=== PATIENT | male | born 1955 | race Caucasian/White ===

== ENCOUNTER → 2016-09-09 | Outpatient (CLI) | payer MEDICARE, BC ==
[2016-09-09 10:51] LABS: ALT 32 U/L (21-72); AST 22 U/L (17-59); Alkaline Phosphatase 47 U/L (38-126); Anion Gap 13 mmol/L; Blood Urea Nitrogen 11 mg/dL (9-20); Calcium 9.3 mg/dL (8.4-10.2); Carbon Dioxide 26 mmol/L (22-30); Chloride 102 mmol/L (98-107); Glucose 120 mg/dL (74-99); Non-African American GFR(MDRD) >60 (>60 ml/min/1.73 sqM); Potassium 4.9 mmol/L (3.5-5.1); Sodium 141 mmol/L (137-145); Total Bilirubin 0.7 mg/dL (0.2-1.3); Total Protein 7.3 g/dL (6.3-8.2)
[2016-09-23 12:44] LABS: Mis test requested (Blood) ApoE Genotype
== END | disposition home or self-care (01) ==
LOC: LABWHC1 09:53
PROVIDERS: ATTEND Nurse Practitioner Acute Care
DX: E55.9 Vitamin D deficiency, unspecified (principal); R41.3 Other amnesia
CPT/HCPCS: 36415; 80053; 81401; 82306

== ENCOUNTER 2017-11-03 04:32 | Observation (INO) | payer MEDICARE, BC ==
[2017-11-03 04:46] VITALS: TEMP 97.6
--- NOTE | 2017-11-03 05:31 | ED ---
General Adult HPI - General Chief complaint: Neuro Symptoms/Deficit Stated complaint: Near-syncope Time Seen by Provider: 11/03/17 05:15 Source: patient, family, EMS, RN notes reviewed Mode of arrival: EMS Limitations: no limitations - History of Present Illness Initial comments: Patient is a pleasant 62-year-old male presenting to the emergency department for possible syncopal episode. Patient states he became shaky and then very sweaty. Patient did not feel well and went to the bathroom. Patient did fall down. Patient does not recall what may have happened for a second or so. Patient states it is possible that he may have passed out. Following this patient started to feel normal and feels fine at this time. No history of similar symptoms previously. No confusion except possibly during the episode for a second. No isolated area of weakness. - Related Data Allergies Allergy/AdvReac Type Severity Reaction Status Date / Time No Known Allergies Allergy Verified 11/03/17 04:46 Review of Systems ROS Statement: Those systems with pertinent positive or pertinent negative responses have been documented in the HPI. ROS Other: All systems not noted in ROS Statement are negative. Constitutional: Denies: fever Eyes: Denies: eye pain ENT: Denies: ear pain Respiratory: Denies: cough Cardiovascular: Denies: chest pain Endocrine: Denies: fatigue Gastrointestinal: Denies: abdominal pain Genitourinary: Denies: dysuria Musculoskeletal: Denies: back pain Skin: Denies: rash Neurological: Denies: headache, weakness, confusion Past Medical History Past Medical History: No Reported History, CVA/TIA History of Any Multi-Drug Resistant Organisms: None Reported Past Surgical History: Orthopedic Surgery Additional Past Surgical History / Comment(s): knee surgery Past Psychological History: No Psychological Hx Reported Smoking Status: Current every day smoker Past Alcohol Use History: Daily Past Drug Use History: None Reported General Exam Limitations: no limitations General appearance: alert, in no apparent distress Head exam: Present: atraumatic Eye exam: Present: normal appearance, PERRL, EOMI. Absent: nystagmus ENT exam: Present: normal oropharynx Neck exam: Present: normal inspection Respiratory exam: Present: normal lung sounds bilaterally Cardiovascular Exam: Present: regular rate, normal rhythm Expanded Peripheral pulses: 2+: Radial (R), Radial (L), Dorsalis Pedis (R), Dorsalis Pedis (L) GI/Abdominal exam: Present: soft. Absent: distended, tenderness, pulsatile mass Extremities exam: Present: normal inspection. Absent: pedal edema, calf tenderness Neurological exam: Present: alert, oriented X3, CN II-XII intact. Absent: motor sensory deficit Expanded Neurological exam: Present: protecting the airway Patient oriented to: Present: person, place, time Speech: Present: fluid speech Cranial nerves: EOM's Intact: Normal, Facial Sensation: Normal Cerebellar function: Finger to Nose: Normal Sensory exam: Upper Extremity Light Touch: Normal, Lower Extremity Light Touch: Normal Motor strength exam: RUE: 5, LUE: 5, RLE: 5, LLE: 5 Eye Response: (4) open spontaneously Motor Response: (6) obeys commands Verbal Response: (5) oriented Psychiatric exam: Present: normal affect, normal mood Skin exam: Present: normal color Course Vital Signs 11/03/17 11/03/17 04:41 06:30 Temperature 97.6 F Pulse Rate 55 L 58 L Respiratory 18 17 Rate Blood Pressure 233/100 171/79 O2 Sat by Pulse 99 98 Oximetry EKG Findings - EKG Comments: EKG Findings:: Sinus bradycardia 53. DC 138. QRS 86. QT 456. QTc 427. Normal axis. Normal QRS. No acute ST change. Medical Decision Making - Medical Decision Making Patient reevaluated and resting comfortably in bed. Patient and family updated on results and plan. Case was discussed in detail with Dr. Boykin, who will admit for hospital call - Lab Data Result diagrams: 11/03/17 04:48 11/03/17 04:48 Lab Results 11/03/17 11/03/17 11/03/17 Range/Units 04:48 04:48 04:48 WBC 6.5 (3.8-10.6) k/uL RBC 4.62 (4.30-5.90) m/uL Hgb 14.6 (13.0-17.5) gm/dL Hct 42.8 (39.0-53.0) % MCV 92.6 (80.0-100.0) fL MCH 31.7 (25.0-35.0) pg MCHC 34.2 (31.0-37.0) g/dL RDW 13.2 (11.5-15.5) % Plt Count 264 (150-450) k/uL Neutrophils % 63 % Lymphocytes % 25 % Monocytes % 5 % Eosinophils % 5 % Basophils % 1 % Neutrophils # 4.1 (1.3-7.7) k/uL Lymphocytes # 1.6 (1.0-4.8) k/uL Monocytes # 0.3 (0-1.0) k/uL Eosinophils # 0.3 (0-0.7) k/uL Basophils # 0.0 (0-0.2) k/uL PT (9.0-12.0) sec INR (<1.2) APTT (22.0-30.0) sec Sodium 143 (137-145) mmol/L Potassium 4.8 (3.5-5.1) mmol/L Chloride 107 (98-107) mmol/L Carbon Dioxide 26 (22-30) mmol/L Anion Gap 10 mmol/L BUN 14 (9-20) mg/dL Creatinine 0.77 (0.66-1.25) mg/dL Est GFR (CKD-EPI)AfAm >90 (>60 ml/min/1.73 sqM) Est GFR (CKD-EPI)NonAf >90 (>60 ml/min/1.73 sqM) Glucose 89 (74-99) mg/dL Calcium 8.7 (8.4-10.2) mg/dL Magnesium 1.8 (1.6-2.3) mg/dL Total Bilirubin 0.3 (0.2-1.3) mg/dL AST 24 (17-59) U/L ALT 21 (21-72) U/L Alkaline Phosphatase 49 (38-126) U/L Total Creatine Kinase 40 L (55-170) U/L CK-MB (CK-2) 0.9 (0.0-2.4) ng/mL CK-MB (CK-2) Rel Index 2.3 Troponin I <0.012 (0.000-0.034) ng/mL Total Protein 6.4 (6.3-8.2) g/dL Albumin 3.8 (3.5-5.0) g/dL 11/03/17 Range/Units 04:48 WBC (3.8-10.6) k/uL RBC (4.30-5.90) m/uL Hgb (13.0-17.5) gm/dL Hct (39.0-53.0) % MCV (80.0-100.0) fL MCH (25.0-35.0) pg MCHC (31.0-37.0) g/dL RDW (11.5-15.5) % Plt Count (150-450) k/uL Neutrophils % % Lymphocytes % % Monocytes % % Eosinophils % % Basophils % % Neutrophils # (1.3-7.7) k/uL Lymphocytes # (1.0-4.8) k/uL Monocytes # (0-1.0) k/uL Eosinophils # (0-0.7) k/uL Basophils # (0-0.2) k/uL PT 10.4 (9.0-12.0) sec INR 1.1 (<1.2) APTT 19.9 L (22.0-30.0) sec Sodium (137-145) mmol/L Potassium (3.5-5.1) mmol/L Chloride (98-107) mmol/L Carbon Dioxide (22-30) mmol/L Anion Gap mmol/L BUN (9-20) mg/dL Creatinine (0.66-1.25) mg/dL Est GFR (CKD-EPI)AfAm (>60 ml/min/1.73 sqM) Est GFR (CKD-EPI)NonAf (>60 ml/min/1.73 sqM) Glucose (74-99) mg/dL Calcium (8.4-10.2) mg/dL Magnesium (1.6-2.3) mg/dL Total Bilirubin (0.2-1.3) mg/dL AST (17-59) U/L ALT (21-72) U/L Alkaline Phosphatase (38-126) U/L Total Creatine Kinase (55-170) U/L CK-MB (CK-2) (0.0-2.4) ng/mL CK-MB (CK-2) Rel Index Troponin I (0.000-0.034) ng/mL Total Protein (6.3-8.2) g/dL Albumin (3.5-5.0) g/dL - Radiology Data Radiology results: report reviewed (Computed tomography scan of the brain shows no acute findings. extensive right sided encephalomalacia from previous infarct. ), image reviewed (Two-view chest x-ray shows no acute process.) Disposition Clinical Impression: Syncope Disposition: ADMITTED IP TO THIS HOSP Referrals: None,Stated [Primary Care Provider] - 1-2 days Decision Time: 06:33
--- NOTE | 2017-11-03 05:46 | XR ---
EXAM: XR Chest, 2 Views CLINICAL HISTORY: ITS.REASON XR Reason: syncope TECHNIQUE: Frontal and lateral views of the chest. COMPARISON: No relevant prior studies available. FINDINGS: Lungs: Hyperinflated lungs and flattened diaphragms suggest emphysematous changes. Pleural space: Unremarkable. No pneumothorax. Heart: Unremarkable. No cardiomegaly. Mediastinum: Unremarkable. Bones/joints: Unremarkable. IMPRESSION: No acute findings. Emphysematous changes.
[2017-11-03 05:48] LABS: Basophils % (A) 1 %; Eosinophils # (A) 0.3 k/uL (0-0.7); Eosinophils % (A) 5 %; HCT 42.8 % (39.0-53.0); HGB 14.6 gm/dL (13.0-17.5); Lymphocytes # (A) 1.6 k/uL (1.0-4.8); Lymphocytes % (A) 25 %; MCH 31.7 pg (25.0-35.0); MCHC 34.2 g/dL (31.0-37.0); MCV 92.6 fL (80.0-100.0); Mean Platelet Volume 7.5; Monocytes # (A) 0.3 k/uL (0-1.0); Monocytes % (A) 5 %; Neutrophils # (A) 4.1 k/uL (1.3-7.7); Neutrophils % (A) 63 %; Platelet Count 264 k/uL (150-450); RBC 4.62 m/uL (4.30-5.90); RDW 13.2 % (11.5-15.5); WBC 6.5 k/uL (3.8-10.6)
[2017-11-03 05:56] LABS: INR 1.1 (<1.2); Prothrombin Time 10.4 sec (9.0-12.0)
[2017-11-03 05:57] LABS: ALT 21 U/L (21-72); AST 24 U/L (17-59); Albumin 3.8 g/dL (3.5-5.0); Alkaline Phosphatase 49 U/L (38-126); Anion Gap 10 mmol/L; Blood Urea Nitrogen 14 mg/dL (9-20); Calcium 8.7 mg/dL (8.4-10.2); Carbon Dioxide 26 mmol/L (22-30); Chloride 107 mmol/L (98-107); Glucose 89 mg/dL (74-99); Magnesium 1.8 mg/dL (1.6-2.3); Potassium 4.8 mmol/L (3.5-5.1); Sodium 143 mmol/L (137-145); Total Bilirubin 0.3 mg/dL (0.2-1.3); Total Protein 6.4 g/dL (6.3-8.2)
[2017-11-03 06:01] LABS: Creatine Kinase 40 U/L (55-170)
[2017-11-03 06:08] LABS: Partial Thromboplastin Time 19.9 sec (22.0-30.0)
[2017-11-03 06:13] LABS: Creatine Kinase MB 0.9 ng/mL (0.0-2.4); Troponin I <0.012 ng/mL (0.000-0.034)
--- NOTE | 2017-11-03 06:16 | CT ---
EXAM: CT Head Without Intravenous Contrast CLINICAL HISTORY: Reason: syncope TECHNIQUE: Axial computed tomography images of the head/brain without intravenous contrast. CTDI is 60.3 mGy and DLP is 1090.4 mGy-cm. This CT exam was performed using one or more of the following dose reduction techniques: automated exposure control, adjustment of the mA and/or kV according to patient size, and/or use of iterative reconstruction technique. Coronal and sagittal reformatted images were created and reviewed. COMPARISON: No relevant prior studies available. FINDINGS: Brain: Extensive right-sided encephalomalacia from previous MCA territory infarct with involvement of the right frontal and parietal lobes. No hemorrhage. No mass effect or edema. No definite evolving territorial infarction. Ventricles: Ex vacuo dilatation of the right lateral ventricle. Bones/joints: Unremarkable. No acute fracture. Soft tissues: Unremarkable. Sinuses: Right sphenoid sinus mucous retention cysts. Mild mucosal thickening of the ethmoid air cells. Left frontal sinus mucous retention cyst. Mastoid air cells: Unremarkable as visualized. No mastoid effusion. IMPRESSION: No acute findings. Extensive right-sided encephalomalacia from previous MCA territory infarct with involvement of the right frontal and parietal lobes.
[2017-11-03] MEDS ORDERED: NALOXONE 0.4 MG/ML 1 ML VIAL IV PRN (06:33)
[2017-11-03] MEDS ORDERED: SODIUM CHLORIDE 0.9% 1,000 ML IV SCH (06:45)
[2017-11-03 06:47] LABS: Appearance,Urine Clear (Clear); Bilirubin,Urine Negative (Negative); Blood,Urine Negative (Negative); Color,Urine Yellow; Glucose,Urine (UA) Negative (Negative); Ketones,Urine Trace (Negative); Leukocyte Esterase,Urine Negative (Negative); Nitrite,Urine Negative (Negative); PH, Urine 5.5 (5.0-8.0); Protein,Urine Negative (Negative); Specific Gravity,Urine 1.012 (1.001-1.035); Urobilinogen,Urine <2.0 mg/dL (<2.0)
[2017-11-03] MEDS ORDERED: LORazepam 2 MG/ML INJ IV PRN ×3 (08:30)
[2017-11-03] MEDS ORDERED: NICOTINE POLACRILEX 2 MG GUM BUCCAL PRN (08:30)
[2017-11-03 08:32] LABS: Amphetamine Screen,Urine Not Detected (NotDetected); Barbiturate Screen,Urine Not Detected (NotDetected); Benzodiazepines Screen,Urine Not Detected (NotDetected); Cocaine Screen,Urine Not Detected (NotDetected); Methadone Screen, Urine Not Detected (NotDetected); Opiate Screen,Urine Not Detected (NotDetected); Oxycodone Screen, Urine Not Detected (NotDetected); Phencyclidine Screen,Urine Not Detected (NotDetected); Tricyclic Antidepressant,Urine Not Detected (NotDetected); Urn Cannabinoid Scrn Not Detected (NotDetected)
--- NOTE | 2017-11-03 09:47 | ECHOF ---
Referral Reason:syncope MEASUREMENTS -------- HEIGHT: 165.1 cm WEIGHT: 50.8 kg BP: 171/79 IVSd: 0.8 cm (0.6 - 1.1) LVIDd: 3.7 cm (3.9 - 5.3) LVPWd: 1.1 cm (0.6 - 1.1) IVSs: 1.6 cm LVIDs: 1.7 cm LVPWs: 1.4 cm Ao Diam: 3.6 cm (2.0 - 3.7) AV Cusp: 1.9 cm (1.5 - 2.6) LA Diam: 2.9 cm (2.7 - 3.8) MV EXCURSION: 25.683 mm (> 18.000) MV EF SLOPE: 138 mm/s (70 - 150) EPSS: 0.5 cm MV E John: 0.67 m/s MV DecT: 213 ms MV A John: 0.72 m/s MV E/A Ratio: 0.92 RAP: 5.00 mmHg RVSP: 9.49 mmHg FINDINGS -------- Sinus rhythm. This was a technically adequate study. The left ventricular size is normal. Left ventricular wall thickness is normal. Overall left vent ricular systolic function is normal with, an EF between 55 - 60 %. The right ventricle is normal in size and function. The left atrium is normal in size. The right atrium is normal in size. The aortic valve is trileaflet, and appears structurally normal. No aortic stenosis or regurgitation. The mitral valve leaflets are mildly thickened. There is trace mitral regurgitation. Trace tricuspid regurgitation present. The right ventricular systolic pressure, as measured by Dopp ler, is 9.49mmHg. Pulmonic valve appears structurally normal. The aortic root size is normal. Normal inferior vena cava with normal inspiratory collapse consistent with estimated right atrial pre ssure of 5 mmHg. The pericardium is normal. CONCLUSIONS -------- 1. Sinus rhythm. 2. This was a technically adequate study. 3. The left ventricular size is normal. 4. Left ventricular wall thickness is normal. 5. Overall left ventricular systolic function is normal with, an EF between 55 - 60 %. 6. The right ventricle is normal in size and function. 7. The left atrium is normal in size. 8. The right atrium is normal in size. 9. The aortic valve is trileaflet, and appears structurally normal. No aortic stenosis or regurgitati on. 10. The mitral valve leaflets are mildly thickened. 11. There is trace mitral regurgitation. 12. Trace tricuspid regurgitation present. 13. The right ventricular systolic pressure, as measured by Doppler, is 9.49mmHg. 14. Pulmonic valve appears structurally normal. 15. The aortic root size is normal. 16. Normal inferior vena cava with normal inspiratory collapse consistent with estimated right atrial pressure of 5 mmHg. 17. The pericardium is normal. STANDARDS ENGINEER: Donita Durán RDCS
--- NOTE | 2017-11-03 11:09 | P.HPIM ---
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 On arrival to the emergency department he was hypertensive with a blood pressure of 233/110. Initial laboratory analysis was unremarkable. EKG showed sinus bradycardia at a rate of [address]-T wave changes. He underwent a chest x-ray which showed no acute process and a CT of the head which showed right encephalomalacia secondary to prior MCA CVA. He was admitted for observation. Patient seen and examined at bedside. He states that he was awake early this morning at 3 AM. He was sitting at breakfast table and drinking coffee when he got diaphoretic and nauseous. He felt as though he needed to throw up and proceeded to go to the bathroom. The next thing he remembers is waking up on the bathroom floor. His heard a big thud from the other room. She helped him walk to the kitchen where he was shaky and diaphoretic. She then called EMS. He denies any chest pain, shortness of breath, lightheadedness, or dizziness. He states he has never had an episode like this before. He does typically drink 8 beers daily and to RUM and Cokes however he admits to drinking significantly more night before this. He has known carotid artery disease and follows with Dr. Dumont. He states he recently had a carotid Doppler performed which he states was unchanged from 6 months prior. He follows with Dr. Dumont every 6 months. He also follows the nurse practitioner Dr. Joseph's office secondary to history and she has been on Aricept and simvastatin. He has also been taking a daily baby aspirin and vitamin D. He has not had any recent illnesses. He has not had any recent changes since in his medications. He denies any significant joint pain, weakness, or limited range of motion after fall. Review of Systems General: no fever/chills, no rigors, no weight loss/weight gain, no unusual fatigue Eyes: no noticeable visual changes, no loss of vision ENT: no rhinorrhea, no congestion, no sore throat Cardiovascular: no chest pain, no palpitations, no preyncope, +syncope, no edema Pulmonary: no shortness of breath, no wheezing, no cough Abdominal: no abdominal pain, no constipation, no diarrhea, no vomiting, no nausea Genitourinary: no dysuria, no urinary frequency, no unusual discharge/odor Neuro: no unusual paresthesias, no unusual paresis/paralysis, no headache Dermatologic: no unusual rashes, no unusual lesions, no unusual changes in nails Hematologic: no hemoptysis, no hematuria, no melena/hematochezia Psychiatric: no changes in mood or behaviors, no changes in sleep pattern Past Medical History Past Medical History: CVA/TIA, Hyperlipidemia History of Any Multi-Drug Resistant Organisms: None Reported Past Surgical History: Orthopedic Surgery Additional Past Surgical History / Comment(s): knee surgery for knee cap Past Psychological History: No Psychological Hx Reported Smoking Status: Current every day smoker Past Alcohol Use History: Daily, Heavy Past Drug Use History: None Reported Additional History: Lives with , retired, no assistive devices - Past Family History Mother Family Medical History: Cancer Additional Family Medical History / Comment(s): from Ovarian cancer Father Family Medical History: Cancer Additional Family Medical History / Comment(s): from Colon Cancer Medications and Allergies Home Medications Medication Instructions Recorded Confirmed Type Aspirin EC [Ecotrin] 325 mg PO HS 11/03/17 11/03/17 History Cholecalciferol [Vitamin D3] 1,000 unit PO HS 11/03/17 11/03/17 History Donepezil [Aricept] 10 mg PO HS 11/03/17 11/03/17 History Simvastatin [Zocor] 20 mg PO HS 11/03/17 11/03/17 History Allergies Allergy/AdvReac Type Severity Reaction Status Date / Time No Known Allergies Allergy Verified 11/03/17 07:27 Physical Exam Osteopathic Statement: *. No significant issues noted on an osteopathic structural exam other than those noted in the History and Physical/Consult. Vitals: Vital Signs Temp Pulse Resp BP Pulse Ox 11/03/17 06:30 58 L 17 171/79 98 11/03/17 04:41 97.6 F 55 L 18 233/100 99 Intake and Output 11/02/17 11/03/17 11/03/17 22:59 06:59 14:59 Other: Weight 50.802 kg General: non toxic, no distress, appears at stated age, cachectic Derm: no unusual rashes/lesions no unusual ecchymoses, warm, dry Head: atraumatic, normocephalic, symmetric Eyes: EOMI, no lid lag, anicteric sclera, pupils equal round reactive to light ENT: Nose and ears atraumatic, no thrush, no pharyngeal erythema Neck: No thyromegaly, no cervical lymphadenopathy, trachea midline, supple Mouth: no lip lesion, mucus membranes moist Cardiovascular: S1S2 reg, no murmur, positive posterior tibial pulse bilateral, no edema, capillary refill less than 2 seconds Lungs: CTA bilateral, no rhonchi, no rales , no accessory muscle use Abdominal: soft, nontender to palpation, no guarding, no appreciable organomegaly, normal bowel sounds Ext: no gross muscle atrophy and right upper extremity/right lower extremity/ left lower extremity, minimal muscle atrophy and left upper extremity, muscle strength 5 out of 5 in right upper extremity right lower extremity and left lower extremity, 4 out of 5 in left upper extremity, no contractures, Neuro: CN II-XI grossly intact, light touch intact all 4 extremities, finger to nose within normal limits, Psych: Alert, oriented, appropriate affect Results CBC & Chem 7: 11/03/17 04:48 11/03/17 04:48 Labs: Abnormal Lab Results - Last 24 Hours (Table) 11/03/17 11/03/17 11/03/17 Range/Units 04:48 04:48 06:36 APTT 19.9 L (22.0-30.0) sec Total Creatine Kinase 40 L (55-170) U/L Urine Ketones Trace H (Negative) Comments: EKG is reviewed by myself reveals sinus bradycardia at a rate of [address]-T wave changes, chest x-ray is reviewed by myself reveals no acute findings but chronic emphysematous changes. Chest x-ray: report reviewed, image reviewed CT Scan - head: report reviewed Thrombosis Risk Factor Assmnt - DVT/VTE Prophylaxis DVT/VTE Prophylaxis: Low risk, early ambulation encouraged Assessment and Plan Assessment: Syncopal event -Telemetry -Echocardiogram ordered-is already resulted and within normal limits -Await results of carotid Dopplers Dr. Dumont's office -Suspect secondary to alcohol use Alcohol abuse with impending delirium tremens -C1 protocol -Scheduled Librium -Thiamine Tobacco abuse -Cessation recommended -Nicotine replacement Dyslipidemia -Statin therapy Accelerated hypertension -Follow blood pressures -Anticipate secondary to anxiety from being hospitalized Prior stroke with residual left-sided deficits -Continue statin and aspirin -Physical therapy consultation Anticipate discharge this afternoon if no significant events on telemetry for 12 hours. Patient already asking to go home. If he wants to lose significantly before this and will likely have to be AGAINST MEDICAL ADVICE as there is some concern for an arrhythmia. Surrogate decision-maker: -Dianne CODE STATUS: Full DVT prophylaxis: SCDs Discussed with: Patient, , RN, nighttime hospitalist Anticipated discharge: Less than [address]: home A total of 55 minutes was spent on the care of this complex patient more than 50 % of the time was spent in counseling and care coordination.
[2017-11-03 11:58] LABS: Creatine Kinase 40 U/L (55-170)
[2017-11-03] MEDS ORDERED: MULTIVITAMINS, THERA 1 EACH TAB PO SCH (12:00)
[2017-11-03] MEDS ORDERED: THIAMINE 100 MG TAB PO SCH (12:00)
[2017-11-03 12:09] LABS: Creatine Kinase MB 0.9 ng/mL (0.0-2.4); Troponin I <0.012 ng/mL (0.000-0.034)
[2017-11-03 13:37] VITALS: RESP 16
--- NOTE | 2017-11-03 16:06 | P.DS ---
Providers Date of admission: 11/03/17 06:33 Expected date of discharge: 11/03/17 Attending physician: Brian Boykin MD Consults: 11/03/17 06:34 Consult Physician Urgent Consulting Provider: Jesse Kelly Consult Reason/Comments: syncope Do you want consulting provider notified?: Yes 11/03/17 06:35 Consult Physician Urgent Consulting Provider: Rafael Joseph Consult Reason/Comments: syncope Do you want consulting provider notified?: Yes Primary care physician: Stated None - Discharge Diagnosis(es) (1) Syncope Current Visit: Yes Status: Acute (2) Alcohol use disorder, mild, abuse Current Visit: Yes Status: Acute (3) Hypertensive urgency Current Visit: Yes Status: Acute (4) Tobacco abuse Current Visit: Yes Status: Acute (5) Dyslipidemia Current Visit: Yes Status: Acute (6) Carotid arterial disease Current Visit: Yes Status: Acute Hospital Course: Patient is a 62-year-old male with a significant medical history of large right-sided MCA CVA with minimal residual left upper extremity weakness, dyslipidemia, carotid disease, peripheral arterial disease, and alcohol use who presented to the ED via EMS with a syncopal episode. On arrival to the emergency department he was hypertensive with a blood pressure of 233/110. Initial laboratory analysis was unremarkable. EKG showed sinus bradycardia at a rate of [address]-T wave changes. He underwent a chest x-ray which showed no acute process and a CT of the head which showed right encephalomalacia secondary to prior MCA CVA. He was admitted for observation. his blood pressure came down without significant intervention. He has been following with Dr. Dumont of vascular surgery and had a carotid ultrasound done recently. The were able to obtain records which showed a chronically occluded left internal carotid artery and stenosis of 16-49 percent of the right internal carotid artery. He was monitored on telemetry without any significant events. He also had an echocardiogram performed which did not showany significant disease. He was feeling back to his normal self. He was determined stable for discharge home. He did not have any medications adjusted. He had not been seeing a primary care provider in quite some time and was given information for Dr. Sony oscar office. A total of 20 minutes of time were spent preparing this complex discharge summary . Pertinent Studies: echocardiogram-preserved ejection fraction of 55-60%, Patient Condition at Discharge: Stable Plan - Discharge Summary Discharge Rx Participant: No New Discharge Prescriptions: Continue Simvastatin [Zocor] 20 mg PO HS Donepezil [Aricept] 10 mg PO HS Cholecalciferol [Vitamin D3] 1,000 unit PO HS Aspirin EC [Ecotrin] 325 mg PO HS Discharge Medication List Aspirin EC [Ecotrin] 325 mg PO HS 11/03/17 [History] Cholecalciferol [Vitamin D3] 1,000 unit PO HS 11/03/17 [History] Donepezil [Aricept] 10 mg PO HS 11/03/17 [History] Simvastatin [Zocor] 20 mg PO HS 11/03/17 [History] Follow up Appointment(s)/Referral(s): None,Stated [Primary Care Provider] - 1-2 days Sony Oscar MD [STAFF PHYSICIAN] - 1 Week Patient Instructions/Handouts: Syncope (DC) Activity/Diet/Wound Care/Special Instructions: Regular diet Activity as tolerated Return to seek medical advice if you have another syncopal episode, develop chest pain or shortness of breath Cut down on alcohol consumption Discharge Disposition: HOME SELF-CARE
[2017-11-03 16:09] VITALS: BP 155/80; PULSE 64
== END 2017-11-03 16:30 | disposition home or self-care (01) ==
LOC: EC 04:32 → 3OBS 06:33
PROVIDERS: ADMIT Family Medicine; ATTEND Family Medicine
DX: R55 Syncope and collapse (principal); I16.0 Hypertensive urgency; I10 Essential (primary) hypertension; I65.23 Occlusion and stenosis of bilateral carotid arteries; I69.354 Hemiplegia and hemiparesis following cerebral infarction affecting left non-dominant side; I73.9 Peripheral vascular disease, unspecified; E78.5 Hyperlipidemia, unspecified; F10.10 Alcohol abuse, uncomplicated; F41.9 Anxiety disorder, unspecified; I69.398 Other sequelae of cerebral infarction; G93.89 Other specified disorders of brain; F17.200 Nicotine dependence, unspecified, uncomplicated; R00.1 Bradycardia, unspecified; Z79.82 Long term (current) use of aspirin; Z79.899 Other long term (current) drug therapy; Z80.0 Family history of malignant neoplasm of digestive organs; Z80.41 Family history of malignant neoplasm of ovary
CPT/HCPCS: 99285 ×2; 36415; 93005; 93306; 80053; 82550; 82553; 83735; 84484; 85025; 85610; 85730; 81003; 80306; 80320; 71046; 70450; G0378

== ENCOUNTER 2021-03-13 07:56 | Emergency (ER) | payer MEDICARE ==
[2021-03-13 08:58] LABS: Partial Thromboplastin Time 22.1 sec (22.0-30.0); Prothrombin Time 10.8 sec (9.0-12.0)
--- NOTE | 2021-03-13 09:01 | XR ---
EXAMINATION TYPE: XR chest 1V portable DATE OF EXAM: 03/13/2021 Comparison: 11/03/2017 Clinical History: 65-year-old male shortness of breath Findings: There is volume loss in the right hemithorax with new moderate to large pleural effusion and extensiv e opacity in the remaining right upper to midlung. Left lung and pleural space are clear. Hyperinflat ion suggests underlying emphysema. Impression: Right-sided volume loss along with a new moderate to large right pleural effusion and extensive patch y opacity throughout the remainder of the upper and mid lung. Correlate for underlying pneumonia or m ass. If a CT is performed, it should be done with contrast.
[2021-03-13 09:11] LABS: ALT 7 U/L (4-49); AST 32 U/L (17-59); African American GFR (CKD) >90 (>60 ml/min/1.73 sqM); Albumin 3.2 g/dL (3.5-5.0); Alkaline Phosphatase 87 U/L (38-126); Anion Gap 8 mmol/L; Blood Urea Nitrogen 10 mg/dL (9-20); Calcium 8.8 mg/dL (8.4-10.2); Carbon Dioxide 28 mmol/L (22-30); Chloride 96 mmol/L (98-107); Glucose 97 mg/dL (74-99); Magnesium 1.8 mg/dL (1.6-2.3); Non-African American GFR(CKD) >90 (>60 ml/min/1.73 sqM); Sodium 132 mmol/L (137-145); Total Bilirubin 0.8 mg/dL (0.2-1.3); Total Protein 6.6 g/dL (6.3-8.2)
[2021-03-13 09:17] LABS: Basophils % (A) 0 %; Eosinophils % (A) 0 %; HCT 40.5 % (39.0-53.0); Lymphocytes % (A) 12 %; MCH 30.2 pg (25.0-35.0); MCHC 32.1 g/dL (31.0-37.0); Mean Platelet Volume 7.7; Monocytes # (A) 0.4 k/uL (0-1.0); Monocytes % (A) 5 %; Neutrophils % (A) 82 %; Platelet Count 419 k/uL (150-450); RBC 4.31 m/uL (4.30-5.90); RDW 14.8 % (11.5-15.5); WBC 8.6 k/uL (3.8-10.6)
[2021-03-13 09:18] LABS: Potassium 4.9 mmol/L (3.5-5.1)
[2021-03-13] MEDS ORDERED: ASPIRIN 81 MG PO STA (10:04)
[2021-03-13] MEDS ORDERED: HEPARIN SODIUM 1,000 UN/ML (10ML VL) IV ONE (10:04)
[2021-03-13] MEDS ORDERED: HEPARIN SODIUM 1,000 UN/ML (10ML VL) IV PRN (10:04)
[2021-03-13] MEDS ORDERED: HEPARIN SOD,PORK IN 0.45% NACL 25,000 UNIT in 0.45% NACL 1 250ML.BAG IV SCH (10:15)
[2021-03-13 10:20] VITALS: BP 108/66; PULSE 74; RESP 18; TEMP 98.6
[2021-03-13] MEDS ORDERED: RX INFO: IV CONTRAST WAS GIVEN 1 EACH MISC MISCELLANE PRN (10:25)
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
== END 2021-03-13 11:10 | disposition left against medical advice (07) ==
LOC: EC 07:56
DX: E87.2 Acidosis (principal); J90 Pleural effusion, not elsewhere classified; I21.4 Non-ST elevation (NSTEMI) myocardial infarction; R09.02 Hypoxemia; I50.9 Heart failure, unspecified; E78.5 Hyperlipidemia, unspecified; F17.200 Nicotine dependence, unspecified, uncomplicated; Z79.82 Long term (current) use of aspirin; Z79.899 Other long term (current) drug therapy; Z86.73 Personal history of transient ischemic attack (TIA), and cerebral infarction without residual deficits
CPT/HCPCS: 36415; 71045; 80053; 83605; 83735; 83880; 84484; 85025; 85610; 85730; 93005; 99285

== ENCOUNTER 2021-03-14 09:34 | Inpatient (IN) | payer MEDICARE ==
[2021-03-14] MEDS ORDERED: ALBUTEROL NEBULIZED 2.5 MG/3 ML INHALATION STA (09:36)
[2021-03-14] MEDS ORDERED: IPRATROPIUM 0.5 MG/2.5 ML NEBU INHALATION STA (09:36)
[2021-03-14] MEDS ORDERED: methylPREDNISolone SOD SUCCI 125 MG/2 ML VIAL IV STA (09:36)
[2021-03-14] MEDS ORDERED: FUROSEMIDE 10 MG/ML 4 ML VIAL IV STA (09:39)
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
[2021-03-14 10:35] LABS: Basophils % (A) 0 %; Eosinophils # (A) 0.1 k/uL (0-0.7); Eosinophils % (A) 0 %; HCT 40.1 % (39.0-53.0); HGB 12.7 gm/dL (13.0-17.5); Hypochromasia Slight; Lymphocytes # (A) 0.9 k/uL (1.0-4.8); Lymphocytes % (A) 5 %; MCH 29.9 pg (25.0-35.0); MCHC 31.6 g/dL (31.0-37.0); MCV 94.6 fL (80.0-100.0); Mean Platelet Volume 8.2; Monocytes # (A) 0.6 k/uL (0-1.0); Monocytes % (A) 3 %; Neutrophils # (A) 15.6 k/uL (1.3-7.7); Neutrophils % (A) 90 %; Platelet Count 458 k/uL (150-450); RBC 4.24 m/uL (4.30-5.90); RDW 14.3 % (11.5-15.5); WBC 17.3 k/uL (3.8-10.6)
[2021-03-14 10:41] LABS: INR 1.1 (<1.2); Partial Thromboplastin Time 22.2 sec (22.0-30.0); Prothrombin Time 11.5 sec (9.0-12.0)
--- NOTE | 2021-03-14 10:43 | XR ---
EXAMINATION TYPE: XR chest 1V portable DATE OF EXAM: 03/14/2021 COMPARISON: Chest x-ray from yesterday and November 03, 2017 HISTORY: Shortness of breath TECHNIQUE: Single AP portable frontal view of the chest is obtained. FINDINGS: Persistent right-sided volume loss with mediastinal shift. Persistent small to moderate si ze right pleural fluid collection suspected slightly improved from prior. Apical opacity could reflec t component of pleural effusion versus other etiology. Diffuse right lung infiltrate and/or edema red emonstrated. Left lung remains clear. Cardiac silhouette size likely within normal limits. Silhouette d right heart border redemonstrated. Osseous structures are intact. IMPRESSION: Improved but persistent right-sided pleural effusion. Persistent right lung edema and/or infiltrates. Persistent right-sided volume loss. Underlying obstructive central mass or neoplasm nee ds to be excluded.
[2021-03-14] MEDS ORDERED: RX INFO: IV CONTRAST WAS GIVEN 1 EACH MISC MISCELLANE PRN (10:49)
[2021-03-14] MEDS ORDERED: cefTRIAXone IN SWFI 1,000 MG/10 ML SYRINGE IVP STA (10:50)
[2021-03-14 10:56] LABS: ALT 11 U/L (4-49); AST 32 U/L (17-59); African American GFR (CKD) >90 (>60 ml/min/1.73 sqM); Albumin 3.4 g/dL (3.5-5.0); Alkaline Phosphatase 116 U/L (38-126); Anion Gap 15 mmol/L; Blood Urea Nitrogen 12 mg/dL (9-20); Calcium 8.8 mg/dL (8.4-10.2); Carbon Dioxide 23 mmol/L (22-30); Chloride 96 mmol/L (98-107); Glucose 166 mg/dL (74-99); Magnesium 1.7 mg/dL (1.6-2.3); Non-African American GFR(CKD) >90 (>60 ml/min/1.73 sqM); Sodium 134 mmol/L (137-145); Total Bilirubin 0.4 mg/dL (0.2-1.3); Total Protein 6.6 g/dL (6.3-8.2)
[2021-03-14] MEDS ORDERED: LORazepam 2 MG/ML INJ IV STA (11:13)
[2021-03-14] MEDS ORDERED: LORazepam 2 MG/ML INJ IV PRN (11:14)
[2021-03-14] MEDS ORDERED: THIAMINE 100 MG/ML 2 ML VIAL IM STA (11:14)
[2021-03-14] MEDS ORDERED: IPRATROPIUM-ALBUTEROL 3 ML NEB INHALATION PRN (11:36)
[2021-03-14] MEDS ORDERED: ASPIRIN 325 MG TAB PO STA (11:39)
--- NOTE | 2021-03-14 12:19 | CT ---
EXAMINATION TYPE: CT chest w con DATE OF EXAM: 03/14/2021 COMPARISON: Radiograph same day HISTORY: 65-year-old male right-sided volume loss, effusion, infiltrate, Difficulty breathing TECHNIQUE: Contiguous axial scanning of the chest after the administration of 100 mL of Isovue 300. Coronal/sagittal reconstructions performed. CT DLP: 262mGycm. Automatic exposure control utilized for a dose reduction. FINDINGS: Heart normal size without pericardial effusion. Reflux of contrast into the hepatic veins. Aortic root is ectatic at 3.9 cm. Bovine configuration to the aortic arch. There is a large right paratracheal, precarinal, subcarinal, and right hilar contiguous mass measurin g up to 7.1 cm wide, 10.0 cm craniocaudal and 7.9 cm AP. There is encasement and narrowing of the rig ht main pulmonary artery and its proximal branches, the right superior and inferior pulmonary veins, the mid to lower SVC, right mainstem bronchus. There is cut off of the right upper lobe bronchus and cut off of the bronchus intermedius as well. Resultant right middle lobe collapse. Suspect medial right lower lobe collapse. Secondary volume loss and rightward cardia mediastinal shift. Moderate right pleural effusion. Possible 2.3 cm subpleural mass peripheral right upper lobe, axial image 27. Consolidation in the right upper lobe and right lower lobe, possible postobstructive pneumonia. Left lung and pleural space are clear. The visualized upper abdomen, there are 2 hypodense right liver lobe lesions measuring 4.0 cm each. There is severe plaque and atherosclerotic calcification resulting in cut off of the abdominal aorta just below the renal artery takeoff. Generalized anasarca change. Bones: Breathing motion artifact. No osseous destructive process. IMPRESSION: 1. Large conglomerate mass along the right peritracheal, subcarinal, and right hilar region measuring 10.0 x 7.9 x 7.1 cm. There is encasement of multiple right hilar structures including the mid to low er SVC and cut off of the right upper lobe bronchus and bronchus intermedius. Consider neoplasm such as small cell lung cancer. 2. Right middle lobe collapse, partial medial right lower lobe collapse. Moderate right pleural effus ion with multifocal right-sided infiltrates, probably postobstructive pneumonia. 3. Possible 2.3 cm subpleural metastasis right upper lobe. Two liver lesions measuring 4.0 cm each, s uspicious for metastasis. 4. LERICHE SYNDROME with abdominal aortic OCCLUSION just below the renal artery takeoff.
[2021-03-14] MEDS: methylPREDNISolone SOD SUCCI 125 MG/2 ML VIAL IV SCH ×2 (12:21→20:39)
--- NOTE | 2021-03-14 13:31 | ECHOF ---
Referral Reason:ESTEFANIA MEASUREMENTS -------- HEIGHT: 165.1 cm WEIGHT: 44.9 kg BP: FINDINGS -------- Sinus rhythm. Limited study pt combative and leaving AMA. There is severe global hypokinesis of LV . Overall left ventricular systolic function is severely i mpaired with, an EF < 20%. CONCLUSIONS -------- 1. Limited study pt combative and leaving AMA. 2. There is severe global hypokinesis of LV . 3. Overall left ventricular systolic function is severely impaired with, an EF < 20%. CERTIFIED PATHOLOGY ASSISTANT: Tiara Gonzales RDCS
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
--- NOTE | 2021-03-14 13:40 | P.PCN ---
Date of Procedure: 03/14/21 Operative Findings: Date of Procedure: 03/14/21 Preoperative Diagnosis: right sided pleural effusion Postoperative Diagnosis: right sided pleural effusion Procedure(s) Performed: Thoracentesis Anesthesia: local Surgeon: William Haile Estimated Blood Loss (ml): 0 Condition: stable Disposition: same day Operative Findings: A time out was performed and the chest x-ray was reviewed, the appropriate side was confirmed and marked. My hands were washed immediately prior to the procedure. I wore a surgical cap, mask with protective eyewear, sterile gown and sterile gloves throughout the procedure. The patient was prepped and draped in a sterile manner using chlorhexidine scrub after the appropriate level was percussed and confirmed by ultrasound. 1% lidocaine was used to anesthesize the skin, subcutaneous tissue, superior aspect of the rib periosteum and parietal pleura. A finder needle was then introduced over the superior aspect of the rib to locate the pleural fluid; 2colored fluid was aspirated at a depth of approximately 2 cm. A 10-blade scalpel was used to juwan the skin at the insertion site. The [id number] needle was then introduced through the skin incision into the pleural space using negative aspiration pressure and the red colometric indicator to confirm appropriate positioning of the needle. The thoracentesis catheter was then threaded without difficulty. 800 ml of turbid colored blood tinged fluid was removed without difficulty. The catheter was then removed. No immediate complications were noted during the procedure. A post- procedure chest x-ray is pending at the time of this note. The fluid will be sent for studies. Estimated blood loss is 0cc
--- NOTE | 2021-03-14 13:50 | XR ---
EXAMINATION TYPE: XR chest 1V portable DATE OF EXAM: 03/14/2021 CLINICAL HISTORY: Right-sided thoracentesis progress study. TECHNIQUE: Single AP portable semiupright view of the chest is obtained. COMPARISON: Chest x-ray and CT chest from earlier today FINDINGS: Persistent right-sided volume loss with mediastinal shift. Persistent small to moderate si ze right pleural fluid collection . Apical opacity could consistent with fluid or effusion redemonstr ated. Diffuse right lung infiltrate and/or edema redemonstrated. Left lung remains clear and hyperexp anded. Cardiac silhouette size likely within normal limits. Right hilar masslike prominence redemonst rated. Osseous structures remain demineralized. IMPRESSION: No pneumothorax after right-sided thoracentesis. Right hilar infiltrative mass seen bett er on recent CT.
[2021-03-14] MEDS: IPRATROPIUM-ALBUTEROL 3 ML NEB INHALATION SCH ×3 (15:08→19:13)
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
[2021-03-14] MEDS: LORazepam 2 MG/ML INJ IV PRN ×2 (17:31→22:24)
[2021-03-14] MEDS: PIPERACILLIN-TAZOBACTAM 3.375 GM in SODIUM CHLORIDE 0.9% 100 ML IVPB SCH (18:54)
[2021-03-14] MEDS: THIAMINE 100 MG TAB PO SCH (18:55)
[2021-03-14] MEDS: ASPIRIN 325 MG TAB PO SCH (20:36)
[2021-03-14] MEDS: ATORVASTATIN 10 MG TAB PO SCH (20:36)
[2021-03-14] MEDS: DONEPEZIL 10 MG TAB PO SCH (20:36)
[2021-03-15] MEDS: methylPREDNISolone SOD SUCCI 125 MG/2 ML VIAL IV SCH ×4 (00:30→18:07)
[2021-03-15] MEDS: PIPERACILLIN-TAZOBACTAM 3.375 GM in SODIUM CHLORIDE 0.9% 100 ML IVPB SCH ×3 (03:06→22:35)
[2021-03-15 05:38] LABS: Appearance,BF Cloudy; Color,BF Orange; Nucleated Cells, Body Fluid 560 /uL; RBC, Body Fluid 20000 /uL
[2021-03-15 05:41] LABS: Mononuclear WBC,Body Fluid 98 %; Polynuclear WBC,Body Fluid 2 %; Total Cells Counted,Body Fluid 100
[2021-03-15] MEDS: IPRATROPIUM-ALBUTEROL 3 ML NEB INHALATION SCH ×4 (07:23→20:20)
[2021-03-15] MEDS: THIAMINE 100 MG TAB PO SCH ×2 (08:33→18:07)
[2021-03-15] MEDS: SODIUM CHLORIDE 0.9% 1,000 ML IV SCH ×2 (09:51→22:35)
--- NOTE | 2021-03-15 10:00 | P.PN ---
Subjective Progress Note Date: 03/15/21 This is a 65-year-old male patient who presented emergency department because of severe respiratory distress. The patient was sent from his primary care physician's office for worsening shortness of breath and hypoxemia. He was already identified to have an abnormal chest x-ray with volume loss in the right-sided pleural effusion. He was seen in the emergency department yesterday but he left AGAINST MEDICAL ADVICE to be readmitted again today. He is quite cachectic. He is currently on a BiPAP at a pressure of 14/6 cm of water and FiO2 of 1%. He is awake and alert and communicating. Chest x-ray was reviewed and emergency department and it showed a right-sided pleural effusion. There was also right-sided volume loss and underlying central neoplasm was being considered., Subcarinal and right hilar region measuring 10 x 7.5 x 7.1 cm in size. The mass was encasing the right hilar structures including the medicine the lower SVC and there was a cut off sign Dilaudid of the bronchus intermedius. There was also evidence of right middle lobe collapse, partial medial right lower lobe collapse, moderate right-sided pleural effusion and right-sided infiltrate. There was not of 2.3 cm subpleural area of pleural lesion and 2 liver lesions measuring 4 cm suspicious for metastases. There was also abnormal aortic occlusion just below the renal artery takeoff no swelling in extremities. I saw the patient emergency department. He was in impending respiratory failure. He was on a BiPAP at a pressure of 14/6 cm of water with an FiO2 of 1 sent. Based on that, I did a emergent right-sided thoracentesis to provide this patient some symptomatic relief. 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 He is still a daily alcohol drinker. He drinks alcohol heavily and he is currently a cigarette smoker on a daily basis. He is quite cachectic, emaciated, debilitated, weak, and malnourished. Does not have any headache. No seizure. 03/15/2021, I'm seeing this patient for a follow-up in the intensive care unit. The patient is a ICU overflow. For now, the patient on a BiPAP at a pressure of 14/6 cm of water with an FiO2 of 1. The pulse ox measures and is not aggravated and the blood gases will be needed. The patient is urinating adequate tidal volumes and has a respiratory rate of 16-20. He remains quite lethargic, somnolent yet arousable. Extremely cachectic and emaciated. Hemodynamically stable. As mentioned earlier, a emergent right-sided thoracentesis was done yesterday of the right lung and a total of 800 mL of pleural fluid was aspirated successfully. Nevertheless, the follow-up chest x-ray still showing significant volume loss in the right lung related to his underlying lung mass as the patient has a large mass encasing the right hilar structures and the right mainstem bronchus and the bronchus intermedius. Currently is on bronchodilators and steroids. No fever. No chills. Resting comfortably in bed. Does not communicate a whole lot. Family is not around. Would like to talk to the family regarding treatment. As the patient's prognosis extremely poor baseline above-mentioned comorbidities. Fluid cytology is pending for now. Objective - Vital Signs Vital signs: Vital Signs Temp 97.8 F 03/15/21 08:00 Pulse 89 03/15/21 08:00 Resp 20 03/15/21 08:00 BP 128/82 03/15/21 08:00 Pulse Ox 92 L 03/15/21 08:00 Intake & Output 03/14/21 03/15/21 03/15/21 18:59 06:59 18:59 Weight 44.906 kg - Exam Patient is in mild to moderate degree of respiratory distress even while on a BiPAP. There is a full face BiPAP. He is extremely emaciated. His body weight is 99 pounds and the patient is 5'5 Head exam was generally normal. There was no scleral icterus or corneal arcus. Mucous membranes were moist. Neck was supple and without jugular venous distension, thyromegaly, or carotid bruits. Carotids were easily palpable bilaterally. There was no adenopathy. Lungs sounds are diminished specially in the right lung compared to the left. Overall breath sounds are quite diminished and the patient is scheduled and scattered external wheeze. There is also dullness to percussion on the right. The patient has a barrel chest. The air entry is improved in the right lung specially in the right lung base post thoracentesis. Cardiac exam revealed the PMI to be normally situated and sized. The rhythm was regular and no extrasystoles were noted during several minutes of auscultation. The first and second heart sounds were normal and physiologic splitting of the second heart sound was noted. There were no murmurs, rubs, clicks, or gallops. Abdominal exam revealed normal bowel sounds. The abdomen was soft, non-tender, and without masses, organomegaly, or appreciable enlargement of the abdominal aorta. Examination of the extremities revealed easily palpable radial, femoral and pedal pulses. There was no cyanosis, clubbing or edema. Examination of the skin revealed no evidence of significant rashes, suspicious appearing nevi or other concerning lesions. Neurologically awake alert and there is no focal neurological deficit. He has some tremors and he has global weakness in all 4 extrem - Labs CBC & Chem 7: 03/14/21 09:45 03/14/21 09:45 Labs: Abnormal Lab Results - Last 24 Hours (Table) 03/14/21 03/14/21 03/14/21 Range/Units 09:45 09:45 09:45 WBC 17.3 H (3.8-10.6) k/uL RBC 4.24 L (4.30-5.90) m/uL Hgb 12.7 L (13.0-17.5) gm/dL Plt Count 458 H (150-450) k/uL Neutrophils # 15.6 H (1.3-7.7) k/uL Lymphocytes # 0.9 L (1.0-4.8) k/uL Sodium 134 L (137-145) mmol/L Chloride 96 L (98-107) mmol/L Creatinine 0.65 L (0.66-1.25) mg/dL Glucose 166 H (74-99) mg/dL Plasma Lactic Acid Rusty 4.8 H* (0.7-2.0) mmol/L Troponin I (0.000-0.034) ng/mL Albumin 3.4 L (3.5-5.0) g/dL 03/14/21 03/14/21 03/14/21 Range/Units 09:45 14:17 14:17 WBC (3.8-10.6) k/uL RBC (4.30-5.90) m/uL Hgb (13.0-17.5) gm/dL Plt Count (150-450) k/uL Neutrophils # (1.3-7.7) k/uL Lymphocytes # (1.0-4.8) k/uL Sodium (137-145) mmol/L Chloride (98-107) mmol/L Creatinine (0.66-1.25) mg/dL Glucose (74-99) mg/dL Plasma Lactic Acid Rusty 4.1 H* (0.7-2.0) mmol/L Troponin I 0.183 H* 0.218 H* (0.000-0.034) ng/mL Albumin (3.5-5.0) g/dL 03/14/21 03/14/21 03/14/21 Range/Units 17:59 21:11 23:48 WBC (3.8-10.6) k/uL RBC (4.30-5.90) m/uL Hgb (13.0-17.5) gm/dL Plt Count (150-450) k/uL Neutrophils # (1.3-7.7) k/uL Lymphocytes # (1.0-4.8) k/uL Sodium (137-145) mmol/L Chloride (98-107) mmol/L Creatinine (0.66-1.25) mg/dL Glucose (74-99) mg/dL Plasma Lactic Acid Rusty 3.2 H* 2.9 H* 3.6 H* (0.7-2.0) mmol/L Troponin I (0.000-0.034) ng/mL Albumin (3.5-5.0) g/dL 03/15/21 03/15/21 Range/Units 04:57 08:19 WBC (3.8-10.6) k/uL RBC (4.30-5.90) m/uL Hgb (13.0-17.5) gm/dL Plt Count (150-450) k/uL Neutrophils # (1.3-7.7) k/uL Lymphocytes # (1.0-4.8) k/uL Sodium (137-145) mmol/L Chloride (98-107) mmol/L Creatinine (0.66-1.25) mg/dL Glucose (74-99) mg/dL Plasma Lactic Acid Rusty 3.0 H* 2.2 H* (0.7-2.0) mmol/L Troponin I (0.000-0.034) ng/mL Albumin (3.5-5.0) g/dL Assessment and Plan Plan: 1 metastatic carcinoma most likely of a lung primary. The patient is presenting with a large right paratracheal precarinal and subcarinal mass with hilar extension measuring 7.1 x 10 x 7.9 cm in size and there is extensive mass effect on the bronchus intermedius causing significant narrowing. There is some right lower lobe and right middle lobe atelectatic changes and volume loss in addition to a moderate-sized right-sided pleural effusion. Patient also has hepatic lesions and the presentation is highly suspicious for stage IV metastatic carcinoma of a lung primary. I performed a immediate therapeutic and diagnostic thoracentesis of the right lung and removed a total of 800 mL of pleural fluid yesterday and the emergency department. Fluid cytology still pending for now. Follow-up chest x-ray still showing volume loss on the right and the patient has a large hilar mass encasing the bronchus intermedius and the right mainstem bronchus causing mass effect and narrowing and atelectasis. The patient remains quite lethargic and somnolent yet arousable. 2 acute hypoxic respiratory failure secondary to above. The patient has atelectasis and volume loss involving the right lung including the right middle lobe and right lower lobe and the patient has a large right-sided pleural effusion. A bedside thoracentesis was done under emergency settings . For now, the patient remains on a BiPAP at a pressure of 14/6 cm of water with an FiO2 of 100%. 3 COPD 4 severe debility and significant malnourishment and obvious signs of cachexia and and emaciation and weight loss. Current by the weight is around 90 pounds. 5 acute leukocytosis 6 acute lactic acidosis 7 troponin leak 8 Alcoholism 9 Large right MCA distribution CVA with some residual left-sided weakness 10 Smoking 11Hypertension 12 Hyperlipidemia 13 GERD artery disease 14 Impaired performance and functional spastic and above-mentioned comorbidities 15 Peripheral vascular disease with questionable parathyroid the level of the aorta. Given examination, the patient is not having any significant vascular insufficiency and the patient has diminished pulses in the legs bilaterally. Ever the less, the patient has inguinal pulses 60 lactic acidosis, improving. Plan A bedside thoracentesis was done and a total of 800 mL of blood-tinged fluid was aspirated from the right lung. The fluid will be sent for cytology. Obtain a blood gas this morning and if adequate discontinue the BiPAP bedside the patient on a nasal cannula With the patient combination of bronchodilators and steroids and IV Zosyn for postobstructive pneumonia continue DuoNeb about treatment [id number] continue IV Solu Medrol 60 mg every 6 hours IV fluids at 75 mL an hour normal saline We'll may need to discuss CODE STATUS with this patient. His prognosis extremely poor baseline above-mentioned comorbidities. His performance and functional status also poor. There is also an issue of diminished pulses and cut off sign at the level of the aorta. We'll consult vascular surgery. I would like to discuss this case with the family and establish a CODE STATUS. His condition is extremely critical and he may decompensate at any point in time. I would like to at least establish a DNR/DNI CODE STATUS taken account that the patient has a large metastatic mass in his chest the diagnosis and the final pathologic findings on this medicine still pending for now. Still scheduled to go to the intensive care unit. Had a lengthy discussion with the daughter the bedside and over the phone. We'll switch his CODE STATUS to DNR/DNI. Condition is critical. Prognosis poor. We'll admit to the intensive care units.
[2021-03-15 10:11] LABS: ABG Base Excess 8.1 mmol/L; ABG HCO3 32 mmol/L (21-25); ABG PCO2 43 mmHg (35-45); ABG PH 7.48 (7.35-7.45); ABG PO2 >400 mmHg (83-108); ABG TCO2 33 mmol/L (19-24); Allen Test Performed? Yes
--- NOTE | 2021-03-15 17:28 | P.PN ---
Subjective Progress Note Date: 03/15/21 Principal diagnosis: Metastatic carcinoma; most likely primary lung Acute hypoxic respiratory failure Postobstructive pneumonia Severe malnutrition protein calorie/debility 65-year-old male presenting with severe respiratory distress. 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 He is still a daily alcohol drinker. He drinks alcohol heavily and he is currently a ci garette smoker on a daily basis. He is quite cachectic, emaciated, debilitated, weak, and malnourished. Does not have any headache. No seizure. Patient had been sent from the primary care office with hypoxia. He was diagnosed with effusion and fluid overload as well as hypoxia in the emergency department yesterday but had left AGAINST MEDICAL ADVICE. He had an elevated troponin, elevated BNP. 03/15/2021 Patient is seen for a follow-up in the intensive care unit. The patient is a ICU overflow. For now, the patient on a BiPAP at a pressure of 14/6 cm of water with an FiO2 of 1. The pulse ox measures and is not aggravated and the blood gases will be needed. The patient is urinating adequate tidal volumes and has a respiratory rate of 16-20. He remains quite lethargic, somnolent yet arousable. Extremely cachectic and emaciated. Hemodynamically stable. As mentioned earlier, a emergent right-sided thoracentesis was done yesterday of the right lung and a total of 800 mL of pleural fluid was aspirated successfully. Nevertheless, the follow-up chest x-ray still showing significant volume loss in the right lung related to his underlying lung mass as the patient has a large mass encasing the right hilar structures and the right mainstem bronchus and the bronchus intermedius. Currently is on bronchodilators and steroids. No fever. No chills. Resting comfortably in bed. Does not communicate a whole lot. Family is not around. Would like to talk to the family regarding treatment. As the patient's prognosis extremely poor baseline above-mentioned comorbidities. Fluid cytology is pending for now. Objective - Vital Signs Vital signs: Vital Signs Temp 97.8 F 03/15/21 08:00 Pulse 101 H 03/15/21 09:00 Resp 20 03/15/21 09:00 BP 129/82 03/15/21 09:00 Pulse Ox 92 L 03/15/21 09:00 Intake & Output 03/14/21 03/15/21 03/15/21 18:59 06:59 18:59 Weight 44.906 kg - Exam Patient is in mild to moderate degree of respiratory distress even while on a BiPAP. There is a full face BiPAP. He is extremely emaciated. His body weight is 99 pounds and the patient is 5'5 Head exam was generally normal. There was no scleral icterus or corneal arcus. Mucous membranes were moist. Neck was supple and without jugular venous distension, thyromegaly, or carotid bruits. Carotids were easily palpable bilaterally. There was no adenopathy. Lungs sounds are diminished specially in the right lung compared to the left. Overall breath sounds are quite diminished and the patient is scheduled and scattered external wheeze. There is also dullness to percussion on the right. The patient has a barrel chest. The air entry is improved in the right lung specially in the right lung base post thoracentesis. Cardiac exam revealed the PMI to be normally situated and sized. The rhythm was regular and no extrasystoles were noted during several minutes of auscultation. The first and second heart sounds were normal and physiologic splitting of the second heart sound was noted. There were no murmurs, rubs, clicks, or gallops. Abdominal exam revealed normal bowel sounds. The abdomen was soft, non-tender, and without masses, organomegaly, or appreciable enlargement of the abdominal aorta. Examination of the extremities revealed easily palpable radial, femoral and pedal pulses. There was no cyanosis, clubbing or edema. Examination of the skin revealed no evidence of significant rashes, suspicious appearing nevi or other concerning lesions. Neurologically awake alert and there is no focal neurological deficit. He has s ome tremors and he has global weakness in all 4 extrem - Labs CBC & Chem 7: 03/14/21 09:45 03/14/21 09:45 Labs: Abnormal Lab Results - Last 24 Hours (Table) 03/14/21 03/14/21 03/14/21 Range/Units 09:45 09:45 09:45 WBC 17.3 H (3.8-10.6) k/uL RBC 4.24 L (4.30-5.90) m/uL Hgb 12.7 L (13.0-17.5) gm/dL Plt Count 458 H (150-450) k/uL Neutrophils # 15.6 H (1.3-7.7) k/uL Lymphocytes # 0.9 L (1.0-4.8) k/uL Sodium 134 L (137-145) mmol/L Chloride 96 L (98-107) mmol/L Creatinine 0.65 L (0.66-1.25) mg/dL Glucose 166 H (74-99) mg/dL Plasma Lactic Acid Rusty 4.8 H* (0.7-2.0) mmol/L Troponin I (0.000-0.034) ng/mL Albumin 3.4 L (3.5-5.0) g/dL 03/14/21 03/14/21 03/14/21 Range/Units 09:45 14:17 14:17 WBC (3.8-10.6) k/uL RBC (4.30-5.90) m/uL Hgb (13.0-17.5) gm/dL Plt Count (150-450) k/uL Neutrophils # (1.3-7.7) k/uL Lymphocytes # (1.0-4.8) k/uL Sodium (137-145) mmol/L Chloride (98-107) mmol/L Creatinine (0.66-1.25) mg/dL Glucose (74-99) mg/dL Plasma Lactic Acid Rusty 4.1 H* (0.7-2.0) mmol/L Troponin I 0.183 H* 0.218 H* (0.000-0.034) ng/mL Albumin (3.5-5.0) g/dL 03/14/21 03/14/21 03/14/21 Range/Units 17:59 21:11 23:48 WBC (3.8-10.6) k/uL RBC (4.30-5.90) m/uL Hgb (13.0-17.5) gm/dL Plt Count (150-450) k/uL Neutrophils # (1.3-7.7) k/uL Lymphocytes # (1.0-4.8) k/uL Sodium (137-145) mmol/L Chloride (98-107) mmol/L Creatinine (0.66-1.25) mg/dL Glucose (74-99) mg/dL Plasma Lactic Acid Rusty 3.2 H* 2.9 H* 3.6 H* (0.7-2.0) mmol/L Troponin I (0.000-0.034) ng/mL Albumin (3.5-5.0) g/dL 03/15/21 03/15/21 Range/Units 04:57 08:19 WBC (3.8-10.6) k/uL RBC (4.30-5.90) m/uL Hgb (13.0-17.5) gm/dL Plt Count (150-450) k/uL Neutrophils # (1.3-7.7) k/uL Lymphocytes # (1.0-4.8) k/uL Sodium (137-145) mmol/L Chloride (98-107) mmol/L Creatinine (0.66-1.25) mg/dL Glucose (74-99) mg/dL Plasma Lactic Acid Rusty 3.0 H* 2.2 H* (0.7-2.0) mmol/L Troponin I (0.000-0.034) ng/mL Albumin (3.5-5.0) g/dL Assessment and Plan Assessment: 1. Metastatic carcinoma most likely of a lung primary - presenting with a large right paratracheal precarinal and subcarinal mass with hilar extension measuring 7.1 x 10 x 7.9 cm in size and there is extensive mass effect on the bronchus intermedius causing significant narrowing. There is some right lower lobe and right middle lobe atelectatic changes and volume loss in addition to a moderate-sized right-sided pleural effusion. Patient also has herpetic lesions and the presentation is highly suspicious for stage IV metastatic carcinoma of a lung primary. 2. Acute hypoxic respiratory failure; - atelectasis and volume loss involving the right lung including the right middle lobe and right lower lobe and the patient has a large right-sided pleural effusion. A bedside thoracentesis was done; patient remains on BiPAP - a total of 800 mL of blood-tinged fluid was aspirated from the right lung. The fluid will be sent for cytology. - Pulmonary recommending to Obtain a blood gas - IV Zosyn for postobstructive pneumonia; DuoNeb nebulizer treatment [id number] - IV Solu Medrol 60 mg every 6 hours 3. Acute exacerbation COPD; DuoNeb nebulizer treatments along with Solu-Medrol 60 mg IV every 6 hours 4. Severe protein calorie malnourishment/cachexia; emaciation and weight loss. Current by the weight is around 90 pounds; recommend dietary consult. 5. Acute leukocytosis with lactic acidosis/ sepsis; secondary to postobstructive pneumonia; patient started on IV antibiotics 6. Elevated troponin; possibly demand ischemia secondary to acute respiratory failure 7. Alcoholism; patient placed on CIWA protocol with Ativan; thiamine 100 mg twice a day 8. Large right MCA distribution CVA with some residual left-sided weakness; continue with aspirin and Lipitor 9. Hypertension; takes lisinopril at home which will be placed on hold for risk of impending hypotension due to sepsis 10. Hyperlipidemia; Lipitor 20 mg by mouth daily at bedtime 11. Peripheral vascular disease with questionable cut off level of the aorta. Given examination, the patient is not having any significant vascular insufficiency and the patient has diminished pulses in the legs bilaterally. Vascular surgery is consulted and recommendations are pending DVT prophylaxis; SCDs/subcu heparin CODE STATUS; full code
[2021-03-15 20:12] LABS: Glucose, BF Source Pleural Fluid; Glucose, Body Fluid 123 mg/dL; LDH, Body Fluid Source Pleural Fluid; Total Protein, Body Fluid 2100 mg/dL
[2021-03-15 21:15] LABS: Glucose,Whole Blood 135 mg/dL (75-99)
[2021-03-15] MEDS ORDERED: NALOXONE 0.4 MG/ML 1 ML VIAL IV PRN (21:31)
[2021-03-15] MEDS: ASPIRIN 325 MG TAB PO SCH (22:35)
[2021-03-15] MEDS: ATORVASTATIN 10 MG TAB PO SCH (22:35)
[2021-03-15] MEDS: DONEPEZIL 10 MG TAB PO SCH (22:35)
[2021-03-15 22:51] LABS: African American GFR (CKD) >90 (>60 ml/min/1.73 sqM); Anion Gap 11 mmol/L; Blood Urea Nitrogen 18 mg/dL (9-20); Calcium 8.6 mg/dL (8.4-10.2); Carbon Dioxide 27 mmol/L (22-30); Chloride 97 mmol/L (98-107); Glucose 110 mg/dL (74-99); Non-African American GFR(CKD) >90 (>60 ml/min/1.73 sqM); Sodium 135 mmol/L (137-145)
[2021-03-15 22:57] LABS: Appearance,Urine Clear (Clear); Bacteria,Urine Rare /hpf; Bilirubin,Urine Negative (Negative); Blood,Urine Small (Negative); Color,Urine Yellow; Glucose,Urine (UA) Negative (Negative); Ketones,Urine 1+ (Negative); Leukocyte Esterase,Urine Large (Negative); Mucus,Urine Occasional /hpf; Nitrite,Urine Negative (Negative); PH, Urine 5.5 (5.0-8.0); Protein,Urine 1+ (Negative); RBC,Urine 22 /hpf (0-5); Specific Gravity,Urine 1.032 (1.001-1.035); Squamous Epithelial Cell,Urine <1 /hpf (0-4); Urobilinogen,Urine <2.0 mg/dL (<2.0); WBC,Urine 38 /hpf (0-5)
[2021-03-15 23:29] LABS: Magnesium 2.1 mg/dL (1.6-2.3); Potassium 4.2 mmol/L (3.5-5.1)
--- NOTE | 2021-03-15 23:30 | P.PN ---
Progress Note - Text Progress Note Date: 03/15/21 Patient seen in the ER and patient family states his vascular surgeon is Dr. Dumont who has followed him for several years. We will defer to him..
[2021-03-15 23:43] LABS: Basophils % (A) 0 %; Eosinophils % (A) 0 %; Hypochromasia Moderate; Lymphocytes # (A) 0.4 k/uL (1.0-4.8); Lymphocytes % (A) 2 %; MCH 30.3 pg (25.0-35.0); MCHC 31.5 g/dL (31.0-37.0); MCV 96.2 fL (80.0-100.0); Mean Platelet Volume 7.2; Monocytes # (A) 0.5 k/uL (0-1.0); Monocytes % (A) 3 %; Neutrophils # (A) 15.3 k/uL (1.3-7.7); Neutrophils % (A) 94 %; Platelet Count 267 k/uL (150-450); RBC 3.95 m/uL (4.30-5.90); WBC 16.3 k/uL (3.8-10.6)
[2021-03-16] MEDS: methylPREDNISolone SOD SUCCI 125 MG/2 ML VIAL IV SCH ×5 (00:52→23:35)
[2021-03-16] MEDS: PIPERACILLIN-TAZOBACTAM 3.375 GM in SODIUM CHLORIDE 0.9% 100 ML IVPB SCH ×3 (03:11→18:54)
[2021-03-16 04:37] LABS: Basophils % (A) 0 %; Eosinophils # (A) 0.2 k/uL (0-0.7); Eosinophils % (A) 1 %; HCT 35.2 % (39.0-53.0); HGB 11.3 gm/dL (13.0-17.5); Hypochromasia Slight; Lymphocytes # (A) 0.4 k/uL (1.0-4.8); Lymphocytes % (A) 3 %; MCH 30.4 pg (25.0-35.0); MCHC 32.2 g/dL (31.0-37.0); MCV 94.3 fL (80.0-100.0); Mean Platelet Volume 7.1; Monocytes # (A) 0.3 k/uL (0-1.0); Monocytes % (A) 2 %; Neutrophils # (A) 14.4 k/uL (1.3-7.7); Neutrophils % (A) 94 %; Platelet Count 294 k/uL (150-450); RBC 3.73 m/uL (4.30-5.90); RDW 14.5 % (11.5-15.5); WBC 15.3 k/uL (3.8-10.6)
[2021-03-16 04:50] LABS: African American GFR (CKD) >90 (>60 ml/min/1.73 sqM); Anion Gap 8 mmol/L; Blood Urea Nitrogen 19 mg/dL (9-20); Calcium 8.5 mg/dL (8.4-10.2); Carbon Dioxide 27 mmol/L (22-30); Chloride 99 mmol/L (98-107); Glucose 104 mg/dL (74-99); Non-African American GFR(CKD) >90 (>60 ml/min/1.73 sqM); Potassium 3.7 mmol/L (3.5-5.1); Sodium 134 mmol/L (137-145)
[2021-03-16] MEDS ORDERED: POTASSIUM CHLORIDE ER 20 MEQ TAB.ER PO SCH (05:00)
[2021-03-16] MEDS: THIAMINE 100 MG TAB PO SCH ×2 (06:03→18:53)
--- NOTE | 2021-03-16 06:36 | XR ---
EXAMINATION TYPE: XR chest 1V portable DATE OF EXAM: 03/16/2021 COMPARISON: 03/14/2021 HISTORY: Shortness of breath TECHNIQUE: Single frontal view of the chest is obtained. FINDINGS: There is near complete opacification volume loss shift of the right there is likely combin ation of right lung pleural effusion, atelectasis and parenchymal consolidation. The left lung is vincent ar. There is been no significant interval change since the prior study. IMPRESSION: Marked diffuse opacification of the right hemithorax with volume loss in the right and h yperexpansion of the left lung. There is been no interval change.
--- NOTE | 2021-03-16 09:07 | P.PN ---
Subjective Progress Note Date: 03/16/21 This is a 65-year-old male patient who presented emergency department because of severe respiratory distress. The patient was sent from his primary care physician's office for worsening shortness of breath and hypoxemia. He was already identified to have an abnormal chest x-ray with volume loss in the right-sided pleural effusion. He was seen in the emergency department yesterday but he left AGAINST MEDICAL ADVICE to be readmitted again today. He is quite cachectic. He is currently on a BiPAP at a pressure of 14/6 cm of water and FiO2 of 1%. He is awake and alert and communicating. Chest x-ray was reviewed and emergency department and it showed a right-sided pleural effusion. There was also right-sided volume loss and underlying central neoplasm was being considered., Subcarinal and right hilar region measuring 10 x 7.5 x 7.1 cm in size. The mass was encasing the right hilar structures including the medicine the lower SVC and there was a cut off sign Dilaudid of the bronchus intermedius. There was also evidence of right middle lobe collapse, partial medial right lower lobe collapse, moderate right-sided pleural effusion and right-sided infiltrate. There was not of 2.3 cm subpleural area of pleural lesion and 2 liver lesions measuring 4 cm suspicious for metastases. There was also abnormal aortic occlusion just below the renal artery takeoff no swelling in extremities. I saw the patient emergency department. He was in impending respiratory failure. He was on a BiPAP at a pressure of 14/6 cm of water with an FiO2 of 1 sent. Based on that, I did a emergent right-sided thoracentesis to provide this patient some symptomatic relief. 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 He is still a daily alcohol drinker. He drinks alcohol heavily and he is currently a cigarette smoker on a daily basis. He is quite cachectic, emaciated, debilitated, weak, and malnourished. Does not have any headache. No seizure. 03/15/2021, I'm seeing this patient for a follow-up in the intensive care unit. The patient is a ICU overflow. For now, the patient on a BiPAP at a pressure of 14/6 cm of water with an FiO2 of 1. The pulse ox measures and is not aggravated and the blood gases will be needed. The patient is urinating adequate tidal volumes and has a respiratory rate of 16-20. He remains quite lethargic, somnolent yet arousable. Extremely cachectic and emaciated. Hemodynamically stable. As mentioned earlier, a emergent right-sided thoracentesis was done yesterday of the right lung and a total of 800 mL of pleural fluid was aspirated successfully. Nevertheless, the follow-up chest x-ray still showing significant volume loss in the right lung related to his underlying lung mass as the patient has a large mass encasing the right hilar structures and the right mainstem bronchus and the bronchus intermedius. Currently is on bronchodilators and steroids. No fever. No chills. Resting comfortably in bed. Does not communicate a whole lot. Family is not around. Would like to talk to the family regarding treatment. As the patient's prognosis extremely poor baseline above-mentioned comorbidities. Fluid cytology is pending for now. 03/16/2021 I'm seeing this patient in the intensive care unit. The patient is much more awake compared to yesterday. Is following commands. He is on and off confused. He is not sure where he is. However his communicating. He is trying to answer questions. His breathing is nonlabored. He was taken off the BiPAP. He was switched to nasal cannula and currently is on room air oxygen. Chest x- ray showing volume loss and they large hilar mass with atelectatic changes as described earlier involving the right lower lung area. He remains on bronchodilators. He remains on steroids. He remains on IV Zosyn as an empiric antibiotic coverage for any postobstructive pneumonia. White cell count is 15.3 with a hemoglobin 0.3. Normal renal function. Lactic acid level is down to 2.2. Urinalysis was abnormal and cultures are still pending for now. Also, I have drained this patient's right lung and a total of 800 mL of pleural fluid was aspirated. Fluid cytology still pending for now. Repeat chest x-ray from today shows no significant interval change. There is volume loss on the right. The patient is extremely cachectic and in mental status as discussed earlier. No focal neurological deficits. His CODE STATUS has been switched to a DO NOT RESUSCITATE and DO NOT INTUBATE per our conversation with the family yesterday. Objective - Vital Signs Vital signs: Vital Signs Temp 97.9 F 03/16/21 04:00 Pulse 82 03/16/21 07:00 Resp 14 03/16/21 07:00 BP 110/73 03/16/21 07:00 Pulse Ox 98 03/16/21 07:00 Intake & Output 03/15/21 03/16/21 03/16/21 18:59 06:59 18:59 Intake Total 925 75 Output Total 500 300 45 Balance -500 625 30 Weight 42 kg Intake: Intake, IV Titration 875 75 Amount Piperacillin-Tazobactam 3 200 .375 gm In Sodium Chloride 0.9% 100 ml @ 25 mls/hr IVPB Q8H [facility] Rx#: [id number] Sodium Chloride 0.9% 1, 675 75 000 ml @ 75 mls/hr IV . [id number] [facility] Rx#:[id number] Oral 50 Output: Urine 500 300 45 Uretheral (Neves) 500 Other: Voiding Method Indwelling Catheter - Exam Patient is on room air oxygen. No signs of any respiratory distress Head exam was generally normal. There was no scleral icterus or corneal arcus. Mucous membranes were moist. Neck was supple and without jugular venous distension, thyromegaly, or carotid bruits. Carotids were easily palpable bilaterally. There was no adenopathy. Lungs sounds are diminished specially in the right lung compared to the left. Overall breath sounds are quite diminished and the patient is scheduled and scattered external wheeze. There is also dullness to percussion on the right. The patient has a barrel chest. The air entry is improved in the right lung specially in the right lung base post thoracentesis. Cardiac exam revealed the PMI to be normally situated and sized. The rhythm was regular and no extrasystoles were noted during several minutes of auscultation. The first and second heart sounds were normal and physiologic splitting of the second heart sound was noted. There were no murmurs, rubs, clicks, or gallops. Abdominal exam revealed normal bowel sounds. The abdomen was soft, non-tender, and without masses, organomegaly, or appreciable enlargement of the abdominal a leticia. Examination of the extremities revealed easily palpable radial, femoral and pedal pulses. There was no cyanosis, clubbing or edema. Examination of the skin revealed no evidence of significant rashes, suspicious appearing nevi or other concerning lesions. Neurologically awake alert and there is no focal neurological deficit. He has some tremors and he has global weakness in all 4 extrem - Labs CBC & Chem 7: 03/16/21 04:14 03/16/21 04:14 Labs: Abnormal Lab Results - Last 24 Hours (Table) 03/15/21 03/15/21 03/15/21 Range/Units 08:19 10:07 21:13 WBC (3.8-10.6) k/uL RBC (4.30-5.90) m/uL Hgb (13.0-17.5) gm/dL Hct (39.0-53.0) % Neutrophils # (1.3-7.7) k/uL Lymphocytes # (1.0-4.8) k/uL ABG pH 7.48 H (7.35-7.45) ABG pO2 >400 H (83-108) mmHg ABG HCO3 32 H (21-25) mmol/L ABG Total CO2 33 H (19-24) mmol/L ABG O2 Saturation 100.0 H (94-97) % Sodium (137-145) mmol/L Chloride (98-107) mmol/L Creatinine (0.66-1.25) mg/dL Glucose (74-99) mg/dL POC Glucose (mg/dL) 135 H (75-99) mg/dL Plasma Lactic Acid Rusty 2.2 H* (0.7-2.0) mmol/L Urine Protein (Negative) Urine Ketones (Negative) Urine Blood (Negative) Ur Leukocyte Esterase (Negative) Urine RBC (0-5) /hpf Urine WBC (0-5) /hpf Urine Bacteria (None) /hpf Urine Mucus (None) /hpf 03/15/21 03/15/21 03/15/21 Range/Units 21:55 22:00 23:27 WBC 16.3 H (3.8-10.6) k/uL RBC 3.95 L (4.30-5.90) m/uL Hgb 12.0 L (13.0-17.5) gm/dL Hct 38.0 L (39.0-53.0) % Neutrophils # 15.3 H (1.3-7.7) k/uL Lymphocytes # 0.4 L (1.0-4.8) k/uL ABG pH (7.35-7.45) ABG pO2 (83-108) mmHg ABG HCO3 (21-25) mmol/L ABG Total CO2 (19-24) mmol/L ABG O2 Saturation (94-97) % Sodium 135 L (137-145) mmol/L Chloride 97 L (98-107) mmol/L Creatinine 0.58 L (0.66-1.25) mg/dL Glucose 110 H (74-99) mg/dL POC Glucose (mg/dL) (75-99) mg/dL Plasma Lactic Acid Rusty (0.7-2.0) mmol/L Urine Protein 1+ H (Negative) Urine Ketones 1+ H (Negative) Urine Blood Small H (Negative) Ur Leukocyte Esterase Large H (Negative) Urine RBC 22 H (0-5) /hpf Urine WBC 38 H (0-5) /hpf Urine Bacteria Rare H (None) /hpf Urine Mucus Occasional H (None) /hpf 03/16/21 03/16/21 Range/Units 04:14 04:14 WBC 15.3 H (3.8-10.6) k/uL RBC 3.73 L (4.30-5.90) m/uL Hgb 11.3 L (13.0-17.5) gm/dL Hct 35.2 L (39.0-53.0) % Neutrophils # 14.4 H (1.3-7.7) k/uL Lymphocytes # 0.4 L (1.0-4.8) k/uL ABG pH (7.35-7.45) ABG pO2 (83-108) mmHg ABG HCO3 (21-25) mmol/L ABG Total CO2 (19-24) mmol/L ABG O2 Saturation (94-97) % Sodium 134 L (137-145) mmol/L Chloride (98-107) mmol/L Creatinine 0.60 L (0.66-1.25) mg/dL Glucose 104 H (74-99) mg/dL POC Glucose (mg/dL) (75-99) mg/dL Plasma Lactic Acid Rusty (0.7-2.0) mmol/L Urine Protein (Negative) Urine Ketones (Negative) Urine Blood (Negative) Ur Leukocyte Esterase (Negative) Urine RBC (0-5) /hpf Urine WBC (0-5) /hpf Urine Bacteria (None) /hpf Urine Mucus (None) /hpf Microbiology - Last 24 Hours (Table) 03/14/21 13:32 Gram Stain - Preliminary Pleural Fluid Body Fluid Culture - Preliminary 03/14/21 13:32 Acid Fast Bacilli Culture - Preliminary Pleural Fluid 03/14/21 13:32 Fungal Culture - Preliminary Pleural Fluid Assessment and Plan Plan: 1 metastatic carcinoma most likely of a lung primary. The patient is presenting with a large right paratracheal precarinal and subcarinal mass with hilar extension measuring 7.1 x 10 x 7.9 cm in size and there is extensive mass effect on the bronchus intermedius causing significant narrowing. There is some right lower lobe and right middle lobe atelectatic changes and volume loss in addition to a moderate-sized right-sided pleural effusion. Patient also has hepatic lesions and the presentation is highly suspicious for stage IV metastatic carcinoma of a lung primary. I performed a immediate therapeutic and diagnostic thoracentesis of the right lung and removed a total of 800 mL of pleural fluid yesterday and the emergency department. Fluid cytology still pending for now. Follow-up chest x-ray still showing volume loss on the right and the patient has a large hilar mass encasing the bronchus intermedius and the right mainstem bronchus causing mass effect and narrowing and atelectasis. The patient is being seen today seen in the intensive care unit. His much more comfortable. Fluid cytology is pending. The fluid cytology turns out to be negative, he may need a bronchoscopy for tissue diagnosis and establishing a final diagnoses regarding this metastatic carcinoma which we think it's of a lung primary. 2 acute hypoxic respiratory failure secondary to above. A diagnostic and therapeutic thoracentesis was done. Oxygenation improved. The patient was taken off the BiPAP and currently is on room air oxygen. His current pulse ox is 98%. 3 COPD 4 severe debility and significant malnourishment and obvious signs of cachexia and and emaciation and weight loss. Current by the weight is around 90 pounds. 5 acute leukocytosis 6 acute lactic acidosis 7 troponin leak 8 Alcoholism 9 Large right MCA distribution CVA with some residual left-sided weakness 10 Smoking 11 Hypertension 12 Hyperlipidemia 13 GERD artery disease 14 Impaired performance and functional spastic and above-mentioned comorbidities 15 Peripheral vascular disease with questionable parathyroid the level of the aorta. Given examination, the patient is not having any significant vascular insufficiency and the patient has diminished pulses in the legs bilaterally. Ever the less, the patient has inguinal pulses 60 lactic acidosis, improving. Plan A bedside thoracentesis was done and a total of 800 mL of blood-tinged fluid was aspirated from the right lung. The fluid will be sent for cytology. The oxygenation is improved and the patient is currently on room air oxygen With the patient combination of bronchodilators and steroids and IV Zosyn for postobstructive pneumonia continue DuoNeb about treatment [id number] continue IV Solu Medrol 60 mg every 6 hours IV fluids at 75 mL an hour normal saline May need a bronchoscopy for tissue diagnosis if the pleural fluid cytology turns out to be negative Advance diet and dietary consultation Overall respiratory status is stable and the patient is currently on room air oxygen Had a lengthy discussion with the daughter the bedside and over the phone. We'll switch his CODE STATUS to DNR/DNI. Prognosis poor.
[2021-03-16] MEDS: IPRATROPIUM-ALBUTEROL 3 ML NEB INHALATION SCH ×4 (09:09→20:40)
[2021-03-16] MEDS: METOPROLOL TARTRATE 12.5 MG TAB PO SCH ×2 (10:18→20:47)
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
--- NOTE | 2021-03-16 16:02 | P.PN ---
Subjective Progress Note Date: 03/16/21 Principal diagnosis: Metastatic carcinoma; most likely primary lung Acute hypoxic respiratory failure Postobstructive pneumonia Severe malnutrition protein calorie/debility 65-year-old male presenting with severe respiratory distress. 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 He is still a daily alcohol drinker. He drinks alcohol heavily and he is currently a ci garette smoker on a daily basis. He is quite cachectic, emaciated, debilitated, weak, and malnourished. Does not have any headache. No seizure. Patient had been sent from the primary care office with hypoxia. He was diagnosed with effusion and fluid overload as well as hypoxia in the emergency department yesterday but had left AGAINST MEDICAL ADVICE. He had an elevated troponin, elevated BNP. 03/15/2021 Patient is seen for a follow-up in the intensive care unit. The patient is a ICU overflow. For now, the patient on a BiPAP at a pressure of 14/6 cm of water with an FiO2 of 1. The pulse ox measures and is not aggravated and the blood gases will be needed. The patient is urinating adequate tidal volumes and has a respiratory rate of 16-20. He remains quite lethargic, somnolent yet arousable. Extremely cachectic and emaciated. Hemodynamically stable. As mentioned earlier, a emergent right-sided thoracentesis was done yesterday of the right lung and a total of 800 mL of pleural fluid was aspirated successfully. Nevertheless, the follow-up chest x-ray still showing significant volume loss in the right lung related to his underlying lung mass as the patient has a large mass encasing the right hilar structures and the right mainstem bronchus and the bronchus intermedius. Currently is on bronchodilators and steroids. No fever. No chills. Resting comfortably in bed. Does not communicate a whole lot. Family is not around. Would like to talk to the family regarding treatment. As the patient's prognosis extremely poor baseline above-mentioned comorbidities. Fluid cytology is pending for now. 03/16/2021 Patient is seen and evaluated in room at bedside; sustained a fall with abrasion to right eyebrow with small hematoma. The patient is much more awake compared to yesterday. He was taken off the BiPAP. He was switched to nasal cannula and currently is on room air oxygen. Chest x-ray showing volume loss and they large hilar mass with atelectatic changes as described earlier involving the right lower lung area. -- He remains on bronchodilators; steroids and IV Zosyn as an empiric antibiotic coverage for any postobstructive pneumonia. White cell count is 15.3 with a hemoglobin 0.3. Normal renal function. Lactic acid level is down to 2.2. Urinalysis was abnormal and cultures are still p ending for now. Patient underwent thoracentesis right lung with a total of 800 mL of pleural fluid was aspirated. Fluid cytology still pending for now. Repeat chest x-ray from today shows no significant interval change. There is volume loss on the right. The patient is extremely cachectic and in mental status as discussed earlier. No focal neurological deficits. His CODE STATUS has been switched to a DO NOT RESUSCITATE and DO NOT INTUBATE per sock ironer discussion with the family. 2-D echo reveals global left ventricular dysfunction with EF of 25%; cardiology on board and recommending to start low-dose beta blockers and monitor blood pressure closely; plan is for the workup for cardiomyopathy with gradual addition of heart failure medications Objective - Vital Signs Vital signs: Vital Signs Temp 98.8 F 03/16/21 08:00 Pulse 90 03/16/21 09:20 Resp 18 03/16/21 09:00 BP 99/60 03/16/21 09:00 Pulse Ox 98 03/16/21 09:00 Intake & Output 03/15/21 03/16/21 03/16/21 18:59 06:59 18:59 Intake Total 925 225 Output Total 500 300 95 Balance -500 625 130 Weight 42 kg Intake: Intake, IV Titration 875 225 Amount Piperacillin-Tazobactam 3 200 .375 gm In Sodium Chloride 0.9% 100 ml @ 25 mls/hr IVPB Q8H [facility] Rx#: [id number] Sodium Chloride 0.9% 1, 675 225 000 ml @ 75 mls/hr IV . [id number] [facility] Rx#:[id number] Oral 50 Output: Urine 500 300 95 Uretheral (Neves) 500 Other: Voiding Method Indwelling Catheter - Exam Patient is in mild to moderate degree of respiratory distress even while on a BiPAP. There is a full face BiPAP. He is extremely emaciated. His body weight is 99 pounds and the patient is 5'5 Head exam was generally normal. There was no scleral icterus or corneal arcus. Mucous membranes were moist. Neck was supple and without jugular venous distension, thyromegaly, or carotid bruits. Carotids were easily palpable bilaterally. There was no adenopathy. Lungs sounds are diminished specially in the right lung compared to the left. Overall breath sounds are quite diminished and the patient is scheduled and scattered external wheeze. There is also dullness to percussion on the right. The patient has a barrel chest. The air entry is improved in the right lung specially in the right lung base post thoracentesis. Cardiac exam revealed the PMI to be normally situated and sized. The rhythm was regular and no extrasystoles were noted during several minutes of auscultation. The first and second heart sounds were normal and physiologic splitting of the second heart sound was noted. There were no murmurs, rubs, clicks, or gallops. Abdominal exam revealed normal bowel sounds. The abdomen was soft, non-tender, and without masses, organomegaly, or appreciable enlargement of the abdominal aorta. Examination of the extremities revealed easily palpable radial, femoral and pedal pulses. There was no cyanosis, clubbing or edema. Examination of the skin revealed no evidence of significant rashes, suspicious appearing nevi or other concerning lesions. Neurologically awake alert and there is no focal neurological deficit. He has some tremors and he has global weakness in all 4 extrem - Labs CBC & Chem 7: 03/16/21 04:14 03/16/21 04:14 Labs: Abnormal Lab Results - Last 24 Hours (Table) 03/15/21 03/15/21 03/15/21 Range/Units 10:07 21:13 21:55 WBC (3.8-10.6) k/uL RBC (4.30-5.90) m/uL Hgb (13.0-17.5) gm/dL Hct (39.0-53.0) % Neutrophils # (1.3-7.7) k/uL Lymphocytes # (1.0-4.8) k/uL ABG pH 7.48 H (7.35-7.45) ABG pO2 >400 H (83-108) mmHg ABG HCO3 32 H (21-25) mmol/L ABG Total CO2 33 H (19-24) mmol/L ABG O2 Saturation 100.0 H (94-97) % Sodium 135 L (137-145) mmol/L Chloride 97 L (98-107) mmol/L Creatinine 0.58 L (0.66-1.25) mg/dL Glucose 110 H (74-99) mg/dL POC Glucose (mg/dL) 135 H (75-99) mg/dL Urine Protein (Negative) Urine Ketones (Negative) Urine Blood (Negative) Ur Leukocyte Esterase (Negative) Urine RBC (0-5) /hpf Urine WBC (0-5) /hpf Urine Bacteria (None) /hpf Urine Mucus (None) /hpf 03/15/21 03/15/21 03/16/21 Range/Units 22:00 23:27 04:14 WBC 16.3 H 15.3 H (3.8-10.6) k/uL RBC 3.95 L 3.73 L (4.30-5.90) m/uL Hgb 12.0 L 11.3 L (13.0-17.5) gm/dL Hct 38.0 L 35.2 L (39.0-53.0) % Neutrophils # 15.3 H 14.4 H (1.3-7.7) k/uL Lymphocytes # 0.4 L 0.4 L (1.0-4.8) k/uL ABG pH (7.35-7.45) ABG pO2 (83-108) mmHg ABG HCO3 (21-25) mmol/L ABG Total CO2 (19-24) mmol/L ABG O2 Saturation (94-97) % Sodium (137-145) mmol/L Chloride (98-107) mmol/L Creatinine (0.66-1.25) mg/dL Glucose (74-99) mg/dL POC Glucose (mg/dL) (75-99) mg/dL Urine Protein 1+ H (Negative) Urine Ketones 1+ H (Negative) Urine Blood Small H (Negative) Ur Leukocyte Esterase Large H (Negative) Urine RBC 22 H (0-5) /hpf Urine WBC 38 H (0-5) /hpf Urine Bacteria Rare H (None) /hpf Urine Mucus Occasional H (None) /hpf 08/22/21 Range/Units 04:14 WBC (3.8-10.6) k/uL RBC (4.30-5.90) m/uL Hgb (13.0-17.5) gm/dL Hct (39.0-53.0) % Neutrophils # (1.3-7.7) k/uL Lymphocytes # (1.0-4.8) k/uL ABG pH (7.35-7.45) ABG pO2 (83-108) mmHg ABG HCO3 (21-25) mmol/L ABG Total CO2 (19-24) mmol/L ABG O2 Saturation (94-97) % Sodium 134 L (137-145) mmol/L Chloride (98-107) mmol/L Creatinine 0.60 L (0.66-1.25) mg/dL Glucose 104 H (74-99) mg/dL POC Glucose (mg/dL) (75-99) mg/dL Urine Protein (Negative) Urine Ketones (Negative) Urine Blood (Negative) Ur Leukocyte Esterase (Negative) Urine RBC (0-5) /hpf Urine WBC (0-5) /hpf Urine Bacteria (None) /hpf Urine Mucus (None) /hpf Microbiology - Last 24 Hours (Table) 03/14/21 13:32 Gram Stain - Preliminary Pleural Fluid Body Fluid Culture - Preliminary 03/14/21 13:32 Acid Fast Bacilli Culture - Preliminary Pleural Fluid 03/14/21 13:32 Fungal Culture - Preliminary Pleural Fluid Assessment and Plan Assessment: 1. Metastatic carcinoma most likely of a lung primary - presenting with a large right paratracheal precarinal and subcarinal mass with hilar extension measuring 7.1 x 10 x 7.9 cm in size and there is extensive mass effect on the bronchus intermedius causing significant narrowing. There is some right lower lobe and right middle lobe atelectatic changes and volume loss in addition to a moderate-sized right-sided pleural effusion. Patient also has herpetic lesions and the presentation is highly suspicious for stage IV metastatic carcinoma of a lung primary. 2. Acute hypoxic respiratory failure; - atelectasis and volume loss involving the right lung including the right middle lobe and right lower lobe and the patient has a large right-sided pleural effusion. A bedside thoracentesis was done; patient remains on BiPAP - a total of 800 mL of blood-tinged fluid was aspirated from the right lung. The fluid will be sent for cytology. - Pulmonary recommending to Obtain a blood gas - IV Zosyn for postobstructive pneumonia; DuoNeb nebulizer treatment [id number] - IV Solu Medrol 60 mg every 6 hours 3. Acute exacerbation COPD; DuoNeb nebulizer treatments along with Solu-Medrol 60 mg IV every 6 hours 4. Severe protein calorie malnourishment/cachexia; emaciation and weight loss. Current by the weight is around 90 pounds; recommend dietary consult. 5. Acute leukocytosis with lactic acidosis/ sepsis; secondary to postobstructive pneumonia; patient started on IV antibiotics 6. Elevated troponin; possibly demand ischemia secondary to acute respiratory failure 7. Alcoholism; patient placed on CIWA protocol with Ativan; thiamine 100 mg twice a day 8. Large right MCA distribution CVA with some residual left-sided weakness; continue with aspirin and Lipitor 9. Hypertension; takes lisinopril at home which will be placed on hold for risk of impending hypotension due to sepsis 10. Hyperlipidemia; Lipitor 20 mg by mouth daily at bedtime 11. Peripheral vascular disease with questionable cut off level of the aorta. Given examination, the patient is not having any significant vascular insufficiency and the patient has diminished pulses in the legs bilaterally. Vascular surgery is consulted and recommendations are pending DVT prophylaxis; SCDs/subcu heparin CODE STATUS; full code
[2021-03-16] MEDS: DONEPEZIL 10 MG TAB PO SCH (20:47)
[2021-03-16] MEDS: ASPIRIN 81 MG PO SCH (20:47)
[2021-03-16] MEDS: ATORVASTATIN 10 MG TAB PO SCH (20:47)
[2021-03-17] MEDS: LORazepam 2 MG/ML INJ IV PRN (00:55)
[2021-03-17] MEDS: PIPERACILLIN-TAZOBACTAM 3.375 GM in SODIUM CHLORIDE 0.9% 100 ML IVPB SCH ×3 (02:43→20:57)
[2021-03-17 04:03] LABS: Basophils % (A) 0 %; Eosinophils % (A) 0 %; HCT 35.1 % (39.0-53.0); HGB 11.2 gm/dL (13.0-17.5); Hypochromasia Marked; Lymphocytes # (A) 0.2 k/uL (1.0-4.8); Lymphocytes % (A) 2 %; MCH 31.1 pg (25.0-35.0); MCHC 31.9 g/dL (31.0-37.0); MCV 97.4 fL (80.0-100.0); Mean Platelet Volume 7.8; Monocytes # (A) 0.3 k/uL (0-1.0); Monocytes % (A) 2 %; Neutrophils # (A) 11.6 k/uL (1.3-7.7); Neutrophils % (A) 95 %; Platelet Count 195 k/uL (150-450); RBC 3.61 m/uL (4.30-5.90); RDW 14.2 % (11.5-15.5); WBC 12.2 k/uL (3.8-10.6)
[2021-03-17 04:30] LABS: African American GFR (CKD) >90 (>60 ml/min/1.73 sqM); Anion Gap 12 mmol/L; Blood Urea Nitrogen 23 mg/dL (9-20); Calcium 8.6 mg/dL (8.4-10.2); Carbon Dioxide 22 mmol/L (22-30); Chloride 102 mmol/L (98-107); Glucose 77 mg/dL (74-99); Non-African American GFR(CKD) >90 (>60 ml/min/1.73 sqM); Sodium 136 mmol/L (137-145)
[2021-03-17 05:00] LABS: Potassium 4.5 mmol/L (3.5-5.1)
[2021-03-17] MEDS: methylPREDNISolone SOD SUCCI 125 MG/2 ML VIAL IV SCH (06:43)
[2021-03-17] MEDS: THIAMINE 100 MG TAB PO SCH ×2 (06:44→17:52)
[2021-03-17] MEDS: IPRATROPIUM-ALBUTEROL 3 ML NEB INHALATION SCH ×4 (08:07→20:26)
--- NOTE | 2021-03-17 08:41 | XR ---
EXAMINATION TYPE: XR chest 1V portable DATE OF EXAM: 03/17/2021 HISTORY: Shortness of breath. COMPARISON: 03/16/2021 TECHNIQUE: Single view of the chest is submitted. FINDINGS: Demonstrated are scattered senescent parenchymal change. Again noted is near complete opacification right hemithorax with a couple of small areas of aerated l imelda noted. The left lung is mildly hyperinflated. The heart is stable. Hilar and mediastinal structures are within normal limits. Degenerative changes are seen of the dorsal spine. IMPRESSION: 1. Stable chest
--- NOTE | 2021-03-17 10:01 | P.PN ---
Subjective Progress Note Date: 03/17/21 This is a 65-year-old male patient who presented emergency department because of severe respiratory distress. The patient was sent from his primary care physician's office for worsening shortness of breath and hypoxemia. He was already identified to have an abnormal chest x-ray with volume loss in the right-sided pleural effusion. He was seen in the emergency department yesterday but he left AGAINST MEDICAL ADVICE to be readmitted again today. He is quite cachectic. He is currently on a BiPAP at a pressure of 14/6 cm of water and FiO2 of 1%. He is awake and alert and communicating. Chest x-ray was reviewed and emergency department and it showed a right-sided pleural effusion. There was also right-sided volume loss and underlying central neoplasm was being considered., Subcarinal and right hilar region measuring 10 x 7.5 x 7.1 cm in size. The mass was encasing the right hilar structures including the medicine the lower SVC and there was a cut off sign Dilaudid of the bronchus intermedius. There was also evidence of right middle lobe collapse, partial medial right lower lobe collapse, moderate right-sided pleural effusion and right-sided infiltrate. There was not of 2.3 cm subpleural area of pleural lesion and 2 liver lesions measuring 4 cm suspicious for metastases. There was also abnormal aortic occlusion just below the renal artery takeoff no swelling in extremities. I saw the patient emergency department. He was in impending respiratory failure. He was on a BiPAP at a pressure of 14/6 cm of water with an FiO2 of 1 sent. Based on that, I did a emergent right-sided thoracentesis to provide this patient some symptomatic relief. 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 He is still a daily alcohol drinker. He drinks alcohol heavily and he is currently a cigarette smoker on a daily basis. He is quite cachectic, emaciated, debilitated, weak, and malnourished. Does not have any headache. No seizure. 03/15/2021, I'm seeing this patient for a follow-up in the intensive care unit. The patient is a ICU overflow. For now, the patient on a BiPAP at a pressure of 14/6 cm of water with an FiO2 of 1. The pulse ox measures and is not aggravated and the blood gases will be needed. The patient is urinating adequate tidal volumes and has a respiratory rate of 16-20. He remains quite lethargic, somnolent yet arousable. Extremely cachectic and emaciated. Hemodynamically stable. As mentioned earlier, a emergent right-sided thoracentesis was done yesterday of the right lung and a total of 800 mL of pleural fluid was aspirated successfully. Nevertheless, the follow-up chest x-ray still showing significant volume loss in the right lung related to his underlying lung mass as the patient has a large mass encasing the right hilar structures and the right mainstem bronchus and the bronchus intermedius. Currently is on bronchodilators and steroids. No fever. No chills. Resting comfortably in bed. Does not communicate a whole lot. Family is not around. Would like to talk to the family regarding treatment. As the patient's prognosis extremely poor baseline above-mentioned comorbidities. Fluid cytology is pending for now. 03/16/2021 I'm seeing this patient in the intensive care unit. The patient is much more awake compared to yesterday. Is following commands. He is on and off confused. He is not sure where he is. However his communicating. He is trying to answer questions. His breathing is nonlabored. He was taken off the BiPAP. He was switched to nasal cannula and currently is on room air oxygen. Chest x- ray showing volume loss and they large hilar mass with atelectatic changes as described earlier involving the right lower lung area. He remains on bronchodilators. He remains on steroids. He remains on IV Zosyn as an empiric antibiotic coverage for any postobstructive pneumonia. White cell count is 15.3 with a hemoglobin 0.3. Normal renal function. Lactic acid level is down to 2.2. Urinalysis was abnormal and cultures are still pending for now. Also, I have drained this patient's right lung and a total of 800 mL of pleural fluid was aspirated. Fluid cytology still pending for now. Repeat chest x-ray from today shows no significant interval change. There is volume loss on the right. The patient is extremely cachectic and in mental status as discussed earlier. No focal neurological deficits. His CODE STATUS has been switched to a DO NOT RESUSCITATE and DO NOT INTUBATE per our conversation with the family yesterday. 03/17/2022, the patient is still the same. He is on room air oxygen. He is not having any major respiratory difficulties. Nevertheless, he is quite debilitated. He is not eating much. In fact is eating minimally. His resting comfortably in bed. He is confused. Arousable. No apparent respiratory distress. Communicates. However, he is oriented only to self. Does not know where he is. Has very poor insight on his condition. The pleural fluid cytology still pending for now. As mentioned earlier, the patient has a large hilar mass with atelectasis of the right lower lobe/right middle lobe and currently is still on a bronchodilators and steroids and antibiotics. Cardiac rhythm is sinus. Hemodynamically stable. DNR/DNI CODE STATUS. Objective - Vital Signs Vital signs: Vital Signs Temp 97.4 F L 03/16/21 20:00 Pulse 68 03/17/21 08:08 Resp 14 03/17/21 08:08 BP 117/68 03/17/21 04:00 Pulse Ox 97 03/17/21 04:00 Intake & Output 03/16/21 03/17/21 03/17/21 18:59 06:59 18:59 Intake Total 455 160 Output Total 245 240 Balance 210 -80 Weight 44.5 kg Intake: IV 10 160 Sodium Chloride 0.9% 1, 10 160 000 ml @ 75 mls/hr IV . [id number] [facility] Rx#:[id number] Intake, IV Titration 325 Amount Piperacillin-Tazobactam 3 100 .375 gm In Sodium Chloride 0.9% 100 ml @ 25 mls/hr IVPB Q8H [facility] Rx#: [id number] Sodium Chloride 0.9% 1, 225 000 ml @ 75 mls/hr IV . [id number] [facility] Rx#:[id number] Oral 120 Output: Urine 245 240 Other: Voiding Method Indwelling Catheter Indwelling Catheter # Voids 0 # Bowel Movements 1 - Exam Patient is on room air oxygen. No signs of any respiratory distress Head exam was generally normal. There was no scleral icterus or corneal arcus. Mucous membranes were moist. Neck was supple and without jugular venous distension, thyromegaly, or carotid bruits. Carotids were easily palpable bilaterally. There was no adenopathy. Lungs sounds are diminished specially in the right lung compared to the left. Overall breath sounds are quite diminished and the patient is scheduled and scattered external wheeze. There is also dullness to percussion on the right. The patient has a barrel chest. The air entry is improved in the right lung specially in the right lung base post thoracentesis. Cardiac exam revealed the PMI to be normally situated and sized. The rhythm was regular and no extrasystoles were noted during several minutes of auscultation. The first and second heart sounds were normal and physiologic splitting of the second heart sound was noted. There were no murmurs, rubs, clicks, or gallops. Abdominal exam revealed normal bowel sounds. The abdomen was soft, non-tender, and without masses, organomegaly, or appreciable enlargement of the abdominal a leticia. Examination of the extremities revealed easily palpable radial, femoral and pedal pulses. There was no cyanosis, clubbing or edema. Examination of the skin revealed no evidence of significant rashes, suspicious appearing nevi or other concerning lesions. Neurologically awake alert and there is no focal neurological deficit. He has some tremors and he has global weakness in all 4 extrem - Labs CBC & Chem 7: 03/17/21 03:12 03/17/21 03:12 Labs: Abnormal Lab Results - Last 24 Hours (Table) 03/17/21 03/17/21 Range/Units 03:12 03:12 WBC 12.2 H (3.8-10.6) k/uL RBC 3.61 L (4.30-5.90) m/uL Hgb 11.2 L (13.0-17.5) gm/dL Hct 35.1 L (39.0-53.0) % Neutrophils # 11.6 H (1.3-7.7) k/uL Lymphocytes # 0.2 L (1.0-4.8) k/uL Sodium 136 L (137-145) mmol/L BUN 23 H (9-20) mg/dL Microbiology - Last 24 Hours (Table) 03/14/21 13:32 Acid Fast Bacilli Smear - Final Pleural Fluid Acid Fast Bacilli Culture - Preliminary 03/15/21 22:00 Urine Culture - Preliminary Urine,Voided 03/14/21 13:32 Gram Stain - Preliminary Pleural Fluid Body Fluid Culture - Preliminary Assessment and Plan Plan: 1 metastatic carcinoma most likely of a lung primary. The patient is presenting with a large right paratracheal precarinal and subcarinal mass with hilar extension measuring 7.1 x 10 x 7.9 cm in size and there is extensive mass effect on the bronchus intermedius causing significant narrowing. There is some right lower lobe and right middle lobe atelectatic changes and volume loss in addition to a moderate-sized right-sided pleural effusion. Patient also has hepatic lesions and the presentation is highly suspicious for stage IV metastatic carcinoma of a lung primary. I performed a immediate therapeutic and diagnostic thoracentesis of the right lung and removed a total of 800 mL of pleural fluid yesterday and the emergency department. Fluid cytology still pending for now. Follow-up chest x-ray still showing volume loss on the right and the patient has a large hilar mass encasing the bronchus intermedius and the right mainstem bronchus causing mass effect and narrowing and atelectasis. The patient is being seen today seen in the intensive care unit. His much more comfortable. Fluid cytology is pending. The fluid cytology turns out to be negative, he may need a bronchoscopy for tissue diagnosis and establishing a final diagnoses regarding this metastatic carcinoma which we think it's of a lung primary. His evaluation of a 03/17/2021, the pleural fluid cytology still pending for now. The patient remains on room air oxygen. It final decision on biopsy has not been done is essentially unchanged. Extremely debilitated and cachectic with a very poor performance and functional status. 2 acute hypoxic respiratory failure secondary to above. A diagnostic and therapeutic thoracentesis was done. Oxygenation improved. The patient was taken off the BiPAP and currently is on room air oxygen. His current pulse ox is 98%. 3 COPD 4 severe debility and significant malnourishment and obvious signs of cachexia and and emaciation and weight loss. Current by the weight is around 90 pounds. 5 acute leukocytosis 6 acute lactic acidosis, improved 7 troponin leak 8 Alcoholism 9 Large right MCA distribution CVA with some residual left-sided weakness 10 Smoking 11 Hypertension 12 Hyperlipidemia 13 GERD artery disease 14 Impaired performance and functional spastic and above-mentioned comorbidities 15 Peripheral vascular disease with questionable parathyroid the level of the aorta. Given examination, the patient is not having any significant vascular insufficiency and the patient has diminished pulses in the legs bilaterally. Ever the less, the patient has inguinal pulses 60 lactic acidosis, improving. Plan A bedside thoracentesis was done and a total of 800 mL of blood-tinged fluid was aspirated from the right lung. The fluid will be sent for cytology. The oxygenation is improved and the patient is currently on room air oxygen With the patient combination of bronchodilators and steroids and IV Zosyn for postobstructive pneumonia continue DuoNeb about treatment [id number] This continued IV Solu-Medrol and put the patient prednisone burst taper IV fluids at 75 mL an hour normal saline May need a bronchoscopy for tissue diagnosis if the pleural fluid cytology turns out to be negative Advance diet and dietary consultation Overall respiratory status is stable and the patient is currently on room air oxygen transfer this patient to an oncology and it Had a lengthy discussion with the daughter the bedside and over the phone. We'll switch his CODE STATUS to DNR/DNI. Prognosis poor.
[2021-03-17] MEDS: METOPROLOL TARTRATE 12.5 MG TAB PO SCH ×2 (10:09→20:57)
--- NOTE | 2021-03-17 11:01 | ECHOF ---
Referral Reason:Repeat full echo MEASUREMENTS -------- HEIGHT: 165.1 cm WEIGHT: 44.5 kg BP: IVSd: 1.1 cm (0.6 - 1.1) LVIDd: 3.1 cm (3.9 - 5.3) LVPWd: 1.1 cm (0.6 - 1.1) IVSs: 1.5 cm LVIDs: 1.8 cm LVPWs: 1.2 cm MV E John: 0.34 m/s MV DecT: 134 ms MV A John: 0.59 m/s MV E/A Ratio: 0.58 RAP: 5.00 mmHg RVSP: 21.52 mmHg FINDINGS -------- This was a technically difficult study with suboptimal views. Study taken from subcoastals limited views taken. The left ventricular size is normal. Left ventricular wall thickness is normal. Overall left vent ricular systolic function is low-normal with, an EF between 50 - 55 %. The right ventricle is normal in size. The left atrium was not well visualized. The right atrium was not well visualized. The aortic valve was not well visualized. The mitral valve leaflets are mildly thickened. Mild mitral annular calcification present. Mild m itral regurgitation is present. The tricuspid valve appears structurally normal. Mild tricuspid regurgitation present. Right vent ricular systolic pressure is normal at < 35 mmHg. The pulmonic valve was not well visualized. IVC Not well visulized. Pleural Effusion with Fibrin. CONCLUSIONS -------- 1. Study taken from subcoastals limited views taken. 2. The left ventricular size is normal. 3. Left ventricular wall thickness is normal. 4. Overall left ventricular systolic function is low-normal with, an EF between 50 - 55 %. 5. The mitral valve leaflets are mildly thickened. 6. Mild mitral annular calcification present. 7. Mild mitral regurgitation is present. 8. Mild tricuspid regurgitation present. 9. Pleural Effusion with Fibrin. INTERMEDIATE CARD TENDER: Donita Durán RDCS
--- NOTE | 2021-03-17 13:28 | P.PN ---
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 He does not follow with a general office associate that is known. Cardiology consulted for troponin elevation. Patient initially presented to the emergency department on 03/13/21 due to being sent from his PCP office with hypoxia. He was diagnosed with effusion and fluid overload as well as hypoxia in the emergency department but left Against medical Advise. He presented again on 03/14/21 to the emergency department with severe respiratory distress. Transported on nonrebreather to the hospital. Chest x-ray revealed persistent right-sided pleural effusion. Persistent right lung edema or infiltrate. Underlying obstructive central mass or neoplasm needs to be excluded. CT chest revealed large conglomerate mass along the right paratracheal, subcarinal, right hilar region measuring 10 x 7.9 x 7.1cm. There is encasement of the multiple right hilar structures including the mid to lower SVC and cut off of the right upper lobe bronchus and broncus intermedius. Consider neoplasm. Right middle lobe collapse, partial medial right lower lobe collapse. Moderate right pleural effusion with multifocal right-sided infiltrates, probably post obstructive pneumonia. Possible 2.3 cm pleural metastasis right upper lobe. 2 liver lesions measuring 4.0 cm each suspicious for metastasis. Leriche syndrome with abnormal aortic occlusion just below the renal artery take off. 03/14 Patient was placed on BIPAP. Pulmonary performed right sided thoracentesis with 800mL total of 800 mL of pleural fluid removal. Limited Echocardiogram revealed EF <20% 03/17/2021: Patient seen and examined in the intensive care unit. He is alert, confused. Chest x-ray revealed scattered parenchymal change. Again noted near-complete opacification of right hemithorax. Left lung is mildly hyperinflated. Repeat echocardiogram revealed left ventricular systolic function is lownormal with EF 50-55%, mild mitral regurgitation, mild tricuspid regurgitation, pleural effusion. Blood pressure 120/71, heart rate 60, afebrile, maintaining oxygen saturations 98% on room air. Laboratory reviewed, WBC 12.2, hemoglobin 11.2, platelets 95, sodium 136, potassium 4.5, BUN 23, serum creatinine 0.6. Patient currently maintained on aspirin 81 mg daily, atorvastatin 10 mg nightly, met oprolol tartrate 12.5mg BID. GENERAL: NECK: Supple without JVD or thyromegaly. LUNGS: Breath sounds diminished to auscultation bilaterally. Respiration equal and unlabored. Expiratory wheezes. No rales or rhonchi. HEART: Regular rate and rhythm Systolic murmur noted. No rubs or gallops. S1 and S2 heard. EXTREMITIES: Normal range of motion, no edema. No clubbing or cyanosis. Peripheral pulses intact. ASSESSMENT Acute hypoxic respiratory failure Elevated troponin, most likely indicative of supply and demand mismatch but CAD cannot be excluded Large right paratracheal precarinal and subcarinal mass with hilar extension [id number] x 7.9 x 7.1cm in size, encasement of the multiple right hilar structures including the mid to lower SVC and cut off of the right upper lobe bronchus and broncus intermedius seen on CT chest Liver lesions measuring 4.0 cm each suspicious for metastasis seen on CT Right sided pleural effusion s/p thoracentesis 800mL removed on 03/14 History of alcoholism History of COPD History of Large right MCA distribution CVA with some residual left-sided weakness Chronic nicotine dependence Hypertension Hyperlipidemia PLAN Start lisinopril 2.5mg daily Continus aspirin, statin and bet babita Repeat full echocardiogram- which revealed EF 50-55%. Hold off on further cardiology workup at this time due to malignancy management Will continue medical management Further recommendations based on clinical course. Nurse Practitioner note has been reviewed, I agree with a documented findings and plan of care. Patient was seen and examined. Objective - Vital Signs Vital signs: Vital Signs Temp 97.4 F L 03/16/21 20:00 Pulse 68 03/17/21 08:08 Resp 14 03/17/21 08:08 BP 117/68 03/17/21 04:00 Pulse Ox 97 03/17/21 04:00 Intake & Output 03/16/21 03/17/21 03/17/21 18:59 06:59 18:59 Intake Total 455 160 Output Total 245 240 Balance 210 -80 Weight 44.5 kg Intake: IV 10 160 Sodium Chloride 0.9% 1, 10 160 000 ml @ 75 mls/hr IV . [id number] [facility] Rx#:[id number] Intake, IV Titration 325 Amount Piperacillin-Tazobactam 3 100 .375 gm In Sodium Chloride 0.9% 100 ml @ 25 mls/hr IVPB Q8H [facility] Rx#: [id number] Sodium Chloride 0.9% 1, 225 000 ml @ 75 mls/hr IV . [id number] [facility] Rx#:[id number] Oral 120 Output: Urine 245 240 Other: Voiding Method Indwelling Catheter Indwelling Catheter # Voids 0 # Bowel Movements 1 - Labs CBC & Chem 7: 03/17/21 03:12 03/17/21 03:12 Labs: Abnormal Lab Results - Last 24 Hours (Table) 03/17/21 03/17/21 Range/Units 03:12 03:12 WBC 12.2 H (3.8-10.6) k/uL RBC 3.61 L (4.30-5.90) m/uL Hgb 11.2 L (13.0-17.5) gm/dL Hct 35.1 L (39.0-53.0) % Neutrophils # 11.6 H (1.3-7.7) k/uL Lymphocytes # 0.2 L (1.0-4.8) k/uL Sodium 136 L (137-145) mmol/L BUN 23 H (9-20) mg/dL Microbiology - Last 24 Hours (Table) 03/14/21 13:32 Acid Fast Bacilli Smear - Final Pleural Fluid Acid Fast Bacilli Culture - Preliminary 03/15/21 22:00 Urine Culture - Preliminary Urine,Voided 03/14/21 13:32 Gram Stain - Preliminary Pleural Fluid Body Fluid Culture - Preliminary
--- NOTE | 2021-03-17 14:14 | CONS ---
DATE OF CONSULTATION: 03/17/2021 HISTORY OF PRESENT ILLNESS: Bulmaro is known to me from the past. He is a 65-year-old gentleman. He has been coming to the office on a regular basis. Last time he was in my office dated 07/03/2020. At that time, patient has history of claudication. No rest pain. Patient also had a right carotid checked which is occluded chronically. Left side 60 to 49% stenosis. LARA on the right side was 0.38 and left side was 0.36. The patient has a history of smoking. He has been admitted with acute exacerbation of COPD and the patient has a severe mild nutrition with weight loss, the patient has history of alcoholism. The patient has history of hypertension, peripheral vascular disease. Patient was seen in the intensive care unit. CT scan shows a large mass in the right side with the massive pleural effusion. Patient had thoracentesis done by cone treater. The patient was seen in his room. He is confused and very lethargic. His femorals are 1+ PT, DP by the Doppler. The patient is DNR. Prognosis is guarded. At this point, the patient is not a candidate for any major vascular intervention. We will follow with you. Thank you for this consultation. MMODL / IJN: [id number] / [id number]
[2021-03-17] MEDS: ATORVASTATIN 10 MG TAB PO SCH (20:57)
[2021-03-17] MEDS: DONEPEZIL 10 MG TAB PO SCH (20:57)
[2021-03-17] MEDS: ASPIRIN 81 MG PO SCH (20:57)
[2021-03-18] MEDS: PIPERACILLIN-TAZOBACTAM 3.375 GM in SODIUM CHLORIDE 0.9% 100 ML IVPB SCH ×3 (02:57→19:00)
[2021-03-18] MEDS: THIAMINE 100 MG TAB PO SCH ×2 (06:41→19:00)
[2021-03-18] MEDS: predniSONE 20 MG TAB PO SCH (08:32)
[2021-03-18] MEDS: METOPROLOL TARTRATE 12.5 MG TAB PO SCH ×2 (08:34→20:11)
[2021-03-18] MEDS: IPRATROPIUM-ALBUTEROL 3 ML NEB INHALATION SCH ×4 (08:53→19:23)
--- NOTE | 2021-03-18 11:20 | P.PN ---
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 He does not follow with a foreign exchange trader that is known. Cardiology consulted for troponin elevation. Patient initially presented to the emergency department on 03/13/21 due to being sent from his PCP office with hypoxia. He was diagnosed with effusion and fluid overload as well as hypoxia in the emergency department but left Against medical Advise. He presented again on 03/14/21 to the emergency department with severe respiratory distress. Transported on nonrebreather to the hospital. Chest x-ray revealed persistent right-sided pleural effusion. Persistent right lung edema or infiltrate. Underlying obstructive central mass or neoplasm needs to be excluded. CT chest revealed large conglomerate mass along the right paratracheal, subcarinal, right hilar region measuring 10 x 7.9 x 7.1cm. There is encasement of the multiple right hilar structures including the mid to lower SVC and cut off of the right upper lobe bronchus and broncus intermedius. Consider neoplasm. Right middle lobe collapse, partial medial right lower lobe collapse. Moderate right pleural effusion with multifocal right-sided infiltrates, probably post obstructive pneumonia. Possible 2.3 cm pleural metastasis right upper lobe. 2 liver lesions measuring 4.0 cm each suspicious for metastasis. Leriche syndrome with abnormal aortic occlusion just below the renal artery take off. 03/14 Patient was placed on BIPAP. Pulmonary performed right sided thoracentesis with 800mL total of 800 mL of pleural fluid removal. Limited Echocardiogram revealed EF <20% 03/18/2021: Patient seen and examined in the intensive care unit. He is alert, cooperative, continues to be confused. Repeat echocardiogram revealed left ventricular systolic function is lownormal with EF 50-55%, mild mitral regurgitation, mild tricuspid regurgitation, pleural effusion. Blood pressure 138/78 heart rate 65, afebrile, maintaining oxygen saturations 98% on room air. Laboratory reviewed, WBC 12.2, hemoglobin 11.2, platelets 195, sodium 136, potassium 4.5, BUN 23, serum creatinine 0.68. Patient currently maintained on aspirin 81 mg daily, atorvastatin 10 mg nightly, metoprolol tartrate 12.5mg BID, lisinopril 2.5 daily GENERAL: NECK: Supple without JVD LUNGS: Breath sounds diminished to auscultation bilaterally. Respiration equal and unlabored. Expiratory wheezes. No rales or rhonchi. HEART: Regular rate and rhythm Systolic murmur noted. No rubs or gallops. S1 and S2 heard. EXTREMITIES: Normal range of motion, no edema. No clubbing or cyanosis. Peripheral pulses intact. ASSESSMENT Acute hypoxic respiratory failure Elevated troponin, most likely indicative of supply and demand mismatch but CAD cannot be excluded Large right paratracheal precarinal and subcarinal mass with hilar extension [id number] x 7.9 x 7.1cm in size, encasement of the multiple right hilar structures including the mid to lower SVC and cut off of the right upper lobe bronchus and broncus intermedius seen on CT chest Liver lesions measuring 4.0 cm each suspicious for metastasis seen on CT Right sided pleural effusion s/p thoracentesis 800mL removed on 03/14 History of alcoholism History of COPD History of Large right MCA distribution CVA with some residual left-sided weakness Chronic nicotine dependence Hypertension Hyperlipidemia PLAN Continue lisinopril, aspirin, statin and beta babita From cardiology perspective, no further cardiac workup indicated at this time we will sign off at this time, follow the patient as needed. Please reach out with any further questions or concerns. Nurse Practitioner note has been reviewed, I agree with a documented findings and plan of care. Patient was seen and examined. Objective - Vital Signs Vital signs: Vital Signs Temp 97.8 F 03/18/21 08:00 Pulse 62 03/18/21 09:03 Resp 16 03/18/21 09:03 BP 138/78 03/18/21 08:00 Pulse Ox 96 03/18/21 08:55 Intake & Output 03/17/21 03/18/21 03/18/21 18:59 06:59 18:59 Intake Total 640 100 Output Total 240 475 Balance 400 -375 Weight 44.5 kg 40.9 kg Intake: Intake, IV Titration 100 100 Amount Piperacillin-Tazobactam 3 100 100 .375 gm In Sodium Chloride 0.9% 100 ml @ 25 mls/hr IVPB Q8H [facility] Rx#: [id number] Oral 540 Output: Urine 240 475 Other: Voiding Method Indwelling Catheter Incontinent Incontinent # Voids 0 1 # Bowel Movements 1 - Labs CBC & Chem 7: 03/17/21 03:12 03/17/21 03:12 Labs: Microbiology - Last 24 Hours (Table) 03/14/21 13:32 Gram Stain - Preliminary Pleural Fluid Body Fluid Culture - Preliminary 03/15/21 22:00 Urine Culture - Final Urine,Voided
--- NOTE | 2021-03-18 11:49 | P.PN ---
Subjective Progress Note Date: 03/18/21 Principal diagnosis: Metastatic carcinoma suspect lung primary This is a 65-year-old male patient who presented emergency department because of severe respiratory distress. The patient was sent from his primary care physician's office for worsening shortness of breath and hypoxemia. He was already identified to have an abnormal chest x-ray with volume loss in the right-sided pleural effusion. He was seen in the emergency department yesterday but he left AGAINST MEDICAL ADVICE to be readmitted again today. He is quite cachectic. He is currently on a BiPAP at a pressure of 14/6 cm of water and FiO2 of 1%. He is awake and alert and communicating. Chest x-ray was reviewed and emergency department and it showed a right-sided pleural effusion. There was also right-sided volume loss and underlying central neoplasm was being considered., Subcarinal and right hilar region measuring 10 x 7.5 x 7.1 cm in size. The mass was encasing the right hilar structures including the medicine the lower SVC and there was a cut off sign Dilaudid of the bronchus intermedius. There was also evidence of right middle lobe collapse, partial medial right lower lobe collapse, moderate right-sided pleural effusion and right-sided infiltrate. There was not of 2.3 cm subpleural area of pleural lesion and 2 liver lesions measuring 4 cm suspicious for metastases. There was also abnormal aortic occlusion just below the renal artery takeoff no swelling in extremities. I saw the patient emergency department. He was in impending respiratory failure. He was on a BiPAP at a pressure of 14/6 cm of water with an FiO2 of 1 sent. Based on that, I did a emergent right-sided thoracentesis to provide this patient some symptomatic relief. 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 He is still a daily alcohol drinker. He drinks alcohol heavily and he is currently a cigarette smoker on a daily basis. He is quite cachectic, emaciated, debilitated, weak, and malnourished. Does not have any headache. No seizure. 03/15/2021, I'm seeing this patient for a follow-up in the intensive care unit. The patient is a ICU overflow. For now, the patient on a BiPAP at a pressure of 14/6 cm of water with an FiO2 of 1. The pulse ox measures and is not aggravated and the blood gases will be needed. The patient is urinating adequate tidal volumes and has a respiratory rate of 16-20. He remains quite lethargic, somnolent yet arousable. Extremely cachectic and emaciated. Hemodynamically stable. As mentioned earlier, a emergent right-sided thoracentesis was done yesterday of the right lung and a total of 800 mL of pleural fluid was aspirated successfully. Nevertheless, the follow-up chest x-ray still showing significant volume loss in the right lung related to his underlying lung mass as the patient has a large mass encasing the right hilar structures and the right mainstem bronchus and the bronchus intermedius. Currently is on bronchodilators and steroids. No fever. No chills. Resting comfortably in bed. Does not communicate a whole lot. Family is not around. Would like to talk to the family regarding treatment. As the patient's prognosis extremely poor baseline above-mentioned comorbidities. Fluid cytology is pending for now. 03/16/2021 I'm seeing this patient in the intensive care unit. The patient is much more awake compared to yesterday. Is following commands. He is on and off confused. He is not sure where he is. However his communicating. He is trying to answer questions. His breathing is nonlabored. He was taken off the BiPAP. He was switched to nasal cannula and currently is on room air oxygen. Chest x- ray showing volume loss and they large hilar mass with atelectatic changes as described earlier involving the right lower lung area. He remains on bronchodilators. He remains on steroids. He remains on IV Zosyn as an empiric antibiotic coverage for any postobstructive pneumonia. White cell count is 15.3 with a hemoglobin 0.3. Normal renal function. Lactic acid level is down to 2.2. Urinalysis was abnormal and cultures are still pending for now. Also, I have drained this patient's right lung and a total of 800 mL of pleural fluid was aspirated. Fluid cytology still pending for now. Repeat chest x-ray from today shows no significant interval change. There is volume loss on the right. The patient is extremely cachectic and in mental status as discussed earlier. No focal neurological deficits. His CODE STATUS has been switched to a DO NOT RESUSCITATE and DO NOT INTUBATE per our conversation with the family yesterday. 03/17/2022, the patient is still the same. He is on room air oxygen. He is not having any major respiratory difficulties. Nevertheless, he is quite debilitated. He is not eating much. In fact is eating minimally. His resting comfortably in bed. He is confused. Arousable. No apparent respiratory distress. Communicates. However, he is oriented only to self. Does not know where he is. Has very poor insight on his condition. The pleural fluid cytology still pending for now. As mentioned earlier, the patient has a large hilar mass with atelectasis of the right lower lobe/right middle lobe and currently is still on a bronchodilators and steroids and antibiotics. Cardiac rhythm is sinus. Hemodynamically stable. DNR/DNI CODE STATUS. The patient is seen today 03/18/2021 in follow-up in the intensive care unit. He is currently awake. Resting fairly comfortably in bed. Maintaining O2 saturations in the 90s on room air. He's been afebrile. Hemodynamically stable. Pathology from pleural fluid pending. Cultures pending. Fluid analysis revealed cloudy fluid with protein at 2.1 and LDH 226. He remains on antibiotics in the form of Zosyn. Continued on bronchodilators. Continued on prednisone. Remains in the CIWA protocol. Objective - Vital Signs Vital signs: Vital Signs Temp 97.8 F 03/18/21 08:00 Pulse 62 03/18/21 09:03 Resp 16 03/18/21 09:03 BP 138/78 03/18/21 08:00 Pulse Ox 96 03/18/21 08:55 Intake & Output 03/17/21 03/18/21 03/18/21 18:59 06:59 18:59 Intake Total 640 100 Output Total 240 475 Balance 400 -375 Weight 44.5 kg 40.9 kg Intake: Intake, IV Titration 100 100 Amount Piperacillin-Tazobactam 3 100 100 .375 gm In Sodium Chloride 0.9% 100 ml @ 25 mls/hr IVPB Q8H [facility] Rx#: [id number] Oral 540 Output: Urine 240 475 Other: Voiding Method Indwelling Catheter Incontinent Incontinent # Voids 0 1 # Bowel Movements 1 - Exam Frail, cachectic 65-year-old male patient, appears older than stated age, on room air oxygen. No signs of any respiratory distress Head exam was generally normal. There was no scleral icterus or corneal arcus. Mucous membranes were moist. Neck was supple and without jugular venous distension, thyromegaly, or carotid bruits. Carotids were easily palpable bilaterally. There was no adenopathy. Lungs sounds are diminished specially in the right lung compared to the left. Overall breath sounds are quite diminished and the patient is scheduled and scattered external wheeze. There is also dullness to percussion on the right. The patient has a barrel chest. The air entry is improved in the right lung specially in the right lung base post thoracentesis. Cardiac exam revealed the PMI to be normally situated and sized. The rhythm was regular and no extrasystoles were noted during several minutes of auscultation. The first and second heart sounds were normal and physiologic splitting of the second heart sound was noted. There were no murmurs, rubs, clicks, or gallops. Abdominal exam revealed normal bowel sounds. The abdomen was soft, non-tender, and without masses, organomegaly, or appreciable enlargement of the abdominal aorta. Examination of the extremities revealed easily palpable radial, femoral and pedal pulses. There was no cyanosis, clubbing or edema. Examination of the skin revealed no evidence of significant rashes, suspicious appearing nevi or other concerning lesions. Neurologically awake alert and there is no focal neurological deficit. He has some tremors and he has global weakness in all 4 extremities - Labs CBC & Chem 7: 03/17/21 03:12 03/17/21 03:12 Labs: Microbiology - Last 24 Hours (Table) 03/14/21 13:32 Gram Stain - Preliminary Pleural Fluid Body Fluid Culture - Preliminary 03/15/21 22:00 Urine Culture - Final Urine,Voided Assessment and Plan Assessment: 1 metastatic carcinoma most likely of a lung primary. The patient is presenting with a large right paratracheal precarinal and subcarinal mass with hilar extens ion measuring 7.1 x 10 x 7.9 cm in size and there is extensive mass effect on the bronchus intermedius causing significant narrowing. There is some right lower lobe and right middle lobe atelectatic changes and volume loss in addition to a moderate-sized right-sided pleural effusion. Patient also has hepatic lesions and the presentation is highly suspicious for stage IV metastatic carcinoma of a lung primary. 03/14/2021 therapeutic and diagnostic thoracentesis of the right lung and removed a total of 800 mL of pleural fluid. Fluid cytology still pending for now. Follow-up chest x-ray still showing volume loss on the right and the patient has a large hilar mass encasing the bronchus inter medius and the right mainstem bronchus causing mass effect and narrowing and atelectasis. If the fluid cytology turns out to be negative, he may need a bronchoscopy for tissue diagnosis and establishing a final diagnoses regarding this metastatic carcinoma which we think it's of a lung primary. 2 acute hypoxic respiratory failure secondary to above. A diagnostic and therapeutic thoracentesis was done. Oxygenation improved. The patient was taken off the BiPAP and currently is on room air oxygen. His current pulse ox is 98%. 3 COPD 4 severe debility and significant malnourishment and obvious signs of cachexia and and emaciation and weight loss. Current by the weight is around 90 pounds. 5 acute leukocytosis 6 acute lactic acidosis, improved 7 troponin leak 8 Alcoholism 9 Large right MCA distribution CVA with some residual left-sided weakness 10 Smoking 11 Hypertension 12 Hyperlipidemia 13 GERD artery disease 14 Impaired performance and functional spastic and above-mentioned comorbidities 15 Peripheral vascular disease with questionable parathyroid the level of the a leticia. Given examination, the patient is not having any significant vascular insufficiency and the patient has diminished pulses in the legs bilaterally. Ever the less, the patient has inguinal pulses 16 lactic acidosis, improving. Plan The patient was seen and evaluated by Dr. Haile Pleural fluid cytology still pending Continue the current treatment plan Comfortable and on room oxygen presently Overall prognosis remains quite guarded and poor DO NOT RESUSCITATE/DO NOT INTUBATE CODE STATUS We will continue to follow and make further recommendations based on his clinical status I, the cosigning physician, performed a history & physical examination of the patient. Lungs sounds are diminished specially in the right lung compared to the left. Overall breath sounds are quite diminished and the patient is scheduled and scattered external wheeze. There is also dullness to percussion on the right. . Maintaining good O2 saturations in the 90s on room air. I discussed the assessment and plan of care with my nurse practitioner, Marifer Torres. I attest to the above note as dictated by her.
[2021-03-18] MEDS: ASPIRIN 81 MG PO SCH (20:10)
[2021-03-18] MEDS: DONEPEZIL 10 MG TAB PO SCH (20:10)
[2021-03-18] MEDS: ATORVASTATIN 10 MG TAB PO SCH (20:11)
[2021-03-18] MEDS: LORazepam 2 MG/ML INJ IV PRN (21:18)
[2021-03-19] MEDS: PIPERACILLIN-TAZOBACTAM 3.375 GM in SODIUM CHLORIDE 0.9% 100 ML IVPB SCH ×3 (03:23→23:21)
[2021-03-19] MEDS: THIAMINE 100 MG TAB PO SCH ×2 (06:56→21:21)
--- NOTE | 2021-03-19 09:12 | P.PN ---
Subjective Progress Note Date: 03/19/21 This is a 65-year-old male patient who presented emergency department because of severe respiratory distress. The patient was sent from his primary care physician's office for worsening shortness of breath and hypoxemia. He was already identified to have an abnormal chest x-ray with volume loss in the right-sided pleural effusion. He was seen in the emergency department yesterday but he left AGAINST MEDICAL ADVICE to be readmitted again today. He is quite cachectic. He is currently on a BiPAP at a pressure of 14/6 cm of water and FiO2 of 1%. He is awake and alert and communicating. Chest x-ray was reviewed and emergency department and it showed a right-sided pleural effusion. There was also right-sided volume loss and underlying central neoplasm was being considered., Subcarinal and right hilar region measuring 10 x 7.5 x 7.1 cm in size. The mass was encasing the right hilar structures including the medicine the lower SVC and there was a cut off sign Dilaudid of the bronchus intermedius. There was also evidence of right middle lobe collapse, partial medial right lower lobe collapse, moderate right-sided pleural effusion and right-sided infiltrate. There was not of 2.3 cm subpleural area of pleural lesion and 2 liver lesions measuring 4 cm suspicious for metastases. There was also abnormal aortic occlusion just below the renal artery takeoff no swelling in extremities. I saw the patient emergency department. He was in impending respiratory failure. He was on a BiPAP at a pressure of 14/6 cm of water with an FiO2 of 1 sent. Based on that, I did a emergent right-sided thoracentesis to provide this patient some symptomatic relief. 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 He is still a daily alcohol drinker. He drinks alcohol heavily and he is currently a cigarette smoker on a daily basis. He is quite cachectic, emaciated, debilitated, weak, and malnourished. Does not have any headache. No seizure. 03/15/2021, I'm seeing this patient for a follow-up in the intensive care unit. The patient is a ICU overflow. For now, the patient on a BiPAP at a pressure of 14/6 cm of water with an FiO2 of 1. The pulse ox measures and is not aggravated and the blood gases will be needed. The patient is urinating adequate tidal volumes and has a respiratory rate of 16-20. He remains quite lethargic, somnolent yet arousable. Extremely cachectic and emaciated. Hemodynamically stable. As mentioned earlier, a emergent right-sided thoracentesis was done yesterday of the right lung and a total of 800 mL of pleural fluid was aspirated successfully. Nevertheless, the follow-up chest x-ray still showing significant volume loss in the right lung related to his underlying lung mass as the patient has a large mass encasing the right hilar structures and the right mainstem bronchus and the bronchus intermedius. Currently is on bronchodilators and steroids. No fever. No chills. Resting comfortably in bed. Does not communicate a whole lot. Family is not around. Would like to talk to the family regarding treatment. As the patient's prognosis extremely poor baseline above-mentioned comorbidities. Fluid cytology is pending for now. 03/16/2021 I'm seeing this patient in the intensive care unit. The patient is much more awake compared to yesterday. Is following commands. He is on and off confused. He is not sure where he is. However his communicating. He is trying to answer questions. His breathing is nonlabored. He was taken off the BiPAP. He was switched to nasal cannula and currently is on room air oxygen. Chest x- ray showing volume loss and they large hilar mass with atelectatic changes as described earlier involving the right lower lung area. He remains on bronchodilators. He remains on steroids. He remains on IV Zosyn as an empiric antibiotic coverage for any postobstructive pneumonia. White cell count is 15.3 with a hemoglobin 0.3. Normal renal function. Lactic acid level is down to 2.2. Urinalysis was abnormal and cultures are still pending for now. Also, I have drained this patient's right lung and a total of 800 mL of pleural fluid was aspirated. Fluid cytology still pending for now. Repeat chest x-ray from today shows no significant interval change. There is volume loss on the right. The patient is extremely cachectic and in mental status as discussed earlier. No focal neurological deficits. His CODE STATUS has been switched to a DO NOT RESUSCITATE and DO NOT INTUBATE per our conversation with the family yesterday. 03/17/2022, the patient is still the same. He is on room air oxygen. He is not having any major respiratory difficulties. Nevertheless, he is quite debilitated. He is not eating much. In fact is eating minimally. His resting comfortably in bed. He is confused. Arousable. No apparent respiratory distress. Communicates. However, he is oriented only to self. Does not know where he is. Has very poor insight on his condition. The pleural fluid cytology still pending for now. As mentioned earlier, the patient has a large hilar mass with atelectasis of the right lower lobe/right middle lobe and currently is still on a bronchodilators and steroids and antibiotics. Cardiac rhythm is sinus. Hemodynamically stable. DNR/DNI CODE STATUS. The patient is seen today 03/18/2021 in follow-up in the intensive care unit. He is currently awake. Resting fairly comfortably in bed. Maintaining O2 saturations in the 90s on room air. He's been afebrile. Hemodynamically stable. Pathology from pleural fluid pending. Cultures pending. Fluid analysis revealed cloudy fluid with protein at 2.1 and LDH 226. He remains on antibiotics in the form of Zosyn. Continued on bronchodilators. Continued on prednisone. Remains in the CIWA protocol. 03/19/2021, the patient is quite comfortable. Awaiting fluid cytology from the pleural fluid was aspirated earlier. He is currently on room air oxygen. CBC much more awake. He is increasing his oral intake. Still remains quite weak and lethargic. He was taken off the IV Solu Medrol start on prednisone burst taper. He remains on Zosyn. Blood work essentially within normal limits. The patient's chest x-ray was from 03/17/2021. No chest debilitated since. I'm going to tentatively schedule this patient for a bronchoscopy tomorrow should the pleural fluid turn out worker to be negative. Objective - Vital Signs Vital signs: Vital Signs Temp 97.9 F 03/19/21 02:00 Pulse 72 03/19/21 02:00 Resp 16 03/19/21 02:00 BP 129/72 03/19/21 02:00 Pulse Ox 95 03/19/21 02:00 Intake & Output 03/18/21 03/19/21 03/19/21 18:59 06:59 18:59 Intake Total 100 Output Total 500 Balance -400 Weight 43.1 kg Intake: Intake, IV Titration 100 Amount Piperacillin-Tazobactam 3 100 .375 gm In Sodium Chloride 0.9% 100 ml @ 25 mls/hr IVPB Q8H [facility] Rx#: [id number] Output: Urine 500 Other: Voiding Method Incontinent Incontinent # Voids 1 1 # Bowel Movements 1 - Exam Patient is on room air oxygen. No signs of any respiratory distress Head exam was generally normal. There was no scleral icterus or corneal arcus. Mucous membranes were moist. Neck was supple and without jugular venous distension, thyromegaly, or carotid bruits. Carotids were easily palpable bilaterally. There was no adenopathy. Lungs sounds are diminished specially in the right lung compared to the left. Overall breath sounds are quite diminished and the patient is scheduled and scattered external wheeze. There is also dullness to percussion on the right. The patient has a barrel chest. The air entry is improved in the right lung specially in the right lung base post thoracentesis. Cardiac exam revealed the PMI to be normally situated and sized. The rhythm was regular and no extrasystoles were noted during several minutes of auscultation. The first and second heart sounds were normal and physiologic splitting of the second heart sound was noted. There were no murmurs, rubs, clicks, or gallops. Abdominal exam revealed normal bowel sounds. The abdomen was soft, non-tender, and without masses, organomegaly, or appreciable enlargement of the abdominal aorta. Examination of the extremities revealed easily palpable radial, femoral and pedal pulses. There was no cyanosis, clubbing or edema. Examination of the skin revealed no evidence of significant rashes, suspicious appearing nevi or other concerning lesions. Neurologically awake alert and there is no focal neurological deficit. He has some tremors and he has global weakness in all 4 extrem - Labs CBC & Chem 7: 03/17/21 03:12 03/17/21 03:12 Labs: Microbiology - Last 24 Hours (Table) 03/14/21 13:32 Gram Stain - Preliminary Pleural Fluid Body Fluid Culture - Preliminary Assessment and Plan Plan: 1 metastatic carcinoma most likely of a lung primary. The patient is presenting with a large right paratracheal precarinal and subcarinal mass with hilar extension measuring 7.1 x 10 x 7.9 cm in size and there is extensive mass effect on the bronchus intermedius causing significant narrowing. There is some right lower lobe and right middle lobe atelectatic changes and volume loss in addition to a moderate-sized right-sided pleural effusion. Patient also has hepatic lesions and the presentation is highly suspicious for stage IV metastatic carcinoma of a lung primary. I performed a immediate therapeutic and diagnostic thoracentesis of the right lung and removed a total of 800 mL of pleural fluid yesterday and the emergency department. Fluid cytology still pending for now. Follow-up chest x-ray still showing volume loss on the right and the patient has a large hilar mass encasing the bronchus intermedius and the right mainstem bronchus causing mass effect and narrowing and atelectasis. The patient is being seen today seen in the intensive care unit. His much more comfortable. Fluid cytology is pending. The fluid cytology turns out to be negative, he may need a bronchoscopy for tissue diagnosis and establishing a final diagnoses regarding this metastatic carcinoma which we think it's of a lung primary. 2 acute hypoxic respiratory failure secondary to above. A diagnostic and therapeutic thoracentesis was done. Oxygenation improved. The patient was taken off the BiPAP and currently is on room air oxygen. His current pulse ox is 98%. He was taken off the IV Solu Medrol. He is currently on IV Zosyn. He remains on room air oxygen. Breathing is nonlabored at this point in time. 3 COPD 4 severe debility and significant malnourishment and obvious signs of cachexia and and emaciation and weight loss. Current by the weight is around 90 pounds. Patient is taking his oral intake as tolerated. 5 acute leukocytosis, improved 6 acute lactic acidosis, improved 7 troponin leak 8 Alcoholism 9 Large right MCA distribution CVA with some residual left-sided weakness 10 Smoking 11 Hypertension 12 Hyperlipidemia 13 GERD artery disease 14 Impaired performance and functional spastic and above-mentioned comorbidities 15 Peripheral vascular disease with questionable parathyroid the level of the a leticia. Given examination, the patient is not having any significant vascular insufficiency and the patient has diminished pulses in the legs bilaterally. Nevertheless,, the patient has inguinal pulses. The patient was also seen by Dr. Fairchild from vascular surgery. No intervention is recommended. 16 lactic acidosis, improving. Plan Awaiting pleural fluid cytology We'll schedule this patient tentatively for bronchoscopy in a.m. the patient is physically looking better. Is tolerating diet. He is on room air oxygen. Much more alert and awake and comprehensive. As such, if the pleural fluid cytology is negative, I should be able to do a bronchoscopy for tissue diagnosis for this patient. This will be tentatively scheduled for tomorrow. A repeat chest x-ray will be done also We'll proceed with a bronchoscopy the pleural fluid cytology is negative or still pending by tomorrow. We'll continue IV Zosyn Prednisone burst taper Advance diet Fluid to KVO transfer this patient to an oncology Had a lengthy discussion with the daughter the bedside and over the phone. We'll switch his CODE STATUS to DNR/DNI. Prognosis poor.
[2021-03-19] MEDS: predniSONE 20 MG TAB PO SCH (09:41)
[2021-03-19] MEDS: METOPROLOL TARTRATE 12.5 MG TAB PO SCH ×2 (09:41→21:20)
--- NOTE | 2021-03-19 09:55 | XR ---
EXAMINATION TYPE: XR chest 1V portable DATE OF EXAM: 03/19/2021 HISTORY: Shortness of breath. COMPARISON: 03/17/2021 TECHNIQUE: Single view of the chest is submitted. FINDINGS: Complete opacification right hemithorax which has progressed since prior study. Hyperinflation left l imelda. Mediastinal shift left to right. The heart is stable. Hilar and mediastinal structures are within normal limits. Degenerative changes are seen of the dorsal spine. IMPRESSION: 1. Complete opacification right hemithorax which has progressed since prior study. Hyperinflation le ft lung. Mediastinal shift left to right.
[2021-03-19] MEDS: IPRATROPIUM-ALBUTEROL 3 ML NEB INHALATION SCH ×4 (10:28→19:17)
[2021-03-19] MEDS: ATORVASTATIN 10 MG TAB PO SCH (21:20)
[2021-03-19] MEDS: ASPIRIN 81 MG PO SCH (21:20)
[2021-03-19] MEDS: DONEPEZIL 10 MG TAB PO SCH (21:52)
[2021-03-19] MEDS: LORazepam 2 MG/ML INJ IV PRN (22:26)
[2021-03-20 05:10] LABS: Basophils % (A) 0 %; Eosinophils # (A) 0.1 k/uL (0-0.7); Eosinophils % (A) 1 %; HCT 38.8 % (39.0-53.0); HGB 12.1 gm/dL (13.0-17.5); Hypochromasia Marked; Lymphocytes # (A) 0.8 k/uL (1.0-4.8); Lymphocytes % (A) 8 %; MCH 30.1 pg (25.0-35.0); MCHC 31.2 g/dL (31.0-37.0); MCV 96.4 fL (80.0-100.0); Mean Platelet Volume 7.6; Monocytes # (A) 0.6 k/uL (0-1.0); Monocytes % (A) 6 %; Neutrophils # (A) 8.7 k/uL (1.3-7.7); Neutrophils % (A) 85 %; Platelet Count 212 k/uL (150-450); RBC 4.02 m/uL (4.30-5.90); RDW 14.4 % (11.5-15.5); WBC 10.3 k/uL (3.8-10.6)
[2021-03-20 05:18] LABS: African American GFR (CKD) >90 (>60 ml/min/1.73 sqM); Anion Gap 11 mmol/L; Blood Urea Nitrogen 16 mg/dL (9-20); Calcium 8.3 mg/dL (8.4-10.2); Carbon Dioxide 21 mmol/L (22-30); Chloride 103 mmol/L (98-107); Glucose 56 mg/dL (74-99); Non-African American GFR(CKD) >90 (>60 ml/min/1.73 sqM); Potassium 3.5 mmol/L (3.5-5.1); Sodium 135 mmol/L (137-145)
[2021-03-20] MEDS: IPRATROPIUM-ALBUTEROL 3 ML NEB INHALATION SCH ×4 (08:22→20:36)
[2021-03-20] MEDS ORDERED: HALOPERIDOL LACTATE 5 MG/ML 1 ML VIAL IVP PRN (09:33)
[2021-03-20] MEDS: METOPROLOL TARTRATE 12.5 MG TAB PO SCH ×2 (10:06→20:00)
[2021-03-20] MEDS: PIPERACILLIN-TAZOBACTAM 3.375 GM in SODIUM CHLORIDE 0.9% 100 ML IVPB SCH ×3 (10:06→23:53)
[2021-03-20] MEDS: THIAMINE 100 MG TAB PO SCH ×2 (10:06→17:41)
[2021-03-20] MEDS: predniSONE 20 MG TAB PO SCH (10:06)
--- NOTE | 2021-03-20 10:19 | P.PN ---
Subjective Progress Note Date: 03/17/21 Principal diagnosis: Metastatic carcinoma; most likely primary lung Acute hypoxic respiratory failure Postobstructive pneumonia Severe malnutrition protein calorie/debility 65-year-old male presenting with severe respiratory distress. Past medical histo ry is positive for a large right-sided MCA distribution CVA with some minimal left upper extremity weakness, hyperlipidemia, coronary artery disease, peripheral artery disease and previous history of alcoholism. He is still a daily alcohol drinker. He drinks alcohol heavily and he is currently a c igarette smoker on a daily basis. He is quite cachectic, emaciated, debilitated, weak, and malnourished. Does not have any headache. No seizure. Patient had been sent from the primary care office with hypoxia. He was diagnosed with effusion and fluid overload as well as hypoxia in the emergency department yesterday but had left AGAINST MEDICAL ADVICE. He had an elevated troponin, elevated BNP. 03/15/2021 Patient is seen for a follow-up in the intensive care unit. The patient is a ICU overflow. For now, the patient on a BiPAP at a pressure of 14/6 cm of water with an FiO2 of 1. The pulse ox measures and is not aggravated and the blood gases will be needed. The patient is urinating adequate tidal volumes and has a respiratory rate of 16-20. He remains quite lethargic, somnolent yet arousable. Extremely cachectic and emaciated. Hemodynamically stable. As mentioned earlier, a emergent right-sided thoracentesis was done yesterday of the right lung and a total of 800 mL of pleural fluid was aspirated successfully. Nevertheless, the follow-up chest x-ray still showing significant volume loss in the right lung related to his underlying lung mass as the patient has a large mass encasing the right hilar structures and the right mainstem bronchus and the bronchus intermedius. Currently is on bronchodilators and steroids. No fever. No chills. Resting comfortably in bed. Does not communicate a whole lot. Family is not around. Would like to talk to the family regarding treatment. As the patient's prognosis extremely poor baseline above-mentioned comorbidities. Fluid cytology is pending for now. 03/16/2021 Patient is seen and evaluated in room at bedside; sustained a fall with abrasion to right eyebrow with small hematoma. The patient is much more awake compared to yesterday. He was taken off the BiPAP. He was switched to nasal cannula and currently is on room air oxygen. Chest x-ray showing volume loss and they large hilar mass with atelectatic changes as described earlier involving the right lower lung area. -- He remains on bronchodilators; steroids and IV Zosyn as an empiric antibiotic coverage for any postobstructive pneumonia. White cell count is 15.3 with a hemoglobin 0.3. Normal renal function. Lactic acid level is down to 2.2. Urinalysis was abnormal and cultures are still pending for now. Patient underwent thoracentesis right lung with a total of 800 mL of pleural fluid was aspirated. Fluid cytology still pending for now. Repeat chest x-ray from today shows no significant interval change. There is volume loss on the right. The patient is extremely cachectic and in mental status as discussed earlier. No focal neurological deficits. His CODE STATUS has been switched to a DO NOT RESUSCITATE and DO NOT INTUBATE per sex worker or escort discussion with the family. 2-D echo reveals global left ventricular dysfunction with EF of 25%; cardiology on board and recommending to start low-dose beta blockers and monitor blood pressure closely; plan is for the workup for cardiomyopathy with gradual addition of heart failure medications. 03/17/2021 Patient is currently lying in the bed. On oxygen via nasal cannula. Denied any complaints of chest pain. Patient is lethargic and seems confused. Rate is being converted on bronchodilators and antibiotics in the form of Zosyn. Next check iron CODE STATUS is DO NOT RESUSCITATE/DO NOT INTUBATE. Fluid cytology from thoracentesis is pending at this time. current medications reviewed. Objective - Vital Signs Vital signs: Vital Signs Temp 97.4 F L 03/16/21 20:00 Pulse 65 03/17/21 15:12 Resp 14 03/17/21 15:12 BP 112/69 03/17/21 13:00 Pulse Ox 97 03/17/21 13:00 Intake & Output 03/16/21 03/17/21 03/17/21 18:59 06:59 18:59 Intake Total 455 160 160 Output Total 245 240 240 Balance 210 -80 -80 Weight 44.5 kg 44.5 kg Intake: IV 10 160 Sodium Chloride 0.9% 1, 10 160 000 ml @ 75 mls/hr IV . [id number] [facility] Rx#:[id number] Intake, IV Titration 325 100 Amount Piperacillin-Tazobactam 3 100 100 .375 gm In Sodium Chloride 0.9% 100 ml @ 25 mls/hr IVPB Q8H [facility] Rx#: [id number] Sodium Chloride 0.9% 1, 225 000 ml @ 75 mls/hr IV . [id number] [facility] Rx#:[id number] Oral 120 60 Output: Urine 245 240 240 Other: Voiding Method Indwelling Catheter Indwelling Catheter Indwelling Catheter # Voids 0 0 # Bowel Movements 1 - Exam PHYSICAL EXAMINATION: Patient is lying in the bed comfortably, no acute distress, awake alert and oriented. Feels weak and lethargic.. HEENT: Normocephalic. Neck is supple. Pupils reactive. Nostrils clear. Oral cavity is moist. Neck reveals no JVD, carotid bruits, or thyromegaly. CHEST EXAMINATION: Trachea is central. Symmetrical expansion. Bilateral dementia sounds. Scattered wheezing. Right lower lobe diminished breath soun ds. CARDIAC: Normal S1, S2 with no gallops. No murmurs ABDOMEN: Soft. Bowel sounds normal. No organomegaly. No abdominal bruits. Extremities: reveal no edema. No clubbing or cyanosis Neurologically awake, alert, oriented x3 with well-coordinated movements. No focal deficits noted Skin: No rash or skin lesions. Psychiatric: Coperative. Nonsuicidal Musculoskeletal: No joint swelling or deformity. Normal range of motion. - Labs CBC & Chem 7: 03/20/21 04:16 03/20/21 04:16 Labs: Abnormal Lab Results - Last 24 Hours (Table) 03/17/21 03/17/21 Range/Units 03:12 03:12 WBC 12.2 H (3.8-10.6) k/uL RBC 3.61 L (4.30-5.90) m/uL Hgb 11.2 L (13.0-17.5) gm/dL Hct 35.1 L (39.0-53.0) % Neutrophils # 11.6 H (1.3-7.7) k/uL Lymphocytes # 0.2 L (1.0-4.8) k/uL Sodium 136 L (137-145) mmol/L BUN 23 H (9-20) mg/dL Microbiology - Last 24 Hours (Table) 03/15/21 22:00 Urine Culture - Final Urine,Voided 03/14/21 13:32 Gram Stain - Preliminary Pleural Fluid Body Fluid Culture - Preliminary 03/14/21 13:32 Acid Fast Bacilli Smear - Final Pleural Fluid Acid Fast Bacilli Culture - Preliminary Assessment and Plan Assessment: 1. Metastatic carcinoma most likely of a lung primary - presenting with a large right paratracheal precarinal and subcarinal mass with hilar extension measuring 7.1 x 10 x 7.9 cm in size and there is extensive mass effect on the bronchus intermedius causing significant narrowing. There is some right lower lobe and right middle lobe atelectatic changes and volume loss in addition to a moderate-sized right-sided pleural effusion. Patient also has herpetic lesions and the presentation is highly suspicious for stage IV metastatic carcinoma of a lung primary. Patient is currently in the MICU. Fluid cytology is pending. 2. Acute hypoxic respiratory failure; - atelectasis and volume loss involving the right lung including the right middle lobe and right lower lobe and the patient has a large right-sided pleural effusion. A bedside thoracentesis was done; patient remains on BiPAP - a total of 800 mL of blood-tinged fluid was aspirated from the right lung. The fluid will be sent for cytology. - Pulmonary recommending to Obtain a blood gas - IV Zosyn for postobstructive pneumonia; DuoNeb nebulizer treatment [id number] - IV Solu Medrol 60 mg every 6 hours 3. Acute exacerbation COPD; DuoNeb nebulizer treatments along with Solu-Medrol 60 mg IV every 6 hours 4. Severe protein calorie malnourishment/cachexia; emaciation and weight loss. Current by the weight is around 90 pounds; recommend dietary consult. 5. Acute leukocytosis with lactic acidosis/ sepsis; secondary to postobstructive pneumonia; patient started on IV antibiotics 6. Elevated troponin; possibly demand ischemia secondary to acute respiratory failure 7. Alcoholism; patient placed on CIWA protocol with Ativan; thiamine 100 mg twice a day 8. Large right MCA distribution CVA with some residual left-sided weakness; continue with aspirin and Lipitor 9. Hypertension; takes lisinopril at home which will be placed on hold for risk of impending hypotension due to sepsis 10. Hyperlipidemia; Lipitor 20 mg by mouth daily at bedtime 11. Peripheral vascular disease with questionable cut off level of the aorta. Given examination, the patient is not having any significant vascular insuffi ciency and the patient has diminished pulses in the legs bilaterally. Vascular surgery is consulted and recommendations are pending DVT prophylaxis; SCDs/subcu heparin CODE STATUS; full code Time with Patient: Greater than 30
--- NOTE | 2021-03-20 10:22 | P.PN ---
Subjective Progress Note Date: 03/18/21 Principal diagnosis: Metastatic carcinoma; most likely primary lung Acute hypoxic respiratory failure Postobstructive pneumonia Severe malnutrition protein calorie/debility 65-year-old male presenting with severe respiratory distress. Past medical histo ry is positive for a large right-sided MCA distribution CVA with some minimal left upper extremity weakness, hyperlipidemia, coronary artery disease, peripheral artery disease and previous history of alcoholism. He is still a daily alcohol drinker. He drinks alcohol heavily and he is currently a c igarette smoker on a daily basis. He is quite cachectic, emaciated, debilitated, weak, and malnourished. Does not have any headache. No seizure. Patient had been sent from the primary care office with hypoxia. He was diagnosed with effusion and fluid overload as well as hypoxia in the emergency department yesterday but had left AGAINST MEDICAL ADVICE. He had an elevated troponin, elevated BNP. 03/15/2021 Patient is seen for a follow-up in the intensive care unit. The patient is a ICU overflow. For now, the patient on a BiPAP at a pressure of 14/6 cm of water with an FiO2 of 1. The pulse ox measures and is not aggravated and the blood gases will be needed. The patient is urinating adequate tidal volumes and has a respiratory rate of 16-20. He remains quite lethargic, somnolent yet arousable. Extremely cachectic and emaciated. Hemodynamically stable. As mentioned earlier, a emergent right-sided thoracentesis was done yesterday of the right lung and a total of 800 mL of pleural fluid was aspirated successfully. Nevertheless, the follow-up chest x-ray still showing significant volume loss in the right lung related to his underlying lung mass as the patient has a large mass encasing the right hilar structures and the right mainstem bronchus and the bronchus intermedius. Currently is on bronchodilators and steroids. No fever. No chills. Resting comfortably in bed. Does not communicate a whole lot. Family is not around. Would like to talk to the family regarding treatment. As the patient's prognosis extremely poor baseline above-mentioned comorbidities. Fluid cytology is pending for now. 03/16/2021 Patient is seen and evaluated in room at bedside; sustained a fall with abrasion to right eyebrow with small hematoma. The patient is much more awake compared to yesterday. He was taken off the BiPAP. He was switched to nasal cannula and currently is on room air oxygen. Chest x-ray showing volume loss and they large hilar mass with atelectatic changes as described earlier involving the right lower lung area. -- He remains on bronchodilators; steroids and IV Zosyn as an empiric antibiotic coverage for any postobstructive pneumonia. White cell count is 15.3 with a hemoglobin 0.3. Normal renal function. Lactic acid level is down to 2.2. Urinalysis was abnormal and cultures are still pending for now. Patient underwent thoracentesis right lung with a total of 800 mL of pleural fluid was aspirated. Fluid cytology still pending for now. Repeat chest x-ray from today shows no significant interval change. There is volume loss on the right. The patient is extremely cachectic and in mental status as discussed earlier. No focal neurological deficits. His CODE STATUS has been switched to a DO NOT RESUSCITATE and DO NOT INTUBATE per gas leak inspector helper discussion with the family. 2-D echo reveals global left ventricular dysfunction with EF of 25%; cardiology on board and recommending to start low-dose beta blockers and monitor blood pressure closely; plan is for the workup for cardiomyopathy with gradual addition of heart failure medications. 03/17/2021 Patient is currently lying in the bed. On oxygen via nasal cannula. Denied any complaints of chest pain. Patient is lethargic and seems confused. Rate is being converted on bronchodilators and antibiotics in the form of Zosyn. Next check iron CODE STATUS is DO NOT RESUSCITATE/DO NOT INTUBATE. Fluid cytology from thoracentesis is pending at this time. 03/18/2021 Patient is currently in the MICU. Seems comfortable. On room air. Confused but more awake and oriented today. Patient is being continued on Antivert the form of Zosyn and IV steroids being changed to prednisone 40 mg daily. Fluid cytology is pending. Patient has been afebrile. No complaints of chest pain. No nausea vomiting or abdominal pain or diarrhea. Chest x-ray showed stable appearance yesterday. Pulmonary is planning for bronchoscopy if fluid cytology from thoracentesis is negative. current medications reviewed. Objective - Vital Signs Vital signs: Vital Signs Temp 97.6 F 03/18/21 20:00 Pulse 77 03/18/21 20:00 Resp 15 03/18/21 20:00 BP 128/70 08/24/21 20:00 Pulse Ox 94 L 03/18/21 20:00 Intake & Output 03/18/21 03/18/21 03/19/21 06:59 18:59 06:59 Intake Total 100 Output Total 475 Balance -375 Weight 40.9 kg Intake: Intake, IV Titration 100 Amount Piperacillin-Tazobactam 3 100 .375 gm In Sodium Chloride 0.9% 100 ml @ 25 mls/hr IVPB Q8H [facility] Rx#: [id number] Output: Urine 475 Other: Voiding Method Incontinent Incontinent Incontinent # Voids 1 1 # Bowel Movements 1 1 - Exam PHYSICAL EXAMINATION: Patient is lying in the bed comfortably, no acute distress, awake alert and oriented. Feels weak and lethargic.. HEENT: Normocephalic. Neck is supple. Pupils reactive. Nostrils clear. Oral cavity is moist. Neck reveals no JVD, carotid bruits, or thyromegaly. CHEST EXAMINATION: Trachea is central. Symmetrical expansion. Bilateral dementia sounds. Scattered wheezing. Right lower lobe diminished breath sounds. CARDIAC: Normal S1, S2 with no gallops. No murmurs ABDOMEN: Soft. Bowel sounds normal. No organomegaly. No abdominal bruits. Extremities: reveal no edema. No clubbing or cyanosis Neurologically awake, alert, oriented x3 with well-coordinated movements. No focal deficits noted Skin: No rash or skin lesions. Psychiatric: Coperative. Nonsuicidal Musculoskeletal: No joint swelling or deformity. Normal range of motion. - Labs CBC & Chem 7: 03/20/21 04:16 03/20/21 04:16 Labs: Microbiology - Last 24 Hours (Table) 03/14/21 13:32 Gram Stain - Preliminary Pleural Fluid Body Fluid Culture - Preliminary Assessment and Plan Assessment: 1. Metastatic carcinoma most likely of a lung primary - presenting with a large right paratracheal precarinal and subcarinal mass with hilar extension measuring 7.1 x 10 x 7.9 cm in size and there is extensive mass effect on the bronchus intermedius causing significant narrowing. There is some right lower lobe and right middle lobe atelectatic changes and volume loss in addition to a moderate-sized right-sided pleural effusion. Patient also has herpetic lesions and the presentation is highly suspicious for stage IV metastatic carcinoma of a lung primary. Patient is currently in the MICU. Fluid cytology is pending. Patient is currently on room air. 2. Acute hypoxic respiratory failure; - atelectasis and volume loss involving the right lung including the right middle lobe and right lower lobe and the patient has a large right-sided pleural effusion. A bedside thoracentesis was done; patient was on BiPAP - a total of 800 mL of blood-tinged fluid was aspirated from the right lung. The fluid will be sent for cytology. - IV Zosyn for postobstructive pneumonia; DuoNeb nebulizer treatment [id number] - IV Solu Medrol 60 mg every 6 hours. Changed to prednisone 40 mg daily. Patient currently on room air. 3. Acute exacerbation COPD; DuoNeb nebulizer treatments along with Solu-Medrol 60 mg IV every 6 hours 4. Severe protein calorie malnourishment/cachexia; emaciation and weight loss. Current by the weight is around 90 pounds; recommend dietary consult. 5. Acute leukocytosis with lactic acidosis/ sepsis; secondary to postobstructive pneumonia; patient started on IV antibiotics 6. Elevated troponin; possibly demand ischemia secondary to acute respiratory failure 7. Alcoholism; patient placed on CIWA protocol with Ativan; thiamine 100 mg twice a day 8. Large right MCA distribution CVA with some residual left-sided weakness; continue with aspirin and Lipitor 9. Hypertension; takes lisinopril at home which will be placed on hold for risk of impending hypotension due to sepsis 10. Hyperlipidemia; Lipitor 20 mg by mouth daily at bedtime 11. Peripheral vascular disease with questionable cut off level of the aorta. Given examination, the patient is not having any significant vascular insuf ficiency and the patient has diminished pulses in the legs bilaterally. Vascular surgery is consulted and recommendations are pending DVT prophylaxis; SCDs/subcu heparin CODE STATUS; DO NOT RESUSCITATE/DO NOT INTUBATE. Prognosis poor. Time with Patient: Greater than 30
--- NOTE | 2021-03-20 10:24 | P.PN ---
Subjective Progress Note Date: 03/19/21 Principal diagnosis: Metastatic carcinoma; most likely primary lung Acute hypoxic respiratory failure Postobstructive pneumonia Severe malnutrition protein calorie/debility 65-year-old male presenting with severe respiratory distress. Past medical histo ry is positive for a large right-sided MCA distribution CVA with some minimal left upper extremity weakness, hyperlipidemia, coronary artery disease, peripheral artery disease and previous history of alcoholism. He is still a daily alcohol drinker. He drinks alcohol heavily and he is currently a c igarette smoker on a daily basis. He is quite cachectic, emaciated, debilitated, weak, and malnourished. Does not have any headache. No seizure. Patient had been sent from the primary care office with hypoxia. He was diagnosed with effusion and fluid overload as well as hypoxia in the emergency department yesterday but had left AGAINST MEDICAL ADVICE. He had an elevated troponin, elevated BNP. 03/15/2021 Patient is seen for a follow-up in the intensive care unit. The patient is a ICU overflow. For now, the patient on a BiPAP at a pressure of 14/6 cm of water with an FiO2 of 1. The pulse ox measures and is not aggravated and the blood gases will be needed. The patient is urinating adequate tidal volumes and has a respiratory rate of 16-20. He remains quite lethargic, somnolent yet arousable. Extremely cachectic and emaciated. Hemodynamically stable. As mentioned earlier, a emergent right-sided thoracentesis was done yesterday of the right lung and a total of 800 mL of pleural fluid was aspirated successfully. Nevertheless, the follow-up chest x-ray still showing significant volume loss in the right lung related to his underlying lung mass as the patient has a large mass encasing the right hilar structures and the right mainstem bronchus and the bronchus intermedius. Currently is on bronchodilators and steroids. No fever. No chills. Resting comfortably in bed. Does not communicate a whole lot. Family is not around. Would like to talk to the family regarding treatment. As the patient's prognosis extremely poor baseline above-mentioned comorbidities. Fluid cytology is pending for now. 03/16/2021 Patient is seen and evaluated in room at bedside; sustained a fall with abrasion to right eyebrow with small hematoma. The patient is much more awake compared to yesterday. He was taken off the BiPAP. He was switched to nasal cannula and currently is on room air oxygen. Chest x-ray showing volume loss and they large hilar mass with atelectatic changes as described earlier involving the right lower lung area. -- He remains on bronchodilators; steroids and IV Zosyn as an empiric antibiotic coverage for any postobstructive pneumonia. White cell count is 15.3 with a hemoglobin 0.3. Normal renal function. Lactic acid level is down to 2.2. Urinalysis was abnormal and cultures are still pending for now. Patient underwent thoracentesis right lung with a total of 800 mL of pleural fluid was aspirated. Fluid cytology still pending for now. Repeat chest x-ray from today shows no significant interval change. There is volume loss on the right. The patient is extremely cachectic and in mental status as discussed earlier. No focal neurological deficits. His CODE STATUS has been switched to a DO NOT RESUSCITATE and DO NOT INTUBATE per geophysical e logger discussion with the family. 2-D echo reveals global left ventricular dysfunction with EF of 25%; cardiology on board and recommending to start low-dose beta blockers and monitor blood pressure closely; plan is for the workup for cardiomyopathy with gradual addition of heart failure medications. 03/17/2021 Patient is currently lying in the bed. On oxygen via nasal cannula. Denied any complaints of chest pain. Patient is lethargic and seems confused. Rate is being converted on bronchodilators and antibiotics in the form of Zosyn. Next check iron CODE STATUS is DO NOT RESUSCITATE/DO NOT INTUBATE. Fluid cytology from thoracentesis is pending at this time. 03/18/2021 Patient is currently in the MICU. Seems comfortable. On room air. Confused but more awake and oriented today. Patient is being continued on Antivert the form of Zosyn and IV steroids being changed to prednisone 40 mg daily. Fluid cytology is pending. Patient has been afebrile. No complaints of chest pain. No nausea vomiting or abdominal pain or diarrhea. Chest x-ray showed stable appearance yesterday. Pulmonary is planning for bronchoscopy if fluid cytology from thoracentesis is negative. 03/19/2021 Patient is currently in MICU and is lying in the bed comfortably. No compressive chest pain or worsening shortness of breath. Status post paracentesis and fluid cytology is pending at this time. Patient is being continued on Zosyn and prednisone 40 mg daily. Pulmonary is planning for bronchoscopy if fluid cytology is negative. Otherwise patient has been afebrile. Saturating at 94% on room air. Chest x-ray showed complete opacification of right hemithorax which has progressed since prior study. Hyperinflation left lung. Mediastinal shift from left to right. current medications reviewed. Objective - Vital Signs Vital signs: Vital Signs Temp 97.6 F 03/19/21 20:00 Pulse 71 03/19/21 20:00 Resp 16 03/19/21 20:00 BP 140/77 03/19/21 14:00 Pulse Ox 96 03/19/21 14:00 Intake & Output 03/19/21 03/19/21 03/20/21 06:59 18:59 06:59 Intake Total 100 300 Output Total 500 500 Balance -400 -200 Weight 43.1 kg Intake: Intake, IV Titration 100 100 Amount Piperacillin-Tazobactam 3 100 .375 gm In Sodium Chloride 0.9% 100 ml @ 25 mls/hr IVPB Q8H [facility] Rx#: [id number] Piperacillin-Tazobactam 3 100 .375 gm In Sodium Chloride 0.9% 100 ml @ 25 mls/hr IVPB Q8HR [facility] Rx# :[id number] Oral 200 Output: Urine 500 500 Other: Voiding Method Incontinent Urinal Urinal # Voids 1 - Exam PHYSICAL EXAMINATION: Patient is lying in the bed comfortably, no acute distress, awake alert and oriented. Feels weak and lethargic.. HEENT: Normocephalic. Neck is supple. Pupils reactive. Nostrils clear. Oral cavity is moist. Neck reveals no JVD, carotid bruits, or thyromegaly. CHEST EXAMINATION: Trachea is central. Symmetrical expansion. Bilateral diminished sounds. Scattered wheezing. CARDIAC: Normal S1, S2 with no gallops. No murmurs ABDOMEN: Soft. Bowel sounds normal. No organomegaly. No abdominal bruits. Extremities: reveal no edema. No clubbing or cyanosis Neurologically awake, alert, oriented x3 with well-coordinated movements. No focal deficits noted Skin: No rash or skin lesions. Psychiatric: Coperative. Nonsuicidal Musculoskeletal: No joint swelling or deformity. Normal range of motion. - Labs CBC & Chem 7: 03/20/21 04:16 03/20/21 04:16 Labs: Microbiology - Last 24 Hours (Table) 03/14/21 13:32 Gram Stain - Final Pleural Fluid Body Fluid Culture - Final Assessment and Plan Assessment: 1. Metastatic carcinoma most likely of a lung primary - presenting with a large right paratracheal precarinal and subcarinal mass with hilar extension measuring 7.1 x 10 x 7.9 cm in size and there is extensive mass effect on the bronchus intermedius causing significant narrowing. There is some right lower lobe and right middle lobe atelectatic changes and volume loss in addition to a moderate-sized right-sided pleural effusion. Patient also has herpetic lesions and the presentation is highly suspicious for stage IV me tastatic carcinoma of a lung primary. Patient is currently in the MICU. Fluid cytology is pending. 2. Acute hypoxic respiratory failure; - atelectasis and volume loss involving the right lung including the right middle lobe and right lower lobe and the patient has a large right-sided pleural effusion. A bedside thoracentesis was done; patient was on BiPAP - a total of 800 mL of blood-tinged fluid was aspirated from the right lung. The fluid will be sent for cytology. - IV Zosyn for postobstructive pneumonia; DuoNeb nebulizer treatment [id number] - IV Solu Medrol 60 mg every 6 hours. Changed to prednisone 40 mg daily. Patient currently on room air. 3. Acute exacerbation COPD; DuoNeb nebulizer treatments along with Solu-Medrol 60 mg IV every 6 hours 4. Severe protein calorie malnourishment/cachexia; emaciation and weight loss. Current by the weight is around 90 pounds; recommend dietary consult. 5. Acute leukocytosis with lactic acidosis/ sepsis; secondary to postob structive pneumonia; patient started on IV antibiotics 6. Elevated troponin; possibly demand ischemia secondary to acute respiratory failure 7. Alcoholism; patient placed on CIWA protocol with Ativan; thiamine 100 mg twice a day 8. Large right MCA distribution CVA with some residual left-sided weakness; continue with aspirin and Lipitor 9. Hypertension; takes lisinopril at home which will be placed on hold for risk of impending hypotension due to sepsis 10. Hyperlipidemia; Lipitor 20 mg by mouth daily at bedtime 11. Peripheral vascular disease with questionable cut off level of the aorta. Given examination, the patient is not having any significant vascular insufficiency and the patient has diminished pulses in the legs bilaterally. Vascular surgery is consulted and recommendations are pending DVT prophylaxis; SCDs/subcu heparin CODE STATUS; DO NOT RESUSCITATE/DO NOT INTUBATE. Prognosis poor. Time with Patient: Greater than 30
--- NOTE | 2021-03-20 12:13 | P.PN ---
Subjective Progress Note Date: 03/20/21 This is a 65-year-old male patient who presented emergency department because of severe respiratory distress. The patient was sent from his primary care physician's office for worsening shortness of breath and hypoxemia. He was already identified to have an abnormal chest x-ray with volume loss in the right-sided pleural effusion. He was seen in the emergency department yesterday but he left AGAINST MEDICAL ADVICE to be readmitted again today. He is quite cachectic. He is currently on a BiPAP at a pressure of 14/6 cm of water and FiO2 of 1%. He is awake and alert and communicating. Chest x-ray was reviewed and emergency department and it showed a right-sided pleural effusion. There was also right-sided volume loss and underlying central neoplasm was being considered., Subcarinal and right hilar region measuring 10 x 7.5 x 7.1 cm in size. The mass was encasing the right hilar structures including the medicine the lower SVC and there was a cut off sign Dilaudid of the bronchus intermedius. There was also evidence of right middle lobe collapse, partial medial right lower lobe collapse, moderate right-sided pleural effusion and right-sided infiltrate. There was not of 2.3 cm subpleural area of pleural lesion and 2 liver lesions measuring 4 cm suspicious for metastases. There was also abnormal aortic occlusion just below the renal artery takeoff no swelling in extremities. I saw the patient emergency department. He was in impending respiratory failure. He was on a BiPAP at a pressure of 14/6 cm of water with an FiO2 of 1 sent. Based on that, I did a emergent right-sided thoracentesis to provide this patient some symptomatic relief. 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 He is still a daily alcohol drinker. He drinks alcohol heavily and he is currently a cigarette smoker on a daily basis. He is quite cachectic, emaciated, debilitated, weak, and malnourished. Does not have any headache. No seizure. 03/15/2021, I'm seeing this patient for a follow-up in the intensive care unit. The patient is a ICU overflow. For now, the patient on a BiPAP at a pressure of 14/6 cm of water with an FiO2 of 1. The pulse ox measures and is not aggravated and the blood gases will be needed. The patient is urinating adequate tidal volumes and has a respiratory rate of 16-20. He remains quite lethargic, somnolent yet arousable. Extremely cachectic and emaciated. Hemodynamically stable. As mentioned earlier, a emergent right-sided thoracentesis was done yesterday of the right lung and a total of 800 mL of pleural fluid was aspirated successfully. Nevertheless, the follow-up chest x-ray still showing significant volume loss in the right lung related to his underlying lung mass as the patient has a large mass encasing the right hilar structures and the right mainstem bronchus and the bronchus intermedius. Currently is on bronchodilators and steroids. No fever. No chills. Resting comfortably in bed. Does not communicate a whole lot. Family is not around. Would like to talk to the family regarding treatment. As the patient's prognosis extremely poor baseline above-mentioned comorbidities. Fluid cytology is pending for now. 03/16/2021 I'm seeing this patient in the intensive care unit. The patient is much more awake compared to yesterday. Is following commands. He is on and off confused. He is not sure where he is. However his communicating. He is trying to answer questions. His breathing is nonlabored. He was taken off the BiPAP. He was switched to nasal cannula and currently is on room air oxygen. Chest x- ray showing volume loss and they large hilar mass with atelectatic changes as described earlier involving the right lower lung area. He remains on bronchodilators. He remains on steroids. He remains on IV Zosyn as an empiric antibiotic coverage for any postobstructive pneumonia. White cell count is 15.3 with a hemoglobin 0.3. Normal renal function. Lactic acid level is down to 2.2. Urinalysis was abnormal and cultures are still pending for now. Also, I have drained this patient's right lung and a total of 800 mL of pleural fluid was aspirated. Fluid cytology still pending for now. Repeat chest x-ray from today shows no significant interval change. There is volume loss on the right. The patient is extremely cachectic and in mental status as discussed earlier. No focal neurological deficits. His CODE STATUS has been switched to a DO NOT RESUSCITATE and DO NOT INTUBATE per our conversation with the family yesterday. 03/17/2022, the patient is still the same. He is on room air oxygen. He is not having any major respiratory difficulties. Nevertheless, he is quite debilitated. He is not eating much. In fact is eating minimally. His resting comfortably in bed. He is confused. Arousable. No apparent respiratory distress. Communicates. However, he is oriented only to self. Does not know where he is. Has very poor insight on his condition. The pleural fluid cytology still pending for now. As mentioned earlier, the patient has a large hilar mass with atelectasis of the right lower lobe/right middle lobe and currently is still on a bronchodilators and steroids and antibiotics. Cardiac rhythm is sinus. Hemodynamically stable. DNR/DNI CODE STATUS. The patient is seen today 03/18/2021 in follow-up in the intensive care unit. He is currently awake. Resting fairly comfortably in bed. Maintaining O2 saturations in the 90s on room air. He's been afebrile. Hemodynamically stable. Pathology from pleural fluid pending. Cultures pending. Fluid analysis revealed cloudy fluid with protein at 2.1 and LDH 226. He remains on antibiotics in the form of Zosyn. Continued on bronchodilators. Continued on prednisone. Remains in the CIWA protocol. 03/19/2021, the patient is quite comfortable. Awaiting fluid cytology from the pleural fluid was aspirated earlier. He is currently on room air oxygen. CBC much more awake. He is increasing his oral intake. Still remains quite weak and lethargic. He was taken off the IV Solu Medrol start on prednisone burst taper. He remains on Zosyn. Blood work essentially within normal limits. The patient's chest x-ray was from 03/17/2021. No chest debilitated since. I'm going to tentatively schedule this patient for a bronchoscopy tomorrow should the pleural fluid test and turn up technician to be negative. 03/20/2021, the patient is still, comfortable. No respiratory difficulties. His communicating. He continues to have poor insight and his condition. He really is not in touch with ongoing problems and diagnosis. Noted the pleural fluid that was aspirated from the right lung test and turn up technician to be positive for malignancy and the fluid was consistent with small cell lung cancer. For that reason, a oncology consultation was requested. I asked the family to arrive to the hospital for further discussion on this patient's case. Noted the patient had significant narrowing of the right mainstem bronchus/bronchus intermedius was also considering in the airway inspection to visualize the extent of narrowing and decide if there is any intervention that can be done to preserve patency of the airways and the vent and a lung collapse. The patient is tolerating his diet. He did have a fall yesterday when he was trying to get out of bed. No major injuries. Small bruise over the left elbow. He remains on IV Zosyn. He is on prednisone burst taper. The liver seems on the clock. No headaches. No seizure activity. MRI of the brain was ordered. Objective - Vital Signs Vital signs: Vital Signs Temp 97.5 F L 03/20/21 08:00 Pulse 70 03/20/21 11:08 Resp 15 03/20/21 08:00 BP 137/74 03/20/21 08:00 Pulse Ox 95 03/20/21 08:00 Intake & Output 03/19/21 03/20/21 03/20/21 18:59 06:59 18:59 Intake Total 300 400 Output Total 500 0 Balance -200 400 Weight 44.1 kg 44.1 kg Intake: IV 100 Piperacillin-Tazobactam 3 100 .375 gm In Sodium Chloride 0.9% 100 ml @ 25 mls/hr IVPB Q8H [facility] Rx#: [id number] Intake, IV Titration 100 Amount Piperacillin-Tazobactam 3 100 .375 gm In Sodium Chloride 0.9% 100 ml @ 25 mls/hr IVPB Q8HR [facility] Rx# :[id number] Oral 200 300 Output: Urine 500 0 Other: Voiding Method Urinal Urinal - Exam Patient is on room air oxygen. No signs of any respiratory distress Head exam was generally normal. There was no scleral icterus or corneal arcus. Mucous membranes were moist. Neck was supple and without jugular venous distension, thyromegaly, or carotid bruits. Carotids were easily palpable bilaterally. There was no adenopathy. Lungs sounds are diminished specially in the right lung compared to the left. Overall breath sounds are quite diminished and the patient is scheduled and scattered external wheeze. There is also dullness to percussion on the right. The patient has a barrel chest. The air entry is improved in the right lung sp ecially in the right lung base post thoracentesis. Cardiac exam revealed the PMI to be normally situated and sized. The rhythm was regular and no extrasystoles were noted during several minutes of auscultation. The first and second heart sounds were normal and physiologic splitting of the second heart sound was noted. There were no murmurs, rubs, clicks, or gallops. Abdominal exam revealed normal bowel sounds. The abdomen was soft, non-tender, and without masses, organomegaly, or appreciable enlargement of the abdominal aorta. Examination of the extremities revealed easily palpable radial, femoral and pedal pulses. There was no cyanosis, clubbing or edema. Examination of the skin revealed no evidence of significant rashes, suspicious appearing nevi or other concerning lesions. Neurologically awake alert and there is no focal neurological deficit. He has some tremors and he has global weakness in all 4 extrem - Labs CBC & Chem 7: 03/20/21 04:16 03/20/21 04:16 Labs: Abnormal Lab Results - Last 24 Hours (Table) 03/20/21 03/20/21 Range/Units 04:16 04:16 RBC 4.02 L (4.30-5.90) m/uL Hgb 12.1 L (13.0-17.5) gm/dL Hct 38.8 L (39.0-53.0) % Neutrophils # 8.7 H (1.3-7.7) k/uL Lymphocytes # 0.8 L (1.0-4.8) k/uL Sodium 135 L (137-145) mmol/L Carbon Dioxide 21 L (22-30) mmol/L Creatinine 0.60 L (0.66-1.25) mg/dL Glucose 56 L (74-99) mg/dL Calcium 8.3 L (8.4-10.2) mg/dL Microbiology - Last 24 Hours (Table) 03/14/21 13:32 Gram Stain - Final Pleural Fluid Body Fluid Culture - Final Assessment and Plan Plan: 1 metastatic carcinoma most likely of a lung primary/small cell lung cancer. The patient is presenting with a large right paratracheal precarinal and subcarinal mass with hilar extension measuring 7.1 x 10 x 7.9 cm in size and there is extensive mass effect on the bronchus intermedius causing significant narrowing. There is some right lower lobe and right middle lobe atelectatic changes and volume loss in addition to a moderate-sized right-sided pleural effusion. Patient also has hepatic lesions and the presentation is highly suspicious for stage IV metastatic carcinoma of a lung primary. The pleural fluid aspirated was consistent with small cell lung cancer 2 acute hypoxic respiratory failure secondary to above. A diagnostic and therapeutic thoracentesis was done. Oxygenation improved. The patient was taken off the BiPAP and currently is on room air oxygen. His current pulse ox is 98%. 3 COPD 4 poor insight on his condition, rule out [employer] metastases 5 acute leukocytosis, improved 6 acute lactic acidosis, improved 7 troponin leak 8 Alcoholism 9 Large right MCA distribution CVA with some residual left-sided weakness 10 Smoking 11 Hypertension 12 Hyperlipidemia 13 GERD artery disease 14 Impaired performance and functional spastic and above-mentioned comorbidities 15 Peripheral vascular disease with questionable parathyroid the level of the aorta. Given examination, the patient is not having any significant vascular in sufficiency and the patient has diminished pulses in the legs bilaterally. Nevertheless,, the patient has inguinal pulses. The patient was also seen by Dr. Fairchild from vascular surgery. No intervention is recommended. 16 lactic acidosis, improving. 17 severe debility and significant malnourishment and obvious signs of cachexia and and emaciation and weight loss. Current by the weight is around 90 pounds. Patient is taking his oral intake as tolerated. 18 fall without any acute skeletal injuries. Plan Pleural fluid is positive for small cell lung cancer this was discussed with the patient. Is consistent with stage IV small cell lung carcinoma. Proceed with MRI of the brain Oncology consultation We'll continue IV Zosyn Prednisone burst taper Advance diet Fluid to KVO transfer this patient to an oncology Had a lengthy discussion with the daughter the bedside and at the day of the admission. He has been switched to a DNR/DNI CODE STATUS.. Prognosis poor.
[2021-03-20] MEDS ORDERED: LIDOCAINE 1% (10MG/ML) FOR IV START INTRADERMA PRN (14:41)
[2021-03-20] MEDS: LACTATED RINGERS 1,000 ML IV SCH (17:37)
[2021-03-20] MEDS: ASPIRIN 81 MG PO SCH (20:00)
[2021-03-20] MEDS: DONEPEZIL 10 MG TAB PO SCH (20:00)
[2021-03-20] MEDS: ATORVASTATIN 10 MG TAB PO SCH (20:00)
[2021-03-21 06:19] LABS: Basophils % (A) 0 %; Eosinophils # (A) 0.1 k/uL (0-0.7); Eosinophils % (A) 1 %; HCT 34.8 % (39.0-53.0); HGB 11.7 gm/dL (13.0-17.5); Hypochromasia Slight; Lymphocytes # (A) 0.8 k/uL (1.0-4.8); Lymphocytes % (A) 7 %; MCH 31.3 pg (25.0-35.0); MCHC 33.5 g/dL (31.0-37.0); MCV 93.4 fL (80.0-100.0); Mean Platelet Volume 7.8; Monocytes # (A) 0.5 k/uL (0-1.0); Monocytes % (A) 4 %; Neutrophils # (A) 9.4 k/uL (1.3-7.7); Neutrophils % (A) 87 %; Platelet Count 237 k/uL (150-450); RBC 3.73 m/uL (4.30-5.90); RDW 15.1 % (11.5-15.5); WBC 10.8 k/uL (3.8-10.6)
[2021-03-21] MEDS: IPRATROPIUM-ALBUTEROL 3 ML NEB INHALATION SCH ×4 (07:32→20:53)
[2021-03-21] MEDS: THIAMINE 100 MG TAB PO SCH ×2 (07:54→18:05)
[2021-03-21] MEDS: PIPERACILLIN-TAZOBACTAM 3.375 GM in SODIUM CHLORIDE 0.9% 100 ML IVPB SCH ×3 (07:57→23:49)
[2021-03-21] MEDS: METOPROLOL TARTRATE 12.5 MG TAB PO SCH ×2 (07:57→20:34)
[2021-03-21] MEDS: predniSONE 20 MG TAB PO SCH (07:57)
[2021-03-21 10:11] LABS: African American GFR (CKD) 121.4 (60.0-200.0); Anion Gap 11.1 mmol/L (4.00-12.00); BUN/Creat Ratio 21.67 Ratio (12.00-20.00); Calcium 8.1 mg/dL (8.7-10.3); Carbon Dioxide 24.9 mmol/L (21.6-31.8); Non-African American GFR(CKD) 104.8 (60.0-200.0); Potassium 3.3 mmol/L (3.5-5.5)
[2021-03-21] MEDS ORDERED: POTASSIUM CHLORIDE ER 20 MEQ TAB.ER PO STA (11:11)
[2021-03-21 11:56] LABS: Albumin 2.8 g/dL (3.5-5.0); Bilirubin,Unconjugated 0.3 mg/dL (0.0-1.1); Globulin 2.7 g/dL; Magnesium 1.9 mg/dL (1.6-2.3); Total Bilirubin 0.4 mg/dL (0.2-1.3); Total Protein 5.5 g/dL (6.3-8.2)
[2021-03-21] MEDS: LACTATED RINGERS 1,000 ML IV SCH (12:03)
--- NOTE | 2021-03-21 16:09 | P.PN ---
Subjective Progress Note Date: 03/21/21 Metastatic carcinoma; most likely primary lung Acute hypoxic respiratory failure Postobstructive pneumonia Severe malnutrition protein calorie/debility 65-year-old male presenting with severe respiratory distress. Past medical history is positive for a large right-sided MCA distribution CVA with some m inimal left upper extremity weakness, hyperlipidemia, coronary artery disease, peripheral artery disease and previous history of alcoholism. He is still a daily alcohol drinker. He drinks alcohol heavily and he is currently a cigarette smoker on a daily basis. He is quite cachectic, emaciated, de bilitated, weak, and malnourished. Does not have any headache. No seizure. Patient had been sent from the primary care office with hypoxia. He was diagnosed with effusion and fluid overload as well as hypoxia in the emergency department yesterday but had left AGAINST MEDICAL ADVICE. He had an elevated troponin, elevated BNP. 03/15/2021 Patient is seen for a follow-up in the intensive care unit. The patient is a ICU overflow. For now, the patient on a BiPAP at a pressure of 14/6 cm of water with an FiO2 of 1. The pulse ox measures and is not aggravated and the blood gases will be needed. The patient is urinating adequate tidal volumes and has a respiratory rate of 16-20. He remains quite lethargic, somnolent yet arousable. Extremely cachectic and emaciated. Hemodynamically stable. As mentioned earlier, a emergent right-sided thoracentesis was done yesterday of the right lung and a total of 800 mL of pleural fluid was aspirated successfully. Nevertheless, the follow-up chest x-ray still showing significant volume loss in the right lung related to his underlying lung mass as the patient has a large mass encasing the right hilar structures and the right mainstem bronchus and the bronchus intermedius. Currently is on bronchodilators and steroids. No fever. No chills. Resting comfortably in bed. Does not communicate a whole lot. Family is not around. Would like to talk to the family regarding treatment. As the patient's prognosis extremely poor baseline above-mentioned comorbidities. Fluid cytology is pending for now. 03/16/2021 Patient is seen and evaluated in room at bedside; sustained a fall with abrasion to right eyebrow with small hematoma. The patient is much more awake compared to yesterday. He was taken off the BiPAP. He was switched to nasal cannula and currently is on room air oxygen. Chest x-ray showing volume loss and they large hilar mass with atelectatic changes as described earlier involving the right lower lung area. -- He remains on bronchodilators; steroids and IV Zosyn as an empiric antibiotic coverage for any postobstructive pneumonia. White cell count is 15.3 with a hemoglobin 0.3. Normal renal function. Lactic acid level is down to 2.2. Urinalysis was abnormal and cultures are still pending for now. Patient underwent thoracentesis right lung with a total of 800 mL of pleural fluid was aspirated. Fluid cytology still pending for now. Repeat chest x-ray from today shows no significant interval change. There is volume loss on the right. The patient is extremely cachectic and in mental status as discussed earlier. No focal neurological deficits. His CODE STATUS has been switched to a DO NOT RESUSCITATE and DO NOT INTUBATE per mold blower discussion with the family. 2-D echo reveals global left ventricular dysfunction with EF of 25%; cardiology on board and recommending to start low-dose beta blockers and monitor blood pressure closely; plan is for the workup for cardiomyopathy with gradual addition of heart failure medications. 03/17/2021 Patient is currently lying in the bed. On oxygen via nasal cannula. Denied any complaints of chest pain. Patient is lethargic and seems confused. Rate is being converted on bronchodilators and antibiotics in the form of Zosyn. Next check iron CODE STATUS is DO NOT RESUSCITATE/DO NOT INTUBATE. Fluid cytology from thoracentesis is pending at this time. 03/18/2021 Patient is currently in the MICU. Seems comfortable. On room air. Confused but more awake and oriented today. Patient is being continued on Antivert the form of Zosyn and IV steroids being changed to prednisone 40 mg daily. Fluid cytology is pending. Patient has been afebrile. No complaints of chest pain. No nausea vomiting or abdominal pain or diarrhea. Chest x-ray showed stable appearance yesterday. Pulmonary is planning for bronchoscopy if fluid cytology from thoracentesis is negative. 03/19/2021 Patient is currently in MICU and is lying in the bed comfortably. No compressive chest pain or worsening shortness of breath. Status post paracentesis and fluid cytology is pending at this time. Patient is being continued on Zosyn and prednisone 40 mg daily. Pulmonary is planning for bronchoscopy if fluid cytology is negative. Otherwise patient has been afebrile. Saturating at 94% on room air. Chest x-ray showed complete opacification of right hemithorax which has progressed since prior study. Hyperinflation left lung. Mediastinal shift from left to right. 03/21/2021 Patient is seen and evaluated in follow-up with family at the bedside currently on 5 N. MedSurg with no acute overnight issues noted. Patient was up and wo rking with physical therapy this morning with standby assistance and a walker. Patient continues to be weak although is improving slowly. Patient currently sitting up in the bed comfortably on room air and denies any worsening shortness of breath. Patient is continued on breathing inhalational treatments with pulmonary following closely. Plan is for bronchoscopy with biopsy to confirm diagnosis. Oncology on board as well. Patient also scheduled to undergo brain MRI to evaluate for any metastasis to the brain. Patient continues with a cough that is dry in nature. Patient reports to tolerating diet with no reports of nausea or vomiting noted. Patient is currently nothing by mouth for the procedure and will await report. White blood count is 10.8 with a hemoglobin of 11.7, sodium is 138 with a potassium of 3.3 and will replace and repeat labs. Creatinine is 0.6. Magnesium is 1.9. Patient to continue on IV Zosyn and oral steroids. Radiation oncology being consulted. Patient is a no code. Social work following as well with possibility of ECF once stabilized and discharged. Insurance requires authorization as well. Review of systems: Constitutional: No reports of fatigue, fever, or chills Cardiovascular: No reports of chest pain or palpitations Respiratory: reports occasional shortness of breath with continued dry cough GI: No reports of nausea, vomiting, or diarrhea : No reports of dysuria or retention Neurovascular: reports generalized weakness All medications have been reviewed Active Medications Albuterol/Ipratropium (Ipratropium-Albuterol 3 Ml Neb) 3 ml INHALATION RT-Q4H PRN PRN Reason: Shortness Of Breath Or Wheezing Albuterol/Ipratropium (Ipratropium-Albuterol 3 Ml Neb) 3 ml INHALATION RT-QID [facility] Last Admin: 03/21/21 15:11 Dose: 3 ml Documented by: Atorvastatin Calcium (Atorvastatin 10 Mg Tab) 10 mg PO HS [facility] Last Admin: 03/20/21 20:00 Dose: 10 mg Documented by: Donepezil HCl (Donepezil 10 Mg Tab) 10 mg PO HS [facility] Last Admin: 03/20/21 20:00 Dose: 10 mg Documented by: Haloperidol Lactate (Haloperidol Lactate 5 Mg/Ml 1 Ml Vial) 1 mg IVP Q8HR PRN PRN Reason: Agitation or Acute Psychosis Last Admin: 03/20/21 17:31 Dose: 1 mg Documented by: Piperacillin Sod/Tazobactam (Sod 3.375 gm/ Sodium Chloride) 100 mls @ 25 mls/hr IVPB Q8HR [facility] Last Admin: 03/21/21 07:57 Dose: 25 mls/hr Documented by: Lactated Ringer's (Lactated Ringers) 1,000 mls @ 20 mls/hr IV .Q24H [facility] Last Admin: 03/21/21 12:03 Dose: 20 mls/hr Documented by: Lidocaine HCl (Lidocaine 1% (10mg/Ml) For Iv Start) 0.1 ml INTRADERMA PER PROTOCOL PRN PRN Reason: IV Start Lisinopril (Lisinopril 2.5 Mg Tab) 2.5 mg PO DAILY [facility] Last Admin: 03/21/21 07:57 Dose: 2.5 mg Documented by: Metoprolol Tartrate (Metoprolol Tartrate 12.5 Mg Tab) 12.5 mg PO BID [facility] Last Admin: 03/21/21 07:57 Dose: 12.5 mg Documented by: Naloxone HCl (Naloxone 0.4 Mg/Ml 1 Ml Vial) 0.2 mg IV Q2M PRN PRN Reason: Opioid Reversal Prednisone (Prednisone 20 Mg Tab) 40 mg PO DAILY [facility] Last Admin: 03/21/21 07:57 Dose: 40 mg Documented by: Thiamine HCl (Thiamine 100 Mg Tab) 100 mg PO BID-W/MEALS [facility] Last Admin: 03/21/21 07:54 Dose: Not Given Documented by: Objective - Vital Signs Vital signs: Vital Signs Temp 97.7 F 03/21/21 04:31 Pulse 72 03/21/21 07:41 Resp 18 03/21/21 08:05 BP 138/84 03/21/21 04:31 Pulse Ox 97 03/21/21 04:31 Intake & Output 0803/21/21 03/21/21 18:59 06:59 18:59 Intake Total 60 400 Balance 60 400 Weight 44.1 kg Intake: Intake, IV Titration 60 180 Amount Lactated Ringers 1,000 ml 60 80 @ 20 mls/hr IV .Q24H [facility] Rx#:[id number] Piperacillin-Tazobactam 3 100 .375 gm In Sodium Chloride 0.9% 100 ml @ 25 mls/hr IVPB Q8HR [facility] Rx# :[id number] Oral 220 Other: Voiding Method Urinal Toilet Toilet Urinal Urinal # Voids 2 1 - Exam Patient is lying in the bed comfortably, no acute distress, awake alert and oriented. Feels somewhat less fatigued today.. HEENT: Normocephalic. Neck is supple. Pupils reactive. Nostrils clear. Oral cavity is moist. Neck reveals no JVD, carotid bruits, or thyromegaly. CHEST EXAMINATION: Trachea is central. Symmetrical expansion. Bilateral diminished sounds. Scattered wheezing with some bilateral rhonchi noted. CARDIAC: Normal S1, S2 with no gallops. No murmurs ABDOMEN: Soft. Bowel sounds normal. No organomegaly. No abdominal bruits. Extremities: reveal no edema. No clubbing or cyanosis Neurologically awake, alert, oriented x3 with well-coordinated movements. No focal deficits noted Skin: No rash or skin lesions. Psychiatric: Cooperative. Non-suicidal Musculoskeletal: No joint swelling or deformity. Normal range of motion. Diffusely weak - Labs CBC & Chem 7: 03/21/21 05:26 03/21/21 05:26 Labs: Abnormal Lab Results - Last 24 Hours (Table) 03/21/21 03/21/21 Range/Units 05:26 05:26 WBC 10.8 H (3.8-10.6) k/uL RBC 3.73 L (4.30-5.90) m/uL Hgb 11.7 L (13.0-17.5) gm/dL Hct 34.8 L (39.0-53.0) % Neutrophils # 9.4 H (1.3-7.7) k/uL Lymphocytes # 0.8 L (1.0-4.8) k/uL Potassium 3.3 L (3.5-5.5) mmol/L BUN/Creatinine Ratio 21.67 H (12.00-20.00) Ratio Calcium 8.1 L (8.7-10.3) mg/dL Assessment and Plan Assessment: 1. Metastatic carcinoma most likely of a lung primary - presenting with a large right paratracheal precarinal and subcarinal mass with hilar extension measuring 7.1 x 10 x 7.9 cm in size and there is extensive mass effect on the bronchus intermedius causing significant narrowing. There is some right lower lobe and right middle lobe atelectatic changes and volume loss in addition to a moderate-sized right-sided pleural effusion. Patient also has herpetic lesions and the presentation is highly suspicious for stage IV metastatic carcinoma of a lung primary. 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 Pulmonary and oncology following closely and radiation oncology consulted 2. Acute hypoxic respiratory failure; - atelectasis and volume loss involving the right lung including the right middle lobe and right lower lobe and the patient has a large right-sided pleural effusion. A bedside thoracentesis was done; patient was on BiPAP - a total of 800 mL of blood-tinged fluid was aspirated from the right lung. The fluid will be sent for cytology. - IV Zosyn for postobstructive pneumonia; DuoNeb nebulizer treatment [id number] - IV Solu Medrol 60 mg every 6 hours. Changed to prednisone 40 mg daily. - Patient currently on room air. 3. Acute exacerbation COPD; DuoNeb nebulizer treatments along with oral prednisone 4. Severe protein calorie malnourishment/cachexia; emaciation and weight loss. Current by the weight is around 90 pounds; recommend dietary consult. 5. Acute leukocytosis with lactic acidosis/ sepsis; secondary to postobstructive pneumonia; patient started on IV antibiotics, current white blood count is 10.8 6. Elevated troponin; possibly demand ischemia secondary to acute respiratory failure 7. Alcoholism; patient placed on CIWA protocol with Ativan; thiamine 100 mg twice a day 8. Large right MCA distribution CVA with some residual left-sided weakness; continue with aspirin and Lipitor 9. Hypertension; takes lisinopril at home which will be placed on hold for risk of impending hypotension due to sepsis 10. Hyperlipidemia; Lipitor 20 mg by mouth daily at bedtime 11. Peripheral vascular disease with questionable cut off level of the aorta. Given examination, the patient is not having any significant vascular insufficiency and the patient has diminished pulses in the legs bilaterally. Vascular surgery evaluated the patient given extremely poor prognosis and guarded prognosis patient is not a candidate for any major vascular interventions DVT prophylaxis; SCDs/subcu heparin CODE STATUS; DO NOT RESUSCITATE/DO NOT INTUBATE. Prognosis poor. Plan: Plan is for bronchoscopy with biopsy along with an MRI of the brain to evaluate for metastasis. Oncology along with pulmonary and radiation oncology following. PT/OT following as well recommending subacute rehab and will discuss further with the patient along with family about treatment plan and rehab once stabilized. Due to multiple complex medical issues, prognosis remains extremely poor and guarded. Will repeat a.m. labs and continue to monitor closely.
--- NOTE | 2021-03-21 16:37 | P.PN ---
Subjective Progress Note Date: 03/21/21 Principal diagnosis: Metastatic carcinoma suspect lung primary This is a 65-year-old male patient who presented emergency department because of severe respiratory distress. The patient was sent from his primary care physician's office for worsening shortness of breath and hypoxemia. He was already identified to have an abnormal chest x-ray with volume loss in the right-sided pleural effusion. He was seen in the emergency department yesterday but he left AGAINST MEDICAL ADVICE to be readmitted again today. He is quite cachectic. He is currently on a BiPAP at a pressure of 14/6 cm of water and FiO2 of 1%. He is awake and alert and communicating. Chest x-ray was reviewed and emergency department and it showed a right-sided pleural effusion. There was also right-sided volume loss and underlying central neoplasm was being considered., Subcarinal and right hilar region measuring 10 x 7.5 x 7.1 cm in size. The mass was encasing the right hilar structures including the medicine the lower SVC and there was a cut off sign Dilaudid of the bronchus intermedius. There was also evidence of right middle lobe collapse, partial medial right lower lobe collapse, moderate right-sided pleural effusion and right-sided infiltrate. There was not of 2.3 cm subpleural area of pleural lesion and 2 liver lesions measuring 4 cm suspicious for metastases. There was also abnormal aortic occlusion just below the renal artery takeoff no swelling in extremities. I saw the patient emergency department. He was in impending respiratory failure. He was on a BiPAP at a pressure of 14/6 cm of water with an FiO2 of 1 sent. Based on that, I did a emergent right-sided thoracentesis to provide this patient some symptomatic relief. 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 He is still a daily alcohol drinker. He drinks alcohol heavily and he is currently a cigarette smoker on a daily basis. He is quite cachectic, emaciated, debilitated, weak, and malnourished. Does not have any headache. No seizure. 03/15/2021, I'm seeing this patient for a follow-up in the intensive care unit. The patient is a ICU overflow. For now, the patient on a BiPAP at a pressure of 14/6 cm of water with an FiO2 of 1. The pulse ox measures and is not aggravated and the blood gases will be needed. The patient is urinating adequate tidal volumes and has a respiratory rate of 16-20. He remains quite lethargic, somnolent yet arousable. Extremely cachectic and emaciated. Hemodynamically stable. As mentioned earlier, a emergent right-sided thoracentesis was done yesterday of the right lung and a total of 800 mL of pleural fluid was aspirated successfully. Nevertheless, the follow-up chest x-ray still showing significant volume loss in the right lung related to his underlying lung mass as the patient has a large mass encasing the right hilar structures and the right mainstem bronchus and the bronchus intermedius. Currently is on bronchodilators and steroids. No fever. No chills. Resting comfortably in bed. Does not communicate a whole lot. Family is not around. Would like to talk to the family regarding treatment. As the patient's prognosis extremely poor baseline above-mentioned comorbidities. Fluid cytology is pending for now. 03/16/2021 I'm seeing this patient in the intensive care unit. The patient is much more awake compared to yesterday. Is following commands. He is on and off confused. He is not sure where he is. However his communicating. He is trying to answer questions. His breathing is nonlabored. He was taken off the BiPAP. He was switched to nasal cannula and currently is on room air oxygen. Chest x- ray showing volume loss and they large hilar mass with atelectatic changes as described earlier involving the right lower lung area. He remains on bronchodilators. He remains on steroids. He remains on IV Zosyn as an empiric antibiotic coverage for any postobstructive pneumonia. White cell count is 15.3 with a hemoglobin 0.3. Normal renal function. Lactic acid level is down to 2.2. Urinalysis was abnormal and cultures are still pending for now. Also, I have drained this patient's right lung and a total of 800 mL of pleural fluid was aspirated. Fluid cytology still pending for now. Repeat chest x-ray from today shows no significant interval change. There is volume loss on the right. The patient is extremely cachectic and in mental status as discussed earlier. No focal neurological deficits. His CODE STATUS has been switched to a DO NOT RESUSCITATE and DO NOT INTUBATE per our conversation with the family yesterday. 03/17/2022, the patient is still the same. He is on room air oxygen. He is not having any major respiratory difficulties. Nevertheless, he is quite debilitated. He is not eating much. In fact is eating minimally. His resting comfortably in bed. He is confused. Arousable. No apparent respiratory distress. Communicates. However, he is oriented only to self. Does not know where he is. Has very poor insight on his condition. The pleural fluid cytology still pending for now. As mentioned earlier, the patient has a large hilar mass with atelectasis of the right lower lobe/right middle lobe and currently is still on a bronchodilators and steroids and antibiotics. Cardiac rhythm is sinus. Hemodynamically stable. DNR/DNI CODE STATUS. The patient is seen today 03/18/2021 in follow-up in the intensive care unit. He is currently awake. Resting fairly comfortably in bed. Maintaining O2 saturations in the 90s on room air. He's been afebrile. Hemodynamically stable. Pathology from pleural fluid pending. Cultures pending. Fluid analysis revealed cloudy fluid with protein at 2.1 and LDH 226. He remains on antibiotics in the form of Zosyn. Continued on bronchodilators. Continued on prednisone. Remains in the CIWA protocol. 03/19/2021, the patient is quite comfortable. Awaiting fluid cytology from the pleural fluid was aspirated earlier. He is currently on room air oxygen. CBC much more awake. He is increasing his oral intake. Still remains quite weak and lethargic. He was taken off the IV Solu Medrol start on prednisone burst taper. He remains on Zosyn. Blood work essentially within normal limits. The patient's chest x-ray was from 03/17/2021. No chest debilitated since. I'm going to tentatively schedule this patient for a bronchoscopy tomorrow should the pleural fluid returned goods sorter to be negative. 03/20/2021, the patient is still, comfortable. No respiratory difficulties. His communicating. He continues to have poor insight and his condition. He really is not in touch with ongoing problems and diagnosis. Noted the pleural fluid that was aspirated from the right lung returned goods sorter to be positive for malignancy and the fluid was consistent with small cell lung cancer. For that reason, a oncology consultation was requested. I asked the family to arrive to the hospital for further discussion on this patient's case. Noted the patient had significant narrowing of the right mainstem bronchus/bronchus intermedius was also considering in the airway inspection to visualize the extent of narrowing and decide if there is any intervention that can be done to preserve patency of the airways and the vent and a lung collapse. The patient is tolerating his diet. He did have a fall yesterday when he was trying to get out of bed. No major injuries. Small bruise over the left elbow. He remains on IV Zosyn. He is on prednisone burst taper. The liver seems on the clock. No headaches. No seizure activity. MRI of the brain was ordered. The patient is seen today 03/21/2021 in follow-up on the oncology unit. He is more awake and alert. Oriented 3. Family is at the bedside. Pleural fluid from previous right sided thoracentesis was consistent with small cell lung cancer. He has been seen and evaluated by oncology. MRI of the brain is pending. Pleural fluid cultures pending. Urine culture revealed no organisms. White count 10.8. Hemoglobin 11.7. Sodium 1:30. Potassium 3.3. Creatinine 0.6. He remains on bronchodilators, prednisone, Zosyn. Objective - Vital Signs Vital signs: Vital Signs Temp 97.5 F L 03/21/21 15:53 Pulse 73 03/21/21 15:53 Resp 18 03/21/21 15:53 BP 112/69 03/21/21 15:53 Pulse Ox 98 03/21/21 12:24 Intake & Output 03/20/21 03/21/21 03/21/21 18:59 06:59 18:59 Intake Total 60 400 Balance 60 400 Weight 44.1 kg Intake: Intake, IV Titration 60 180 Amount Lactated Ringers 1,000 ml 60 80 @ 20 mls/hr IV .Q24H [facility] Rx#:[id number] Piperacillin-Tazobactam 3 100 .375 gm In Sodium Chloride 0.9% 100 ml @ 25 mls/hr IVPB Q8HR [facility] Rx# :[id number] Oral 220 Other: Voiding Method Urinal Toilet Toilet Urinal Urinal # Voids 2 1 - Exam Frail, cachectic 65-year-old male patient, appears older than stated age, on room air oxygen. No signs of any respiratory distress Head exam was generally normal. There was no scleral icterus or corneal arcus. Mucous membranes were moist. Neck was supple and without jugular venous distension, thyromegaly, or carotid bruits. Carotids were easily palpable bilaterally. There was no adenopathy. Lungs sounds are diminished specially in the right lung compared to the left. Overall breath sounds are quite diminished and the patient is scheduled and scattered external wheeze. There is also dullness to percussion on the right. The patient has a barrel chest. The air entry is improved in the right lung specially in the right lung base post thoracentesis. Cardiac exam revealed the PMI to be normally situated and sized. The rhythm was regular and no extrasystoles were noted during several minutes of auscultation. The first and second heart sounds were normal and physiologic splitting of the second heart sound was noted. There were no murmurs, rubs, clicks, or gallops. Abdominal exam revealed normal bowel sounds. The abdomen was soft, non-tender, and without masses, organomegaly, or appreciable enlargement of the abdominal aorta. Examination of the extremities revealed easily palpable radial, femoral and pedal pulses. There was no cyanosis, clubbing or edema. Examination of the skin revealed no evidence of significant rashes, suspicious appearing nevi or other concerning lesions. Neurologically awake alert and there is no focal neurological deficit. He has some tremors and he has global weakness in all 4 extremities - Labs CBC & Chem 7: 03/21/21 05:26 03/21/21 05:26 Labs: Abnormal Lab Results - Last 24 Hours (Table) 03/21/21 03/21/21 03/21/21 Range/Units 05:26 05:26 05:26 WBC 10.8 H (3.8-10.6) k/uL RBC 3.73 L (4.30-5.90) m/uL Hgb 11.7 L (13.0-17.5) gm/dL Hct 34.8 L (39.0-53.0) % Neutrophils # 9.4 H (1.3-7.7) k/uL Lymphocytes # 0.8 L (1.0-4.8) k/uL Potassium 3.3 L (3.5-5.5) mmol/L BUN/Creatinine Ratio 21.67 H (12.00-20.00) Ratio Calcium 8.1 L (8.7-10.3) mg/dL Lactate Dehydrogenase 757 H (313-618) U/L Total Protein 5.5 L (6.3-8.2) g/dL Albumin 2.8 L (3.5-5.0) g/dL Assessment and Plan Assessment: 1 metastatic carcinoma most likely of a lung primary. The patient is presenting with a large right paratracheal precarinal and subcarinal mass with hilar extension measuring 7.1 x 10 x 7.9 cm in size and there is extensive mass effect on the bronchus intermedius causing significant narrowing. There is some right lower lobe and right middle lobe atelectatic changes and volume loss in addition to a moderate-sized right-sided pleural effusion. Patient also has hepatic lesions and the presentation is highly suspicious for stage IV metastatic carcinoma of a lung primary. 03/14/2021 therapeutic and diagnostic thoracentesis of the right lung and removed a total of 800 mL of pleural fluid. Fluid cytology positive for small cell lung cancer. Follow-up chest x-ray still showing volume loss on the right and the patient has a large hilar mass encasing the bronchus intermedius and the right mainstem bronchus causing mass effect and narrowing and atelectasis. 2 acute hypoxic respiratory failure secondary to above. A diagnostic and therapeutic thoracentesis was done. Oxygenation improved. The patient currently is on room air oxygen. His current pulse ox is 98%. 3 COPD 4 severe debility and significant malnourishment and obvious signs of cachexia and and emaciation and weight loss. Current by the weight is around 90 pounds. 5 acute leukocytosis 6 acute lactic acidosis, improved 7 troponin leak 8 Alcoholism 9 Large right MCA distribution CVA with some residual left-sided weakness 10 Smoking 11 Hypertension 12 Hyperlipidemia 13 GERD artery disease 14 Impaired performance and functional spastic and above-mentioned comorbidities 15 Peripheral vascular disease with questionable parathyroid the level of the aorta. Given examination, the patient is not having any significant vascular insufficiency and the patient has diminished pulses in the legs bilaterally. Ever the less, the patient has inguinal pulses 16 lactic acidosis, improving. Plan The patient was seen and evaluated by Dr. Haile Pleural fluid cytology positive for small cell lung cancer Comfortable and on room oxygen presently MRI of the brain is pending Plan is for the patient to be discharged home over the next day or so Start chemo therapy/radiation therapy next week We will continue to follow I, the cosigning physician, performed a history & physical examination of the patient. Lungs sounds are diminished specially in the right lung compared to the left. Overall breath sounds are quite diminished. There is also dullness to percussion on the right. . Maintaining good O2 saturations in the 90s on room air. I discussed the assessment and plan of care with my nurse practitioner, Marifer Torres. I attest to the above note as dictated by her.
--- NOTE | 2021-03-21 18:05 | MR ---
EXAMINATION TYPE: MR brain wo/w con DATE OF EXAM: 03/21/2021 COMPARISON: 09/20/2012 HISTORY: Rule out brain mets, patient has a lung mass CONTRAST: Standard multiplanar, multisequence MRI departmental protocol utilizing 4.5 mL intravenous Gadavist g adolinium contrast. There is a 4 x 1.5 Rainer wedge-shaped area of mixed signal in the right posterior temporal lobe dumont and white matter. There is a similar smaller area in the right posterior frontal lobe dumont and white matter that measures 3 x 2 cm. There is no enhancement. There is no midline shift. There is no mass effect. These are consistent with old ischemic infarct. The brainstem is intact. Cerebellum is intact . There is normal enhancement of the venous sinuses. There is some thinning of the corpus callosum. IMPRESSION: Evidence of old infarcts in the right frontal and right temporal lobes. Right frontal lobe infarct is a change compared to the old MR scan. Right temporal lobe infarct is not changed. No acute intracran ial abnormality. No evidence of metastatic disease. Cerebral atrophy. Periventricular white matter si gnal changes bilaterally.
[2021-03-21] MEDS: ATORVASTATIN 10 MG TAB PO SCH (20:35)
[2021-03-21] MEDS: DONEPEZIL 10 MG TAB PO SCH (20:35)
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
[2021-03-22 06:14] LABS: Basophils % (A) 0 %; Eosinophils # (A) 0.1 k/uL (0-0.7); Eosinophils % (A) 1 %; HCT 37.1 % (39.0-53.0); HGB 11.8 gm/dL (13.0-17.5); Hypochromasia Moderate; Lymphocytes # (A) 0.7 k/uL (1.0-4.8); Lymphocytes % (A) 6 %; MCH 29.9 pg (25.0-35.0); MCHC 31.8 g/dL (31.0-37.0); MCV 94.1 fL (80.0-100.0); Mean Platelet Volume 7.7; Monocytes # (A) 0.7 k/uL (0-1.0); Monocytes % (A) 6 %; Neutrophils % (A) 87 %; Platelet Count 253 k/uL (150-450); RBC 3.94 m/uL (4.30-5.90); WBC 12.7 k/uL (3.8-10.6)
[2021-03-22 06:35] LABS: ALT 15 U/L (4-49); AST 33 U/L (17-59); African American GFR (CKD) >90 (>60 ml/min/1.73 sqM); Albumin 2.9 g/dL (3.5-5.0); Albumin/Globulin Ratio 1.1; Alkaline Phosphatase 55 U/L (38-126); Anion Gap 7 mmol/L; Blood Urea Nitrogen 14 mg/dL (9-20); Calcium 8.5 mg/dL (8.4-10.2); Carbon Dioxide 24 mmol/L (22-30); Chloride 104 mmol/L (98-107); Globulin 2.7 g/dL; Glucose 65 mg/dL (74-99); Magnesium 1.9 mg/dL (1.6-2.3); Non-African American GFR(CKD) >90 (>60 ml/min/1.73 sqM); Potassium 3.7 mmol/L (3.5-5.1); Sodium 135 mmol/L (137-145); Total Bilirubin 0.6 mg/dL (0.2-1.3); Total Protein 5.6 g/dL (6.3-8.2)
[2021-03-22] MEDS: IPRATROPIUM-ALBUTEROL 3 ML NEB INHALATION SCH ×5 (07:37→20:28)
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
[2021-03-22] MEDS: PIPERACILLIN-TAZOBACTAM 3.375 GM in SODIUM CHLORIDE 0.9% 100 ML IVPB SCH ×2 (09:22→16:54)
[2021-03-22] MEDS: predniSONE 20 MG TAB PO SCH (09:22)
[2021-03-22] MEDS: THIAMINE 100 MG TAB PO SCH ×2 (09:23→17:43)
[2021-03-22] MEDS: METOPROLOL TARTRATE 12.5 MG TAB PO SCH ×2 (09:23→21:23)
[2021-03-22] MEDS: IOPAMIDOL CONTRAST (ORAL USE) VIAL PO PRN ×2 (12:15→13:10)
[2021-03-22] MEDS: LORazepam 2 MG/ML INJ IV PRN (12:37)
--- NOTE | 2021-03-22 12:43 | P.PN ---
Subjective Progress Note Date: 03/22/21 Principal diagnosis: Metastatic carcinoma suspect lung primary This is a 65-year-old male patient who presented emergency department because of severe respiratory distress. The patient was sent from his primary care physician's office for worsening shortness of breath and hypoxemia. He was already identified to have an abnormal chest x-ray with volume loss in the right-sided pleural effusion. He was seen in the emergency department yesterday but he left AGAINST MEDICAL ADVICE to be readmitted again today. He is quite cachectic. He is currently on a BiPAP at a pressure of 14/6 cm of water and FiO2 of 1%. He is awake and alert and communicating. Chest x-ray was reviewed and emergency department and it showed a right-sided pleural effusion. There was also right-sided volume loss and underlying central neoplasm was being considered., Subcarinal and right hilar region measuring 10 x 7.5 x 7.1 cm in size. The mass was encasing the right hilar structures including the medicine the lower SVC and there was a cut off sign Dilaudid of the bronchus intermedius. There was also evidence of right middle lobe collapse, partial medial right lower lobe collapse, moderate right-sided pleural effusion and right-sided infiltrate. There was not of 2.3 cm subpleural area of pleural lesion and 2 liver lesions measuring 4 cm suspicious for metastases. There was also abnormal aortic occlusion just below the renal artery takeoff no swelling in extremities. I saw the patient emergency department. He was in impending respiratory failure. He was on a BiPAP at a pressure of 14/6 cm of water with an FiO2 of 1 sent. Based on that, I did a emergent right-sided thoracentesis to provide this patient some symptomatic relief. 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 He is still a daily alcohol drinker. He drinks alcohol heavily and he is currently a cigarette smoker on a daily basis. He is quite cachectic, emaciated, debilitated, weak, and malnourished. Does not have any headache. No seizure. 03/15/2021, I'm seeing this patient for a follow-up in the intensive care unit. The patient is a ICU overflow. For now, the patient on a BiPAP at a pressure of 14/6 cm of water with an FiO2 of 1. The pulse ox measures and is not aggravated and the blood gases will be needed. The patient is urinating adequate tidal volumes and has a respiratory rate of 16-20. He remains quite lethargic, somnolent yet arousable. Extremely cachectic and emaciated. Hemodynamically stable. As mentioned earlier, a emergent right-sided thoracentesis was done yesterday of the right lung and a total of 800 mL of pleural fluid was aspirated successfully. Nevertheless, the follow-up chest x-ray still showing significant volume loss in the right lung related to his underlying lung mass as the patient has a large mass encasing the right hilar structures and the right mainstem bronchus and the bronchus intermedius. Currently is on bronchodilators and steroids. No fever. No chills. Resting comfortably in bed. Does not communicate a whole lot. Family is not around. Would like to talk to the family regarding treatment. As the patient's prognosis extremely poor baseline above-mentioned comorbidities. Fluid cytology is pending for now. 03/16/2021 I'm seeing this patient in the intensive care unit. The patient is much more awake compared to yesterday. Is following commands. He is on and off confused. He is not sure where he is. However his communicating. He is trying to answer questions. His breathing is nonlabored. He was taken off the BiPAP. He was switched to nasal cannula and currently is on room air oxygen. Chest x- ray showing volume loss and they large hilar mass with atelectatic changes as described earlier involving the right lower lung area. He remains on bronchodilators. He remains on steroids. He remains on IV Zosyn as an empiric antibiotic coverage for any postobstructive pneumonia. White cell count is 15.3 with a hemoglobin 0.3. Normal renal function. Lactic acid level is down to 2.2. Urinalysis was abnormal and cultures are still pending for now. Also, I have drained this patient's right lung and a total of 800 mL of pleural fluid was aspirated. Fluid cytology still pending for now. Repeat chest x-ray from today shows no significant interval change. There is volume loss on the right. The patient is extremely cachectic and in mental status as discussed earlier. No focal neurological deficits. His CODE STATUS has been switched to a DO NOT RESUSCITATE and DO NOT INTUBATE per our conversation with the family yesterday. 03/17/2022, the patient is still the same. He is on room air oxygen. He is not having any major respiratory difficulties. Nevertheless, he is quite debilitated. He is not eating much. In fact is eating minimally. His resting comfortably in bed. He is confused. Arousable. No apparent respiratory distress. Communicates. However, he is oriented only to self. Does not know where he is. Has very poor insight on his condition. The pleural fluid cytology still pending for now. As mentioned earlier, the patient has a large hilar mass with atelectasis of the right lower lobe/right middle lobe and currently is still on a bronchodilators and steroids and antibiotics. Cardiac rhythm is sinus. Hemodynamically stable. DNR/DNI CODE STATUS. The patient is seen today 03/18/2021 in follow-up in the intensive care unit. He is currently awake. Resting fairly comfortably in bed. Maintaining O2 saturations in the 90s on room air. He's been afebrile. Hemodynamically stable. Pathology from pleural fluid pending. Cultures pending. Fluid analysis revealed cloudy fluid with protein at 2.1 and LDH 226. He remains on antibiotics in the form of Zosyn. Continued on bronchodilators. Continued on prednisone. Remains in the CIWA protocol. 03/19/2021, the patient is quite comfortable. Awaiting fluid cytology from the pleural fluid was aspirated earlier. He is currently on room air oxygen. CBC much more awake. He is increasing his oral intake. Still remains quite weak and lethargic. He was taken off the IV Solu Medrol start on prednisone burst taper. He remains on Zosyn. Blood work essentially within normal limits. The patient's chest x-ray was from 03/17/2021. No chest debilitated since. I'm going to tentatively schedule this patient for a bronchoscopy tomorrow should the pleural fluid turning lathe tender to be negative. 03/20/2021, the patient is still, comfortable. No respiratory difficulties. His communicating. He continues to have poor insight and his condition. He really is not in touch with ongoing problems and diagnosis. Noted the pleural fluid that was aspirated from the right lung turning lathe tender to be positive for malignancy and the fluid was consistent with small cell lung cancer. For that reason, a oncology consultation was requested. I asked the family to arrive to the hospital for further discussion on this patient's case. Noted the patient had significant narrowing of the right mainstem bronchus/bronchus intermedius was also considering in the airway inspection to visualize the extent of narrowing and decide if there is any intervention that can be done to preserve patency of the airways and the vent and a lung collapse. The patient is tolerating his diet. He did have a fall yesterday when he was trying to get out of bed. No major injuries. Small bruise over the left elbow. He remains on IV Zosyn. He is on prednisone burst taper. The liver seems on the clock. No headaches. No seizure activity. MRI of the brain was ordered. The patient is seen today 03/21/2021 in follow-up on the oncology unit. He is more awake and alert. Oriented 3. Family is at the bedside. Pleural fluid from previous right sided thoracentesis was consistent with small cell lung cancer. He has been seen and evaluated by oncology. MRI of the brain is pending. Pleural fluid cultures pending. Urine culture revealed no organisms. White count 10.8. Hemoglobin 11.7. Sodium 1:30. Potassium 3.3. Creatinine 0.6. He remains on bronchodilators, prednisone, Zosyn. The patient is seen today 03/22/2021 in follow-up on the oncology unit. He is sitting up at the bedside. Awake and alert in no acute distress. HEENT O2 saturations in the 90s on room air. He's been afebrile. Hemodynamically stable. MRI of the brain did not reveal any evidence of metastatic disease. White count 2.7. Hemoglobin 11.8. Sodium 135. He hasn't 3.7. Creatinine 0.59. Remains on bronchodilators, prednisone, Zosyn. CAT scan of the abdomen and pelvis along with bone scans are pending. Being followed by oncology and radiation oncology. Objective - Vital Signs Vital signs: Vital Signs Temp 98.1 F 03/22/21 12:36 Pulse 85 03/22/21 12:36 Resp 17 03/22/21 12:36 BP 129/76 03/22/21 12:36 Pulse Ox 93 L 03/22/21 12:36 Intake & Output 03/21/21 03/22/21 03/22/21 18:59 06:59 18:59 Intake Total 360 340 Balance 360 340 Weight 44.1 kg Intake: Intake, IV Titration 360 340 Amount Lactated Ringers 1,000 ml 360 240 @ 20 mls/hr IV .Q24H [facility] Rx#:[id number] Piperacillin-Tazobactam 3 100 .375 gm In Sodium Chloride 0.9% 100 ml @ 25 mls/hr IVPB Q8HR [facility] Rx# :[id number] Other: Voiding Method Urinal Toilet Urinal Diaper # Voids 3 - Exam Frail, cachectic 65-year-old male patient, appears older than stated age, on room air oxygen. No signs of any respiratory distress Head exam was generally normal. There was no scleral icterus or corneal arcus. Mucous membranes were moist. Neck was supple and without jugular venous distension, thyromegaly, or carotid bruits. Carotids were easily palpable bilaterally. There was no adenopathy. Lungs Overall breath sounds are quite diminished and the patient has scattered external wheeze. There is also dullness to percussion on the right. The patient has a barrel chest. The air entry is improved in the right lung specially in the right lung base post thoracentesis. Cardiac exam revealed the PMI to be normally situated and sized. The rhythm was regular and no extrasystoles were noted during several minutes of auscultation. The first and second heart sounds were normal and physiologic splitting of the second heart sound was noted. There were no murmurs, rubs, clicks, or gallops. Abdominal exam revealed normal bowel sounds. The abdomen was soft, non-tender, and without masses, organomegaly, or appreciable enlargement of the abdominal aorta. Examination of the extremities revealed easily palpable radial, femoral and pedal pulses. There was no cyanosis, clubbing or edema. Examination of the skin revealed no evidence of significant rashes, suspicious appearing nevi or other concerning lesions. Neurologically awake alert and there is no focal neurological deficit. He has some tremors and he has global weakness in all 4 extremities - Labs CBC & Chem 7: 03/22/21 05:44 03/22/21 05:44 Labs: Abnormal Lab Results - Last 24 Hours (Table) 03/22/21 03/22/21 Range/Units 05:44 05:44 WBC 12.7 H (3.8-10.6) k/uL RBC 3.94 L (4.30-5.90) m/uL Hgb 11.8 L (13.0-17.5) gm/dL Hct 37.1 L (39.0-53.0) % Neutrophils # 11.0 H (1.3-7.7) k/uL Lymphocytes # 0.7 L (1.0-4.8) k/uL Sodium 135 L (137-145) mmol/L Creatinine 0.59 L (0.66-1.25) mg/dL Glucose 65 L (74-99) mg/dL Total Protein 5.6 L (6.3-8.2) g/dL Albumin 2.9 L (3.5-5.0) g/dL Assessment and Plan Assessment: 1 metastatic carcinoma most likely of a lung primary. It is post right-sided thoracentesis. Fluid cytology positive for small cell lung cancer. Follow-up chest x-ray still showing volume loss on the right and the patient has a large hilar mass encasing the bronchus intermedius and the right mainstem bronchus causing mass effect and narrowing and atelectasis. Oncology and radiation oncology are on the case. 2 acute hypoxic respiratory failure secondary to above. A diagnostic and therapeutic thoracentesis was done. Oxygenation improved. The patient currently is on room air oxygen. His current pulse ox is 98%. 3 COPD 4 severe debility and significant malnourishment and obvious signs of cachexia and and emaciation and weight loss. Current by the weight is around 90 pounds. 5 acute leukocytosis 6 acute lactic acidosis, improved 7 troponin leak 8 Alcoholism 9 Large right MCA distribution CVA with some residual left-sided weakness 10 Smoking 11 Hypertension 12 Hyperlipidemia 13 GERD artery disease 14 Impaired performance and functional spastic and above-mentioned comorbidities 15 Peripheral vascular disease with questionable parathyroid the level of the aorta. Given examination, the patient is not having any significant vascular insufficiency and the patient has diminished pulses in the legs bilaterally. Ever the less, the patient has inguinal pulses 16 lactic acidosis, improving. Plan The patient was seen and evaluated by Dr. Lazara Weller and on room oxygen presently MRI of the brain revealed no evidence of metastasis CT scan of the abdomen and pelvis pending Bone scan pending Start chemo therapy/palliative radiation therapy next week We will continue to follow I, the cosigning physician, performed a history & physical examination of the patient. Lungs sounds are diminished specially in the right lung compared to the left. Overall breath sounds are quite diminished. Maintaining good O2 saturations in the 90s on room air. I discussed the assessment and plan of care with my nurse practitioner, Marifer Torres. I attest to the above note as dictated by her.
--- NOTE | 2021-03-22 13:04 | P.PN ---
Subjective Progress Note Date: 03/22/21 Principal diagnosis: SCLC In f/u today pt is wanting to go home. He states he feels fine. He did not initially remember that he was diagnosed recently with cancer. Denies chest pain, difficulty in breathing, he is reporting that he is eating fine but, staff report only few bites of food Objective - Vital Signs Vital signs: Vital Signs Temp 98.1 F 03/22/21 12:36 Pulse 85 03/22/21 12:36 Resp 17 03/22/21 12:36 BP 129/76 03/22/21 12:36 Pulse Ox 93 L 03/22/21 12:36 Intake & Output 03/21/21 03/22/21 03/22/21 18:59 06:59 18:59 Intake Total 360 340 Balance 360 340 Weight 44.1 kg Intake: Intake, IV Titration 360 340 Amount Lactated Ringers 1,000 ml 360 240 @ 20 mls/hr IV .Q24H [facility] Rx#:[id number] Piperacillin-Tazobactam 3 100 .375 gm In Sodium Chloride 0.9% 100 ml @ 25 mls/hr IVPB Q8HR [facility] Rx# :[id number] Other: Voiding Method Urinal Toilet Urinal Diaper # Voids 3 - Constitutional Constitutional Comment(s): Thin, frail General appearance: Present: no acute distress - EENT EENT Comment(s): Lateral rt eye scab from scrape and small bruise from trauma (pt reports fall) Eyes: Present: anicteric sclerae, EOMI ENT: Present: hearing grossly normal - Respiratory Respiratory: bilateral: diminished, rhonchi (expiratory) - Cardiovascular Heart sounds: normal: S1, S2 - Peripheral edema leg Peripheral Edema: bilateral: None - Gastrointestinal General gastrointestinal: Present: normal bowel sounds, soft - Musculoskeletal Musculoskeletal: Present: generalized weakness - Psychiatric Psychiatric Comment(s): agitated, having some trouble remembering recent events-diagnosis of cancer Psychiatric: Present: A&O x's 3 - Labs CBC & Chem 7: 03/22/21 05:44 03/22/21 05:44 Labs: Abnormal Lab Results - Last 24 Hours (Table) 03/22/21 03/22/21 Range/Units 05:44 05:44 WBC 12.7 H (3.8-10.6) k/uL RBC 3.94 L (4.30-5.90) m/uL Hgb 11.8 L (13.0-17.5) gm/dL Hct 37.1 L (39.0-53.0) % Neutrophils # 11.0 H (1.3-7.7) k/uL Lymphocytes # 0.7 L (1.0-4.8) k/uL Sodium 135 L (137-145) mmol/L Creatinine 0.59 L (0.66-1.25) mg/dL Glucose 65 L (74-99) mg/dL Total Protein 5.6 L (6.3-8.2) g/dL Albumin 2.9 L (3.5-5.0) g/dL Assessment and Plan (1) Small cell lung cancer Narrative/Plan: Recent diagnosis, positive pleural fluid. Reviewed diagnosis with pt. Discussed that the MRI of the brain was negative for any cancer. Ordered CT AP and NM bone scan to complete staging. If pt stable enough for discharge then plan will be for chemo outpt to start as soon as possible if pt wants to do treatment. Current Visit: Yes Status: Acute Priority: High Code(s): C34.90 - MALIGNANT NEOPLASM OF UNSP PART OF UNSP BRONCHUS OR LUNG SNOMED Code(s): 159740798
--- NOTE | 2021-03-22 15:26 | CT ---
EXAMINATION TYPE: CT abdomen pelvis w con DATE OF EXAM: 03/22/2021 COMPARISON: None HISTORY: Acute respiratory failure, COPD, pleural effusion Small cell lung cancer. CT DLP: 544.7 mGycm Automated exposure control for dose reduction was used. CONTRAST: Performed with IV Contrast, patient injected with 95 mL of Isovue 300. Images obtained from the diaphragm to the floor the pelvis with IV contrast. There are large bilateral pleural effusions. There is consolidation in the right lower lobe with volu me loss. There is large mass at the right pulmonary hilum which is partly imaged. This measures at le ast 8 cm. Heart size is normal. There is no pericardial effusion. There is narrowing of the right low er lobe pulmonary artery due to encasement by the mass. There is 5 cm low-density mass in the lateral right lobe of the liver. There is 5 cm low-density roun ded liver mass in the superior right lobe of the liver. There is a 4 cm mass at the haritha hepatis. Th is is contiguous with the pancreatic head and there is anterior displacement of the portal vein. The body and tail the pancreas appear intact. Spleen is intact. Gallbladder is intact. The bile ducts are not dilated. There is no adrenal mass. Kidneys show satisfactory contrast opacification. There is no hydronephrosi s. There is no retroperitoneal adenopathy. Abdominal aorta is atheromatous. There is normal oral cont rast opacification of the bowel. There is no sign of a bowel obstruction. Bladder distends smoothly. There is fluid level in the rectum. There is no free air. There is no ascites. The lumbar vertebra have normal alignment. There is no compression fracture. The bony pelvis is intac t. The hip joints are intact. There is a mass in the pelvis posteriorly on the right side that is dis placing anteriorly the right psoas muscle and measures 6 x 4 cm. IMPRESSION: Large mass at the right pulmonary hilum consistent with malignancy. Large pleural effusions. Low density liver masses suggestive of malignancy. This is suggestive of metastatic disease. Large ma ss at the haritha hepatis. This is more likely pancreatic tumor. 6 x 4 cm mass in the posterior pelvis on the right side is probably retroperitoneal tumor.
[2021-03-22] MEDS: LACTATED RINGERS 1,000 ML IV SCH (16:54)
[2021-03-22] MEDS: DONEPEZIL 10 MG TAB PO SCH (21:22)
[2021-03-22] MEDS: ATORVASTATIN 10 MG TAB PO SCH (21:22)
[2021-03-23] MEDS ORDERED: FUROSEMIDE 10 MG/ML 4 ML VIAL IV STA (00:25)
[2021-03-23] MEDS: PIPERACILLIN-TAZOBACTAM 3.375 GM in SODIUM CHLORIDE 0.9% 100 ML IVPB SCH ×4 (00:40→23:15)
[2021-03-23 01:27] LABS: HGB 10.3 gm/dL (13.0-17.5); Hypochromasia Moderate; MCH 30.1 pg (25.0-35.0); MCHC 32.1 g/dL (31.0-37.0); Mean Platelet Volume 7.5; Platelet Count 245 k/uL (150-450); Poikilocytosis Slight; RDW 15.7 % (11.5-15.5); WBC 10.1 k/uL (3.8-10.6)
--- NOTE | 2021-03-23 01:27 | XR ---
EXAMINATION TYPE: XR chest 1V portable DATE OF EXAM: 03/23/2021 COMPARISON: 03/19/2021 HISTORY: Short of breath TECHNIQUE: FINDINGS: There is opacification right hemithorax. Heart and mediastinum are shifted to the right side. Left mario ng is fairly clear. There is no heart failure. IMPRESSION: There is consolidation and pleural fluid and atelectasis in the right lung which has prog ressed compared to recent exam.
[2021-03-23 01:45] LABS: African American GFR (CKD) >90 (>60 ml/min/1.73 sqM); Anion Gap 4 mmol/L; Blood Urea Nitrogen 14 mg/dL (9-20); Calcium 7.3 mg/dL (8.4-10.2); Carbon Dioxide 24 mmol/L (22-30); Chloride 103 mmol/L (98-107); Glucose 67 mg/dL (74-99); Non-African American GFR(CKD) >90 (>60 ml/min/1.73 sqM); Potassium 3.6 mmol/L (3.5-5.1); Sodium 131 mmol/L (137-145)
[2021-03-23] MEDS: LORazepam 2 MG/ML INJ IV PRN (03:55)
[2021-03-23] MEDS: METOPROLOL TARTRATE 12.5 MG TAB PO SCH ×2 (08:39→21:00)
[2021-03-23] MEDS: predniSONE 20 MG TAB PO SCH (08:39)
[2021-03-23] MEDS: THIAMINE 100 MG TAB PO SCH ×2 (08:40→17:27)
[2021-03-23] MEDS: IPRATROPIUM-ALBUTEROL 3 ML NEB INHALATION SCH ×4 (08:51→19:31)
--- NOTE | 2021-03-23 09:50 | P.PN ---
Subjective Progress Note Date: 03/23/21 The patient appears less alert and weaker today, compared to my last exam be some upper airway congestion. He was apparently agitated last night. He himself denied any specific complaints. Objective - Vital Signs Vital signs: Vital Signs Temp 98.2 F 03/23/21 04:03 Pulse 79 03/23/21 04:03 Resp 20 03/23/21 04:03 BP 128/82 03/23/21 04:03 Pulse Ox 93 L 03/23/21 04:03 Intake & Output 03/22/21 03/23/21 03/23/21 18:59 06:59 18:59 Intake Total 160 350 Output Total 100 Balance 60 350 Weight 44.1 kg Intake: Intake, IV Titration 300 Amount Lactated Ringers 1,000 ml 200 @ 20 mls/hr IV .Q24H [facility] Rx#:[id number] Piperacillin-Tazobactam 3 100 .375 gm In Sodium Chloride 0.9% 100 ml @ 25 mls/hr IVPB Q8HR [facility] Rx# :[id number] Oral 160 50 Output: Urine 100 Other: Voiding Method Toilet Toilet Urinal Urinal Diaper Diaper - Constitutional General appearance: Present: no acute distress - EENT Eyes: Present: EOMI ENT: Present: hearing grossly normal, normal oropharynx - Respiratory Details: Audible upper airway congestion Respiratory: right: diminished - Cardiovascular Rhythm: regular Heart sounds: normal: S1, S2 - Gastrointestinal General gastrointestinal: Present: soft - Integumentary Integumentary Comment(s): Scabbed over laceration right lower forehead - Musculoskeletal Musculoskeletal: Present: generalized weakness, strength equal bilaterally - Psychiatric Psychiatric Comment(s): Patient's mentation and the call appears to be diminished today, compared to my exam on 03/21/21. He appeared to have difficulty remembering his diagnosis. It had to retreat his diagnosis, stage and our treatment plan. He again stated that he wanted to go ahead with active treatment, but comprehension of his issues appear to definitely diminished today - Labs CBC & Chem 7: 03/23/21 01:09 03/23/21 01:09 Labs: Abnormal Lab Results - Last 24 Hours (Table) 03/23/21 03/23/21 Range/Units 01:09 01:09 RBC 3.40 L (4.30-5.90) m/uL Hgb 10.3 L (13.0-17.5) gm/dL Hct 32.0 L (39.0-53.0) % RDW 15.7 H (11.5-15.5) % Sodium 131 L (137-145) mmol/L Creatinine 0.58 L (0.66-1.25) mg/dL Glucose 67 L (74-99) mg/dL Calcium 7.3 L (8.4-10.2) mg/dL Assessment and Plan (1) Small cell lung cancer Narrative/Plan: The patient's bone scan is pending, but CT of the abdomen and pelvis shows obvious metastatic disease with evidence of liver lesions, as well as large retroperitoneal mass. Based on our discussion on 03/21/21 the plan was to treat actively, most likely as an outpatient given the patient's status at that time. However, today the patient does appear to be weaker with somewhat diminished on prevention. If his performance status doesn't improve over the next 24 hours, will discuss with him and his family about treating inpatient. It has been discussed that his malignancy is stage IV, and intent of treatment would be prolongation of life and palliation of symptoms. Current Visit: Yes Status: Acute Priority: High Code(s): C34.90 - MALIGNANT NEOPLASM OF UNSP PART OF UNSP BRONCHUS OR LUNG SNOMED Code(s): 847156246 (2) Mental status alteration Narrative/Plan: There appears to be a definite difference, compared to 03/21/21. The patient denied any history of significant alcohol use to me, but it is noted in his problem list. Given evidence of liver metastases, I will also check ammonia level. Current Visit: Yes Status: Acute Code(s): R41.82 - ALTERED MENTAL STATUS, UNSPECIFIED SNOMED Code(s): 883965493
--- NOTE | 2021-03-23 11:40 | P.PN ---
Subjective Progress Note Date: 03/23/21 03/23/2021, the patient is alert. He is awake. His communicating. No respiratory difficulties. He remains on room air oxygen. Oncology on the case. Diagnosis established and the patient has a metastatic small cell carcinoma with a malignant right-sided pleural effusion. Seen by oncology. Seen by radiation oncology also. He does have metastases to his liver. His disease is stage IV. His treatment is essentially palliative. Not absolutely sure whether this is going to be able to tolerate any treatment. His be instituted on outpatient basis. Sodium is at 131. Renal function stable. Ammonia level is less than 5 Objective - Vital Signs Vital signs: Vital Signs Temp 98.2 F 03/23/21 04:03 Pulse 76 03/23/21 11:05 Resp 20 03/23/21 04:03 BP 128/82 03/23/21 04:03 Pulse Ox 93 L 03/23/21 04:03 Intake & Output 03/22/21 03/23/21 03/23/21 18:59 06:59 18:59 Intake Total 160 350 Output Total 100 Balance 60 350 Weight 44.1 kg Intake: Intake, IV Titration 300 Amount Lactated Ringers 1,000 ml 200 @ 20 mls/hr IV .Q24H [facility] Rx#:[id number] Piperacillin-Tazobactam 3 100 .375 gm In Sodium Chloride 0.9% 100 ml @ 25 mls/hr IVPB Q8HR [facility] Rx# :[id number] Oral 160 50 Output: Urine 100 Other: Voiding Method Toilet Toilet Toilet Urinal Urinal Urinal Diaper Diaper Diaper - Exam Patient is on room air oxygen. No signs of any respiratory distress Head exam was generally normal. There was no scleral icterus or corneal arcus. Mucous membranes were moist. Neck was supple and without jugular venous distension, thyromegaly, or carotid bruits. Carotids were easily palpable bilaterally. There was no adenopathy. Lungs sounds are diminished specially in the right lung compared to the left. Overall breath sounds are quite diminished and the patient is scheduled and scattered external wheeze. There is also dullness to percussion on the right. The patient has a barrel chest. The air entry is improved in the right lung specially in the right lung base post thoracentesis. Cardiac exam revealed the PMI to be normally situated and sized. The rhythm was regular and no extrasystoles were noted during several minutes of auscultation. The first and second heart sounds were normal and physiologic splitting of the second heart sound was noted. There were no murmurs, rubs, clicks, or gallops. Abdominal exam revealed normal bowel sounds. The abdomen was soft, non-tender, and without masses, organomegaly, or appreciable enlargement of the abdominal aorta. Examination of the extremities revealed easily palpable radial, femoral and pedal pulses. There was no cyanosis, clubbing or edema. Examination of the skin revealed no evidence of significant rashes, suspicious appearing nevi or other concerning lesions. Neurologically awake alert and there is no focal neurological deficit. He has some tremors and he has global weakness in all 4 extrem - Labs CBC & Chem 7: 03/23/21 01:09 03/23/21 01:09 Labs: Abnormal Lab Results - Last 24 Hours (Table) 03/23/21 03/23/21 Range/Units 01:09 01:09 RBC 3.40 L (4.30-5.90) m/uL Hgb 10.3 L (13.0-17.5) gm/dL Hct 32.0 L (39.0-53.0) % RDW 15.7 H (11.5-15.5) % Sodium 131 L (137-145) mmol/L Creatinine 0.58 L (0.66-1.25) mg/dL Glucose 67 L (74-99) mg/dL Calcium 7.3 L (8.4-10.2) mg/dL Assessment and Plan Plan: 1 metastatic carcinoma most likely of a lung primary/small cell lung cancer. The patient is presenting with a large right paratracheal precarinal and subcarinal mass with hilar extension measuring 7.1 x 10 x 7.9 cm in size and there is extensive mass effect on the bronchus intermedius causing significant narrowing. There is some right lower lobe and right middle lobe atelectatic changes and volume loss in addition to a moderate-sized right-sided pleural effusion. Patient also has hepatic lesions and the presentation is highly suspicious for stage IV metastatic carcinoma of a lung primary. The pleural fluid aspirated was consistent with small cell lung cancer 2 acute hypoxic respiratory failure secondary to above. A diagnostic and therapeutic thoracentesis was done. Oxygenation improved. The patient was t aken off the BiPAP and currently is on room air oxygen. His current pulse ox is 98%. 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 Given examination, the patient is not having any significant vascular insufficiency and the patient has diminished pulses in the legs bilaterally. Nevertheless,, the patient has inguinal pulses. The patient was also seen by Dr. Fairchild from vascular surgery. No intervention is recommended. 16 lactic acidosis, improving. 17 severe debility and significant malnourishment and obvious signs of cachexia and and emaciation and weight loss. Current by the weight is around 90 pounds. Patient is taking his oral intake as tolerated. 18 fall without any acute skeletal injuries. Plan Pleural fluid is positive for small cell lung cancer this was discussed with the patient. Is consistent with stage IV small cell lung carcinoma. Oncology consultation We'll continue IV Zosyn Prednisone burst taper Advance diet Fluid to KVO He has been switched to a DNR/DNI CODE STATUS.. Prognosis poor. Palliative chemotherapy on this patient.
[2021-03-23] MEDS: LACTATED RINGERS 1,000 ML IV SCH (15:01)
[2021-03-23] MEDS: ATORVASTATIN 10 MG TAB PO SCH (21:00)
[2021-03-23] MEDS: DONEPEZIL 10 MG TAB PO SCH (21:00)
[2021-03-24] MEDS: IPRATROPIUM-ALBUTEROL 3 ML NEB INHALATION SCH ×4 (07:47→21:16)
[2021-03-24] MEDS: PIPERACILLIN-TAZOBACTAM 3.375 GM in SODIUM CHLORIDE 0.9% 100 ML IVPB SCH ×2 (07:50→15:33)
[2021-03-24] MEDS: predniSONE 20 MG TAB PO SCH (07:54)
[2021-03-24] MEDS: THIAMINE 100 MG TAB PO SCH ×2 (07:54→17:01)
[2021-03-24] MEDS: METOPROLOL TARTRATE 12.5 MG TAB PO SCH ×2 (07:54→21:34)
[2021-03-24] MEDS: LACTATED RINGERS 1,000 ML IV SCH (10:05)
[2021-03-24] MEDS: NYSTATIN 100,000 UNIT/ML SUSP 500,000 UNIT/5 ML CUP PO SCH ×3 (12:21→21:34)
--- NOTE | 2021-03-24 13:46 | P.PN ---
Subjective Progress Note Date: 03/24/21 Principal diagnosis: Small cell lung cancer. 03/23/2021, the patient is alert. He is awake. His communicating. No respiratory difficulties. He remains on room air oxygen. Oncology on the case. Diagnosis established and the patient has a metastatic small cell carcinoma with a malignant right-sided pleural effusion. Seen by oncology. Seen by radiation oncology also. He does have metastases to his liver. His disease is stage IV. His treatment is essentially palliative. Not absolutely sure whether this is going to be able to tolerate any treatment. His be instituted on outpatient basis. Sodium is at 131. Renal function stable. Ammonia level is less than 5 Progress note dated 03/24/2021. Currently, the patient appears to be relatively stable. He is aware the fact that he has metastatic small cell lung cancer, with a malignant right-sided effusion, and has been seen by oncology. He apparently does have metastasis to liver. He has advanced/stage IV disease. The patient states that his breathing is stable. Chest x-ray shows a recurrent large right-sided effusion. We will ask cardiothoracic surgery to see him for possible Pleurx catheter placement. He was just drained a few days ago, and his right chest is felt back up again. No new labs from today. All the labs are from yesterday. Sodium was 131. Chest x-ray is reviewed. Objective - Vital Signs Vital signs: Vital Signs Temp 98.5 F 03/24/21 11:10 Pulse 69 03/24/21 12:00 Resp 18 03/24/21 11:10 BP 114/67 03/24/21 11:10 Pulse Ox 95 03/24/21 11:10 Intake & Output 03/23/21 03/24/21 03/24/21 18:59 06:59 18:59 Intake Total 320 Balance 320 Intake: Intake, IV Titration 200 Amount Piperacillin-Tazobactam 3 200 .375 gm In Sodium Chloride 0.9% 100 ml @ 25 mls/hr IVPB Q8HR [facility] Rx# :[id number] Oral 120 Other: Voiding Method Toilet Toilet Toilet Urinal Urinal Urinal Diaper Diaper Diaper # Voids 1 3 - Exam No acute distress, oriented 3. Saturations are mid 90s, on room air, which is hard to believe. HEENT examination is grossly unremarkable. Neck supple. Full range of motion. No adenopathy thyromegaly or neck vein distention. Cardiovascular examination reveals regular rhythm rate. S1-S2 normal. No S3 or S4. No discernible murmur noted. Heart rate is 69 bpm. Heart sounds are distant. Lungs reveal dullness throughout the right lung. Breath sounds are severely diminished on the right side. Scattered rhonchi are noted bilaterally. No wheezes or crackles. Abdomen soft. Bowel sounds are heard. Extremities are intact. No cyanosis clubbing or edema. Skin is without rash or lesion. Neurologic examination is brief but nonfocal. - Labs CBC & Chem 7: 03/23/21 01:09 03/23/21 01:09 Labs: Microbiology - Last 24 Hours (Table) 03/14/21 13:32 Acid Fast Bacilli Smear - Final Pleural Fluid Acid Fast Bacilli Culture - Preliminary Assessment and Plan Assessment: Advanced stage small cell lung cancer, diagnosed by thoracentesis. Patient has metastasis to his liver. Acute hypoxemic respiratory failure, secondary to large right-sided pleural effusion, recurrent. History of COPD. Acute lactic acidosis, resolved. History of alcoholism. Large right MCA distribution CVA, with residual left-sided weakness. History of tobacco use. History of hypertension. History of hyperlipidemia. History of GERD. Peripheral vascular occlusive disease. History general medical debility. Plan: Plan dated 03/24/2021. The patient has been seen by radiation therapy and medical oncology. Prognosis is poor. We will continue to follow and make recommendations where appropriate. The right-sided pleural effusion is significant. He just had a thoracentesis a couple days ago. He may benefit from Pleurx catheter placement. No additional recommendations are made. We will continue to follow. Time with Patient: Less than 30
--- NOTE | 2021-03-24 13:59 | NM ---
EXAMINATION TYPE: NM bone scan whole body DATE OF EXAM: 03/24/2021 COMPARISON: NONE HISTORY: SCLC, initial staging Delayed whole-body scanning was performed following the injection of 21.4 mCi Tc 99m MDP. Images acq uired 4.5 hours post injection. FINDINGS: There is focal increased uptake in the left humeral head which could be degenerative in nature althou gh radiographic correlation is advised. Radiographic correlation is advised. Degenerative uptake seen about the bilateral shoulders, lower lumbar spine and hips. IMPRESSION: There is focal increased uptake in the left humeral head which could be degenerative in nature althou gh radiographic correlation is advised.
--- NOTE | 2021-03-24 14:00 | P.PN ---
Subjective Progress Note Date: 03/24/21 Principal diagnosis: SCLC, extensive stage In f/u today pt is much more oriented then the previous 48 hours-required a sitter 2 days ago. He states he can manage himself with his 's help, he wants to go home. He states he feels fine. Denies chest pain, difficulty in breathing, he states he has walked to the bathroom. Objective - Vital Signs Vital signs: Vital Signs Temp 98.1 F 03/24/21 04:57 Pulse 74 03/24/21 08:00 Resp 18 03/24/21 08:00 BP 139/83 03/24/21 04:57 Pulse Ox 95 03/24/21 04:57 Intake & Output 03/23/21 03/24/21 03/24/21 18:59 06:59 18:59 Intake Total 320 Balance 320 Intake: Intake, IV Titration 200 Amount Piperacillin-Tazobactam 3 200 .375 gm In Sodium Chloride 0.9% 100 ml @ 25 mls/hr IVPB Q8HR [facility] Rx# :[id number] Oral 120 Other: Voiding Method Toilet Toilet Toilet Urinal Urinal Urinal Diaper Diaper Diaper # Voids 1 - Constitutional General appearance: Present: cooperative, no acute distress, thin - EENT Eyes: Present: anicteric sclerae, EOMI ENT: Present: hearing grossly normal - Respiratory Respiratory: right: rales, left: CTA, bilateral: diminished - Cardiovascular Heart sounds: normal: S1, S2 - Peripheral edema leg Peripheral Edema: bilateral: None - Gastrointestinal General gastrointestinal: Present: normal bowel sounds, soft - Musculoskeletal Musculoskeletal: Present: generalized weakness, strength equal bilaterally - Psychiatric Psychiatric: Present: A&O x's 3 - Labs CBC & Chem 7: 03/23/21 01:09 03/23/21 01:09 - Imaging and Cardiology CT scan - abdomen: report reviewed CT scan - pelvis: report reviewed Assessment and Plan (1) Small cell lung cancer Narrative/Plan: Recent diagnosis, positive pleural fluid, extensive stage disease, not curable but treatable for some time. Reviewed diagnosis with pt, he seems to understand his diagnosis. MRI of the brain was negative for any cancer. CT AP complete-liver lesions, large retroperitoneal mass, panceatic mass. NM bone scan pending to complete staging. If pt stable enough for discharge then plan will be for chemo outpt to start as soon as possible if pt wants to do treatment. Discussed diagnosis, prognosis with spouse. Weeks to 2-3 mo without treatment, 10mo to 1 year with treatment if a good response and tolerated. Reviewed all her questions and concerns. Reviewed palliative are and hospice care. She is agreeable to palliative, [facility] contacted and informed of her wishes. Current Visit: Yes Status: Acute Priority: High Code(s): C34.90 - MALIGNANT NEOPLASM OF UNSP PART OF UNSP BRONCHUS OR LUNG SNOMED Code(s): 228522462 Plan: Attests: I have performed H&P, developed impression and plan of care for pt. Discussed with dictator. Agree with dictated note, documented as a scribe. Time with Patient: Greater than 30
--- NOTE | 2021-03-24 16:17 | P.PN ---
Subjective Progress Note Date: 03/24/21 Metastatic carcinoma; most likely primary lung Acute hypoxic respiratory failure Postobstructive pneumonia Severe malnutrition protein calorie/debility 65-year-old male presenting with severe respiratory distress. Past medical history is positive for a large right-sided MCA distribution CVA with some m inimal left upper extremity weakness, hyperlipidemia, coronary artery disease, peripheral artery disease and previous history of alcoholism. He is still a daily alcohol drinker. He drinks alcohol heavily and he is currently a cigarette smoker on a daily basis. He is quite cachectic, emaciated, de bilitated, weak, and malnourished. Does not have any headache. No seizure. Patient had been sent from the primary care office with hypoxia. He was diagnosed with effusion and fluid overload as well as hypoxia in the emergency department yesterday but had left AGAINST MEDICAL ADVICE. He had an elevated troponin, elevated BNP. 03/15/2021 Patient is seen for a follow-up in the intensive care unit. The patient is a ICU overflow. For now, the patient on a BiPAP at a pressure of 14/6 cm of water with an FiO2 of 1. The pulse ox measures and is not aggravated and the blood gases will be needed. The patient is urinating adequate tidal volumes and has a respiratory rate of 16-20. He remains quite lethargic, somnolent yet arousable. Extremely cachectic and emaciated. Hemodynamically stable. As mentioned earlier, a emergent right-sided thoracentesis was done yesterday of the right lung and a total of 800 mL of pleural fluid was aspirated successfully. Nevertheless, the follow-up chest x-ray still showing significant volume loss in the right lung related to his underlying lung mass as the patient has a large mass encasing the right hilar structures and the right mainstem bronchus and the bronchus intermedius. Currently is on bronchodilators and steroids. No fever. No chills. Resting comfortably in bed. Does not communicate a whole lot. Family is not around. Would like to talk to the family regarding treatment. As the patient's prognosis extremely poor baseline above-mentioned comorbidities. Fluid cytology is pending for now. 03/16/2021 Patient is seen and evaluated in room at bedside; sustained a fall with abrasion to right eyebrow with small hematoma. The patient is much more awake compared to yesterday. He was taken off the BiPAP. He was switched to nasal cannula and currently is on room air oxygen. Chest x-ray showing volume loss and they large hilar mass with atelectatic changes as described earlier involving the right lower lung area. -- He remains on bronchodilators; steroids and IV Zosyn as an empiric antibiotic coverage for any postobstructive pneumonia. White cell count is 15.3 with a hemoglobin 0.3. Normal renal function. Lactic acid level is down to 2.2. Urinalysis was abnormal and cultures are still pending for now. Patient underwent thoracentesis right lung with a total of 800 mL of pleural fluid was aspirated. Fluid cytology still pending for now. Repeat chest x-ray from today shows no significant interval change. There is volume loss on the right. The patient is extremely cachectic and in mental status as discussed earlier. No focal neurological deficits. His CODE STATUS has been switched to a DO NOT RESUSCITATE and DO NOT INTUBATE per dry food products mixer discussion with the family. 2-D echo reveals global left ventricular dysfunction with EF of 25%; cardiology on board and recommending to start low-dose beta blockers and monitor blood pressure closely; plan is for the workup for cardiomyopathy with gradual addition of heart failure medications. 03/17/2021 Patient is currently lying in the bed. On oxygen via nasal cannula. Denied any complaints of chest pain. Patient is lethargic and seems confused. Rate is being converted on bronchodilators and antibiotics in the form of Zosyn. Next check iron CODE STATUS is DO NOT RESUSCITATE/DO NOT INTUBATE. Fluid cytology from thoracentesis is pending at this time. 03/18/2021 Patient is currently in the MICU. Seems comfortable. On room air. Confused but more awake and oriented today. Patient is being continued on Antivert the form of Zosyn and IV steroids being changed to prednisone 40 mg daily. Fluid cytology is pending. Patient has been afebrile. No complaints of chest pain. No nausea vomiting or abdominal pain or diarrhea. Chest x-ray showed stable appearance yesterday. Pulmonary is planning for bronchoscopy if fluid cytology from thoracentesis is negative. 03/19/2021 Patient is currently in MICU and is lying in the bed comfortably. No compressive chest pain or worsening shortness of breath. Status post paracentesis and fluid cytology is pending at this time. Patient is being continued on Zosyn and prednisone 40 mg daily. Pulmonary is planning for bronchoscopy if fluid cytology is negative. Otherwise patient has been afebrile. Saturating at 94% on room air. Chest x-ray showed complete opacification of right hemithorax which has progressed since prior study. Hyperinflation left lung. Mediastinal shift from left to right. 03/21/2021 Patient is seen and evaluated in follow-up with family at the bedside currently on 5 N. MedSurg with no acute overnight issues noted. Patient was up and wo rking with physical therapy this morning with standby assistance and a walker. Patient continues to be weak although is improving slowly. Patient currently sitting up in the bed comfortably on room air and denies any worsening shortness of breath. Patient is continued on breathing inhalational treatments with pulmonary following closely. Plan is for bronchoscopy with biopsy to confirm diagnosis. Oncology on board as well. Patient also scheduled to undergo brain MRI to evaluate for any metastasis to the brain. Patient continues with a cough that is dry in nature. Patient reports to tolerating diet with no reports of nausea or vomiting noted. Patient is currently nothing by mouth for the procedure and will await report. White blood count is 10.8 with a hemoglobin of 11.7, sodium is 138 with a potassium of 3.3 and will replace and repeat labs. Creatinine is 0.6. Magnesium is 1.9. Patient to continue on IV Zosyn and oral steroids. Radiation oncology being consulted. Patient is a no code. Social work following as well with possibility of ECF once stabilized and discharged. Insurance requires authorization as well. 03/24/2021 Patient is seen and evaluated and follow-up and had a lengthy discussion with at the bedside. Patient is refusing to go to rehab states he just wants to go home. 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 Patient continues to be weak although does have a walker and wheelchair at the home and patient is reluctant to go to rehab and will set up with home care as the patient's is alone and states she needs assistance with his care. Oncology along with radiation oncology following and would like a discussion with patient and her at the bedside as she feels he is not understanding his overall prognosis. Case management following and they are agreeable to palliative care and referral is being placed. Patient is scheduled to undergo bone scan today. Review of systems: Constitutional: No reports of fatigue, fever, or chills Cardiovascular: No reports of chest pain or palpitations Respiratory: reports occasional shortness of breath with continued dry cough, denies shortness of breath today GI: No reports of nausea, vomiting, or diarrhea : No reports of dysuria or retention Neurovascular: reports generalized weakness All medications have been reviewed Active Medications Albuterol/Ipratropium (Ipratropium-Albuterol 3 Ml Neb) 3 ml INHALATION RT-Q4H PRN PRN Reason: Shortness Of Breath Or Wheezing Last Admin: 03/23/21 00:17 Dose: 3 ml Documented by: Albuterol/Ipratropium (Ipratropium-Albuterol 3 Ml Neb) 3 ml INHALATION RT-QID [facility] Last Admin: 03/24/21 15:40 Dose: 3 ml Documented by: Atorvastatin Calcium (Atorvastatin 10 Mg Tab) 10 mg PO [facility] Last Admin: 03/23/21 21:00 Dose: 10 mg Documented by: Donepezil HCl (Donepezil 10 Mg Tab) 10 mg PO HS [facility] Last Admin: 03/23/21 21:00 Dose: 10 mg Documented by: Haloperidol Lactate (Haloperidol Lactate 5 Mg/Ml 1 Ml Vial) 1 mg IVP Q8HR PRN PRN Reason: Agitation or Acute Psychosis Last Admin: 03/20/21 17:31 Dose: 1 mg Documented by: Piperacillin Sod/Tazobactam (Sod 3.375 gm/ Sodium Chloride) 100 mls @ 25 mls/hr IVPB Q8HR [facility] Last Admin: 03/24/21 15:33 Dose: 25 mls/hr Documented by: Lactated Ringer's (Lactated Ringers) 1,000 mls @ 20 mls/hr IV .Q24H [facility] Last Admin: 03/24/21 10:05 Dose: Not Given Documented by: Lidocaine HCl (Lidocaine 1% (10mg/Ml) For Iv Start) 0.1 ml INTRADERMA PER PROT OCOL PRN PRN Reason: IV Start Lisinopril (Lisinopril 2.5 Mg Tab) 2.5 mg PO DAILY [facility] Last Admin: 03/24/21 07:54 Dose: 2.5 mg Documented by: Lorazepam (Lorazepam 2 Mg/Ml Inj) 0.5 mg IV Q4HR PRN PRN Reason: Agitation Last Admin: 03/23/21 03:55 Dose: 0.5 mg Documented by: Metoprolol Tartrate (Metoprolol Tartrate 12.5 Mg Tab) 12.5 mg PO BID [facility] Last Admin: 03/24/21 07:54 Dose: 12.5 mg Documented by: Naloxone HCl (Naloxone 0.4 Mg/Ml 1 Ml Vial) 0.2 mg IV Q2M PRN PRN Reason: Opioid Reversal Nystatin (Nystatin 100,000 Unit/Ml Susp 500,000 Unit/5 Ml Cup) 500,000 unit PO QID [facility] Last Admin: 03/24/21 12:21 Dose: 500,000 unit Documented by: Prednisone (Prednisone 20 Mg Tab) 40 mg PO DAILY [facility] Last Admin: 03/24/21 07:54 Dose: 40 mg Documented by: Thiamine HCl (Thiamine 100 Mg Tab) 100 mg PO BID-W/MEALS [facility] Last Admin: 03/24/21 07:54 Dose: 100 mg Documented by: Objective - Vital Signs Vital signs: Vital Signs Temp 98.1 F 03/24/21 04:57 Pulse 74 03/24/21 08:00 Resp 18 03/24/21 08:00 BP 139/83 03/24/21 04:57 Pulse Ox 95 03/24/21 04:57 Intake & Output 03/23/21 03/24/21 03/24/21 18:59 06:59 18:59 Intake Total 320 Balance 320 Intake: Intake, IV Titration 200 Amount Piperacillin-Tazobactam 3 200 .375 gm In Sodium Chloride 0.9% 100 ml @ 25 mls/hr IVPB Q8HR [facility] Rx# :[id number] Oral 120 Other: Voiding Method Toilet Toilet Toilet Urinal Urinal Urinal Diaper Diaper Diaper # Voids 1 - Exam Patient is lying in the bed comfortably, no acute distress, awake alert and oriented. Feels somewhat less fatigued today.. HEENT: Normocephalic. Neck is supple. Pupils reactive. Nostrils clear. Oral cavity is moist. Neck reveals no JVD, carotid bruits, or thyromegaly. CHEST EXAMINATION: Trachea is central. Symmetrical expansion. Bilateral dimini shed sounds. Scattered wheezing with some bilateral rhonchi noted. CARDIAC: Normal S1, S2 with no gallops. No murmurs ABDOMEN: Soft. Bowel sounds normal. No organomegaly. No abdominal bruits. Extremities: reveal no edema. No clubbing or cyanosis Neurologically awake, alert, oriented x3 with well-coordinated movements. No focal deficits noted Skin: No rash or skin lesions. Psychiatric: Cooperative. Non-suicidal Musculoskeletal: No joint swelling or deformity. Normal range of motion. Diff usely weak - Labs CBC & Chem 7: 03/23/21 01:09 03/23/21 01:09 Assessment and Plan Assessment: Metastatic carcinoma most likely of lung primary with noted lesions of the liver and pancreas, Acute hypoxic respiratory failure secondary to above along with atelectasis and volume loss involving the right lung and right middle lobe and right lower lobe with pleural effusions COPD acute exacerbation Severe protein malnutrition/cachexia Acute leukocytosis with lactic acidosis and sepsis, present on admission second krista to postobstructive pneumonia Elevated troponin possibly demand ischemia secondary to acute respiratory failure Alcoholism Large right MCA distribution cerebrovascular accident with some residual left- sided weakness history Hypertension Hyperlipidemia Peripheral vascular disease DVT prophylaxis GI prophylaxis No code Plan: Plan is for bone scan today. Oncology along with pulmonary and radiation oncology following. PT/OT following as well recommending subacute rehab and patient is refusing to go to rehab and would like to return home. at the bedside is agreeable to taking him home if home care is arranged and all the necessary equipment that she may need. Patient to follow-up with oncology and radiation oncology outpatient once deciding if moving forward with treatment. senior group manager following and working on discharge planning needs. is agreeable to palliative and a referral being placed. will discuss further with the patient along with family about treatment plan and rehab once stabilized. Due to multiple complex medical issues, prognosis remains extremely poor and guarded. Will repeat a.m. labs and continue to monitor closely.
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
[2021-03-24] MEDS: DONEPEZIL 10 MG TAB PO SCH (21:34)
[2021-03-24] MEDS: ATORVASTATIN 10 MG TAB PO SCH (21:34)
[2021-03-25] MEDS: PIPERACILLIN-TAZOBACTAM 3.375 GM in SODIUM CHLORIDE 0.9% 100 ML IVPB SCH ×3 (00:28→15:51)
[2021-03-25] MEDS: THIAMINE 100 MG TAB PO SCH ×2 (08:46→15:58)
[2021-03-25] MEDS: METOPROLOL TARTRATE 12.5 MG TAB PO SCH ×2 (08:46→20:15)
[2021-03-25] MEDS: NYSTATIN 100,000 UNIT/ML SUSP 500,000 UNIT/5 ML CUP PO SCH ×4 (08:46→22:14)
[2021-03-25] MEDS: predniSONE 20 MG TAB PO SCH (08:46)
--- NOTE | 2021-03-25 09:23 | P.PN ---
Subjective Progress Note Date: 03/25/21 Principal diagnosis: New diagnosis stage IV small cell lung cancer, recurrent right-sided malignant pleural effusion. Previous medical history of current tobacco dependence, COPD, alcoholism, large right-sided MCA distribution CVA, hypertension, hyperlipidemia, GERD, peripheral vascular disease, general medical disability The patient is currently lying in bed on the oncology unit in no acute distress. Denies pain, shortness of breath. States he feels great and wants to go home. Has been oxygenating well on room air. We did board patient for right sided pleurX catheter placement today, however after reviewing CT and CXR films with Dr. Crespo and discussing with Dr. Oliveira we feel pleurX catheter would not be beneficial at this time as there appears to be more consolidation vs fluid present. Discussed with and she is agreeable. Discussed with patient who said he doesn't want surgery, just wants to go home. Objective - Vital Signs Vital signs: Vital Signs Temp 97.4 F L 03/25/21 08:13 Pulse 97 03/25/21 08:13 Resp 20 03/25/21 08:13 BP 130/91 03/25/21 08:13 Pulse Ox 94 L 03/25/21 04:59 Intake & Output 03/24/21 03/25/21 03/25/21 18:59 06:59 18:59 Intake Total 480 Balance 480 Intake: Oral 480 Other: Voiding Method Toilet Toilet Urinal Diaper Diaper # Voids 2 3 - Exam CONSTITUTIONAL: Appears comfortable, cooperative, no acute distress RESPIRATORY: Lungs sounds diminished bilaterally, right greater than left. Respirations even, nonlabored. Currently on room air with oxygen saturation 94%. Strong cough. CARDIOVASCULAR: S1, S2 present. Regular rate and rhythm. Palpable peripheral pulses bilaterally. No edema present. GASTROINTESTINAL: Abdomen soft, nontender, nondistended. Active bowel sounds present 4 quadrants. Tolerating diet. GENITOURINARY: Continues to void INTEGUMENTARY: Skin is warm and dry NEUROLOGIC: Cranial nerves II through XII intact MUSKULOSKELETAL: Able to move all extremities, strength equal bilaterally, gait normal PSYCHIATRIC: Alert and oriented to person, states he doesn't know what building he is in, thinks it's 1999 - Allied health notes Allied health notes reviewed: nursing - Labs CBC & Chem 7: 03/23/21 01:09 03/23/21 01:09 Labs: Microbiology - Last 24 Hours (Table) 03/14/21 13:32 Acid Fast Bacilli Smear - Final Pleural Fluid Acid Fast Bacilli Culture - Preliminary Assessment and Plan Assessment: 1. New diagnosis stage IV small cell lung cancer 2. Recurrent right-sided malignant pleural effusion vs consolidation 3. Current tobacco dependence 4. COPD 5. Alcoholism 6. Large right-sided MCA distribution CVA 7. Hypertension 8. Hyperlipidemia 9. GERD 10. Peripheral vascular disease 11. General medical disability Plan: 1. No surgical intervention warranted at this time 2. Patient may be discharged home from cardiothoracic surgery standpoint 3. Discussed with and she is in complete agreement 4. Medical management for the comorbidities per primary care service, oncology, pulmonology 5. Will see again on an as-needed basis. Please call us for any further questions Time with Patient: Less than 30
[2021-03-25] MEDS: IPRATROPIUM-ALBUTEROL 3 ML NEB INHALATION SCH ×4 (10:05→20:42)
--- NOTE | 2021-03-25 11:59 | P.PN ---
Subjective Progress Note Date: 03/25/21 Principal diagnosis: Metastatic carcinoma suspect lung primary This is a 65-year-old male patient who presented emergency department because of severe respiratory distress. The patient was sent from his primary care physician's office for worsening shortness of breath and hypoxemia. He was already identified to have an abnormal chest x-ray with volume loss in the right-sided pleural effusion. He was seen in the emergency department yesterday but he left AGAINST MEDICAL ADVICE to be readmitted again today. He is quite cachectic. He is currently on a BiPAP at a pressure of 14/6 cm of water and FiO2 of 1%. He is awake and alert and communicating. Chest x-ray was reviewed and emergency department and it showed a right-sided pleural effusion. There was also right-sided volume loss and underlying central neoplasm was being considered., Subcarinal and right hilar region measuring 10 x 7.5 x 7.1 cm in size. The mass was encasing the right hilar structures including the medicine the lower SVC and there was a cut off sign Dilaudid of the bronchus intermedius. There was also evidence of right middle lobe collapse, partial medial right lower lobe collapse, moderate right-sided pleural effusion and right-sided infiltrate. There was not of 2.3 cm subpleural area of pleural lesion and 2 liver lesions measuring 4 cm suspicious for metastases. There was also abnormal aortic occlusion just below the renal artery takeoff no swelling in extremities. I saw the patient emergency department. He was in impending respiratory failure. He was on a BiPAP at a pressure of 14/6 cm of water with an FiO2 of 1 sent. Based on that, I did a emergent right-sided thoracentesis to provide this patient some symptomatic relief. 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 He is still a daily alcohol drinker. He drinks alcohol heavily and he is currently a cigarette smoker on a daily basis. He is quite cachectic, emaciated, debilitated, weak, and malnourished. Does not have any headache. No seizure. 03/15/2021, I'm seeing this patient for a follow-up in the intensive care unit. The patient is a ICU overflow. For now, the patient on a BiPAP at a pressure of 14/6 cm of water with an FiO2 of 1. The pulse ox measures and is not aggravated and the blood gases will be needed. The patient is urinating adequate tidal volumes and has a respiratory rate of 16-20. He remains quite lethargic, somnolent yet arousable. Extremely cachectic and emaciated. Hemodynamically stable. As mentioned earlier, a emergent right-sided thoracentesis was done yesterday of the right lung and a total of 800 mL of pleural fluid was aspirated successfully. Nevertheless, the follow-up chest x-ray still showing significant volume loss in the right lung related to his underlying lung mass as the patient has a large mass encasing the right hilar structures and the right mainstem bronchus and the bronchus intermedius. Currently is on bronchodilators and steroids. No fever. No chills. Resting comfortably in bed. Does not communicate a whole lot. Family is not around. Would like to talk to the family regarding treatment. As the patient's prognosis extremely poor baseline above-mentioned comorbidities. Fluid cytology is pending for now. 03/16/2021 I'm seeing this patient in the intensive care unit. The patient is much more awake compared to yesterday. Is following commands. He is on and off confused. He is not sure where he is. However his communicating. He is trying to answer questions. His breathing is nonlabored. He was taken off the BiPAP. He was switched to nasal cannula and currently is on room air oxygen. Chest x- ray showing volume loss and they large hilar mass with atelectatic changes as described earlier involving the right lower lung area. He remains on bronchodilators. He remains on steroids. He remains on IV Zosyn as an empiric antibiotic coverage for any postobstructive pneumonia. White cell count is 15.3 with a hemoglobin 0.3. Normal renal function. Lactic acid level is down to 2.2. Urinalysis was abnormal and cultures are still pending for now. Also, I have drained this patient's right lung and a total of 800 mL of pleural fluid was aspirated. Fluid cytology still pending for now. Repeat chest x-ray from today shows no significant interval change. There is volume loss on the right. The patient is extremely cachectic and in mental status as discussed earlier. No focal neurological deficits. His CODE STATUS has been switched to a DO NOT RESUSCITATE and DO NOT INTUBATE per our conversation with the family yesterday. 03/17/2022, the patient is still the same. He is on room air oxygen. He is not having any major respiratory difficulties. Nevertheless, he is quite debilitated. He is not eating much. In fact is eating minimally. His resting comfortably in bed. He is confused. Arousable. No apparent respiratory distress. Communicates. However, he is oriented only to self. Does not know where he is. Has very poor insight on his condition. The pleural fluid cytology still pending for now. As mentioned earlier, the patient has a large hilar mass with atelectasis of the right lower lobe/right middle lobe and currently is still on a bronchodilators and steroids and antibiotics. Cardiac rhythm is sinus. Hemodynamically stable. DNR/DNI CODE STATUS. The patient is seen today 03/18/2021 in follow-up in the intensive care unit. He is currently awake. Resting fairly comfortably in bed. Maintaining O2 saturations in the 90s on room air. He's been afebrile. Hemodynamically stable. Pathology from pleural fluid pending. Cultures pending. Fluid analysis revealed cloudy fluid with protein at 2.1 and LDH 226. He remains on antibiotics in the form of Zosyn. Continued on bronchodilators. Continued on prednisone. Remains in the CIWA protocol. 03/19/2021, the patient is quite comfortable. Awaiting fluid cytology from the pleural fluid was aspirated earlier. He is currently on room air oxygen. CBC much more awake. He is increasing his oral intake. Still remains quite weak and lethargic. He was taken off the IV Solu Medrol start on prednisone burst taper. He remains on Zosyn. Blood work essentially within normal limits. The patient's chest x-ray was from 03/17/2021. No chest debilitated since. I'm going to tentatively schedule this patient for a bronchoscopy tomorrow should the pleural fluid returned goods repairer to be negative. 03/20/2021, the patient is still, comfortable. No respiratory difficulties. His communicating. He continues to have poor insight and his condition. He really is not in touch with ongoing problems and diagnosis. Noted the pleural fluid that was aspirated from the right lung returned goods repairer to be positive for malignancy and the fluid was consistent with small cell lung cancer. For that reason, a oncology consultation was requested. I asked the family to arrive to the hospital for further discussion on this patient's case. Noted the patient had significant narrowing of the right mainstem bronchus/bronchus intermedius was also considering in the airway inspection to visualize the extent of narrowing and decide if there is any intervention that can be done to preserve patency of the airways and the vent and a lung collapse. The patient is tolerating his diet. He did have a fall yesterday when he was trying to get out of bed. No major injuries. Small bruise over the left elbow. He remains on IV Zosyn. He is on prednisone burst taper. The liver seems on the clock. No headaches. No seizure activity. MRI of the brain was ordered. The patient is seen today 03/21/2021 in follow-up on the oncology unit. He is more awake and alert. Oriented 3. Family is at the bedside. Pleural fluid from previous right sided thoracentesis was consistent with small cell lung cancer. He has been seen and evaluated by oncology. MRI of the brain is pending. Pleural fluid cultures pending. Urine culture revealed no organisms. White count 10.8. Hemoglobin 11.7. Sodium 1:30. Potassium 3.3. Creatinine 0.6. He remains on bronchodilators, prednisone, Zosyn. The patient is seen today 03/22/2021 in follow-up on the oncology unit. He is sitting up at the bedside. Awake and alert in no acute distress. HEENT O2 saturations in the 90s on room air. He's been afebrile. Hemodynamically stable. MRI of the brain did not reveal any evidence of metastatic disease. White count 2.7. Hemoglobin 11.8. Sodium 135. He hasn't 3.7. Creatinine 0.59. Remains on bronchodilators, prednisone, Zosyn. CAT scan of the abdomen and pelvis along with bone scans are pending. Being followed by oncology and radiation oncology. The patient is seen today 03/25/2021 in follow-up on the regular medical floor. He is currently awake and alert in no acute distress. Resting fairly comfortably in bed. Maintaining O2 saturations in the 90s on room air. Afebrile. Hemodynamically stable. Bone scan revealed focal increased uptake in the left humeral head which could be degenerative in nature. He remains on Zosyn, prednisone, bronchodilators. The patient was being considered for possible Pleurx catheter placement, the patient and his are undecided. Objective - Vital Signs Vital signs: Vital Signs Temp 97.4 F L 03/25/21 08:13 Pulse 70 03/25/21 10:13 Resp 20 03/25/21 08:13 BP 130/91 03/25/21 08:13 Pulse Ox 94 L 03/25/21 04:59 Intake & Output 03/24/21 03/25/21 03/25/21 18:59 06:59 18:59 Intake Total 480 240 Balance 480 240 Intake: Oral 480 240 Other: Voiding Method Toilet Toilet Diaper Urinal Diaper Diaper # Voids 2 3 1 - Exam Frail, cachectic 65-year-old male patient, appears older than stated age, on room air oxygen. No signs of any respiratory distress Head exam was generally normal. There was no scleral icterus or corneal arcus. Mucous membranes were moist. Neck was supple and without jugular venous distension, thyromegaly, or carotid bruits. Carotids were easily palpable bilaterally. There was no adenopathy. Lungs Overall breath sounds are quite diminished and the patient has scattered external wheeze. Diminished in the right lung base. The patient has a barrel chest. Cardiac exam revealed the PMI to be normally situated and sized. The rhythm was regular and no extrasystoles were noted during several minutes of auscultation. The first and second heart sounds were normal and physiologic splitting of the second heart sound was noted. There were no murmurs, rubs, clicks, or gallops. Abdominal exam revealed normal bowel sounds. The abdomen was soft, non-tender, and without masses, organomegaly, or appreciable enlargement of the abdominal aorta. Examination of the extremities revealed easily palpable radial, femoral and pedal pulses. There was no cyanosis, clubbing or edema. Examination of the skin revealed no evidence of significant rashes, suspicious appearing nevi or other concerning lesions. Neurologically awake alert and there is no focal neurological deficit. He has some tremors and he has global weakness in all 4 extremities - Labs CBC & Chem 7: 03/23/21 01:09 03/23/21 01:09 Labs: Microbiology - Last 24 Hours (Table) 03/14/21 13:32 Acid Fast Bacilli Smear - Final Pleural Fluid Acid Fast Bacilli Culture - Preliminary Assessment and Plan Assessment: 1 metastatic carcinoma most likely of a lung primary. Status post right-sided thoracentesis. Fluid cytology positive for small cell lung cancer. Follow-up chest x-ray still showing volume loss on the right and the patient has a large hilar mass encasing the bronchus intermedius and the right mainstem bronchus causing mass effect and narrowing and atelectasis. 2 acute hypoxic respiratory failure secondary to above. A diagnostic and therapeutic thoracentesis was done. Oxygenation improved. The patient currently is on room air oxygen. His current pulse ox is 98%. 3 COPD 4 severe debility and significant malnourishment and obvious signs of cachexia and and emaciation and weight loss. Current by the weight is around 90 pounds. 5 acute leukocytosis 6 acute lactic acidosis, improved 7 troponin leak 8 Alcoholism 9 Large right MCA distribution CVA with some residual left-sided weakness 10 Smoking 11 Hypertension 12 Hyperlipidemia 13 GERD artery disease 14 Impaired performance and functional spastic and above-mentioned comorbidities 15 Peripheral vascular disease with questionable parathyroid the level of the aorta. Given examination, the patient is not having any significant vascular insufficiency and the patient has diminished pulses in the legs bilaterally. Ever the less, the patient has inguinal pulses Plan The patient was seen and evaluated by Dr. Tee Kaur plans for Pleurx catheter placement at this time Obtain ultrasound of the chest for possible thoracentesis tomorrow We will continue to follow I, the cosigning physician, performed a history & physical examination of the patient. Lungs sounds are diminished specially in the right lung compared to the left. Overall breath sounds are quite diminished. Maintaining good O2 saturations in the 90s on room air. I discussed the assessment and plan of care with my nurse practitioner, Marifer Torres. I attest to the above note as dictated by her.
--- NOTE | 2021-03-25 12:42 | US ---
EXAMINATION TYPE: US chest DATE OF EXAM: 03/25/2021 COMPARISON: X Ray CLINICAL HISTORY: large right pleural effusion. TECHNIQUE: Targeted ultrasound of the posterior lower right chest EXAM MEASUREMENTS: Right Pleural Effusion pocket size: 4.0 cm largest measured pocket Right skin surface to fluid distance: 2.9 cm Left Pleural Effusion pocket size: no pleural fluid seen Right side was marked for possible thoracentesis outside the dept. Pulmonologists are able to review the images in the patient?s EMR. IMPRESSIONS: 1. Right pleural effusion
--- NOTE | 2021-03-25 13:45 | P.PN ---
Progress Note - Text Progress Note Date: 03/25/21 CT scan on admission showed near complete obstruction of the right mainstem bronchus with partial aeration of the right lung. There was significant collapse of the right lung due to the obstruction of the right mainstem bronchus and also significant pleural effusion. Overall the mediastinum is shifted toward the side of the lesion suggesting that the volume loss is far more significant than the pleural effusion. Initial tap was performed and 800 mL were drained. Chest x-ray now shows complete white out on the right side with continued volume loss on the right side. Patient has advanced small cell carcinoma and his prognosis is very poor. Management at this point should be palliative. He is currently minimally short of breath on room air. Placement of a Pleurx catheter may well drained some pleural fluid but is unlikely to improve the oxygenation of the right lung due to the right-sided bronchial obstruction. I do not think this will improve his shortness of breath. As management should be palliative do not think a Pleurx catheter is indicated at this time. Should the pleural effusion enlarged and the patient developed mediastinal shift back toward midline or toward the left then pleural effusion drainage would likely be beneficial. At that time a Pleurx catheter would be indicated.
[2021-03-25] MEDS: LACTATED RINGERS 1,000 ML IV SCH (15:08)
--- NOTE | 2021-03-25 16:51 | P.PN ---
Subjective Progress Note Date: 03/25/21 Principal diagnosis: SCLC, extensive stage In f/u today pt cont to state understanding he has cancer, then he will state he has no clue what is going on. He is weak, needs assistance to get up, appetite is fair, denies nausea or vomiting, cough is congested, does get SOB with m inimal exertion. Objective - Vital Signs Vital signs: Vital Signs Temp 98.1 F 03/25/21 12:36 Pulse 66 03/25/21 15:59 Resp 20 03/25/21 12:36 BP 114/68 03/25/21 12:36 Pulse Ox 96 03/25/21 12:36 Intake & Output 03/24/21 03/25/21 03/25/21 18:59 06:59 18:59 Intake Total 480 240 Balance 480 240 Weight 44.1 kg Intake: Oral 480 240 Other: Voiding Method Toilet Toilet Toilet Urinal Diaper Diaper Diaper # Voids 2 3 1 - Constitutional General appearance: Present: cooperative, no acute distress, thin - EENT Eyes: Present: anicteric sclerae, EOMI ENT: Present: hearing grossly normal - Respiratory Respiratory: bilateral: diminished, rales - Cardiovascular Heart sounds: normal: S1, S2 Abnormal Heart Sounds: Absent: systolic murmur, diastolic murmur, rub, S3 Gallop, S4 Gallop, click, other - Peripheral edema leg Peripheral Edema: bilateral: None - Gastrointestinal General gastrointestinal: Present: normal bowel sounds, soft - Neurologic Neurologic: Present: CNII-XII intact - Musculoskeletal Musculoskeletal: Present: generalized weakness - Labs CBC & Chem 7: 03/23/21 01:09 03/23/21 01:09 Assessment and Plan (1) Small cell lung cancer Narrative/Plan: Recent diagnosis, positive pleural fluid, extensive stage disease, not curable but treatable for some time. Reviewed diagnosis with pt, he seems to understand his diagnosis and it is discussed with him every day. He will suddenly state that he has no idea what is going on then and be agitated, then, he calms down and responds that he knows what is going on. Spoke with on phone last night, waiting to speak to daughter today after 430. MRI of the brain was negative for any cancer. CT AP-liver lesions, large r etroperitoneal mass, pancreatic mass. NM bone scan-no mets. This completes initial staging. I will discuss with daughter if family is going to be able to manage pt and get him to and from chemo and follow up appts. PT/OT evaluation-not sure if pt able to go home. Will wait their evaluation If pt is able to be discharged then plan would be for chemo outpt to start as soon as possible if pt wants to do treatment-which he has said he wants to do. Not sure but may have to give 1st cycle inpt. Discussed diagnosis, prognosis with daughter. Weeks to 2-3 mo without treatment, 10mo to 1 year with treatment if a good response and tolerated. We discussed challenges of rehab-no treatment while in rehab, how well can pt rehabilitate with no check on the cancer. We discussed possibly doing 1st cycle inpt and then sending for rehab. Pros and cons of treatment discussed. Daughter expressed understanding. Decision re: treatment-she states that it is her step-mothers and her fathers decision to make. We will f/u with pt and so we can move forward with plan as soon as able. Current Visit: Yes Status: Acute Priority: High Code(s): C34.90 - MALIGNANT NEOPLASM OF UNSP PART OF UNSP BRONCHUS OR LUNG SNOMED Code(s): 362656763 Plan: Attests: I have performed H&P, developed impression and plan of care for pt. Discussed with dictator. Agree with dictated note, documented as a scribe. Time with Patient: Greater than 30
[2021-03-25] MEDS: DONEPEZIL 10 MG TAB PO SCH (20:15)
[2021-03-25] MEDS: ATORVASTATIN 10 MG TAB PO SCH (20:15)
[2021-03-26] MEDS: PIPERACILLIN-TAZOBACTAM 3.375 GM in SODIUM CHLORIDE 0.9% 100 ML IVPB SCH ×2 (01:13→07:48)
[2021-03-26] MEDS: predniSONE 20 MG TAB PO SCH (07:48)
[2021-03-26] MEDS: METOPROLOL TARTRATE 12.5 MG TAB PO SCH ×2 (07:48→22:41)
[2021-03-26] MEDS: NYSTATIN 100,000 UNIT/ML SUSP 500,000 UNIT/5 ML CUP PO SCH ×4 (07:49→22:07)
[2021-03-26] MEDS: THIAMINE 100 MG TAB PO SCH ×2 (07:49→17:14)
--- NOTE | 2021-03-26 08:51 | P.PN ---
Subjective Progress Note Date: 03/25/21 Metastatic carcinoma; most likely primary lung Acute hypoxic respiratory failure Postobstructive pneumonia Severe malnutrition protein calorie/debility 65-year-old male presenting with severe respiratory distress. Past medical history is positive for a large right-sided MCA distribution CVA with some m inimal left upper extremity weakness, hyperlipidemia, coronary artery disease, peripheral artery disease and previous history of alcoholism. He is still a daily alcohol drinker. He drinks alcohol heavily and he is currently a cigarette smoker on a daily basis. He is quite cachectic, emaciated, de bilitated, weak, and malnourished. Does not have any headache. No seizure. Patient had been sent from the primary care office with hypoxia. He was diagnosed with effusion and fluid overload as well as hypoxia in the emergency department yesterday but had left AGAINST MEDICAL ADVICE. He had an elevated troponin, elevated BNP. 03/15/2021 Patient is seen for a follow-up in the intensive care unit. The patient is a ICU overflow. For now, the patient on a BiPAP at a pressure of 14/6 cm of water with an FiO2 of 1. The pulse ox measures and is not aggravated and the blood gases will be needed. The patient is urinating adequate tidal volumes and has a respiratory rate of 16-20. He remains quite lethargic, somnolent yet arousable. Extremely cachectic and emaciated. Hemodynamically stable. As mentioned earlier, a emergent right-sided thoracentesis was done yesterday of the right lung and a total of 800 mL of pleural fluid was aspirated successfully. Nevertheless, the follow-up chest x-ray still showing significant volume loss in the right lung related to his underlying lung mass as the patient has a large mass encasing the right hilar structures and the right mainstem bronchus and the bronchus intermedius. Currently is on bronchodilators and steroids. No fever. No chills. Resting comfortably in bed. Does not communicate a whole lot. Family is not around. Would like to talk to the family regarding treatment. As the patient's prognosis extremely poor baseline above-mentioned comorbidities. Fluid cytology is pending for now. 03/16/2021 Patient is seen and evaluated in room at bedside; sustained a fall with abrasion to right eyebrow with small hematoma. The patient is much more awake compared to yesterday. He was taken off the BiPAP. He was switched to nasal cannula and currently is on room air oxygen. Chest x-ray showing volume loss and they large hilar mass with atelectatic changes as described earlier involving the right lower lung area. -- He remains on bronchodilators; steroids and IV Zosyn as an empiric antibiotic coverage for any postobstructive pneumonia. White cell count is 15.3 with a hemoglobin 0.3. Normal renal function. Lactic acid level is down to 2.2. Urinalysis was abnormal and cultures are still pending for now. Patient underwent thoracentesis right lung with a total of 800 mL of pleural fluid was aspirated. Fluid cytology still pending for now. Repeat chest x-ray from today shows no significant interval change. There is volume loss on the right. The patient is extremely cachectic and in mental status as discussed earlier. No focal neurological deficits. His CODE STATUS has been switched to a DO NOT RESUSCITATE and DO NOT INTUBATE per flap curer discussion with the family. 2-D echo reveals global left ventricular dysfunction with EF of 25%; cardiology on board and recommending to start low-dose beta blockers and monitor blood pressure closely; plan is for the workup for cardiomyopathy with gradual addition of heart failure medications. 03/17/2021 Patient is currently lying in the bed. On oxygen via nasal cannula. Denied any complaints of chest pain. Patient is lethargic and seems confused. Rate is being converted on bronchodilators and antibiotics in the form of Zosyn. Next check iron CODE STATUS is DO NOT RESUSCITATE/DO NOT INTUBATE. Fluid cytology from thoracentesis is pending at this time. 03/18/2021 Patient is currently in the MICU. Seems comfortable. On room air. Confused but more awake and oriented today. Patient is being continued on Antivert the form of Zosyn and IV steroids being changed to prednisone 40 mg daily. Fluid cytology is pending. Patient has been afebrile. No complaints of chest pain. No nausea vomiting or abdominal pain or diarrhea. Chest x-ray showed stable appearance yesterday. Pulmonary is planning for bronchoscopy if fluid cytology from thoracentesis is negative. 03/19/2021 Patient is currently in MICU and is lying in the bed comfortably. No compressive chest pain or worsening shortness of breath. Status post paracentesis and fluid cytology is pending at this time. Patient is being continued on Zosyn and prednisone 40 mg daily. Pulmonary is planning for bronchoscopy if fluid cytology is negative. Otherwise patient has been afebrile. Saturating at 94% on room air. Chest x-ray showed complete opacification of right hemithorax which has progressed since prior study. Hyperinflation left lung. Mediastinal shift from left to right. 03/21/2021 Patient is seen and evaluated in follow-up with family at the bedside currently on 5 N. MedSurg with no acute overnight issues noted. Patient was up and wo rking with physical therapy this morning with standby assistance and a walker. Patient continues to be weak although is improving slowly. Patient currently sitting up in the bed comfortably on room air and denies any worsening shortness of breath. Patient is continued on breathing inhalational treatments with pulmonary following closely. Plan is for bronchoscopy with biopsy to confirm diagnosis. Oncology on board as well. Patient also scheduled to undergo brain MRI to evaluate for any metastasis to the brain. Patient continues with a cough that is dry in nature. Patient reports to tolerating diet with no reports of nausea or vomiting noted. Patient is currently nothing by mouth for the procedure and will await report. White blood count is 10.8 with a hemoglobin of 11.7, sodium is 138 with a potassium of 3.3 and will replace and repeat labs. Creatinine is 0.6. Magnesium is 1.9. Patient to continue on IV Zosyn and oral steroids. Radiation oncology being consulted. Patient is a no code. Social work following as well with possibility of ECF once stabilized and discharged. Insurance requires authorization as well. 03/24/2021 Patient is seen and evaluated and follow-up and had a lengthy discussion with at the bedside. Patient is refusing to go to rehab states he just wants to go home. 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 Patient continues to be weak although does have a walker and wheelchair at the home and patient is reluctant to go to rehab and will set up with home care as the patient's is alone and states she needs assistance with his care. Oncology along with radiation oncology following and would like a discussion with patient and her at the bedside as she feels he is not understanding his overall prognosis. Case management following and they are agreeable to palliative care and referral is being placed. Patient is scheduled to undergo bone scan today. 03/25/2021 Patient is seen in follow-up this morning currently undergoing chest ultrasound for possible thoracentesis in the morning with pulmonary. Patient was seen and evaluated by vascular surgery and is not a surgical candidate for a Pleurx catheter. Patient continues to plan on discharging home with home care and will follow-up outpatient with oncology along with radiation oncology after discussing with his about treatment plan. Patient is weak at times and using a walker and has been working with physical therapy and arrangements are being made for discharge planning needs and necessary medical equipment in the home. Case management following and working on this. Patient does continue to have shortness of breath with exertion and maintaining oxygen above 90% on room air. Patient is afebrile. Patient will be nothing by mouth at midnight for the procedure. Review of systems: Constitutional: No reports of fatigue, fever, or chills Cardiovascular: No reports of chest pain or palpitations Respiratory: reports occasional shortness of breath with continued dry cough, with minimal exertion GI: No reports of nausea, vomiting, or diarrhea : No reports of dysuria or retention Neurovascular: reports generalized weakness All medications have been reviewed Active Medications Albuterol/Ipratropium (Ipratropium-Albuterol 3 Ml Neb) 3 ml INHALATION RT-Q4H PRN PRN Reason: Shortness Of Breath Or Wheezing Last Admin: 03/23/21 00:17 Dose: 3 ml Documented by: Albuterol/Ipratropium (Ipratropium-Albuterol 3 Ml Neb) 3 ml INHALATION RT-QID [facility] Last Admin: 03/25/21 15:56 Dose: 3 ml Documented by: Atorvastatin Calcium (Atorvastatin 10 Mg Tab) 10 mg PO [facility] Last Admin: 03/24/21 21:34 Dose: 10 mg Documented by: Donepezil HCl (Donepezil 10 Mg Tab) 10 mg PO [facility] Last Admin: 03/24/21 21:34 Dose: 10 mg Documented by: Haloperidol Lactate (Haloperidol Lactate 5 Mg/Ml 1 Ml Vial) 1 mg IVP Q8HR PRN PRN Reason: Agitation or Acute Psychosis Last Admin: 03/20/21 17:31 Dose: 1 mg Documented by: Piperacillin Sod/Tazobactam (Sod 3.375 gm/ Sodium Chloride) 100 mls @ 25 mls/hr IVPB Q8HR [facility] Last Admin: 03/25/21 15:51 Dose: 25 mls/hr Documented by: Lactated Ringer's (Lactated Ringers) 1,000 mls @ 20 mls/hr IV .Q24H [facility] Last Admin: 03/25/21 15:08 Dose: Not Given Documented by: Lidocaine HCl (Lidocaine 1% (10mg/Ml) For Iv Start) 0.1 ml INTRADERMA PER PROTOCOL PRN PRN Reason: IV Start Lisinopril (Lisinopril 2.5 Mg Tab) 2.5 mg PO DAILY [facility] Last Admin: 03/25/21 08:46 Dose: 2.5 mg Documented by: Lorazepam (Lorazepam 2 Mg/Ml Inj) 0.5 mg IV Q4HR PRN PRN Reason: Agitation Last Admin: 03/23/21 03:55 Dose: 0.5 mg Documented by: Metoprolol Tartrate (Metoprolol Tartrate 12.5 Mg Tab) 12.5 mg PO BID [facility] Last Admin: 03/25/21 08:46 Dose: 12.5 mg Documented by: Naloxone HCl (Naloxone 0.4 Mg/Ml 1 Ml Vial) 0.2 mg IV Q2M PRN PRN Reason: Opioid Reversal Nystatin (Nystatin 100,000 Unit/Ml Susp 500,000 Unit/5 Ml Cup) 500,000 unit PO QID [facility] Last Admin: 03/25/21 14:13 Dose: 500,000 unit Documented by: Prednisone (Prednisone 20 Mg Tab) 40 mg PO DAILY [facility] Last Admin: 03/25/21 08:46 Dose: 40 mg Documented by: Thiamine HCl (Thiamine 100 Mg Tab) 100 mg PO BID-W/MEALS [facility] Last Admin: 03/25/21 15:58 Dose: 100 mg Documented by: Objective - Vital Signs Vital signs: Vital Signs Temp 98.1 F 03/25/21 12:36 Pulse 66 03/25/21 15:59 Resp 20 03/25/21 12:36 BP 114/68 03/25/21 12:36 Pulse Ox 96 03/25/21 12:36 Intake & Output 03/24/21 03/25/21 03/25/21 18:59 06:59 18:59 Intake Total 480 240 Balance 480 240 Weight 44.1 kg Intake: Oral 480 240 Other: Voiding Method Toilet Toilet Toilet Urinal Diaper Diaper Diaper # Voids 2 3 1 - Exam Patient is lying in the bed comfortably, agitated and wants to go home, awake alert and oriented x2. Feels somewhat less fatigued today.. HEENT: Normocephalic. Neck is supple. Pupils reactive. Nostrils clear. Oral cavity is moist. Neck reveals no JVD, carotid bruits, or thyromegaly. CHEST EXAMINATION: Trachea is central. Symmetrical expansion. Bilateral diminished sounds. Scattered wheezing with some bilateral rhonchi noted. CARDIAC: Normal S1, S2 with no gallops. No murmurs ABDOMEN: Soft. Bowel sounds normal. No organomegaly. No abdominal bruits. Extremities: reveal no edema. No clubbing or cyanosis Neurologically awake, alert, oriented x2 with well-coordinated movements. No focal deficits noted Skin: No rash or skin lesions. Psychiatric: Cooperative. Non-suicidal Musculoskeletal: No joint swelling or deformity. Normal range of motion. Diffusely weak - Labs CBC & Chem 7: 03/23/21 01:09 03/23/21 01:09 Assessment and Plan Assessment: Metastatic carcinoma most likely of lung primary with noted lesions of the liver and pancreas Acute hypoxic respiratory failure secondary to above along with atelectasis and volume loss involving the right lung and right middle lobe and right lower lobe with pleural effusions COPD acute exacerbation Severe protein malnutrition/cachexia Acute leukocytosis with lactic acidosis and sepsis, present on admission secondary to postobstructive pneumonia Elevated troponin possibly demand ischemia secondary to acute respiratory failure Alcoholism Large right MCA distribution cerebrovascular accident with some residual left- sided weakness history Hypertension Hyperlipidemia Peripheral vascular disease DVT prophylaxis GI prophylaxis No code Plan: Patient is undergoing chest ultrasound today or possible thoracentesis with pulmonary tomorrow. Patient was evaluated by cardiothoracic surgery and not a candidate for Pleurx catheter. This was discussed with family. Family to discuss further about chemotherapy treatment and plans moving forward. Oncology following closely. Patient continues to be weak and working with PT/OT therapy but also continues to refuse rehab stating he just wants to go home. is agreeable to this but has stressed importance of needing help and agreeable to home care in case management following making arrangements for discharge planning needs and possible equipment that may be needed in the home. is agreeable to palliative care and referral has been placed. Unsure about hospice at this point as patient continues to state he wants treatment and needs to discuss further with his family. Due to multiple complex medical issues, prognosis remains extremely poor and guarded.
[2021-03-26] MEDS: IPRATROPIUM-ALBUTEROL 3 ML NEB INHALATION SCH ×4 (08:54→19:10)
--- NOTE | 2021-03-26 11:31 | PN ---
PROGRESS NOTE PULMONARY/CRITICAL CARE PROGRESS NOTE: This is a 65-year-old male with a history of metastatic small-cell lung cancer. It was diagnosed by thoracentesis. We had planned to do a possible thoracentesis today. Interestingly, although his entire right chest is opacified, on ultrasound there is only a small amount of fluid, so thoracentesis would not be of much benefit. Apparently the patient may be discharged home today. Other medical problems include hypoxemic respiratory failure, COPD, general medical debility, alcoholism, large right MCA distribution CVA with residual left-sided weakness, smoking, hypertension, hyperlipidemia, GERD, and peripheral vascular occlusive disease. PHYSICAL EXAMINATION: VITAL SIGNS: Current vital signs are reviewed. Temperature is 98, heart rate 68, respiratory rate 22, blood pressure 145/82, mean 103, and two-liter saturation is 92%. GENERAL APPEARANCE: He appears in no acute distress. HEENT: Examination is grossly unremarkable. NECK: Supple. Full range of motion. No adenopathy. Neck veins are flat. CARDIOVASCULAR: Examination reveals regular rhythm and rate. Heart rate mid 70s. S1, S2 normal. No S3, S4 or murmur. LUNGS: Lungs reveal diminished breath sounds on the right. There is dullness at the right base. Left lung is relatively clear. ABDOMEN: Soft. Bowel sounds are heard. EXTREMITIES: Intact. No edema. SKIN: Without rash. NEUROLOGIC: Neurologic examination is nonfocal. He does have some tremors and some global weakness in all 4 extremities. LABORATORY DATA: Reviewed. Nothing from today. Microbiology is all negative. Ultrasound was done yesterday and shows only a 4 cm pocket in the right pleural space. The bone scan showed focal increased uptake in the left humeral head, which could be degenerative, or neoplastic. ASSESSMENT: 1. Metastatic small-cell lung cancer, diagnosed by right-sided thoracentesis. The patient has significant volume loss in the right lung and has a large right hilar mass encasing the bronchus intermedius and right mainstem bronchus. 2. Acute hypoxemic respiratory failure. 3. Chronic obstructive pulmonary disease. 4. Severe general medical debility. 5. Lactic acidosis, resolved. 6. Chronic alcohol abuse. 7. Large [id number] cerebrovascular accident with some residual left-sided weakness. 8. Smoking by history. 9. History of hypertension. 10.Hyperlipidemia. 11.Gastroesophageal reflux disease. 12.Peripheral vascular occlusive disease. PLAN: Possible discharge today. No additional recommendations are made. Prognosis is poor. The patient will not undergo thoracentesis since the fluid pocket on the right side is relatively small. No additional recommendations are made. MMODL / IJN: [id number] / MTDD
--- NOTE | 2021-03-26 13:38 | P.PN ---
Subjective Progress Note Date: 03/26/21 Principal diagnosis: SCLC, extensive stage In f/u today pt mental status continues to be difficult to figure out. At times he responds appropriately to questions and states understanding. Today he told me he was having an anniversary democrat and lots of people coming over-I asked about this and she had no idea what he was talking about. He denies any pain, nausea. He states he is walking in the hallway-not confirmed with staff. i Objective - Vital Signs Vital signs: Vital Signs Temp 98.1 F 03/26/21 11:21 Pulse 68 03/26/21 12:04 Resp 16 03/26/21 11:21 BP 149/76 03/26/21 11:21 Pulse Ox 98 03/26/21 11:21 Intake & Output 03/25/21 03/26/21 03/26/21 18:59 06:59 18:59 Intake Total 960 100 Balance 960 100 Weight 44.1 kg Intake: Intake, IV Titration 100 Amount Piperacillin-Tazobactam 3 100 .375 gm In Sodium Chloride 0.9% 100 ml @ 25 mls/hr IVPB Q8HR [facility] Rx# :[id number] Oral 960 Other: Voiding Method Toilet Toilet Toilet Diaper Diaper Urinal # Voids 4 - Constitutional General appearance: Present: cooperative, no acute distress, thin - EENT Eyes: Present: anicteric sclerae, EOMI ENT: Present: hearing grossly normal - Respiratory Details: breathing is less labored with speaking today Respiratory: bilateral: CTA, diminished - Cardiovascular Heart sounds: normal: S1, S2 Abnormal Heart Sounds: Absent: systolic murmur, diastolic murmur, rub, S3 Gallop, S4 Gallop, click, other - Peripheral edema leg Peripheral Edema: bilateral: None - Gastrointestinal General gastrointestinal: Present: normal bowel sounds, soft - Musculoskeletal Musculoskeletal: Present: generalized weakness - Psychiatric Psychiatric Comment(s): A&OX2, at times he seems frustrated with questions - Labs CBC & Chem 7: 03/23/21 01:09 03/23/21 01:09 Assessment and Plan (1) Small cell lung cancer Narrative/Plan: Again, review all that is documented below. Additional discussions and plans as documented Recent diagnosis, positive pleural fluid, extensive stage disease, not curable but treatable for some time. Reviewed diagnosis with pt, he seems to understand his diagnosis at times, it is discussed with him every day. Spoke with on phone today. She feels he is too weak to come home and requires more care then she can provide by herself. She seems to think that if staf tells him he is too weak to go home and he needs rehab he will comply. Spoke to RN who is going to have PT come up to be with pt and while she tries to get him up and to the bathroom. Spoke to daughter last night, told pt that she said she supports her fathers decisions. She understands that her step mother is likely going to have to make as her father does not consistently demonstrate the memory or cognitive faculties to manage large amounts of medial information to make an informed decision. MRI of the brain was negative for any cancer. CT AP-liver lesions, large retroperitoneal mass, pancreatic mass. NM bone scan-no mets. This completes initial staging. Discussed with pt : does she think pt would handle chemo right now-no, she feels he is too weak. She feels he needs rehab. I informed her that due to the cancer pt may be limited in how much he is going to be able to rehabilitate. She verbalized understanding. We discussed plan for chemo outpt, getti gpt to and from app (he does not drive). This could not begin until pt has been discharged from rehab. Reviewed chemo and cycle (carbo/DIRECTOR PHARMACOLOGY days 1,2,3 every 3 weeks), side effects such as low blood counts, nausea, fatigue. She denied any other questions. Pt stated today that he wants to try chemo. I asked him if he wanted to do chemo now or as an outpt (reviewed the same info with his as I did with his ). He was not able to tell me when he wanted to start, neither could his . We need to know what they would like to do. I will call again tomorrow or, I told her to let RN know JORDI any decisions they make. No thoracentesis planned for today Current Visit: Yes Status: Acute Priority: High Code(s): C34.90 - MALIGNANT NEOPLASM OF UNSP PART OF UNSP BRONCHUS OR LUNG SNOMED Code(s): 106639125 Time with Patient: Greater than 30
[2021-03-26] MEDS ORDERED: LIDOCAINE 1% INJ 10MG/ML (20 ML MDV) SQ ONE (16:45)
[2021-03-26] MEDS ORDERED: ONDANSETRON 16 MG in SODIUM CHLORIDE 0.9% 50 ML IVPB SCH (20:00)
[2021-03-26] MEDS ORDERED: FAMOTIDINE 20 MG/2 ML VIAL IV SCH (20:00)
[2021-03-26] MEDS ORDERED: DEXAMETHASONE SOD PHOSPHATE 10 MG/ML 1 ML VIAL IV SCH (20:00)
[2021-03-26] MEDS ORDERED: SODIUM CHLORIDE 0.9% IV ONE (21:00)
[2021-03-26] MEDS ORDERED: CARBOPLATIN IV ONE (21:00)
[2021-03-26] MEDS ORDERED: ETOPOSIDE IV SCH (22:00)
[2021-03-26] MEDS ORDERED: SODIUM CHLORIDE 0.9% IV SCH (22:00)
[2021-03-26] MEDS: LORazepam 2 MG/ML INJ IV PRN (22:12)
[2021-03-26] MEDS: ATORVASTATIN 10 MG TAB PO SCH (22:38)
[2021-03-26] MEDS: DONEPEZIL 10 MG TAB PO SCH (22:40)
[2021-03-27] MEDS: IPRATROPIUM-ALBUTEROL 3 ML NEB INHALATION SCH ×4 (07:20→19:30)
--- NOTE | 2021-03-27 08:13 | IR ---
EXAMINATION TYPE: IR cvc insert >=5 years DATE OF EXAM: 03/26/2021 COMPARISON: NONE CLINICAL HISTORY: Lung cancer Needs long-term intravenous access for chemotherapy. PROCEDURE: Hand hygiene obtained with soap and water and alcohol-based hand rub. After informed consent, the skin overlying the left basilic vein was localized with ultrasound and no nikky to be compressible and patent. An ultrasound image was obtained and submitted on the patient's c rincon. The overlying skin was prepped and draped and Lidocaine was used for local anesthesia. A skin juwan was made with a scalpel. Access was gained to the vein under ultrasound guidance with a 21 gau ge needle and a 0.018 inch wire was advanced. Access site was dilated with Peel-Away sheath and cath eter tailored to the appropriate length and advanced such that the distal tip is at the cavoatrial ju nction. Spot image was obtained verifying placement. Catheter was fixed to the skin and a sterile d ressing was placed following hemostasis. Catheter was aspirated and flushed with saline. Patient wa s discharged in stable condition without complication.Maximal barrier technique is utilized. Ultraso und image is documented on the chart. Ultrasound used with sterile technique. Fluoro time and fluoroscopic images submitted to document procedure: 0.2 minutes fluoroscopy time, 15 intraoperative C-arm images document the procedure IMPRESSION: STATUS POST ULTRASOUND AND FLUOROSCOPIC GUIDED PICC LINE PLACEMENT, READY FOR USE. THIS PROCEDURE WAS PERFORMED BY THE UNDERSIGNED.
--- NOTE | 2021-03-27 08:47 | P.PN ---
Subjective Progress Note Date: 03/26/21 Metastatic carcinoma; most likely primary lung Acute hypoxic respiratory failure Postobstructive pneumonia Severe malnutrition protein calorie/debility 65-year-old male presenting with severe respiratory distress. Past medical history is positive for a large right-sided MCA distribution CVA with some m inimal left upper extremity weakness, hyperlipidemia, coronary artery disease, peripheral artery disease and previous history of alcoholism. He is still a daily alcohol drinker. He drinks alcohol heavily and he is currently a cigarette smoker on a daily basis. He is quite cachectic, emaciated, de bilitated, weak, and malnourished. Does not have any headache. No seizure. Patient had been sent from the primary care office with hypoxia. He was diagnosed with effusion and fluid overload as well as hypoxia in the emergency department yesterday but had left AGAINST MEDICAL ADVICE. He had an elevated troponin, elevated BNP. 03/15/2021 Patient is seen for a follow-up in the intensive care unit. The patient is a ICU overflow. For now, the patient on a BiPAP at a pressure of 14/6 cm of water with an FiO2 of 1. The pulse ox measures and is not aggravated and the blood gases will be needed. The patient is urinating adequate tidal volumes and has a respiratory rate of 16-20. He remains quite lethargic, somnolent yet arousable. Extremely cachectic and emaciated. Hemodynamically stable. As mentioned earlier, a emergent right-sided thoracentesis was done yesterday of the right lung and a total of 800 mL of pleural fluid was aspirated successfully. Nevertheless, the follow-up chest x-ray still showing significant volume loss in the right lung related to his underlying lung mass as the patient has a large mass encasing the right hilar structures and the right mainstem bronchus and the bronchus intermedius. Currently is on bronchodilators and steroids. No fever. No chills. Resting comfortably in bed. Does not communicate a whole lot. Family is not around. Would like to talk to the family regarding treatment. As the patient's prognosis extremely poor baseline above-mentioned comorbidities. Fluid cytology is pending for now. 03/16/2021 Patient is seen and evaluated in room at bedside; sustained a fall with abrasion to right eyebrow with small hematoma. The patient is much more awake compared to yesterday. He was taken off the BiPAP. He was switched to nasal cannula and currently is on room air oxygen. Chest x-ray showing volume loss and they large hilar mass with atelectatic changes as described earlier involving the right lower lung area. -- He remains on bronchodilators; steroids and IV Zosyn as an empiric antibiotic coverage for any postobstructive pneumonia. White cell count is 15.3 with a hemoglobin 0.3. Normal renal function. Lactic acid level is down to 2.2. Urinalysis was abnormal and cultures are still pending for now. Patient underwent thoracentesis right lung with a total of 800 mL of pleural fluid was aspirated. Fluid cytology still pending for now. Repeat chest x-ray from today shows no significant interval change. There is volume loss on the right. The patient is extremely cachectic and in mental status as discussed earlier. No focal neurological deficits. His CODE STATUS has been switched to a DO NOT RESUSCITATE and DO NOT INTUBATE per service department manager discussion with the family. 2-D echo reveals global left ventricular dysfunction with EF of 25%; cardiology on board and recommending to start low-dose beta blockers and monitor blood pressure closely; plan is for the workup for cardiomyopathy with gradual addition of heart failure medications. 03/17/2021 Patient is currently lying in the bed. On oxygen via nasal cannula. Denied any complaints of chest pain. Patient is lethargic and seems confused. Rate is being converted on bronchodilators and antibiotics in the form of Zosyn. Next check iron CODE STATUS is DO NOT RESUSCITATE/DO NOT INTUBATE. Fluid cytology from thoracentesis is pending at this time. 03/18/2021 Patient is currently in the MICU. Seems comfortable. On room air. Confused but more awake and oriented today. Patient is being continued on Antivert the form of Zosyn and IV steroids being changed to prednisone 40 mg daily. Fluid cytology is pending. Patient has been afebrile. No complaints of chest pain. No nausea vomiting or abdominal pain or diarrhea. Chest x-ray showed stable appearance yesterday. Pulmonary is planning for bronchoscopy if fluid cytology from thoracentesis is negative. 03/19/2021 Patient is currently in MICU and is lying in the bed comfortably. No compressive chest pain or worsening shortness of breath. Status post paracentesis and fluid cytology is pending at this time. Patient is being continued on Zosyn and prednisone 40 mg daily. Pulmonary is planning for bronchoscopy if fluid cytology is negative. Otherwise patient has been afebrile. Saturating at 94% on room air. Chest x-ray showed complete opacification of right hemithorax which has progressed since prior study. Hyperinflation left lung. Mediastinal shift from left to right. 03/21/2021 Patient is seen and evaluated in follow-up with family at the bedside currently on 5 N. MedSurg with no acute overnight issues noted. Patient was up and wo rking with physical therapy this morning with standby assistance and a walker. Patient continues to be weak although is improving slowly. Patient currently sitting up in the bed comfortably on room air and denies any worsening shortness of breath. Patient is continued on breathing inhalational treatments with pulmonary following closely. Plan is for bronchoscopy with biopsy to confirm diagnosis. Oncology on board as well. Patient also scheduled to undergo brain MRI to evaluate for any metastasis to the brain. Patient continues with a cough that is dry in nature. Patient reports to tolerating diet with no reports of nausea or vomiting noted. Patient is currently nothing by mouth for the procedure and will await report. White blood count is 10.8 with a hemoglobin of 11.7, sodium is 138 with a potassium of 3.3 and will replace and repeat labs. Creatinine is 0.6. Magnesium is 1.9. Patient to continue on IV Zosyn and oral steroids. Radiation oncology being consulted. Patient is a no code. Social work following as well with possibility of ECF once stabilized and discharged. Insurance requires authorization as well. 03/24/2021 Patient is seen and evaluated and follow-up and had a lengthy discussion with at the bedside. Patient is refusing to go to rehab states he just wants to go home. 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 Patient continues to be weak although does have a walker and wheelchair at the home and patient is reluctant to go to rehab and will set up with home care as the patient's is alone and states she needs assistance with his care. Oncology along with radiation oncology following and would like a discussion with patient and her at the bedside as she feels he is not understanding his overall prognosis. Case management following and they are agreeable to palliative care and referral is being placed. Patient is scheduled to undergo bone scan today. 03/25/2021 Patient is seen in follow-up this morning currently undergoing chest ultrasound for possible thoracentesis in the morning with pulmonary. Patient was seen and evaluated by vascular surgery and is not a surgical candidate for a Pleurx catheter. Patient continues to plan on discharging home with home care and will follow-up outpatient with oncology along with radiation oncology after discussing with his about treatment plan. Patient is weak at times and using a walker and has been working with physical therapy and arrangements are being made for discharge planning needs and necessary medical equipment in the home. Case management following and working on this. Patient does continue to have shortness of breath with exertion and maintaining oxygen above 90% on room air. Patient is afebrile. Patient will be nothing by mouth at midnight for the procedure. 03/26/2021 Patient is seen and evaluated in follow-up this morning and per pulmonary not enough effusion noted to perform thoracentesis and will continue to monitor closely. Patient still is having some shortness of breath and intermittent use of oxygen at 2 L. Had a lengthy discussion with oncology about treatment plan moving forward along with at the bedside and the patient who is agreeable to starting chemotherapy and finishing the first cycle and then going to rehab for some strength and mobility. Patient is to receive a PICC line and will have 3 days of chemotherapy and will monitor closely. Patient continues to have intermittent periods of confusion but is more alert and awake and receptive to starting treatment. Patient working with PT/OT therapy daily and continues to be weak and explained to the patient with at the bedside in detail about needing rehab once this first cycle was done for strength and mobility. Will repeat labs and monitor closely. Patient is tolerating diet with no reports of nausea or vomiting noted. Patient needs assistance of the bedside commode. Patient is afebrile. Review of systems: Constitutional: No reports of fatigue, fever, or chills Cardiovascular: No reports of chest pain or palpitations Respiratory: reports occasional shortness of breath with continued dry cough, with minimal exertion GI: No reports of nausea, vomiting, or diarrhea : No reports of dysuria or retention Neurovascular: reports generalized weakness All medications have been reviewed Objective - Vital Signs Vital signs: Vital Signs Temp 98.0 F 03/26/21 08:08 Pulse 98 03/26/21 08:08 Resp 22 03/26/21 08:08 BP 145/82 03/26/21 08:08 Pulse Ox 98 03/26/21 08:08 Intake & Output 03/25/21 03/26/21 03/26/21 18:59 06:59 18:59 Intake Total 960 100 Balance 960 100 Weight 44.1 kg Intake: Intake, IV Titration 100 Amount Piperacillin-Tazobactam 3 100 .375 gm In Sodium Chloride 0.9% 100 ml @ 25 mls/hr IVPB Q8HR [facility] Rx# :[id number] Oral 960 Other: Voiding Method Toilet Toilet Diaper Diaper # Voids 4 - Exam Patient is lying in the bed comfortably, agitated and anxious at times, awake alert and oriented x2 with intermittent periods of confusion. HEENT: Normocephalic. Neck is supple. Pupils reactive. Nostrils clear. Oral cavity is moist. Neck reveals no JVD, carotid bruits, or thyromegaly. CHEST EXAMINATION: Trachea is central. Symmetrical expansion. Bilateral diminished sounds. Scattered wheezing with some bilateral rhonchi noted. CARDIAC: Normal S1, S2 with no gallops. No murmurs ABDOMEN: Soft. Bowel sounds normal. No organomegaly. No abdominal bruits. Extremities: reveal no edema. No clubbing or cyanosis Neurologically awake, alert, oriented x2 with well-coordinated movements. No focal deficits noted Skin: No rash or skin lesions. Psychiatric: Cooperative. Non-suicidal Musculoskeletal: No joint swelling or deformity. Normal range of motion. Diffusely weak - Labs CBC & Chem 7: 03/23/21 01:09 03/23/21 01:09 Assessment and Plan Assessment: Metastatic carcinoma most likely of lung primary with noted lesions of the liver and pancreas Acute hypoxic respiratory failure secondary to above along with atelectasis and volume loss involving the right lung and right middle lobe and right lower lobe with pleural effusions COPD acute exacerbation Severe protein malnutrition/cachexia Acute leukocytosis with lactic acidosis and sepsis, present on admission secondary to postobstructive pneumonia Elevated troponin possibly demand ischemia secondary to acute respiratory failure Alcoholism Large right MCA distribution cerebrovascular accident with some residual left- sided weakness history Hypertension Hyperlipidemia Peripheral vascular disease DVT prophylaxis GI prophylaxis No code Plan: Patient was initially scheduled to undergo thoracentesis with pulmonary today although not enough fluid to drain and risks outweigh the benefits at this time. Family and patient agreeable. Lengthy discussion with oncology and treatment plan along with family at the bedside and patient who is agreeable to start treatment and received first cycle which will take 3 days inpatient and patient is receiving a PICC line. Patient is also agreeable to rehab as he continues to be weak and is very anxious and nervous about taking him home and not being able to care for him properly. Family agreed to rehab and social work we consulted for possible ECF placement at an accepting facility and will require authorization. Patient is to complete the first cycle of chemotherapy which is 3 days and monitor closely with possible discharge to ECF if authorization is obtained and patient is stable. PT/OT following daily and patient has been compliant with working with them. Patient is on O2 with 2-4 L intermittently as he continues to be short of breath and dyspneic with minimal exertion. Will repeat a.m. labs and monitor closely. Due to multiple complex medical issues, prognosis remains extremely poor and guarded.
[2021-03-27] MEDS ORDERED: PROCHLORPERAZINE 10 MG TAB PO PRN (09:15)
[2021-03-27 09:26] LABS: Anisocytosis Slight; Basophils % (A) 0 %; Eosinophils # (A) 0.1 k/uL (0-0.7); Eosinophils % (A) 1 %; HCT 34.6 % (39.0-53.0); HGB 11.8 gm/dL (13.0-17.5); Hypochromasia Slight; Lymphocytes # (A) 0.8 k/uL (1.0-4.8); Lymphocytes % (A) 8 %; MCH 30.8 pg (25.0-35.0); MCV 90.8 fL (80.0-100.0); Mean Platelet Volume 7.3; Monocytes # (A) 0.4 k/uL (0-1.0); Monocytes % (A) 4 %; Neutrophils # (A) 8.4 k/uL (1.3-7.7); Neutrophils % (A) 86 %; Platelet Count 170 k/uL (150-450); RBC 3.81 m/uL (4.30-5.90); RDW 16.7 % (11.5-15.5); WBC 9.8 k/uL (3.8-10.6)
[2021-03-27 09:31] LABS: African American GFR (CKD) >90 (>60 ml/min/1.73 sqM); Anion Gap 4 mmol/L; Blood Urea Nitrogen 15 mg/dL (9-20); Calcium 8.4 mg/dL (8.4-10.2); Carbon Dioxide 34 mmol/L (22-30); Chloride 95 mmol/L (98-107); Glucose 89 mg/dL (74-99); Non-African American GFR(CKD) >90 (>60 ml/min/1.73 sqM); Sodium 133 mmol/L (137-145)
[2021-03-27] MEDS: NYSTATIN 100,000 UNIT/ML SUSP 500,000 UNIT/5 ML CUP PO SCH ×4 (09:44→21:46)
[2021-03-27] MEDS: THIAMINE 100 MG TAB PO SCH ×2 (10:10→18:02)
[2021-03-27] MEDS: METOPROLOL TARTRATE 12.5 MG TAB PO SCH ×2 (10:10→21:46)
[2021-03-27] MEDS: ONDANSETRON 16 MG in SODIUM CHLORIDE 0.9% 50 ML IVPB SCH (11:01)
[2021-03-27] MEDS: FAMOTIDINE 20 MG/2 ML VIAL IV SCH (11:02)
[2021-03-27] MEDS: DEXAMETHASONE SOD PHOSPHATE 10 MG/ML 1 ML VIAL IV SCH (11:02)
[2021-03-27] MEDS ORDERED: ALTEPLASE 2 MG VIAL (CATHFLO) IV STA (11:22)
[2021-03-27] MEDS: SALT AND SODA MOUTHWASH 1,000 ML PO SCH ×3 (11:35→21:47)
[2021-03-27] MEDS ORDERED: SODIUM CHLORIDE 0.9% IV ONE (12:00)
[2021-03-27] MEDS ORDERED: CARBOPLATIN IV ONE (12:00)
[2021-03-27] MEDS: SODIUM CHLORIDE 0.9% 1,000 ML IV SCH (13:41)
--- NOTE | 2021-03-27 13:44 | P.PN ---
Subjective Progress Note Date: 03/27/21 Principal diagnosis: SCLC, extensive stage In f/u today pt is really just overwhelmed with all the information and treatment. Denies nausea, oral irritation, cough is congested, breathing is stable, no new pain to report, he seems to understand that he is starting chemo for cancer. Objective - Vital Signs Vital signs: Vital Signs Temp 97.5 F L 03/27/21 12:01 Pulse 100 03/27/21 12:01 Resp 18 03/27/21 12:01 BP 106/70 03/27/21 12:01 Pulse Ox 100 03/27/21 12:01 Intake & Output 03/26/21 03/27/21 03/27/21 18:59 06:59 18:59 Intake Total 1560 100 Balance 1560 100 Intake: Intake, IV Titration 100 100 Amount Piperacillin-Tazobactam 3 100 100 .375 gm In Sodium Chloride 0.9% 100 ml @ 25 mls/hr IVPB Q8HR [facility] Rx# :[id number] Oral 1460 Other: Voiding Method Toilet Diaper Diaper Urinal # Voids 3 # Bowel Movements 1 - Constitutional General appearance: Present: cooperative, no acute distress, thin - EENT Eyes: Present: anicteric sclerae, EOMI ENT: Present: hearing grossly normal, normal oropharynx - Respiratory Respiratory: bilateral: diminished - Cardiovascular Rhythm: regular Heart sounds: normal: S1, S2 Abnormal Heart Sounds: Absent: systolic murmur, diastolic murmur, rub, S3 Gallop, S4 Gallop, click, other - Peripheral edema leg Peripheral Edema: bilateral: None - Gastrointestinal General gastrointestinal: Present: normal bowel sounds, soft - Integumentary Integumentary: Present: pale - Neurologic Neurologic: Present: CNII-XII intact - Musculoskeletal Musculoskeletal: Present: generalized weakness - Psychiatric Psychiatric Comment(s): Not really wanting to participate in conversation today - Allied health notes Allied health notes reviewed: nursing - Labs CBC & Chem 7: 03/27/21 08:58 03/27/21 08:58 Labs: Abnormal Lab Results - Last 24 Hours (Table) 03/27/21 03/27/21 Range/Units 08:58 08:58 RBC 3.81 L (4.30-5.90) m/uL Hgb 11.8 L (13.0-17.5) gm/dL Hct 34.6 L (39.0-53.0) % RDW 16.7 H (11.5-15.5) % Neutrophils # 8.4 H (1.3-7.7) k/uL Lymphocytes # 0.8 L (1.0-4.8) k/uL Sodium 133 L (137-145) mmol/L Potassium 3.0 L (3.5-5.1) mmol/L Chloride 95 L (98-107) mmol/L Carbon Dioxide 34 H (22-30) mmol/L Creatinine 0.58 L (0.66-1.25) mg/dL Assessment and Plan (1) Small cell lung cancer Narrative/Plan: Pt and decided on chemo. Starting today. PICC line was placed. Supportive meds ordered GI and DVT prophylaxis Strict I&O, daily wt Activity needs to be increased Dietitian consult Discussed with IM [employer]INE OPERATOR, plans for rehab on DC, which is planned for next Wednesday. Order put in DC for weekly CBC, CMP while in rehab Labs daily while inpt F/U with Medical Oncology after completion of rehab Current Visit: Yes Status: Acute Priority: High Code(s): C34.90 - MALIGNANT NEOPLASM OF UNSP PART OF UNSP BRONCHUS OR LUNG SNOMED Code(s): 412877609
[2021-03-27] MEDS ORDERED: Potassium Replacement Protocol 1 EACH MISC MISCELLANE PRN (13:56)
[2021-03-27] MEDS: POTASSIUM CHLORIDE ER 20 MEQ TAB.ER PO SCH ×2 (14:05→15:53)
[2021-03-27] MEDS: SODIUM CHLORIDE 0.9% IV SCH (15:51)
[2021-03-27] MEDS: ETOPOSIDE IV SCH (15:51)
[2021-03-27] MEDS: MEGESTROL 400 MG/10 ML CUP PO SCH (15:53)
[2021-03-27] MEDS: ATORVASTATIN 10 MG TAB PO SCH (21:46)
[2021-03-27] MEDS: DONEPEZIL 10 MG TAB PO SCH (21:46)
[2021-03-28] MEDS: LORazepam 2 MG/ML INJ IV PRN (00:11)
[2021-03-28] MEDS: SALT AND SODA MOUTHWASH 1,000 ML PO SCH ×5 (00:11→22:04)
--- NOTE | 2021-03-28 03:34 | P.PN ---
Subjective Progress Note Date: 03/27/21 Metastatic carcinoma; most likely primary lung Acute hypoxic respiratory failure Postobstructive pneumonia Severe malnutrition protein calorie/debility 65-year-old male presenting with severe respiratory distress. Past medical history is positive for a large right-sided MCA distribution CVA with some m inimal left upper extremity weakness, hyperlipidemia, coronary artery disease, peripheral artery disease and previous history of alcoholism. He is still a daily alcohol drinker. He drinks alcohol heavily and he is currently a cigarette smoker on a daily basis. He is quite cachectic, emaciated, de bilitated, weak, and malnourished. Does not have any headache. No seizure. Patient had been sent from the primary care office with hypoxia. He was diagnosed with effusion and fluid overload as well as hypoxia in the emergency department yesterday but had left AGAINST MEDICAL ADVICE. He had an elevated troponin, elevated BNP. 03/15/2021 Patient is seen for a follow-up in the intensive care unit. The patient is a ICU overflow. For now, the patient on a BiPAP at a pressure of 14/6 cm of water with an FiO2 of 1. The pulse ox measures and is not aggravated and the blood gases will be needed. The patient is urinating adequate tidal volumes and has a respiratory rate of 16-20. He remains quite lethargic, somnolent yet arousable. Extremely cachectic and emaciated. Hemodynamically stable. As mentioned earlier, a emergent right-sided thoracentesis was done yesterday of the right lung and a total of 800 mL of pleural fluid was aspirated successfully. Nevertheless, the follow-up chest x-ray still showing significant volume loss in the right lung related to his underlying lung mass as the patient has a large mass encasing the right hilar structures and the right mainstem bronchus and the bronchus intermedius. Currently is on bronchodilators and steroids. No fever. No chills. Resting comfortably in bed. Does not communicate a whole lot. Family is not around. Would like to talk to the family regarding treatment. As the patient's prognosis extremely poor baseline above-mentioned comorbidities. Fluid cytology is pending for now. 03/16/2021 Patient is seen and evaluated in room at bedside; sustained a fall with abrasion to right eyebrow with small hematoma. The patient is much more awake compared to yesterday. He was taken off the BiPAP. He was switched to nasal cannula and currently is on room air oxygen. Chest x-ray showing volume loss and they large hilar mass with atelectatic changes as described earlier involving the right lower lung area. -- He remains on bronchodilators; steroids and IV Zosyn as an empiric antibiotic coverage for any postobstructive pneumonia. White cell count is 15.3 with a hemoglobin 0.3. Normal renal function. Lactic acid level is down to 2.2. Urinalysis was abnormal and cultures are still pending for now. Patient underwent thoracentesis right lung with a total of 800 mL of pleural fluid was aspirated. Fluid cytology still pending for now. Repeat chest x-ray from today shows no significant interval change. There is volume loss on the right. The patient is extremely cachectic and in mental status as discussed earlier. No focal neurological deficits. His CODE STATUS has been switched to a DO NOT RESUSCITATE and DO NOT INTUBATE per charge authorizer discussion with the family. 2-D echo reveals global left ventricular dysfunction with EF of 25%; cardiology on board and recommending to start low-dose beta blockers and monitor blood pressure closely; plan is for the workup for cardiomyopathy with gradual addition of heart failure medications. 03/17/2021 Patient is currently lying in the bed. On oxygen via nasal cannula. Denied any complaints of chest pain. Patient is lethargic and seems confused. Rate is being converted on bronchodilators and antibiotics in the form of Zosyn. Next check iron CODE STATUS is DO NOT RESUSCITATE/DO NOT INTUBATE. Fluid cytology from thoracentesis is pending at this time. 03/18/2021 Patient is currently in the MICU. Seems comfortable. On room air. Confused but more awake and oriented today. Patient is being continued on Antivert the form of Zosyn and IV steroids being changed to prednisone 40 mg daily. Fluid cytology is pending. Patient has been afebrile. No complaints of chest pain. No nausea vomiting or abdominal pain or diarrhea. Chest x-ray showed stable appearance yesterday. Pulmonary is planning for bronchoscopy if fluid cytology from thoracentesis is negative. 03/19/2021 Patient is currently in MICU and is lying in the bed comfortably. No compressive chest pain or worsening shortness of breath. Status post paracentesis and fluid cytology is pending at this time. Patient is being continued on Zosyn and prednisone 40 mg daily. Pulmonary is planning for bronchoscopy if fluid cytology is negative. Otherwise patient has been afebrile. Saturating at 94% on room air. Chest x-ray showed complete opacification of right hemithorax which has progressed since prior study. Hyperinflation left lung. Mediastinal shift from left to right. 03/21/2021 Patient is seen and evaluated in follow-up with family at the bedside currently on 5 N. MedSurg with no acute overnight issues noted. Patient was up and wo rking with physical therapy this morning with standby assistance and a walker. Patient continues to be weak although is improving slowly. Patient currently sitting up in the bed comfortably on room air and denies any worsening shortness of breath. Patient is continued on breathing inhalational treatments with pulmonary following closely. Plan is for bronchoscopy with biopsy to confirm diagnosis. Oncology on board as well. Patient also scheduled to undergo brain MRI to evaluate for any metastasis to the brain. Patient continues with a cough that is dry in nature. Patient reports to tolerating diet with no reports of nausea or vomiting noted. Patient is currently nothing by mouth for the procedure and will await report. White blood count is 10.8 with a hemoglobin of 11.7, sodium is 138 with a potassium of 3.3 and will replace and repeat labs. Creatinine is 0.6. Magnesium is 1.9. Patient to continue on IV Zosyn and oral steroids. Radiation oncology being consulted. Patient is a no code. Social work following as well with possibility of ECF once stabilized and discharged. Insurance requires authorization as well. 03/24/2021 Patient is seen and evaluated and follow-up and had a lengthy discussion with at the bedside. Patient is refusing to go to rehab states he just wants to go home. 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 Patient continues to be weak although does have a walker and wheelchair at the home and patient is reluctant to go to rehab and will set up with home care as the patient's is alone and states she needs assistance with his care. Oncology along with radiation oncology following and would like a discussion with patient and her at the bedside as she feels he is not understanding his overall prognosis. Case management following and they are agreeable to palliative care and referral is being placed. Patient is scheduled to undergo bone scan today. 03/25/2021 Patient is seen in follow-up this morning currently undergoing chest ultrasound for possible thoracentesis in the morning with pulmonary. Patient was seen and evaluated by vascular surgery and is not a surgical candidate for a Pleurx catheter. Patient continues to plan on discharging home with home care and will follow-up outpatient with oncology along with radiation oncology after discussing with his about treatment plan. Patient is weak at times and using a walker and has been working with physical therapy and arrangements are being made for discharge planning needs and necessary medical equipment in the home. Case management following and working on this. Patient does continue to have shortness of breath with exertion and maintaining oxygen above 90% on room air. Patient is afebrile. Patient will be nothing by mouth at midnight for the procedure. 03/26/2021 Patient is seen and evaluated in follow-up this morning and per pulmonary not enough effusion noted to perform thoracentesis and will continue to monitor closely. Patient still is having some shortness of breath and intermittent use of oxygen at 2 L. Had a lengthy discussion with oncology about treatment plan moving forward along with at the bedside and the patient who is agreeable to starting chemotherapy and finishing the first cycle and then going to rehab for some strength and mobility. Patient is to receive a PICC line and will have 3 days of chemotherapy and will monitor closely. Patient continues to have intermittent periods of confusion but is more alert and awake and receptive to starting treatment. Patient working with PT/OT therapy daily and continues to be weak and explained to the patient with at the bedside in detail about needing rehab once this first cycle was done for strength and mobility. Will repeat labs and monitor closely. Patient is tolerating diet with no reports of nausea or vomiting noted. Patient needs assistance of the bedside commode. Patient is afebrile. 03/27/2021 Patient is seen in follow up this morning and has received a PICC line and being started on day 1 of 3 chemotherapy with oncology following closely. Monitor labs and patient closely and continue with supportive management. Social work following and patient has been accepted at [facility] with auth approval until 04/01. Patient will need three days of chemotherapy with daily labs and will continue to encourage increased ambulation and PT/OT daily. Continue with supplemental 02. Pulmonary also following. Review of systems: Constitutional: No reports of fatigue, fever, or chills Cardiovascular: No reports of chest pain or palpitations Respiratory: reports occasional shortness of breath with continued dry cough, with minimal exertion GI: No reports of nausea, vomiting, or diarrhea : No reports of dysuria or retention Neurovascular: reports generalized weakness All medications have been reviewed Objective - Vital Signs Vital signs: Vital Signs Temp 96.8 F L 03/27/21 04:23 Pulse 68 03/27/21 07:32 Resp 18 03/27/21 04:23 BP 114/81 03/27/21 04:23 Pulse Ox 90 L 03/27/21 04:23 Intake & Output 03/26/21 03/27/21 03/27/21 18:59 06:59 18:59 Intake Total 1560 100 Balance 1560 100 Intake: Intake, IV Titration 100 100 Amount Piperacillin-Tazobactam 3 100 100 .375 gm In Sodium Chloride 0.9% 100 ml @ 25 mls/hr IVPB Q8HR [facility] Rx# :[id number] Oral 1460 Other: Voiding Method Toilet Diaper Urinal # Voids 3 # Bowel Movements 1 - Exam Patient is lying in the bed comfortably, awake alert and oriented x2 with intermittent periods of confusion. HEENT: Normocephalic. Neck is supple. Pupils reactive. Nostrils clear. Oral cavity is moist. Neck reveals no JVD, carotid bruits, or thyromegaly. CHEST EXAMINATION: Trachea is central. Symmetrical expansion. Bilateral diminished sounds. Scattered wheezing with some bilateral rhonchi noted. CARDIAC: Normal S1, S2 with no gallops. No murmurs ABDOMEN: Soft. Bowel sounds normal. No organomegaly. No abdominal bruits. Extremities: reveal no edema. No clubbing or cyanosis Neurologically awake, alert, oriented x2 with well-coordinated movements. No focal deficits noted Skin: No rash or skin lesions. Psychiatric: Cooperative. Non-suicidal Musculoskeletal: No joint swelling or deformity. Normal range of motion. Diffusely weak - Labs CBC & Chem 7: 03/27/21 08:58 03/27/21 18:17 Assessment and Plan Assessment: Metastatic carcinoma most likely of lung primary with noted lesions of the liver and pancreas Acute hypoxic respiratory failure secondary to above along with atelectasis and volume loss involving the right lung and right middle lobe and right lower lobe with pleural effusions COPD acute exacerbation Severe protein malnutrition/cachexia Acute leukocytosis with lactic acidosis and sepsis, present on admission secondary to postobstructive pneumonia Elevated troponin possibly demand ischemia secondary to acute respiratory failure Alcoholism Large right MCA distribution cerebrovascular accident with some residual left-sided weakness history Hypertension Hyperlipidemia Peripheral vascular disease DVT prophylaxis GI prophylaxis No code Plan: Recommend to continue with chemotherapy cycle and will need 3 days with oncology following closely. Patient to continue with current medications and supportive treatment. Will continue to monitor closely and repeat am labs. Encouraged increased activity and working with PT daily. Patient is accepted at [facility] and authorization obtained and good until 04/01. Patient will likely not discharge until early next week given the need for inpatient chemotherapy and holiday weekend. Patient is on O2 with 2-4 L intermittently as he continues to be short of breath and dyspneic with minimal exertion. Will repeat a.m. labs and monitor closely. Due to multiple complex medical issues, prognosis remains extremely poor and guarded.
[2021-03-28] MEDS: SODIUM CHLORIDE 0.9% 1,000 ML IV SCH ×2 (04:37→17:20)
[2021-03-28] MEDS ORDERED: POTASSIUM CHLORIDE ER 20 MEQ TAB.ER PO STA (05:57)
[2021-03-28 06:16] LABS: Basophils % (A) 0 %; Eosinophils % (A) 0 %; HCT 41.2 % (39.0-53.0); HGB 12.6 gm/dL (13.0-17.5); Hypochromasia Moderate; Lymphocytes # (A) 0.6 k/uL (1.0-4.8); Lymphocytes % (A) 4 %; MCH 29.1 pg (25.0-35.0); MCHC 30.7 g/dL (31.0-37.0); Mean Platelet Volume 7.8; Monocytes # (A) 0.5 k/uL (0-1.0); Monocytes % (A) 3 %; Neutrophils # (A) 14.3 k/uL (1.3-7.7); Neutrophils % (A) 92 %; Platelet Count 151 k/uL (150-450); RBC 4.33 m/uL (4.30-5.90); RDW 15.2 % (11.5-15.5); WBC 15.5 k/uL (3.8-10.6)
[2021-03-28 06:36] LABS: ALT 15 U/L (4-49); AST 28 U/L (17-59); African American GFR (CKD) >90 (>60 ml/min/1.73 sqM); Albumin 3.3 g/dL (3.5-5.0); Albumin/Globulin Ratio 1.2; Alkaline Phosphatase 62 U/L (38-126); Anion Gap 11 mmol/L; Blood Urea Nitrogen 15 mg/dL (9-20); Calcium 8.6 mg/dL (8.4-10.2); Carbon Dioxide 22 mmol/L (22-30); Chloride 101 mmol/L (98-107); Globulin 2.8 g/dL; Glucose 63 mg/dL (74-99); Non-African American GFR(CKD) >90 (>60 ml/min/1.73 sqM); Phosphorus 3.1 mg/dL (2.5-4.5); Potassium 4.3 mmol/L (3.5-5.1); Sodium 134 mmol/L (137-145); Total Bilirubin 0.6 mg/dL (0.2-1.3); Total Protein 6.1 g/dL (6.3-8.2); Uric Acid 3.9 mg/dL (3.5-8.5)
[2021-03-28] MEDS: IPRATROPIUM-ALBUTEROL 3 ML NEB INHALATION SCH ×4 (08:19→19:42)
[2021-03-28] MEDS: NYSTATIN 100,000 UNIT/ML SUSP 500,000 UNIT/5 ML CUP PO SCH ×4 (08:44→22:04)
[2021-03-28] MEDS: METOPROLOL TARTRATE 12.5 MG TAB PO SCH ×2 (08:44→22:04)
[2021-03-28] MEDS: MEGESTROL 400 MG/10 ML CUP PO SCH (08:44)
[2021-03-28] MEDS: ENOXAPARIN 40 MG/0.4 ML SYRINGE SQ SCH (08:45)
[2021-03-28] MEDS: THIAMINE 100 MG TAB PO SCH ×2 (08:45→17:20)
[2021-03-28] MEDS: DEXAMETHASONE SOD PHOSPHATE 10 MG/ML 1 ML VIAL IV SCH (10:35)
[2021-03-28] MEDS: FAMOTIDINE 20 MG/2 ML VIAL IV SCH (10:35)
[2021-03-28] MEDS: ONDANSETRON 16 MG in SODIUM CHLORIDE 0.9% 50 ML IVPB SCH (10:35)
--- NOTE | 2021-03-28 15:30 | P.PN ---
Subjective Progress Note Date: 03/28/21 Metastatic carcinoma; most likely primary lung Acute hypoxic respiratory failure Postobstructive pneumonia Severe malnutrition protein calorie/debility 65-year-old male presenting with severe respiratory distress. Past medical history is positive for a large right-sided MCA distribution CVA with some m inimal left upper extremity weakness, hyperlipidemia, coronary artery disease, peripheral artery disease and previous history of alcoholism. He is still a daily alcohol drinker. He drinks alcohol heavily and he is currently a cigarette smoker on a daily basis. He is quite cachectic, emaciated, de bilitated, weak, and malnourished. Does not have any headache. No seizure. Patient had been sent from the primary care office with hypoxia. He was diagnosed with effusion and fluid overload as well as hypoxia in the emergency department yesterday but had left AGAINST MEDICAL ADVICE. He had an elevated troponin, elevated BNP. 03/15/2021 Patient is seen for a follow-up in the intensive care unit. The patient is a ICU overflow. For now, the patient on a BiPAP at a pressure of 14/6 cm of water with an FiO2 of 1. The pulse ox measures and is not aggravated and the blood gases will be needed. The patient is urinating adequate tidal volumes and has a respiratory rate of 16-20. He remains quite lethargic, somnolent yet arousable. Extremely cachectic and emaciated. Hemodynamically stable. As mentioned earlier, a emergent right-sided thoracentesis was done yesterday of the right lung and a total of 800 mL of pleural fluid was aspirated successfully. Nevertheless, the follow-up chest x-ray still showing significant volume loss in the right lung related to his underlying lung mass as the patient has a large mass encasing the right hilar structures and the right mainstem bronchus and the bronchus intermedius. Currently is on bronchodilators and steroids. No fever. No chills. Resting comfortably in bed. Does not communicate a whole lot. Family is not around. Would like to talk to the family regarding treatment. As the patient's prognosis extremely poor baseline above-mentioned comorbidities. Fluid cytology is pending for now. 03/16/2021 Patient is seen and evaluated in room at bedside; sustained a fall with abrasion to right eyebrow with small hematoma. The patient is much more awake compared to yesterday. He was taken off the BiPAP. He was switched to nasal cannula and currently is on room air oxygen. Chest x-ray showing volume loss and they large hilar mass with atelectatic changes as described earlier involving the right lower lung area. -- He remains on bronchodilators; steroids and IV Zosyn as an empiric antibiotic coverage for any postobstructive pneumonia. White cell count is 15.3 with a hemoglobin 0.3. Normal renal function. Lactic acid level is down to 2.2. Urinalysis was abnormal and cultures are still pending for now. Patient underwent thoracentesis right lung with a total of 800 mL of pleural fluid was aspirated. Fluid cytology still pending for now. Repeat chest x-ray from today shows no significant interval change. There is volume loss on the right. The patient is extremely cachectic and in mental status as discussed earlier. No focal neurological deficits. His CODE STATUS has been switched to a DO NOT RESUSCITATE and DO NOT INTUBATE per circuit manager discussion with the family. 2-D echo reveals global left ventricular dysfunction with EF of 25%; cardiology on board and recommending to start low-dose beta blockers and monitor blood pressure closely; plan is for the workup for cardiomyopathy with gradual addition of heart failure medications. 03/17/2021 Patient is currently lying in the bed. On oxygen via nasal cannula. Denied any complaints of chest pain. Patient is lethargic and seems confused. Rate is being converted on bronchodilators and antibiotics in the form of Zosyn. Next check iron CODE STATUS is DO NOT RESUSCITATE/DO NOT INTUBATE. Fluid cytology from thoracentesis is pending at this time. 03/18/2021 Patient is currently in the MICU. Seems comfortable. On room air. Confused but more awake and oriented today. Patient is being continued on Antivert the form of Zosyn and IV steroids being changed to prednisone 40 mg daily. Fluid cytology is pending. Patient has been afebrile. No complaints of chest pain. No nausea vomiting or abdominal pain or diarrhea. Chest x-ray showed stable appearance yesterday. Pulmonary is planning for bronchoscopy if fluid cytology from thoracentesis is negative. 03/19/2021 Patient is currently in MICU and is lying in the bed comfortably. No compressive chest pain or worsening shortness of breath. Status post paracentesis and fluid cytology is pending at this time. Patient is being continued on Zosyn and prednisone 40 mg daily. Pulmonary is planning for bronchoscopy if fluid cytology is negative. Otherwise patient has been afebrile. Saturating at 94% on room air. Chest x-ray showed complete opacification of right hemithorax which has progressed since prior study. Hyperinflation left lung. Mediastinal shift from left to right. 03/21/2021 Patient is seen and evaluated in follow-up with family at the bedside currently on 5 N. MedSurg with no acute overnight issues noted. Patient was up and wo rking with physical therapy this morning with standby assistance and a walker. Patient continues to be weak although is improving slowly. Patient currently sitting up in the bed comfortably on room air and denies any worsening shortness of breath. Patient is continued on breathing inhalational treatments with pulmonary following closely. Plan is for bronchoscopy with biopsy to confirm diagnosis. Oncology on board as well. Patient also scheduled to undergo brain MRI to evaluate for any metastasis to the brain. Patient continues with a cough that is dry in nature. Patient reports to tolerating diet with no reports of nausea or vomiting noted. Patient is currently nothing by mouth for the procedure and will await report. White blood count is 10.8 with a hemoglobin of 11.7, sodium is 138 with a potassium of 3.3 and will replace and repeat labs. Creatinine is 0.6. Magnesium is 1.9. Patient to continue on IV Zosyn and oral steroids. Radiation oncology being consulted. Patient is a no code. Social work following as well with possibility of ECF once stabilized and discharged. Insurance requires authorization as well. 03/24/2021 Patient is seen and evaluated and follow-up and had a lengthy discussion with at the bedside. Patient is refusing to go to rehab states he just wants to go home. 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 Patient continues to be weak although does have a walker and wheelchair at the home and patient is reluctant to go to rehab and will set up with home care as the patient's is alone and states she needs assistance with his care. Oncology along with radiation oncology following and would like a discussion with patient and her at the bedside as she feels he is not understanding his overall prognosis. Case management following and they are agreeable to palliative care and referral is being placed. Patient is scheduled to undergo bone scan today. 03/25/2021 Patient is seen in follow-up this morning currently undergoing chest ultrasound for possible thoracentesis in the morning with pulmonary. Patient was seen and evaluated by vascular surgery and is not a surgical candidate for a Pleurx catheter. Patient continues to plan on discharging home with home care and will follow-up outpatient with oncology along with radiation oncology after discussing with his about treatment plan. Patient is weak at times and using a walker and has been working with physical therapy and arrangements are being made for discharge planning needs and necessary medical equipment in the home. Case management following and working on this. Patient does continue to have shortness of breath with exertion and maintaining oxygen above 90% on room air. Patient is afebrile. Patient will be nothing by mouth at midnight for the procedure. 03/26/2021 Patient is seen and evaluated in follow-up this morning and per pulmonary not enough effusion noted to perform thoracentesis and will continue to monitor closely. Patient still is having some shortness of breath and intermittent use of oxygen at 2 L. Had a lengthy discussion with oncology about treatment plan moving forward along with at the bedside and the patient who is agreeable to starting chemotherapy and finishing the first cycle and then going to rehab for some strength and mobility. Patient is to receive a PICC line and will have 3 days of chemotherapy and will monitor closely. Patient continues to have intermittent periods of confusion but is more alert and awake and receptive to starting treatment. Patient working with PT/OT therapy daily and continues to be weak and explained to the patient with at the bedside in detail about needing rehab once this first cycle was done for strength and mobility. Will repeat labs and monitor closely. Patient is tolerating diet with no reports of nausea or vomiting noted. Patient needs assistance of the bedside commode. Patient is afebrile. 03/27/2021 Patient is seen in follow up this morning and has received a PICC line and being started on day 1 of 3 chemotherapy with oncology following closely. Monitor labs and patient closely and continue with supportive management. Social work following and patient has been accepted at [facility] with auth approval until 04/01. Patient will need three days of chemotherapy with daily labs and will continue to encourage increased ambulation and PT/OT daily. Continue with supplemental 02. Pulmonary also following. 03/28/2021 Patient is seen this morning continues to have periods of confusion and agitation. Patient currently on day 2 of 3 chemotherapy with oncology following closely. White blood count elevated at 15.5, hemoglobin is 12.6, platelets are 151, sodium is 134 with a potassium of 4.3. Creatinine is 0.58. LFTs within normal limits. Patient continues on 3 L via nasal cannula and will continue. Patient is afebrile. Patient also continued on IV dexamethasone and received second of third dose today. Continue with anticoagulation with Lovenox subcu and continued breathing inhalational treatments. We'll continue with daily labs and monitor closely. Review of systems: Constitutional: No reports of fatigue, fever, or chills Cardiovascular: No reports of chest pain or palpitations Respiratory: reports occasional shortness of breath with continued dry cough, with minimal exertion GI: No reports of nausea, vomiting, or diarrhea : No reports of dysuria or retention Neurovascular: reports generalized weakness All medications have been reviewed Active Medications Albuterol/Ipratropium (Ipratropium-Albuterol 3 Ml Neb) 3 ml INHALATION RT-Q4H PRN PRN Reason: Shortness Of Breath Or Wheezing Last Admin: 03/23/21 00:17 Dose: 3 ml Documented by: Albuterol/Ipratropium (Ipratropium-Albuterol 3 Ml Neb) 3 ml INHALATION RT-QID [facility] Last Admin: 03/28/21 11:36 Dose: 3 ml Documented by: Atorvastatin Calcium (Atorvastatin 10 Mg Tab) 10 mg PO [facility] Last Admin: 03/27/21 21:46 Dose: 10 mg Documented by: Dexamethasone Sodium Phosphate (Dexamethasone Sod Phosphate 10 Mg/Ml 1 Ml Vial) 10 mg IV Q24H [facility] Stop: 03/29/21 11:01 Last Admin: 03/28/21 10:35 Dose: 10 mg Documented by: Donepezil HCl (Donepezil 10 Mg Tab) 10 mg PO [facility] Last Admin: 03/27/21 21:46 Dose: 10 mg Documented by: Enoxaparin Sodium (Enoxaparin 40 Mg/0.4 Ml Syringe) 40 mg SQ DAILY [facility] Last Admin: 03/28/21 08:45 Dose: 40 mg Documented by: Famotidine (Famotidine 20 Mg/2 Ml Vial) 20 mg IV Q24H [facility] Stop: 03/29/21 11:01 Last Admin: 03/28/21 10:35 Dose: 20 mg Documented by: Famotidine (Famotidine 20 Mg Tab) 40 mg PO BID [facility] Haloperidol Lactate (Haloperidol Lactate 5 Mg/Ml 1 Ml Vial) 1 mg IVP Q8HR PRN PRN Reason: Agitation or Acute Psychosis Last Admin: 03/20/21 17:31 Dose: 1 mg Documented by: Etoposide 140 mg/ Sodium (Chloride) 507 mls @ 507 mls/hr IV Q24H [facility] Stop: 03/29/21 12:59 Last Admin: 03/27/21 15:51 Dose: 507 mls/hr Documented by: Ondansetron HCl 16 mg/ Sodium (Chloride) 58 mls @ 232 mls/hr IVPB Q24H [facility] Stop: 03/29/21 11:14 Last Admin: 03/28/21 10:35 Dose: 232 mls/hr Documented by: Sodium Chloride (Saline 0.9%) 1,000 mls @ 75 mls/hr IV .[id number] [facility] Last Admin: 03/28/21 04:37 Dose: 75 mls/hr Documented by: Lidocaine HCl (Lidocaine 1% (10mg/Ml) For Iv Start) 0.1 ml INTRADERMA PER PROTOCOL PRN PRN Reason: IV Start Lisinopril (Lisinopril 2.5 Mg Tab) 2.5 mg PO DAILY [facility] Last Admin: 03/28/21 08:45 Dose: 2.5 mg Documented by: Lorazepam (Lorazepam 2 Mg/Ml Inj) 0.5 mg IV Q4HR PRN PRN Reason: Agitation Last Admin: 03/28/21 00:11 Dose: 0.5 mg Documented by: Megestrol Acetate (Megestrol 400 Mg/10 Ml Cup) 800 mg PO DAILY [facility] Last Admin: 03/28/21 08:44 Dose: 800 mg Documented by: Metoprolol Tartrate (Metoprolol Tartrate 12.5 Mg Tab) 12.5 mg PO BID [facility] Last Admin: 03/28/21 08:44 Dose: 12.5 mg Documented by: Miscellaneous Information (Potassium Replacement Protocol 1 Each Misc) 1 each MISCELLANE DAILY PRN; Protocol PRN Reason: Per Protocol Naloxone HCl (Naloxone 0.4 Mg/Ml 1 Ml Vial) 0.2 mg IV Q2M PRN PRN Reason: Opioid Reversal Nystatin (Nystatin 100,000 Unit/Ml Susp 500,000 Unit/5 Ml Cup) 500,000 unit PO QID [facility] Last Admin: 03/28/21 13:50 Dose: 500,000 unit Documented by: Prochlorperazine Maleate (Prochlorperazine 10 Mg Tab) 10 mg PO Q6HR PRN PRN Reason: Nausea And Vomiting Sodium Bicarbonate (Salt And Soda Mouthwash 1,000 Ml) 5 ml PO 5XD [facility] Last Admin: 03/28/21 10:36 Dose: 5 ml Documented by: Sodium Chloride (Sodium Chloride 0.9% Flush 10 Ml Syringe) 10 ml IV Q4HR PRN PRN Reason: PICC Line Sodium Chloride (Sodium Chloride 0.9% Flush 10 Ml Syringe) 10 ml IV WEEKLY [facility] Sodium Chloride (Sodium Chloride 0.9% Flush 10 Ml Syringe) 20 ml IV Q4HR PRN PRN Reason: PICC Line Thiamine HCl (Thiamine 100 Mg Tab) 100 mg PO BID-W/MEALS [facility] Last Admin: 03/28/21 08:45 Dose: 100 mg Documented by: Objective - Vital Signs Vital signs: Vital Signs Temp 98.2 F 03/28/21 12:37 Pulse 80 03/28/21 12:37 Resp 17 03/28/21 12:37 BP 103/70 03/28/21 12:37 Pulse Ox 93 L 03/28/21 12:37 Intake & Output 03/27/21 03/28/21 03/28/21 18:59 06:59 18:59 Output Total 200 Balance -200 Weight 44.1 kg Output: Urine 200 Other: Voiding Method Diaper Diaper Diaper # Voids 1 - Exam Patient is sitting up in the bed comfortably, awake alert and oriented x2 with intermittent periods of confusion. Anxious at times HEENT: Normocephalic. Neck is supple. Pupils reactive. Nostrils clear. Oral cavity is moist. Neck reveals no JVD, carotid bruits, or thyromegaly. CHEST EXAMINATION: Trachea is central. Symmetrical expansion. Bilateral diminished sounds. Some coarse bilateral rhonchi noted CARDIAC: Normal S1, S2 with no gallops. No murmurs ABDOMEN: Soft. Bowel sounds normal. No organomegaly. No abdominal bruits. Extremities: reveal no edema. No clubbing or cyanosis Neurologically awake, alert, oriented x2 with well-coordinated movements. No focal deficits noted Skin: No rash or skin lesions. Psychiatric: Cooperative. Non-suicidal Musculoskeletal: No joint swelling or deformity. Normal range of motion. Diffusely weak - Labs CBC & Chem 7: 03/28/21 05:48 03/28/21 05:48 Labs: Abnormal Lab Results - Last 24 Hours (Table) 03/28/21 03/28/21 Range/Units 05:48 05:48 WBC 15.5 H (3.8-10.6) k/uL Hgb 12.6 L (13.0-17.5) gm/dL MCHC 30.7 L (31.0-37.0) g/dL Neutrophils # 14.3 H (1.3-7.7) k/uL Lymphocytes # 0.6 L (1.0-4.8) k/uL Sodium 134 L (137-145) mmol/L Creatinine 0.58 L (0.66-1.25) mg/dL Glucose 63 L (74-99) mg/dL Total Protein 6.1 L (6.3-8.2) g/dL Albumin 3.3 L (3.5-5.0) g/dL Microbiology - Last 24 Hours (Table) 03/14/21 13:32 Fungal Culture - Preliminary Pleural Fluid Assessment and Plan Assessment: Metastatic carcinoma most likely of lung primary with noted lesions of the liver and pancreas Acute hypoxic respiratory failure secondary to above along with atelectasis and volume loss involving the right lung and right middle lobe and right lower lobe with pleural effusions COPD acute exacerbation Severe protein malnutrition/cachexia, BMI is 16.2 Acute leukocytosis with lactic acidosis and sepsis, present on admission secondary to postobstructive pneumonia Elevated troponin possibly demand ischemia secondary to acute respiratory failure Alcoholism Large right MCA distribution cerebrovascular accident with some residual left- sided weakness history Hypertension Hyperlipidemia Peripheral vascular disease DVT prophylaxis GI prophylaxis No code Plan: Recommend to continue with chemotherapy cycle and will need 3 days with oncology following closely. Currently receiving day to of chemotherapy. Patient to continue with current medications and supportive treatment. Will continue to monitor closely and repeat am labs. Encouraged increased activity and working with PT daily. Patient is accepted at [facility] and authorization obtained and go od until 04/01. Patient will likely not discharge until early next week given the need for inpatient chemotherapy and holiday weekend. Patient is on O2 with 3 L intermittently as he continues to be short of breath and dyspneic with minimal exertion. Will repeat a.m. labs and monitor closely. Due to multiple complex medical issues, prognosis remains extremely poor and guarded.
[2021-03-28] MEDS: SODIUM CHLORIDE 0.9% IV SCH (15:47)
[2021-03-28] MEDS: ETOPOSIDE IV SCH (15:47)
[2021-03-28] MEDS ORDERED: FUROSEMIDE 10 MG/ML 2 ML VIAL IV ONE (18:19)
--- NOTE | 2021-03-28 19:52 | P.PN ---
Subjective Progress Note Date: 03/28/21 Principal diagnosis: Small Cell lung Cancer Day two of chemotherapy to continue. Patient seen and evaluated this am Dr. Yusuf Objective - Vital Signs Vital signs: Vital Signs Temp 97.4 F L 03/28/21 16:00 Pulse 76 03/28/21 15:46 Resp 18 03/28/21 16:00 BP 107/72 03/28/21 16:00 Pulse Ox 92 L 03/28/21 16:00 Intake & Output 03/27/21 03/28/21 03/28/21 18:59 06:59 18:59 Output Total 200 Balance -200 Weight 44.1 kg Output: Urine 200 Other: Voiding Method Diaper Diaper Diaper # Voids 1 - Exam - Constitutional General appearance: Present: cooperative, no acute distress, thin - EENT Eyes: Present: anicteric sclerae, EOMI ENT: Present: hearing grossly normal, normal oropharynx - Respiratory Respiratory: bilateral: diminished - Cardiovascular Rhythm: regular Heart sounds: normal: S1, S2 Abnormal Heart Sounds: Absent: systolic murmur, diastolic murmur, rub, S3 Gallop, S4 Gallop, click, other - Peripheral edema leg Peripheral Edema: bilateral: None - Gastrointestinal General gastrointestinal: Present: normal bowel sounds, soft - Integumentary Integumentary: Present: pale - Neurologic Neurologic: Present: CNII-XII intact - Musculoskeletal Musculoskeletal: Present: generalized weakness - Psychiatric Psychiatric Comment(s): Not really wanting to participate in conversation today - Allied health notes Allied health notes reviewed: nursing - Labs CBC & Chem 7: 03/28/21 05:48 03/28/21 05:48 Labs: Abnormal Lab Results - Last 24 Hours (Table) 03/28/21 03/28/21 Range/Units 05:48 05:48 WBC 15.5 H (3.8-10.6) k/uL Hgb 12.6 L (13.0-17.5) gm/dL MCHC 30.7 L (31.0-37.0) g/dL Neutrophils # 14.3 H (1.3-7.7) k/uL Lymphocytes # 0.6 L (1.0-4.8) k/uL Sodium 134 L (137-145) mmol/L Creatinine 0.58 L (0.66-1.25) mg/dL Glucose 63 L (74-99) mg/dL Total Protein 6.1 L (6.3-8.2) g/dL Albumin 3.3 L (3.5-5.0) g/dL Microbiology - Last 24 Hours (Table) 03/14/21 13:32 Fungal Culture - Preliminary Pleural Fluid Assessment and Plan (1) Small cell lung cancer Current Visit: Yes Status: Acute Priority: High Code(s): C34.90 - MALIGNANT NEOPLASM OF UNSP PART OF UNSP BRONCHUS OR LUNG SNOMED Code(s): 912482733 (2) Malignant pleural effusion Current Visit: Yes Status: Acute Code(s): J91.0 - MALIGNANT PLEURAL EFFUSION SNOMED Code(s): 210062400 Plan: Assessment and Plan (1) Small cell lung cancer Continue Day two of chemotherapy Daily CBC, CMP, MAg Status Post PICC line Labs daily while inpt F/U with Medical Oncology after completion of rehab Current Visit: Yes Status: Acute Priority: High Code(s): C34.90 - MALIGNANT NEOPLASM OF UNSP PART OF UNSP BRONCHUS OR LUNG SNOMED Code(s): 213203140
[2021-03-28] MEDS: DONEPEZIL 10 MG TAB PO SCH (22:04)
[2021-03-28] MEDS: ATORVASTATIN 10 MG TAB PO SCH (22:04)
[2021-03-29] MEDS: SALT AND SODA MOUTHWASH 1,000 ML PO SCH ×6 (01:23→23:14)
[2021-03-29] MEDS: SODIUM CHLORIDE 0.9% 1,000 ML IV SCH ×2 (06:12→21:17)
[2021-03-29 07:38] LABS: Basophils % (A) 0 %; Eosinophils % (A) 0 %; HCT 37.9 % (39.0-53.0); HGB 12.2 gm/dL (13.0-17.5); Hypochromasia Slight; Lymphocytes # (A) 0.6 k/uL (1.0-4.8); Lymphocytes % (A) 3 %; MCH 30.1 pg (25.0-35.0); MCHC 32.3 g/dL (31.0-37.0); MCV 93.2 fL (80.0-100.0); Mean Platelet Volume 7.2; Monocytes # (A) 0.4 k/uL (0-1.0); Monocytes % (A) 2 %; Neutrophils # (A) 18.7 k/uL (1.3-7.7); Neutrophils % (A) 95 %; Platelet Count 172 k/uL (150-450); RBC 4.07 m/uL (4.30-5.90); RDW 15.9 % (11.5-15.5); WBC 19.8 k/uL (3.8-10.6)
[2021-03-29 07:49] LABS: ALT 15 U/L (4-49); AST 28 U/L (17-59); African American GFR (CKD) >90 (>60 ml/min/1.73 sqM); Albumin 3.2 g/dL (3.5-5.0); Albumin/Globulin Ratio 1.2; Alkaline Phosphatase 57 U/L (38-126); Anion Gap 6 mmol/L; Blood Urea Nitrogen 17 mg/dL (9-20); Calcium 8.8 mg/dL (8.4-10.2); Carbon Dioxide 29 mmol/L (22-30); Chloride 102 mmol/L (98-107); Globulin 2.7 g/dL; Glucose 116 mg/dL (74-99); Magnesium 1.9 mg/dL (1.6-2.3); Non-African American GFR(CKD) >90 (>60 ml/min/1.73 sqM); Potassium 4.3 mmol/L (3.5-5.1); Sodium 137 mmol/L (137-145); Total Bilirubin 0.3 mg/dL (0.2-1.3); Total Protein 5.9 g/dL (6.3-8.2)
[2021-03-29] MEDS: IPRATROPIUM-ALBUTEROL 3 ML NEB INHALATION SCH ×4 (07:56→20:29)
[2021-03-29] MEDS: METOPROLOL TARTRATE 12.5 MG TAB PO SCH ×2 (08:14→21:17)
[2021-03-29] MEDS: ENOXAPARIN 40 MG/0.4 ML SYRINGE SQ SCH (08:14)
[2021-03-29] MEDS: THIAMINE 100 MG TAB PO SCH ×2 (08:14→17:08)
[2021-03-29] MEDS: MEGESTROL 400 MG/10 ML CUP PO SCH (08:15)
[2021-03-29] MEDS: NYSTATIN 100,000 UNIT/ML SUSP 500,000 UNIT/5 ML CUP PO SCH ×4 (08:15→22:53)
[2021-03-29] MEDS ORDERED: FUROSEMIDE 10 MG/ML 2 ML VIAL IV ONE (08:33)
[2021-03-29 10:17] LABS: Glucose,Whole Blood 133 mg/dL (75-99)
[2021-03-29] MEDS ORDERED: methylPREDNISolone SOD SUCCI 125 MG/2 ML VIAL IV STA (10:26)
[2021-03-29 10:42] LABS: ABG Base Excess 3.8 mmol/L; ABG HCO3 29 mmol/L (21-25); ABG Oxygen Saturation 99.8 % (94-97); ABG PCO2 49 mmHg (35-45); ABG PH 7.38 (7.35-7.45); ABG PO2 248 mmHg (83-108); ABG TCO2 30 mmol/L (19-24); Allen Test Performed? Yes
--- NOTE | 2021-03-29 10:54 | XR ---
EXAMINATION TYPE: XR chest 1V portable DATE OF EXAM: 03/29/2021 COMPARISON: 03/23/2021 HISTORY: 65 years Male. STUDY INDICATION GIVEN: sob, lung CA, wheezing, diaphoretic . TECHNIQUE: AP portable chest radiograph IMPRESSION: Again seen is complete opacification of the right hemithorax with right mediastinal shift. This is li parris a combination of atelectasis, effusion and perhaps a lung mass? There is minimal left basilar subsegmental atelectasis. There is a small left pleural effusion which is new compared to prior. No focal airspace disease is seen in the left lung. No pneumothorax. Left upper extremity PICC tip at the distal SVC. The cardiomediastinal silhouette is within normal limit. No acute osseous abnormality.
--- NOTE | 2021-03-29 11:06 | P.EN ---
A- team: Indication: hypoxia Arrived on Scene to find: nursing present patienent 72% on non rebreater, HR 44, BP 154/90 Patient seen and examined at bedside. He reports feeling slightly short of breath, he denies any chest pain. Denies any lightheadedness or dizziness. He states his hands are not usually purple. Vital signs reviewed General: non toxic, no distress, appears at stated age Derm: warm, dry Head: atraumatic, normocephalic, symmetric Eyes: EOMI, no lid lag, anicteric sclera Mouth: no lip lesion, mucus membranes moist Cardiovascular: S1S2 reg, no murmur, positive posterior tibial pulse bilateral, Lungs: Diffusese wheezing bilateral, + Acessory muslce use, + 3 word conversational dyspnea bilateral Abdominal: soft, nontender to palpation, no guarding, no appreciable organomegaly Ext: no gross muscle atrophy, no edema, no contractures Neuro: CN II-XI grossly intact, no focal neuro deficits Psych: Alert, oriented, appropriate affect Assessment: Acute hypoxic respiratory failure Complete Opacification of the right hemithorax. Known small prior pleural effusion. Small Cell Lung cancer currently receiving chemo day #2 No code Plan: Stat ABG, Chest x-ray- ABG reviewed and O2 248, SPO2 99.8 how ever pulse Ox on the Monitor was 76.. not correlating will start continuous pulse Ox so we can utilize Ear Probe for More accurate Monitoring. Patient does have mild Hypercapnia appears compensated. Labs reviewed BiPap with left side chest on bed Cnfirmed with patient would want BiPap and Thora if we though it would help Consider Morphine for dyspnea Disposition: Remeain on floor Notified: [facility] Dr. Oliveira- Ordered Chest US to eval for fluid, last one on 03/25 showed small pocket only will recheck and if significant would consider thoracentesis. A Total of 35 minutes of critical care time was spent on the complex care of this patient.
--- NOTE | 2021-03-29 11:45 | US ---
EXAMINATION TYPE: US chest DATE OF EXAM: 03/29/2021 COMPARISON: NONE CLINICAL HISTORY: Right side pleural effusion. Pleural effusion. TECHNIQUE: Targeted ultrasound of the posterior lower Right. EXAM MEASUREMENTS: Right Pleural Effusion pocket size: 11.27 cm Lung tissue seen at: 5.52 cm. Right skin surface to fluid distance: 2.58 cm Left Pleural Effusion pocket size: Complex fluid collection seen, not marked cm Right side MARKED for possible thoracentesis outside the dept. Left side NOT marked for possible thoracentesis outside the dept. Pulmonologists are able to review the images in the patient?s EMR. IMPRESSIONS: Moderate right small left pleural effusions.
[2021-03-29] MEDS: LORazepam 2 MG/ML INJ IV PRN ×2 (13:09→18:41)
[2021-03-29] MEDS: DEXAMETHASONE SOD PHOSPHATE 10 MG/ML 1 ML VIAL IV SCH (13:39)
[2021-03-29] MEDS: FAMOTIDINE 20 MG/2 ML VIAL IV SCH (13:39)
[2021-03-29] MEDS: ONDANSETRON 16 MG in SODIUM CHLORIDE 0.9% 50 ML IVPB SCH (13:40)
[2021-03-29] MEDS: SODIUM CHLORIDE 0.9% IV SCH (15:06)
[2021-03-29] MEDS: ETOPOSIDE IV SCH (15:06)
--- NOTE | 2021-03-29 17:33 | P.PN ---
Subjective Progress Note Date: 03/29/21 Principal diagnosis: Small cell lung cancer Had respiratory distress this am with hypoxia. On Bipap. CXR with right lung white out. Last day of chemo. Objective - Vital Signs Vital signs: Vital Signs Temp 97.8 F 03/28/21 20:30 Pulse 66 03/29/21 11:35 Resp 20 03/29/21 10:56 BP 152/81 03/29/21 10:10 Pulse Ox 74 L 03/29/21 10:10 Intake & Output 03/28/21 03/29/21 03/29/21 18:59 06:59 18:59 Weight 44.1 kg Other: Voiding Method Diaper Diaper Diaper - Exam Gen: No acute distress but on bipap. HEENT: mucosa moist Neck: Supple. Lungs: On bipap. Heart: Regular rate. Abd: Soft Neuro: Alert and oriented x3 Skin: No jaudice Psych: Appropriate affect - Labs CBC & Chem 7: 03/29/21 06:41 03/29/21 06:41 Labs: Abnormal Lab Results - Last 24 Hours (Table) 03/29/21 03/29/21 03/29/21 Range/Units 06:41 06:41 10:07 WBC 19.8 H (3.8-10.6) k/uL RBC 4.07 L (4.30-5.90) m/uL Hgb 12.2 L (13.0-17.5) gm/dL Hct 37.9 L (39.0-53.0) % RDW 15.9 H (11.5-15.5) % Neutrophils # 18.7 H (1.3-7.7) k/uL Lymphocytes # 0.6 L (1.0-4.8) k/uL ABG pCO2 (35-45) mmHg ABG pO2 (83-108) mmHg ABG HCO3 (21-25) mmol/L ABG Total CO2 (19-24) mmol/L ABG O2 Saturation (94-97) % Creatinine 0.63 L (0.66-1.25) mg/dL Glucose 116 H (74-99) mg/dL POC Glucose (mg/dL) 133 H (75-99) mg/dL Total Protein 5.9 L (6.3-8.2) g/dL Albumin 3.2 L (3.5-5.0) g/dL 03/29/21 Range/Units 10:35 WBC (3.8-10.6) k/uL RBC (4.30-5.90) m/uL Hgb (13.0-17.5) gm/dL Hct (39.0-53.0) % RDW (11.5-15.5) % Neutrophils # (1.3-7.7) k/uL Lymphocytes # (1.0-4.8) k/uL ABG pCO2 49 H (35-45) mmHg ABG pO2 248 H (83-108) mmHg ABG HCO3 29 H (21-25) mmol/L ABG Total CO2 30 H (19-24) mmol/L ABG O2 Saturation 99.8 H (94-97) % Creatinine (0.66-1.25) mg/dL Glucose (74-99) mg/dL POC Glucose (mg/dL) (75-99) mg/dL Total Protein (6.3-8.2) g/dL Albumin (3.5-5.0) g/dL Microbiology - Last 24 Hours (Table) 03/14/21 13:32 Fungal Culture - Preliminary Pleural Fluid Assessment and Plan Assessment: 1. Small cell lung cancer 2. Liver met's 3. Right pleural effusion 4. Respiratory distress on BiPAP 5. Steroid induced leukocytosis 6. Mild anemia Plan: Mr. Marin is a very pleasant 65 yo male here with newly found extensive stage small cell lung cancer with complete right lung white out due to lung collapse and pleural effusion as well as liver met's. I did review his images myself, including his CT and CXR this admission. Started on chemotherapy with carbo/etoposide. Had acute respiratory distress this am requiring bipap. Continue with last day of chemotherapy as his respiratory distress is due to his lung cancer and effusion. Thoracentesis by IR once able. Reactive leukocytosis due to steroids. Plan on discharge to rehab once condition stabilizes. Will continue to monitor pt closely. Discussed with nursing staff. Discussed with pt and he is agreeable to the plan.
[2021-03-29] MEDS: DONEPEZIL 10 MG TAB PO SCH (22:53)
[2021-03-29] MEDS: ATORVASTATIN 10 MG TAB PO SCH (22:53)
--- NOTE | 2021-03-29 23:50 | P.PN ---
Subjective Progress Note Date: 03/29/21 Principal diagnosis: Metastatic carcinoma; most likely primary lung Acute hypoxic respiratory failure Postobstructive pneumonia Severe malnutrition protein calorie/debility 65-year-old male presenting with severe respiratory distress. 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 He is still a daily alcohol drinker. He drinks alcohol heavily and he is currently a cigarette smoker on a daily basis. He is quite cachectic, emaciated, debilitated, weak, and malnourished. Does not have any headache. No seizure. Patient had been sent from the primary care office with hypoxia. He was diagn osed with effusion and fluid overload as well as hypoxia in the emergency department yesterday but had left AGAINST MEDICAL ADVICE. He had an elevated troponin, elevated BNP. 03/15/2021 Patient is seen for a follow-up in the intensive care unit. The patient is a ICU overflow. For now, the patient on a BiPAP at a pressure of 14/6 cm of water with an FiO2 of 1. The pulse ox measures and is not aggravated and the blood gases will be needed. The patient is urinating adequate tidal volumes and has a respiratory rate of 16-20. He remains quite lethargic, somnolent yet arousable. Extremely cachectic and emaciated. Hemodynamically stable. As mentioned earlier, a emergent right-sided thoracentesis was done yesterday of the right lung and a total of 800 mL of pleural fluid was aspirated successfully. Nevertheless, the follow-up chest x-ray still showing significant volume loss in the right lung related to his underlying lung mass as the patient has a large mass encasing the right hilar structures and the right mainstem bronchus and the bronchus intermedius. Currently is on bronchodilators and steroids. No fever. No chills. Resting comfortably in bed. Does not communicate a whole lot. Family is not around. Would like to talk to the family regarding treatment. As the patient's prognosis extremely poor baseline above-mentioned comorbidities. Fluid cytology is pending for now. 03/16/2021 Patient is seen and evaluated in room at bedside; sustained a fall with abrasion to right eyebrow with small hematoma. The patient is much more awake compared to yesterday. He was taken off the BiPAP. He was switched to nasal cannula and currently is on room air oxygen. Chest x-ray showing volume loss and they large hilar mass with atelectatic changes as described earlier involving the right lower lung area. -- He remains on bronchodilators; steroids and IV Zosyn as an empiric antibiotic coverage for any postobstructive pneumonia. White cell count is 15.3 with a hemoglobin 0.3. Normal renal function. Lactic acid level is down to 2.2. Urinalysis was abnormal and cultures are still pending for now. Patient underwent thoracentesis right lung with a total of 800 mL of pleural fluid was aspirated. Fluid cytology still pending for now. Repeat chest x-ray from today shows no significant interval change. There is volume loss on the right. The patient is extremely cachectic and in mental status as discussed earlier. No focal neurological deficits. His CODE STATUS has been switched to a DO NOT RESUSCITATE and DO NOT INTUBATE per third shift lieutenant discussion with the family. 2-D echo reveals global left ventricular dysfunction with EF of 25%; cardiology on board and recommending to start low-dose beta blockers and monitor blood pressure closely; plan is for the workup for cardiomyopathy with gradual addition of heart failure medications. 03/17/2021 Patient is currently lying in the bed. On oxygen via nasal cannula. Denied any complaints of chest pain. Patient is lethargic and seems confused. Rate is being converted on bronchodilators and antibiotics in the form of Zosyn. Next check iron CODE STATUS is DO NOT RESUSCITATE/DO NOT INTUBATE. Fluid cytology from thoracentesis is pending at this time. 03/18/2021 Patient is currently in the MICU. Seems comfortable. On room air. Confused but more awake and oriented today. Patient is being continued on Antivert the form of Zosyn and IV steroids being changed to prednisone 40 mg daily. Fluid cytology is pending. Patient has been afebrile. No complaints of chest pain. No nausea vomiting or abdominal pain or diarrhea. Chest x-ray showed stable appearance yesterday. Pulmonary is planning for bronchoscopy if fluid cytology from thoracentesis is negative. 03/19/2021 Patient is currently in MICU and is lying in the bed comfortably. No compressive chest pain or worsening shortness of breath. Status post paracentesis and fluid cytology is pending at this time. Patient is being continued on Zosyn and prednisone 40 mg daily. Pulmonary is planning for bronchoscopy if fluid cytology is negative. Otherwise patient has been afebrile. Saturating at 94% on room air. Chest x-ray showed complete opacification of right hemithorax which has progressed since prior study. Hyperinflation left lung. Mediastinal shift from left to right. 03/21/2021 Patient is seen and evaluated in follow-up with family at the bedside currently on 5 N. MedSurg with no acute overnight issues noted. Patient was up and working with physical therapy this morning with standby assistance and a walker. Patient continues to be weak although is improving slowly. Patient currently sitting up in the bed comfortably on room air and denies any worsening shortness of breath. Patient is continued on breathing inhalational treatments with pulmonary following closely. Plan is for bronchoscopy with biopsy to confirm diagnosis. Oncology on board as well. Patient also scheduled to undergo brain MRI to evaluate for any metastasis to the brain. Patient continues with a cough that is dry in nature. Patient reports to tolerating diet with no reports of nausea or vomiting noted. Patient is currently nothing by mouth for the procedure and will await report. White blood count is 10.8 with a hemoglobin of 11.7, sodium is 138 with a potassium of 3.3 and will replace and repeat labs. Creatinine is 0.6. Magnesium is 1.9. Patient to continue on IV Zosyn and oral steroids. Radiation oncology being consulted. Patient is a no code. Social work following as well with possibility of ECF once stabilized and discharged. Insurance requires authorization as well. 03/24/2021 Patient is seen and evaluated and follow-up and had a lengthy discussion with at the bedside. Patient is refusing to go to rehab states he just wants to go home. 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 Patient continues to be weak although does have a walker and wheelchair at the home and patient is reluctant to go to rehab and will set up with home care as the patient's is alone and states she needs assistance with his care. Oncology along with radiation oncology following and would like a discussion with patient and her at the bedside as she feels he is not understanding his overall prognosis. Case management following and they are agreeable to palliative care and referral is being placed. Patient is scheduled to undergo bone scan today. 03/25/2021 Patient is seen in follow-up this morning currently undergoing chest ultrasound for possible thoracentesis in the morning with pulmonary. Patient was seen and evaluated by vascular surgery and is not a surgical candidate for a Pleurx catheter. Patient continues to plan on discharging home with home care and will follow-up outpatient with oncology along with radiation oncology after discussing with his about treatment plan. Patient is weak at times and using a walker and has been working with physical therapy and arrangements are being made for discharge planning needs and necessary medical equipment in the home. Case management following and working on this. Patient does continue to have shortness of breath with exertion and maintaining oxygen above 90% on room air. Patient is afebrile. Patient will be nothing by mouth at midnight for the procedure. 03/26/2021 Patient is seen and evaluated in follow-up this morning and per pulmonary not enough effusion noted to perform thoracentesis and will continue to monitor closely. Patient still is having some shortness of breath and intermittent use of oxygen at 2 L. Had a lengthy discussion with oncology about treatment plan moving forward along with at the bedside and the patient who is agreeable to starting chemotherapy and finishing the first cycle and then going to rehab for some strength and mobility. Patient is to receive a PICC line and will have 3 days of chemotherapy and will monitor closely. Patient continues to have intermittent periods of confusion but is more alert and awake and receptive to starting treatment. Patient working with PT/OT therapy daily and continues to be weak and explained to the patient with at the bedside in detail about needing rehab once this first cycle was done for strength and mobility. Will re peat labs and monitor closely. Patient is tolerating diet with no reports of nausea or vomiting noted. Patient needs assistance of the bedside commode. Patient is afebrile. 03/27/2021 Patient is seen in follow up this morning and has received a PICC line and being started on day 1 of 3 chemotherapy with oncology following closely. Monitor labs and patient closely and continue with supportive management. Social work following and patient has been accepted at [facility] with auth approval until 04/01. Patient will need three days of chemotherapy with daily labs and will continue to encourage increased ambulation and PT/OT daily. Continue with supplemental 02. Pulmonary also following. 03/28/2021 Patient is seen this morning continues to have periods of confusion and agitation. Patient currently on day 2 of 3 chemotherapy with oncology following closely. White blood count elevated at 15.5, hemoglobin is 12.6, platelets are 151, sodium is 134 with a potassium of 4.3. Creatinine is 0.58. LFTs within normal limits. Patient continues on 3 L via nasal cannula and will continue. Patient is afebrile. Patient also continued on IV dexamethasone and received second of third dose today. Continue with anticoagulation with Lovenox subcu and continued breathing inhalational treatments. We'll continue with daily labs and monitor closely. 03/29/2021 Patient is currently awake alert and oriented. On BiPAP. Today morning patient became more short of breath and bilateral diminished air entry especially on the right side and diffuse crackles noted. Patient was given a dose of IV Lasix. Patient continues to have short of breath and was placed on BiPAP. ABGs were obtained showed a pH of 7.38 PCO2 49 9 PO2 248.Patient was seen by rapid response team. Laboratory showed WBC 19.8 hemoglobin 12.1 platelets 172 BUN 70 and creatinine 0.63. Chest x-ray showed complete obscuration of the right hemithorax with right mediastinal shift. This is likely a combination of atelectasis effusion and perhaps lung mass. Patient has been afebrile. Pulmonary was reconsulted and chest ultrasound was ordered as per recommendations for possible thoracentesis.. Review of systems: Constitutional: No reports of fatigue, fever, or chills Cardiovascular: No reports of chest pain or palpitations Respiratory: reports shortness of breath with continued dry cough, with minimal exertion GI: No reports of nausea, vomiting, or diarrhea : No reports of dysuria or retention Neurovascular: reports generalized weakness All medications have been reviewed Objective - Vital Signs Vital signs: Vital Signs Temp 97.4 F L 03/29/21 20:31 Pulse 74 03/29/21 20:31 Resp 20 03/29/21 20:31 BP 148/80 03/29/21 20:31 Pulse Ox 91 L 03/29/21 20:31 Intake & Output 03/29/21 03/29/21 03/30/21 06:59 18:59 06:59 Weight 44.1 kg Other: Voiding Method Diaper Diaper - Exam PHYSICAL EXAMINATION: Patient is lying in the bed comfortably, no acute distress, awake alert and oriented. Feels weak and lethargic.. HEENT: Normocephalic. Neck is supple. Pupils reactive. Nostrils clear. Oral cavity is moist. Neck reveals no JVD, carotid bruits, or thyromegaly. CHEST EXAMINATION: Trachea is central. Symmetrical expansion. Bilateral diminished sounds. Scattered wheezing, crackles. CARDIAC: Normal S1, S2 with no gallops. No murmurs ABDOMEN: Soft. Bowel sounds normal. No organomegaly. No abdominal bruits. Extremities: reveal no edema. No clubbing or cyanosis Neurologically awake, alert, oriented x3 with well-coordinated movements. No focal deficits noted Skin: No rash or skin lesions. Psychiatric: Coperative. Nonsuicidal Musculoskeletal: No joint swelling or deformity. Normal range of motion. - Labs CBC & Chem 7: 03/29/21 06:41 03/29/21 06:41 Labs: Abnormal Lab Results - Last 24 Hours (Table) 03/29/21 03/29/21 03/29/21 Range/Units 06:41 06:41 10:07 WBC 19.8 H (3.8-10.6) k/uL RBC 4.07 L (4.30-5.90) m/uL Hgb 12.2 L (13.0-17.5) gm/dL Hct 37.9 L (39.0-53.0) % RDW 15.9 H (11.5-15.5) % Neutrophils # 18.7 H (1.3-7.7) k/uL Lymphocytes # 0.6 L (1.0-4.8) k/uL ABG pCO2 (35-45) mmHg ABG pO2 (83-108) mmHg ABG HCO3 (21-25) mmol/L ABG Total CO2 (19-24) mmol/L ABG O2 Saturation (94-97) % Creatinine 0.63 L (0.66-1.25) mg/dL Glucose 116 H (74-99) mg/dL POC Glucose (mg/dL) 133 H (75-99) mg/dL Total Protein 5.9 L (6.3-8.2) g/dL Albumin 3.2 L (3.5-5.0) g/dL 03/29/21 Range/Units 10:35 WBC (3.8-10.6) k/uL RBC (4.30-5.90) m/uL Hgb (13.0-17.5) gm/dL Hct (39.0-53.0) % RDW (11.5-15.5) % Neutrophils # (1.3-7.7) k/uL Lymphocytes # (1.0-4.8) k/uL ABG pCO2 49 H (35-45) mmHg ABG pO2 248 H (83-108) mmHg ABG HCO3 29 H (21-25) mmol/L ABG Total CO2 30 H (19-24) mmol/L ABG O2 Saturation 99.8 H (94-97) % Creatinine (0.66-1.25) mg/dL Glucose (74-99) mg/dL POC Glucose (mg/dL) (75-99) mg/dL Total Protein (6.3-8.2) g/dL Albumin (3.5-5.0) g/dL Assessment and Plan Assessment: 1. Metastatic carcinoma most likely of a lung primary - presenting with a large right paratracheal precarinal and subcarinal mass with hilar extension measuring 7.1 x 10 x 7.9 cm in size and there is extensive mass effect on the bronchus intermedius causing significant narrowing. There is some right lower lobe and right middle lobe atelectatic changes and volume loss in addition to a moderate-sized right-sided pleural effusion. Patient also has herpetic lesions and the presentation is highly suspicious for stage IV metastatic carcinoma of a lung primary. Patient is currently in the MICU. Fluid cytology is pending. 2. Acute hypoxic respiratory failure; - atelectasis and volume loss involving the right lung including the right middle lobe and right lower lobe and the patient has a large right-sided pleural effusion. A bedside thoracentesis was done; patient was on BiPAP - a total of 800 mL of blood-tinged fluid was aspirated from the right lung. The fluid will be sent for cytology. - IV Zosyn for postobstructive pneumonia; DuoNeb nebulizer treatment [id number] - IV Solu Medrol 60 mg every 6 hours. Changed to prednisone 40 mg daily. Patient was started on BiPAP due to worsening respiratory status this morning. Pulmonary was reconsulted. 3. Acute exacerbation COPD; DuoNeb nebulizer treatments along with Solu-Medrol 60 mg IV every 6 hours 4. Severe protein calorie malnourishment/cachexia; emaciation and weight loss. Current by the weight is around 90 pounds; recommend dietary consult. 5. Acute leukocytosis with lactic acidosis/ sepsis; secondary to postobstructive pneumonia; patient started on IV antibiotics 6. Elevated troponin; possibly demand ischemia secondary to acute respiratory failure 7. Alcoholism; patient placed on CIWA protocol with Ativan; thiamine 100 mg twice a day 8. Large right MCA distribution CVA with some residual left-sided weakness; continue with aspirin and Lipitor 9. Hypertension; takes lisinopril at home which will be placed on hold for risk of impending hypotension due to sepsis 10. Hyperlipidemia; Lipitor 20 mg by mouth daily at bedtime 11. Peripheral vascular disease with questionable cut off level of the aorta. Given examination, the patient is not having any significant vascular insufficiency and the patient has diminished pulses in the legs bilaterally. Vascular surgery is consulted and recommendations are pending DVT prophylaxis; SCDs/subcu heparin CODE STATUS; DO NOT RESUSCITATE/DO NOT INTUBATE. Prognosis poor. Time with Patient: Greater than 30
[2021-03-30] MEDS: SALT AND SODA MOUTHWASH 1,000 ML PO SCH ×4 (06:17→20:13)
[2021-03-30] MEDS: IPRATROPIUM-ALBUTEROL 3 ML NEB INHALATION SCH ×4 (07:25→19:04)
[2021-03-30] MEDS: THIAMINE 100 MG TAB PO SCH ×2 (08:42→16:15)
[2021-03-30] MEDS: METOPROLOL TARTRATE 12.5 MG TAB PO SCH ×2 (08:42→20:12)
[2021-03-30] MEDS: FAMOTIDINE 20 MG TAB PO SCH ×2 (08:42→20:12)
[2021-03-30] MEDS: MEGESTROL 400 MG/10 ML CUP PO SCH (08:43)
[2021-03-30] MEDS: NYSTATIN 100,000 UNIT/ML SUSP 500,000 UNIT/5 ML CUP PO SCH ×4 (08:44→20:12)
[2021-03-30] MEDS: ENOXAPARIN 40 MG/0.4 ML SYRINGE SQ SCH (08:44)
[2021-03-30] MEDS: LORazepam 2 MG/ML INJ IV PRN ×2 (16:11→21:54)
[2021-03-30] MEDS: SODIUM CHLORIDE 0.9% 1,000 ML IV SCH ×2 (16:14→20:13)
[2021-03-30] MEDS: DONEPEZIL 10 MG TAB PO SCH (20:12)
[2021-03-30] MEDS: ATORVASTATIN 10 MG TAB PO SCH (20:13)
--- NOTE | 2021-03-31 00:33 | P.PN ---
Subjective Progress Note Date: 03/30/21 Principal diagnosis: Metastatic carcinoma; most likely primary lung Acute hypoxic respiratory failure Postobstructive pneumonia Severe malnutrition protein calorie/debility 65-year-old male presenting with severe respiratory distress. 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 He is still a daily alcohol drinker. He drinks alcohol heavily and he is currently a cigarette smoker on a daily basis. He is quite cachectic, emaciated, debilitated, weak, and malnourished. Does not have any headache. No seizure. Patient had been sent from the primary care office with hypoxia. He was diagn osed with effusion and fluid overload as well as hypoxia in the emergency department yesterday but had left AGAINST MEDICAL ADVICE. He had an elevated troponin, elevated BNP. 03/15/2021 Patient is seen for a follow-up in the intensive care unit. The patient is a ICU overflow. For now, the patient on a BiPAP at a pressure of 14/6 cm of water with an FiO2 of 1. The pulse ox measures and is not aggravated and the blood gases will be needed. The patient is urinating adequate tidal volumes and has a respiratory rate of 16-20. He remains quite lethargic, somnolent yet arousable. Extremely cachectic and emaciated. Hemodynamically stable. As mentioned earlier, a emergent right-sided thoracentesis was done yesterday of the right lung and a total of 800 mL of pleural fluid was aspirated successfully. Nevertheless, the follow-up chest x-ray still showing significant volume loss in the right lung related to his underlying lung mass as the patient has a large mass encasing the right hilar structures and the right mainstem bronchus and the bronchus intermedius. Currently is on bronchodilators and steroids. No fever. No chills. Resting comfortably in bed. Does not communicate a whole lot. Family is not around. Would like to talk to the family regarding treatment. As the patient's prognosis extremely poor baseline above-mentioned comorbidities. Fluid cytology is pending for now. 03/16/2021 Patient is seen and evaluated in room at bedside; sustained a fall with abrasion to right eyebrow with small hematoma. The patient is much more awake compared to yesterday. He was taken off the BiPAP. He was switched to nasal cannula and currently is on room air oxygen. Chest x-ray showing volume loss and they large hilar mass with atelectatic changes as described earlier involving the right lower lung area. -- He remains on bronchodilators; steroids and IV Zosyn as an empiric antibiotic coverage for any postobstructive pneumonia. White cell count is 15.3 with a hemoglobin 0.3. Normal renal function. Lactic acid level is down to 2.2. Urinalysis was abnormal and cultures are still pending for now. Patient underwent thoracentesis right lung with a total of 800 mL of pleural fluid was aspirated. Fluid cytology still pending for now. Repeat chest x-ray from today shows no significant interval change. There is volume loss on the right. The patient is extremely cachectic and in mental status as discussed earlier. No focal neurological deficits. His CODE STATUS has been switched to a DO NOT RESUSCITATE and DO NOT INTUBATE per job development specialist discussion with the family. 2-D echo reveals global left ventricular dysfunction with EF of 25%; cardiology on board and recommending to start low-dose beta blockers and monitor blood pressure closely; plan is for the workup for cardiomyopathy with gradual addition of heart failure medications. 03/17/2021 Patient is currently lying in the bed. On oxygen via nasal cannula. Denied any complaints of chest pain. Patient is lethargic and seems confused. Rate is being converted on bronchodilators and antibiotics in the form of Zosyn. Next check iron CODE STATUS is DO NOT RESUSCITATE/DO NOT INTUBATE. Fluid cytology from thoracentesis is pending at this time. 03/18/2021 Patient is currently in the MICU. Seems comfortable. On room air. Confused but more awake and oriented today. Patient is being continued on Antivert the form of Zosyn and IV steroids being changed to prednisone 40 mg daily. Fluid cytology is pending. Patient has been afebrile. No complaints of chest pain. No nausea vomiting or abdominal pain or diarrhea. Chest x-ray showed stable appearance yesterday. Pulmonary is planning for bronchoscopy if fluid cytology from thoracentesis is negative. 03/19/2021 Patient is currently in MICU and is lying in the bed comfortably. No compressive chest pain or worsening shortness of breath. Status post paracentesis and fluid cytology is pending at this time. Patient is being continued on Zosyn and prednisone 40 mg daily. Pulmonary is planning for bronchoscopy if fluid cytology is negative. Otherwise patient has been afebrile. Saturating at 94% on room air. Chest x-ray showed complete opacification of right hemithorax which has progressed since prior study. Hyperinflation left lung. Mediastinal shift from left to right. 03/21/2021 Patient is seen and evaluated in follow-up with family at the bedside currently on 5 N. MedSurg with no acute overnight issues noted. Patient was up and working with physical therapy this morning with standby assistance and a walker. Patient continues to be weak although is improving slowly. Patient currently sitting up in the bed comfortably on room air and denies any worsening shortness of breath. Patient is continued on breathing inhalational treatments with pulmonary following closely. Plan is for bronchoscopy with biopsy to confirm diagnosis. Oncology on board as well. Patient also scheduled to undergo brain MRI to evaluate for any metastasis to the brain. Patient continues with a cough that is dry in nature. Patient reports to tolerating diet with no reports of nausea or vomiting noted. Patient is currently nothing by mouth for the procedure and will await report. White blood count is 10.8 with a hemoglobin of 11.7, sodium is 138 with a potassium of 3.3 and will replace and repeat labs. Creatinine is 0.6. Magnesium is 1.9. Patient to continue on IV Zosyn and oral steroids. Radiation oncology being consulted. Patient is a no code. Social work following as well with possibility of ECF once stabilized and discharged. Insurance requires authorization as well. 03/24/2021 Patient is seen and evaluated and follow-up and had a lengthy discussion with at the bedside. Patient is refusing to go to rehab states he just wants to go home. 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 Patient continues to be weak although does have a walker and wheelchair at the home and patient is reluctant to go to rehab and will set up with home care as the patient's is alone and states she needs assistance with his care. Oncology along with radiation oncology following and would like a discussion with patient and her at the bedside as she feels he is not understanding his overall prognosis. Case management following and they are agreeable to palliative care and referral is being placed. Patient is scheduled to undergo bone scan today. 03/25/2021 Patient is seen in follow-up this morning currently undergoing chest ultrasound for possible thoracentesis in the morning with pulmonary. Patient was seen and evaluated by vascular surgery and is not a surgical candidate for a Pleurx catheter. Patient continues to plan on discharging home with home care and will follow-up outpatient with oncology along with radiation oncology after discussing with his about treatment plan. Patient is weak at times and using a walker and has been working with physical therapy and arrangements are being made for discharge planning needs and necessary medical equipment in the home. Case management following and working on this. Patient does continue to have shortness of breath with exertion and maintaining oxygen above 90% on room air. Patient is afebrile. Patient will be nothing by mouth at midnight for the procedure. 03/26/2021 Patient is seen and evaluated in follow-up this morning and per pulmonary not enough effusion noted to perform thoracentesis and will continue to monitor closely. Patient still is having some shortness of breath and intermittent use of oxygen at 2 L. Had a lengthy discussion with oncology about treatment plan moving forward along with at the bedside and the patient who is agreeable to starting chemotherapy and finishing the first cycle and then going to rehab for some strength and mobility. Patient is to receive a PICC line and will have 3 days of chemotherapy and will monitor closely. Patient continues to have intermittent periods of confusion but is more alert and awake and receptive to starting treatment. Patient working with PT/OT therapy daily and continues to be weak and explained to the patient with at the bedside in detail about needing rehab once this first cycle was done for strength and mobility. Will re peat labs and monitor closely. Patient is tolerating diet with no reports of nausea or vomiting noted. Patient needs assistance of the bedside commode. Patient is afebrile. 03/27/2021 Patient is seen in follow up this morning and has received a PICC line and being started on day 1 of 3 chemotherapy with oncology following closely. Monitor labs and patient closely and continue with supportive management. Social work following and patient has been accepted at [facility] with auth approval until 04/01. Patient will need three days of chemotherapy with daily labs and will continue to encourage increased ambulation and PT/OT daily. Continue with supplemental 02. Pulmonary also following. 03/28/2021 Patient is seen this morning continues to have periods of confusion and agitation. Patient currently on day 2 of 3 chemotherapy with oncology following closely. White blood count elevated at 15.5, hemoglobin is 12.6, platelets are 151, sodium is 134 with a potassium of 4.3. Creatinine is 0.58. LFTs within normal limits. Patient continues on 3 L via nasal cannula and will continue. Patient is afebrile. Patient also continued on IV dexamethasone and received second of third dose today. Continue with anticoagulation with Lovenox subcu and continued breathing inhalational treatments. We'll continue with daily labs and monitor closely. 03/29/2021 Patient is currently awake alert and oriented. On BiPAP. Today morning patient became more short of breath and bilateral diminished air entry especially on the right side and diffuse crackles noted. Patient was given a dose of IV Lasix. Patient continues to have short of breath and was placed on BiPAP. ABGs were obtained showed a pH of 7.38 PCO2 49 9 PO2 248.Patient was seen by rapid response team. Laboratory showed WBC 19.8 hemoglobin 12.1 platelets 172 BUN 70 and creatinine 0.63. Chest x-ray showed complete obscuration of the right hemithorax with right mediastinal shift. This is likely a combination of atelectasis effusion and perhaps lung mass. Patient has been afebrile. Pulmonary was reconsulted and chest ultrasound was ordered as per recommendations for possible thoracentesis.. 03/30/2021 Patient is currently lying in the bed. Requiring BiPAP support. Denied any complaints of chest pain. Patient is awake alert oriented x3. Possible IR guided right-sided thoracentesis on Wednesday. Ultrasound of the chest showed moderate right small left pleural effusions. Continue to monitor respiratory status closely. Discussed with the patient and family at bedside in detail. Review of systems: Constitutional: No reports of fatigue, fever, or chills Cardiovascular: No reports of chest pain or palpitations Respiratory: reports shortness of breath with continued dry cough, with minimal exertion GI: No reports of nausea, vomiting, or diarrhea : No reports of dysuria or retention Neurovascular: reports generalized weakness All medications have been reviewed Objective - Vital Signs Vital signs: Vital Signs Temp 97.5 F L 03/30/21 12:38 Pulse 82 03/30/21 15:26 Resp 17 03/30/21 12:38 BP 144/82 03/30/21 12:38 Pulse Ox 91 L 03/30/21 12:38 Intake & Output 03/29/21 03/30/21 03/30/21 18:59 06:59 18:59 Intake Total 0 Output Total 100 Balance 0 -100 Intake: Oral 0 Output: Urine 100 Other: Voiding Method Diaper Diaper Diaper # Voids 2 2 - Exam PHYSICAL EXAMINATION: Patient is lying in the bed comfortably, no acute distress, awake alert and oriented. Feels weak and lethargic.. HEENT: Normocephalic. Neck is supple. Pupils reactive. Nostrils clear. Oral cavity is moist. Neck reveals no JVD, carotid bruits, or thyromegaly. CHEST EXAMINATION: Trachea is central. Symmetrical expansion. Bilateral diminished sounds. Scattered wheezing, crackles. CARDIAC: Normal S1, S2 with no gallops. No murmurs ABDOMEN: Soft. Bowel sounds normal. No organomegaly. No abdominal bruits. Extremities: reveal no edema. No clubbing or cyanosis Neurologically awake, alert, oriented x3 with well-coordinated movements. No focal deficits noted Skin: No rash or skin lesions. Psychiatric: Coperative. Nonsuicidal Musculoskeletal: No joint swelling or deformity. Normal range of motion. - Labs CBC & Chem 7: 03/29/21 06:41 03/29/21 06:41 Assessment and Plan Assessment: 1. Metastatic carcinoma most likely of a lung primary - presenting with a large right paratracheal precarinal and subcarinal mass with hilar extension measuring 7.1 x 10 x 7.9 cm in size and there is extensive mass effect on the bronchus intermedius causing significant narrowing. There is some right lower lobe and right middle lobe atelectatic changes and volume loss in addition to a moderate-sized right-sided pleural effusion. Patient also has herpetic lesions and the presentation is highly suspicious for stage IV metastatic carcinoma of a lung primary. Patient is currently in the MICU. Fluid cytology is pending. 2. Acute hypoxic respiratory failure; - atelectasis and volume loss involving the right lung including the right middle lobe and right lower lobe and the patient has a large right-sided pleural effusion. A bedside thoracentesis was done; patient was on BiPAP - a total of 800 mL of blood-tinged fluid was aspirated from the right lung. The fluid will be sent for cytology. - IV Zosyn for postobstructive pneumonia; DuoNeb nebulizer treatment [id number] - IV Solu Medrol 60 mg every 6 hours. Changed to prednisone 40 mg daily. Patient was started on BiPAP due to worsening respiratory status this morning. Pulmonary was reconsulted. 3. Acute exacerbation COPD; DuoNeb nebulizer treatments along with Solu-Medrol 60 mg IV every 6 hours 4. Severe protein calorie malnourishment/cachexia; emaciation and weight loss. Current by the weight is around 90 pounds; recommend dietary consult. 5. Acute leukocytosis with lactic acidosis/ sepsis; secondary to postobstructive pneumonia; patient started on IV antibiotics 6. Elevated troponin; possibly demand ischemia secondary to acute respiratory failure 7. Alcoholism; patient placed on CIWA protocol with Ativan; thiamine 100 mg twice a day 8. Large right MCA distribution CVA with some residual left-sided weakness; continue with aspirin and Lipitor 9. Hypertension; takes lisinopril at home which will be placed on hold for risk of impending hypotension due to sepsis 10. Hyperlipidemia; Lipitor 20 mg by mouth daily at bedtime 11. Peripheral vascular disease with questionable cut off level of the aorta. Given examination, the patient is not having any significant vascular insufficiency and the patient has diminished pulses in the legs bilaterally. Vascular surgery is consulted and recommendations are pending DVT prophylaxis; SCDs/subcu heparin CODE STATUS; DO NOT RESUSCITATE/DO NOT INTUBATE. Prognosis poor. Time with Patient: Greater than 30
[2021-03-31] MEDS: SALT AND SODA MOUTHWASH 1,000 ML PO SCH ×5 (00:55→20:24)
[2021-03-31] MEDS: IPRATROPIUM-ALBUTEROL 3 ML NEB INHALATION SCH ×4 (08:31→20:16)
[2021-03-31] MEDS: ENOXAPARIN 40 MG/0.4 ML SYRINGE SQ SCH (08:56)
[2021-03-31] MEDS: FAMOTIDINE 20 MG TAB PO SCH ×2 (08:56→20:25)
[2021-03-31] MEDS: THIAMINE 100 MG TAB PO SCH ×2 (08:56→17:26)
[2021-03-31] MEDS: METOPROLOL TARTRATE 12.5 MG TAB PO SCH ×2 (08:57→20:25)
[2021-03-31] MEDS: MEGESTROL 400 MG/10 ML CUP PO SCH (08:57)
[2021-03-31] MEDS: NYSTATIN 100,000 UNIT/ML SUSP 500,000 UNIT/5 ML CUP PO SCH ×4 (08:57→20:25)
[2021-03-31 11:17] VITALS: BMI 15.5
[2021-03-31] MEDS: LORazepam 2 MG/ML INJ IV PRN ×2 (16:08→19:59)
[2021-03-31] MEDS: SODIUM CHLORIDE 0.9% 1,000 ML IV SCH (17:26)
[2021-03-31] MEDS: DONEPEZIL 10 MG TAB PO SCH (20:24)
[2021-03-31] MEDS: ATORVASTATIN 10 MG TAB PO SCH (20:24)
--- NOTE | 2021-03-31 23:21 | P.PN ---
Subjective Progress Note Date: 03/31/21 Principal diagnosis: Metastatic carcinoma; most likely primary lung Acute hypoxic respiratory failure Postobstructive pneumonia Severe malnutrition protein calorie/debility 65-year-old male presenting with severe respiratory distress. 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 He is still a daily alcohol drinker. He drinks alcohol heavily and he is currently a cigarette smoker on a daily basis. He is quite cachectic, emaciated, debilitated, weak, and malnourished. Does not have any headache. No seizure. Patient had been sent from the primary care office with hypoxia. He was diagn osed with effusion and fluid overload as well as hypoxia in the emergency department yesterday but had left AGAINST MEDICAL ADVICE. He had an elevated troponin, elevated BNP. 03/15/2021 Patient is seen for a follow-up in the intensive care unit. The patient is a ICU overflow. For now, the patient on a BiPAP at a pressure of 14/6 cm of water with an FiO2 of 1. The pulse ox measures and is not aggravated and the blood gases will be needed. The patient is urinating adequate tidal volumes and has a respiratory rate of 16-20. He remains quite lethargic, somnolent yet arousable. Extremely cachectic and emaciated. Hemodynamically stable. As mentioned earlier, a emergent right-sided thoracentesis was done yesterday of the right lung and a total of 800 mL of pleural fluid was aspirated successfully. Nevertheless, the follow-up chest x-ray still showing significant volume loss in the right lung related to his underlying lung mass as the patient has a large mass encasing the right hilar structures and the right mainstem bronchus and the bronchus intermedius. Currently is on bronchodilators and steroids. No fever. No chills. Resting comfortably in bed. Does not communicate a whole lot. Family is not around. Would like to talk to the family regarding treatment. As the patient's prognosis extremely poor baseline above-mentioned comorbidities. Fluid cytology is pending for now. 03/16/2021 Patient is seen and evaluated in room at bedside; sustained a fall with abrasion to right eyebrow with small hematoma. The patient is much more awake compared to yesterday. He was taken off the BiPAP. He was switched to nasal cannula and currently is on room air oxygen. Chest x-ray showing volume loss and they large hilar mass with atelectatic changes as described earlier involving the right lower lung area. -- He remains on bronchodilators; steroids and IV Zosyn as an empiric antibiotic coverage for any postobstructive pneumonia. White cell count is 15.3 with a hemoglobin 0.3. Normal renal function. Lactic acid level is down to 2.2. Urinalysis was abnormal and cultures are still pending for now. Patient underwent thoracentesis right lung with a total of 800 mL of pleural fluid was aspirated. Fluid cytology still pending for now. Repeat chest x-ray from today shows no significant interval change. There is volume loss on the right. The patient is extremely cachectic and in mental status as discussed earlier. No focal neurological deficits. 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 2-D echo reveals global left ventricular dysfunction with EF of 25%; cardiology on board and recommending to start low-dose beta blockers and monitor blood pressure closely; plan is for the workup for cardiomyopathy with gradual addition of heart failure medications. 03/17/2021 Patient is currently lying in the bed. On oxygen via nasal cannula. Denied any complaints of chest pain. Patient is lethargic and seems confused. Rate is being converted on bronchodilators and antibiotics in the form of Zosyn. Next check iron CODE STATUS is DO NOT RESUSCITATE/DO NOT INTUBATE. Fluid cytology from thoracentesis is pending at this time. 03/18/2021 Patient is currently in the MICU. Seems comfortable. On room air. Confused but more awake and oriented today. Patient is being continued on Antivert the form of Zosyn and IV steroids being changed to prednisone 40 mg daily. Fluid cytology is pending. Patient has been afebrile. No complaints of chest pain. No nausea vomiting or abdominal pain or diarrhea. Chest x-ray showed stable appearance yesterday. Pulmonary is planning for bronchoscopy if fluid cytology from thoracentesis is negative. 03/19/2021 Patient is currently in MICU and is lying in the bed comfortably. No compressive chest pain or worsening shortness of breath. Status post paracentesis and fluid cytology is pending at this time. Patient is being continued on Zosyn and prednisone 40 mg daily. Pulmonary is planning for bronchoscopy if fluid cytology is negative. Otherwise patient has been afebrile. Saturating at 94% on room air. Chest x-ray showed complete opacification of right hemithorax which has progressed since prior study. Hyperinflation left lung. Mediastinal shift from left to right. 03/21/2021 Patient is seen and evaluated in follow-up with family at the bedside currently on 5 N. MedSurg with no acute overnight issues noted. Patient was up and working with physical therapy this morning with standby assistance and a walker. Patient continues to be weak although is improving slowly. Patient currently sitting up in the bed comfortably on room air and denies any worsening shortness of breath. Patient is continued on breathing inhalational treatments with pulmonary following closely. Plan is for bronchoscopy with biopsy to confirm diagnosis. Oncology on board as well. Patient also scheduled to undergo brain MRI to evaluate for any metastasis to the brain. Patient continues with a cough that is dry in nature. Patient reports to tolerating diet with no reports of nausea or vomiting noted. Patient is currently nothing by mouth for the procedure and will await report. White blood count is 10.8 with a hemoglobin of 11.7, sodium is 138 with a potassium of 3.3 and will replace and repeat labs. Creatinine is 0.6. Magnesium is 1.9. Patient to continue on IV Zosyn and oral steroids. Radiation oncology being consulted. Patient is a no code. Social work following as well with possibility of ECF once stabilized and discharged. Insurance requires authorization as well. 03/24/2021 Patient is seen and evaluated and follow-up and had a lengthy discussion with at the bedside. Patient is refusing to go to rehab states he just wants to go home. 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 Patient continues to be weak although does have a walker and wheelchair at the home and patient is reluctant to go to rehab and will set up with home care as the patient's is alone and states she needs assistance with his care. Oncology along with radiation oncology following and would like a discussion with patient and her at the bedside as she feels he is not understanding his overall prognosis. Case management following and they are agreeable to palliative care and referral is being placed. Patient is scheduled to undergo bone scan today. 03/25/2021 Patient is seen in follow-up this morning currently undergoing chest ultrasound for possible thoracentesis in the morning with pulmonary. Patient was seen and evaluated by vascular surgery and is not a surgical candidate for a Pleurx catheter. Patient continues to plan on discharging home with home care and will follow-up outpatient with oncology along with radiation oncology after discussing with his about treatment plan. Patient is weak at times and using a walker and has been working with physical therapy and arrangements are being made for discharge planning needs and necessary medical equipment in the home. Case management following and working on this. Patient does continue to have shortness of breath with exertion and maintaining oxygen above 90% on room air. Patient is afebrile. Patient will be nothing by mouth at midnight for the procedure. 03/26/2021 Patient is seen and evaluated in follow-up this morning and per pulmonary not enough effusion noted to perform thoracentesis and will continue to monitor closely. Patient still is having some shortness of breath and intermittent use of oxygen at 2 L. Had a lengthy discussion with oncology about treatment plan moving forward along with at the bedside and the patient who is agreeable to starting chemotherapy and finishing the first cycle and then going to rehab for some strength and mobility. Patient is to receive a PICC line and will have 3 days of chemotherapy and will monitor closely. Patient continues to have intermittent periods of confusion but is more alert and awake and receptive to starting treatment. Patient working with PT/OT therapy daily and continues to be weak and explained to the patient with at the bedside in detail about needing rehab once this first cycle was done for strength and mobility. Will re peat labs and monitor closely. Patient is tolerating diet with no reports of nausea or vomiting noted. Patient needs assistance of the bedside commode. Patient is afebrile. 03/27/2021 Patient is seen in follow up this morning and has received a PICC line and being started on day 1 of 3 chemotherapy with oncology following closely. Monitor labs and patient closely and continue with supportive management. Social work following and patient has been accepted at [facility] with auth approval until 04/01. Patient will need three days of chemotherapy with daily labs and will continue to encourage increased ambulation and PT/OT daily. Continue with supplemental 02. Pulmonary also following. 03/28/2021 Patient is seen this morning continues to have periods of confusion and agitation. Patient currently on day 2 of 3 chemotherapy with oncology following closely. White blood count elevated at 15.5, hemoglobin is 12.6, platelets are 151, sodium is 134 with a potassium of 4.3. Creatinine is 0.58. LFTs within normal limits. Patient continues on 3 L via nasal cannula and will continue. Patient is afebrile. Patient also continued on IV dexamethasone and received second of third dose today. Continue with anticoagulation with Lovenox subcu and continued breathing inhalational treatments. We'll continue with daily labs and monitor closely. 03/29/2021 Patient is currently awake alert and oriented. On BiPAP. Today morning patient became more short of breath and bilateral diminished air entry especially on the right side and diffuse crackles noted. Patient was given a dose of IV Lasix. Patient continues to have short of breath and was placed on BiPAP. ABGs were obtained showed a pH of 7.38 PCO2 49 9 PO2 248.Patient was seen by rapid response team. Laboratory showed WBC 19.8 hemoglobin 12.1 platelets 172 BUN 70 and creatinine 0.63. Chest x-ray showed complete obscuration of the right hemithorax with right mediastinal shift. This is likely a combination of atelectasis effusion and perhaps lung mass. Patient has been afebrile. Pulmonary was reconsulted and chest ultrasound was ordered as per recommendations for possible thoracentesis.. 03/30/2021 Patient is currently lying in the bed. Requiring BiPAP support. Denied any complaints of chest pain. Patient is awake alert oriented x3. Possible IR guided right-sided thoracentesis on Wednesday. Ultrasound of the chest showed moderate right small left pleural effusions. Continue to monitor respiratory status closely. Discussed with the patient and family at bedside in detail. 03/31/2021 Patient is currently resting in bed comfortably. Still on BiPAP. Awake alert and oriented x3. No complaints of worsening chest pain or shortness of breath. Ultrasound of the chest showed moderate pleural effusion. Possible IR guided thoracentesis on Wednesday. Patient has been afebrile. No headache or dizziness or lightheadedness. Tolerating oral diet off BiPAP. Review of systems: Constitutional: No reports of fatigue, fever, or chills Cardiovascular: No reports of chest pain or palpitations Respiratory: reports shortness of breath with continued dry cough, with minimal exertion GI: No reports of nausea, vomiting, or diarrhea : No reports of dysuria or retention Neurovascular: reports generalized weakness All medications have been reviewed Objective - Vital Signs Vital signs: Vital Signs Temp 97.8 F 03/31/21 12:15 Pulse 108 H 03/31/21 20:29 Resp 18 03/31/21 12:15 BP 135/85 03/31/21 12:15 Pulse Ox 96 03/31/21 12:15 Intake & Output 03/31/21 03/31/21 04/01/21 06:59 18:59 06:59 Intake Total 690 240 Output Total 100 100 Balance 590 140 Weight 42.5 kg 42.5 kg Intake: Intake, IV Titration 240 Amount Sodium Chloride 0.9% 1, 240 000 ml @ 20 mls/hr IV . Q24H CARRILLO Rx#:[id number] Oral 450 240 Output: Urine 100 100 Other: Voiding Method Diaper Diaper # Voids 2 4 - Exam PHYSICAL EXAMINATION: Patient is lying in the bed comfortably, no acute distress, awake alert and oriented. Feels weak and lethargic.. HEENT: Normocephalic. Neck is supple. Pupils reactive. Nostrils clear. Oral cavity is moist. Neck reveals no JVD, carotid bruits, or thyromegaly. CHEST EXAMINATION: Trachea is central. Symmetrical expansion. Bilateral diminished sounds. Scattered wheezing, crackles. CARDIAC: Normal S1, S2 with no gallops. No murmurs ABDOMEN: Soft. Bowel sounds normal. No organomegaly. No abdominal bruits. Extremities: reveal no edema. No clubbing or cyanosis Neurologically awake, alert, oriented x3 with well-coordinated movements. No focal deficits noted Skin: No rash or skin lesions. Psychiatric: Coperative. Nonsuicidal Musculoskeletal: No joint swelling or deformity. Normal range of motion. - Labs CBC & Chem 7: 03/29/21 06:41 03/29/21 06:41 Assessment and Plan Assessment: 1. Metastatic carcinoma most likely of a lung primary - presenting with a large right paratracheal precarinal and subcarinal mass with hilar extension measuring 7.1 x 10 x 7.9 cm in size and there is extensive mass effect on the bronchus intermedius causing significant narrowing. There is some right lower lobe and right middle lobe atelectatic changes and volume loss in addition to a moderate-sized right-sided pleural effusion. Patient also has herpetic lesions and the presentation is highly suspicious for stage IV metastatic carcinoma of a lung primary. Fluid cytology is pending. 2. Acute hypoxic respiratory failure; - atelectasis and volume loss involving the right lung including the right middle lobe and right lower lobe and the patient has a large right-sided pleural effusion. A bedside thoracentesis was done; patient was on BiPAP - a total of 800 mL of blood-tinged fluid was aspirated from the right lung. The fluid will be sent for cytology. - IV Zosyn for postobstructive pneumonia; DuoNeb nebulizer treatment [id number] - IV Solu Medrol 60 mg every 6 hours. Changed to prednisone 40 mg daily. Patient was started on BiPAP due to worsening respiratory status this morning. Pulmonary was reconsulted. 3. Acute exacerbation COPD; DuoNeb nebulizer treatments along with Solu-Medrol 60 mg IV every 6 hours 4. Severe protein calorie malnourishment/cachexia; emaciation and weight loss. Current by the weight is around 90 pounds; recommend dietary consult. 5. Acute leukocytosis with lactic acidosis/ sepsis; secondary to postobstructive pneumonia; patient started on IV antibiotics 6. Elevated troponin; possibly demand ischemia secondary to acute respiratory failure 7. Alcoholism; patient placed on CIWA protocol with Ativan; thiamine 100 mg twice a day 8. Large right MCA distribution CVA with some residual left-sided weakness; continue with aspirin and Lipitor 9. Hypertension; takes lisinopril at home which will be placed on hold for risk of impending hypotension due to sepsis 10. Hyperlipidemia; Lipitor 20 mg by mouth daily at bedtime 11. Peripheral vascular disease with questionable cut off level of the aorta. Given examination, the patient is not having any significant vascular insufficiency and the patient has diminished pulses in the legs bilaterally. Vascular surgery is consulted and recommendations to be followed. DVT prophylaxis; SCDs/subcu heparin CODE STATUS; DO NOT RESUSCITATE/DO NOT INTUBATE. Prognosis poor.
[2021-04-01] MEDS: SALT AND SODA MOUTHWASH 1,000 ML PO SCH ×6 (01:24→22:52)
[2021-04-01 07:21] LABS: Basophils % (A) 0 %; Eosinophils % (A) 0 %; HCT 38.1 % (39.0-53.0); HGB 12.7 gm/dL (13.0-17.5); Lymphocytes # (A) 0.7 k/uL (1.0-4.8); Lymphocytes % (A) 8 %; MCH 30.3 pg (25.0-35.0); MCHC 33.4 g/dL (31.0-37.0); MCV 90.6 fL (80.0-100.0); Mean Platelet Volume 7.6; Monocytes # (A) 0.1 k/uL (0-1.0); Monocytes % (A) 1 %; Neutrophils # (A) 8.7 k/uL (1.3-7.7); Neutrophils % (A) 92 %; Platelet Count 107 k/uL (150-450); RBC 4.21 m/uL (4.30-5.90); RDW 15.6 % (11.5-15.5); WBC 9.5 k/uL (3.8-10.6)
[2021-04-01] MEDS: IPRATROPIUM-ALBUTEROL 3 ML NEB INHALATION SCH ×4 (07:25→18:46)
[2021-04-01] MEDS: FAMOTIDINE 20 MG TAB PO SCH ×2 (08:52→20:46)
[2021-04-01] MEDS: MEGESTROL 400 MG/10 ML CUP PO SCH ×2 (08:54→09:05)
[2021-04-01] MEDS: METOPROLOL TARTRATE 12.5 MG TAB PO SCH ×2 (08:54→20:45)
[2021-04-01] MEDS: THIAMINE 100 MG TAB PO SCH ×2 (08:54→19:12)
[2021-04-01] MEDS: ENOXAPARIN 40 MG/0.4 ML SYRINGE SQ SCH ×2 (08:54→12:07)
[2021-04-01] MEDS: NYSTATIN 100,000 UNIT/ML SUSP 500,000 UNIT/5 ML CUP PO SCH ×5 (08:54→20:59)
[2021-04-01] MEDS: SODIUM CHLORIDE 0.9% 1,000 ML IV SCH (11:15)
[2021-04-01 11:50] LABS: African American GFR (CKD) 130.9 (60.0-200.0); Anion Gap 8.5 mmol/L (4.00-12.00); Calcium 8.5 mg/dL (8.7-10.3); Carbon Dioxide 27.5 mmol/L (21.6-31.8); Non-African American GFR(CKD) 112.9 (60.0-200.0); Potassium 4.4 mmol/L (3.5-5.5)
--- NOTE | 2021-04-01 14:51 | P.PN ---
Subjective Progress Note Date: 04/01/21 Metastatic carcinoma; most likely primary lung Acute hypoxic respiratory failure Postobstructive pneumonia Severe malnutrition protein calorie/debility 65-year-old male presenting with severe respiratory distress. Past medical history is positive for a large right-sided MCA distribution CVA with some m inimal left upper extremity weakness, hyperlipidemia, coronary artery disease, peripheral artery disease and previous history of alcoholism. He is still a daily alcohol drinker. He drinks alcohol heavily and he is currently a cigarette smoker on a daily basis. He is quite cachectic, emaciated, de bilitated, weak, and malnourished. Does not have any headache. No seizure. Patient had been sent from the primary care office with hypoxia. He was diagnosed with effusion and fluid overload as well as hypoxia in the emergency department yesterday but had left AGAINST MEDICAL ADVICE. He had an elevated troponin, elevated BNP. 03/15/2021 Patient is seen for a follow-up in the intensive care unit. The patient is a ICU overflow. For now, the patient on a BiPAP at a pressure of 14/6 cm of water with an FiO2 of 1. The pulse ox measures and is not aggravated and the blood gases will be needed. The patient is urinating adequate tidal volumes and has a respiratory rate of 16-20. He remains quite lethargic, somnolent yet arousable. Extremely cachectic and emaciated. Hemodynamically stable. As mentioned earlier, a emergent right-sided thoracentesis was done yesterday of the right lung and a total of 800 mL of pleural fluid was aspirated successfully. Nevertheless, the follow-up chest x-ray still showing significant volume loss in the right lung related to his underlying lung mass as the patient has a large mass encasing the right hilar structures and the right mainstem bronchus and the bronchus intermedius. Currently is on bronchodilators and steroids. No fever. No chills. Resting comfortably in bed. Does not communicate a whole lot. Family is not around. Would like to talk to the family regarding treatment. As the patient's prognosis extremely poor baseline above-mentioned comorbidities. Fluid cytology is pending for now. 03/16/2021 Patient is seen and evaluated in room at bedside; sustained a fall with abrasion to right eyebrow with small hematoma. The patient is much more awake compared to yesterday. He was taken off the BiPAP. He was switched to nasal cannula and currently is on room air oxygen. Chest x-ray showing volume loss and they large hilar mass with atelectatic changes as described earlier involving the right lower lung area. -- He remains on bronchodilators; steroids and IV Zosyn as an empiric antibiotic coverage for any postobstructive pneumonia. White cell count is 15.3 with a hemoglobin 0.3. Normal renal function. Lactic acid level is down to 2.2. Urinalysis was abnormal and cultures are still pending for now. Patient underwent thoracentesis right lung with a total of 800 mL of pleural fluid was aspirated. Fluid cytology still pending for now. Repeat chest x-ray from today shows no significant interval change. There is volume loss on the right. The patient is extremely cachectic and in mental status as discussed earlier. No focal neurological deficits. His CODE STATUS has been switched to a DO NOT RESUSCITATE and DO NOT INTUBATE per business support professional discussion with the family. 2-D echo reveals global left ventricular dysfunction with EF of 25%; cardiology on board and recommending to start low-dose beta blockers and monitor blood pressure closely; plan is for the workup for cardiomyopathy with gradual addition of heart failure medications. 03/17/2021 Patient is currently lying in the bed. On oxygen via nasal cannula. Denied any complaints of chest pain. Patient is lethargic and seems confused. Rate is being converted on bronchodilators and antibiotics in the form of Zosyn. Next check iron CODE STATUS is DO NOT RESUSCITATE/DO NOT INTUBATE. Fluid cytology from thoracentesis is pending at this time. 03/18/2021 Patient is currently in the MICU. Seems comfortable. On room air. Confused but more awake and oriented today. Patient is being continued on Antivert the form of Zosyn and IV steroids being changed to prednisone 40 mg daily. Fluid cytology is pending. Patient has been afebrile. No complaints of chest pain. No nausea vomiting or abdominal pain or diarrhea. Chest x-ray showed stable appearance yesterday. Pulmonary is planning for bronchoscopy if fluid cytology from thoracentesis is negative. 03/19/2021 Patient is currently in MICU and is lying in the bed comfortably. No compressive chest pain or worsening shortness of breath. Status post paracentesis and fluid cytology is pending at this time. Patient is being continued on Zosyn and prednisone 40 mg daily. Pulmonary is planning for bronchoscopy if fluid cytology is negative. Otherwise patient has been afebrile. Saturating at 94% on room air. Chest x-ray showed complete opacification of right hemithorax which has progressed since prior study. Hyperinflation left lung. Mediastinal shift from left to right. 03/21/2021 Patient is seen and evaluated in follow-up with family at the bedside currently on 5 N. MedSurg with no acute overnight issues noted. Patient was up and wo rking with physical therapy this morning with standby assistance and a walker. Patient continues to be weak although is improving slowly. Patient currently sitting up in the bed comfortably on room air and denies any worsening shortness of breath. Patient is continued on breathing inhalational treatments with pulmonary following closely. Plan is for bronchoscopy with biopsy to confirm diagnosis. Oncology on board as well. Patient also scheduled to undergo brain MRI to evaluate for any metastasis to the brain. Patient continues with a cough that is dry in nature. Patient reports to tolerating diet with no reports of nausea or vomiting noted. Patient is currently nothing by mouth for the procedure and will await report. White blood count is 10.8 with a hemoglobin of 11.7, sodium is 138 with a potassium of 3.3 and will replace and repeat labs. Creatinine is 0.6. Magnesium is 1.9. Patient to continue on IV Zosyn and oral steroids. Radiation oncology being consulted. Patient is a no code. Social work following as well with possibility of ECF once stabilized and discharged. Insurance requires authorization as well. 03/24/2021 Patient is seen and evaluated and follow-up and had a lengthy discussion with at the bedside. Patient is refusing to go to rehab states he just wants to go home. 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 Patient continues to be weak although does have a walker and wheelchair at the home and patient is reluctant to go to rehab and will set up with home care as the patient's is alone and states she needs assistance with his care. Oncology along with radiation oncology following and would like a discussion with patient and her at the bedside as she feels he is not understanding his overall prognosis. Case management following and they are agreeable to palliative care and referral is being placed. Patient is scheduled to undergo bone scan today. 03/25/2021 Patient is seen in follow-up this morning currently undergoing chest ultrasound for possible thoracentesis in the morning with pulmonary. Patient was seen and evaluated by vascular surgery and is not a surgical candidate for a Pleurx catheter. Patient continues to plan on discharging home with home care and will follow-up outpatient with oncology along with radiation oncology after discussing with his about treatment plan. Patient is weak at times and using a walker and has been working with physical therapy and arrangements are being made for discharge planning needs and necessary medical equipment in the home. Case management following and working on this. Patient does continue to have shortness of breath with exertion and maintaining oxygen above 90% on room air. Patient is afebrile. Patient will be nothing by mouth at midnight for the procedure. 03/26/2021 Patient is seen and evaluated in follow-up this morning and per pulmonary not enough effusion noted to perform thoracentesis and will continue to monitor closely. Patient still is having some shortness of breath and intermittent use of oxygen at 2 L. Had a lengthy discussion with oncology about treatment plan moving forward along with at the bedside and the patient who is agreeable to starting chemotherapy and finishing the first cycle and then going to rehab for some strength and mobility. Patient is to receive a PICC line and will have 3 days of chemotherapy and will monitor closely. Patient continues to have intermittent periods of confusion but is more alert and awake and receptive to starting treatment. Patient working with PT/OT therapy daily and continues to be weak and explained to the patient with at the bedside in detail about needing rehab once this first cycle was done for strength and mobility. Will repeat labs and monitor closely. Patient is tolerating diet with no reports of nausea or vomiting noted. Patient needs assistance of the bedside commode. Patient is afebrile. 03/27/2021 Patient is seen in follow up this morning and has received a PICC line and being started on day 1 of 3 chemotherapy with oncology following closely. Monitor labs and patient closely and continue with supportive management. Social work following and patient has been accepted at [facility] with auth approval until 04/01. Patient will need three days of chemotherapy with daily labs and will continue to encourage increased ambulation and PT/OT daily. Continue with supplemental 02. Pulmonary also following. 03/28/2021 Patient is seen this morning continues to have periods of confusion and agitation. Patient currently on day 2 of 3 chemotherapy with oncology following closely. White blood count elevated at 15.5, hemoglobin is 12.6, platelets are 151, sodium is 134 with a potassium of 4.3. Creatinine is 0.58. LFTs within normal limits. Patient continues on 3 L via nasal cannula and will continue. Patient is afebrile. Patient also continued on IV dexamethasone and received second of third dose today. Continue with anticoagulation with Lovenox subcu and continued breathing inhalational treatments. We'll continue with daily labs and monitor closely. 03/29/2021 Patient is currently awake alert and oriented. On BiPAP. Today morning patient became more short of breath and bilateral diminished air entry especially on the right side and diffuse crackles noted. Patient was given a dose of IV Lasix. Patient continues to have short of breath and was placed on BiPAP. ABGs were obtained showed a pH of 7.38 PCO2 49 9 PO2 248.Patient was seen by rapid response team. Laboratory showed WBC 19.8 hemoglobin 12.1 platelets 172 BUN 70 and creatinine 0.63. Chest x-ray showed complete obscuration of the right hemithorax with right mediastinal shift. This is likely a combination of atelectasis effusion and perhaps lung mass. Patient has been afebrile. Pulmonary was reconsulted and chest ultrasound was ordered as per recommendations for possible thoracentesis.. 03/30/2021 Patient is currently lying in the bed. Requiring BiPAP support. Denied any complaints of chest pain. Patient is awake alert oriented x3. Possible IR guided right-sided thoracentesis on Wednesday. Ultrasound of the chest showed moderate right small left pleural effusions. Continue to monitor respiratory status closely. Discussed with the patient and family at bedside in detail. 03/31/2021 Patient is currently resting in bed comfortably. Still on BiPAP. Awake alert and oriented x3. No complaints of worsening chest pain or shortness of breath. Ultrasound of the chest showed moderate pleural effusion. Possible IR guided thoracentesis on Wednesday. 04/01/2021 Patient is seen and examined in follow-up this morning continues to be on BiPAP and unable to tolerate being off. Patient underwent chest ultrasound for possible thoracentesis with pulmonary following closely. Interventional radiology consulted for thoracentesis and patient was maintained on Lovenox and will need to hold with possibility of thoracentesis tomorrow. at the bedside and discussed with the family and daughter of the patient with possible hospice consult for informational. manager information made aware and made the consult. states last to proceed with thoracentesis and see how the patient is doing before making any confirmed decisions about hospice. She is open to receiving information from [facility] at this time. Will continue BiPAP support and hold Lovenox. White blood count is 9.5 with a hemoglobin of 12.7, sodium is 131 with a potassium 4.4 current creatinine is 0.5. Review of systems: Constitutional: reports of fatigue, fever, or chills Cardiovascular: No reports of chest pain or palpitations Respiratory: reports continued shortness of breath GI: No reports of nausea, vomiting, or diarrhea : No reports of dysuria or retention Neurovascular: reports generalized weakness All medications have been reviewed Objective - Vital Signs Vital signs: Vital Signs Temp 97.8 F 04/01/21 05:00 Pulse 75 04/01/21 07:35 Resp 13 04/01/21 07:35 BP 121/59 04/01/21 07:35 Pulse Ox 98 04/01/21 07:35 Intake & Output 03/31/21 04/01/21 04/01/21 18:59 06:59 18:59 Intake Total 240 Output Total 100 Balance 140 Weight 42.5 kg 40.5 kg Intake: Oral 240 Output: Urine 100 Other: Voiding Method Diaper Diaper # Voids 4 - Exam Patient is lying in bed, awake alert and oriented x2 with continued intermittent periods of confusion. Anxious at times. Currently maintained on BiPAP HEENT: Normocephalic. Neck is supple. Pupils reactive. Nostrils clear. Oral cavity is moist. Neck reveals no JVD, carotid bruits, or thyromegaly. CHEST EXAMINATION: Trachea is central. Symmetrical expansion. Diminished breath sounds noted with some coarse bilateral rhonchi and crackles noted CARDIAC: Normal S1, S2 with no gallops. No murmurs ABDOMEN: Soft. Bowel sounds normal. No organomegaly. No abdominal bruits. Extremities: reveal no edema. No clubbing or cyanosis Neurologically awake, alert, oriented x2 with well-coordinated movements. No focal deficits noted Skin: No rash or skin lesions. Psychiatric: Cooperative. Non-suicidal Musculoskeletal: No joint swelling or deformity. Normal range of motion. Diffusely weak - Labs CBC & Chem 7: 04/01/21 06:11 04/01/21 06:11 Labs: Abnormal Lab Results - Last 24 Hours (Table) 04/01/21 Range/Units 06:11 RBC 4.21 L (4.30-5.90) m/uL Hgb 12.7 L (13.0-17.5) gm/dL Hct 38.1 L (39.0-53.0) % RDW 15.6 H (11.5-15.5) % Plt Count 107 L (150-450) k/uL Neutrophils # 8.7 H (1.3-7.7) k/uL Lymphocytes # 0.7 L (1.0-4.8) k/uL Assessment and Plan Assessment: Metastatic carcinoma most likely of lung primary with noted lesions of the liver and pancreas Acute hypoxic respiratory failure secondary to above along with atelectasis and volume loss involving the right lung and right middle lobe and right lower lobe with pleural effusions, now requiring BiPAP COPD acute exacerbation Severe protein malnutrition/cachexia, BMI is 16.2 Acute leukocytosis with lactic acidosis and sepsis, present on admission secondary to postobstructive pneumonia Elevated troponin possibly demand ischemia secondary to acute respiratory failure Alcoholism Large right MCA distribution cerebrovascular accident with some residual left- sided weakness history Hypertension Hyperlipidemia Peripheral vascular disease DVT prophylaxis GI prophylaxis No code Plan: Patient has completed the first cycle of chemotherapy with oncology following closely. Patient is now BiPAP dependent with worsening shortness of breath and interventional radiology consulted for possible thoracentesis as pulmonary unable to do this. Patient is on Lovenox and will need to hold prior to thoracentesis. Possible thoracentesis of effusion in the a.m. Patient continues to be weak and confused at times with family at the bedside. requesting informational meeting with [facility] and would like to see how the patient does status post thoracentesis before making any final decisions about possible hospice house for rehab if patient is improving. Case management and social work following. Will repeat a.m. labs and monitor closely. Due to multiple complex medical issues, prognosis remains extremely poor and guarded.
[2021-04-01] MEDS: LORazepam 2 MG/ML INJ IV PRN ×2 (16:25→21:50)
--- NOTE | 2021-04-01 18:33 | P.PN ---
Subjective Progress Note Date: 04/01/21 04/01/2031, the patient was seen again upon the request of oncology. The patient has been quite short of breath. The patient's has developed complete opacification of the right lung which is probably related to volume loss, atelectasis and possibly some residual effusion. Noted the patient is a case of metastatic small cell lung cancer. The patient had significant mass effect on the bronchus intermedius/right mainstem bronchus based on earlier CAT scan of the chest. Bronchoscopy was not done. Nevertheless, post thoracentesis, the patient felt better and the patient was at one point on room air oxygen. He was quite debilitated. He had a very poor performance and functional status and onc ology met with the family and the patient and he decided to proceed with systemic chemotherapy. The patient is currently on BiPAP. He is on DuoNeb nebulized treatments around the clock. Chest x-ray shows complete opacification of the right lung and the ultrasound of the chest showed a moderate-sized right- sided pleural effusion.. Noted the patient was started on a combination of carboplatinum and and etoposide. IR declined to do his thoracentesis. For that reason pulmonary Was again consulted. In our opinion, I may consider doing a thoracentesis for palliative reasons. Nevertheless, in our opinion, the patient is a hospice candidate and he is not considered to be a good candidate for any ongoing systemic chemotherapy as the patient has a very very poor performance and functional status and poor understanding of his conditions. Objective - Vital Signs Vital signs: Vital Signs Temp 98.5 F 04/01/21 11:25 Pulse 73 04/01/21 11:25 Resp 20 04/01/21 11:25 BP 122/61 04/01/21 11:25 Pulse Ox 100 04/01/21 11:25 Intake & Output 03/31/21 04/01/21 04/01/21 18:59 06:59 18:59 Intake Total 240 Output Total 100 Balance 140 Weight 42.5 kg 40.5 kg Intake: Oral 240 Output: Urine 100 Other: Voiding Method Diaper Diaper Diaper # Voids 4 - Exam Patient is currently on BiPAP for respiratory support with an FiO2 of 50%. Head exam was generally normal. There was no scleral icterus or corneal arcus. Mucous membranes were moist. Neck was supple and without jugular venous distension, thyromegaly, or carotid bruits. Carotids were easily palpable bilaterally. There was no adenopathy. Lungs sounds are diminished specially in the right lung compared to the left. On today's evaluation, the vessels are quite diminished or absent even on the right. Overall breath sounds are quite diminished and the patient is scheduled and scattered external wheeze. There is also dullness to percussion on the right. The patient has a barrel chest. Cardiac exam revealed the PMI to be normally situated and sized. The rhythm was regular and no extrasystoles were noted during several minutes of auscultation. The first and second heart sounds were normal and physiologic splitting of the second heart sound was noted. There were no murmurs, rubs, clicks, or gallops. Abdominal exam revealed normal bowel sounds. The abdomen was soft, non-tender, and without masses, organomegaly, or appreciable enlargement of the abdominal aorta. Examination of the extremities revealed easily palpable radial, femoral and pedal pulses. There was no cyanosis, clubbing or edema. Examination of the skin revealed no evidence of significant rashes, suspicious appearing nevi or other concerning lesions. Neurologically awake alert and there is no focal neurological deficit. He has some tremors and he has global weakness in all 4 extrem - Labs CBC & Chem 7: 04/01/21 06:11 04/01/21 06:11 Labs: Abnormal Lab Results - Last 24 Hours (Table) 04/01/21 04/01/21 Range/Units 06:11 06:11 RBC 4.21 L (4.30-5.90) m/uL Hgb 12.7 L (13.0-17.5) gm/dL Hct 38.1 L (39.0-53.0) % RDW 15.6 H (11.5-15.5) % Plt Count 107 L (150-450) k/uL Neutrophils # 8.7 H (1.3-7.7) k/uL Lymphocytes # 0.7 L (1.0-4.8) k/uL Sodium 131 L (135-145) mmol/L Chloride 95 L (96-109) mmol/L Creatinine 0.5 L (0.6-1.5) mg/dL BUN/Creatinine Ratio 28.00 H (12.00-20.00) Ratio Glucose 69 L (70-110) mg/dL Calcium 8.5 L (8.7-10.3) mg/dL Assessment and Plan Plan: 1 metastatic carcinoma most likely of a lung primary/small cell lung cancer. The patient is presenting with a large right paratracheal precarinal and subcarinal mass with hilar extension measuring 7.1 x 10 x 7.9 cm in size and there is extensive mass effect on the bronchus intermedius causing significant narrowing. There is some right lower lobe and right middle lobe atelectatic changes and volume loss in addition to a moderate-sized right-sided pleural effusion. Patient also has hepatic lesions and the presentation is highly suspicious for stage IV metastatic carcinoma of small cell lung cancer. Noted the diagnosis was confirmed with pleural fluid evaluation. The patient was consented started on a combination of, carboplatinum and [employer]-16. Since his diagnosis, the patient's condition has been still doing poorly. He has developed complete investigation of the right lung which is probably a combinati on of recurrent right-sided pleural effusion and mass effect on the bronchus intermedius. Mother the patient did not receive any bronchoscopy. Currently is on a BiPAP for respiratory support. Initially presented to us with BiPAP and he felt better after his thoracentesis. Very poor performance and functional status 2 acute hypoxic respiratory failure secondary to above. Currently on BiPAP for respiratory support 3 COPD 4 poor insight on his condition, no evidence of HVAC R TECH metastases 5 acute leukocytosis, improved 6 acute lactic acidosis, improved 7 troponin leak 8 Alcoholism 9 Large right MCA distribution CVA with some residual left-sided weakness 10 Smoking 11 Hypertension 12 Hyperlipidemia 13 GERD artery disease 14 Impaired performance and functional spastic and above-mentioned comorbidities 15 Peripheral vascular disease with questionable parathyroid the level of the aorta. Given examination, the patient is not having any significant vascular insufficiency and the patient has diminished pulses in the legs bilaterally. Nevertheless,, the patient has inguinal pulses. The patient was also seen by Dr. Fairchild from vascular surgery. No intervention is recommended. 16 lactic acidosis, improving. 17 severe debility and significant malnourishment and obvious signs of cachexia and and emaciation and weight loss. Current by the weight is around 90 pounds. Patient is taking his oral intake as tolerated. 18 fall without any acute skeletal injuries. Plan Prognosis remains extremely poor. Note opinion, the patient is a poor candidate for any further treatment. He is whether been given a combination of carboplatinum and [employer]-16. In our opinion, this patient should consider hospice care. [id number] a palliative thoracentesis on this patient to give him some symptomatic relief. Oncology is on the case. We are not of soda sure if the right lung is been expanded is largely dependent on the extent of mass effect on the bronchus to be disclosed by the mediastinal mass/tumor. We will do this procedure performed request oncology and family. This H will be done with understanding that this will not change the course of management.\ DNR/DNI CODE STATUS.. Prognosis poor. Palliative chemotherapy was given.
--- NOTE | 2021-04-01 19:04 | P.PCN ---
Date of Procedure: 04/01/21 Operative Findings: Preoperative Diagnosis: right sided pleural effusion, complete opacification of the right lung Postoperative Diagnosis: right sided pleural effusion Procedure(s) Performed: Thoracentesis Anesthesia: local Surgeon: William Haile Estimated Blood Loss (ml): 0 Condition: stable Disposition: same day Operative Findings: A time out was performed and the chest x-ray was reviewed, the appropriate side was confirmed and marked. My hands were washed immediately prior to the procedure. I wore a surgical cap, mask with protective eyewear, sterile gown and sterile gloves throughout the procedure. The patient was prepped and draped in a sterile manner using chlorhexidine scrub after the appropriate level was percussed and confirmed by ultrasound. 1% lidocaine was used to anesthesize the skin, subcutaneous tissue, superior aspect of the rib periosteum and parietal pleura. A finder needle was then introduced over the superior aspect of the rib to locate the pleural fluid; 2colored fluid was aspirated at a depth of approximately 2 cm. A 10-blade scalpel was used to juwan the skin at the insertion site. The [id number]-[id number] needle was then introduced through the skin incision into the pleural space using negative aspiration pressure and the red colometric indicator to confirm appropriate positioning of the needle. The thoracentesis catheter was then threaded without difficulty. A total of 850 ml of turbid colored blood tinged fluid was removed without difficulty. The catheter was then removed. No immediate complications were noted during the procedure. A post-procedure chest x-ray is pending at the time of this note. The fluid will not be sent for studies. Estimated blood loss is 0cc
--- NOTE | 2021-04-01 19:32 | XR ---
EXAMINATION TYPE: XR chest 1V portable DATE OF EXAM: 04/01/2021 COMPARISON: Radiographs 03/29/2021. Ultrasound 03/29/2021. HISTORY: Pleural effusion. TECHNIQUE: Single frontal view of the chest is obtained. FINDINGS: There is decreased right pleural effusion with trace residual. There is development of lar ge right pneumothorax. There is partial collapse of the right lung with minimal aeration. There is r ightward mediastinal shift. Otherwise the cardiac silhouette size is within normal limits. The osse ous structures are intact. The left PICC remains in place. IMPRESSION: Development of large right pneumothorax in the setting of decreased pleural effusion. Findings may re present ex vacuo pneumothorax. Associated rightward mediastinal shift.
[2021-04-01] MEDS: ATORVASTATIN 10 MG TAB PO SCH (20:45)
[2021-04-01] MEDS: DONEPEZIL 10 MG TAB PO SCH (20:46)
--- NOTE | 2021-04-01 20:59 | P.PN ---
Progress Note - Text Progress Note Date: 04/01/21 post thoracentesis, the patient developed a pneumothorax on the right. This is a pneumothorax ex vacuo. Do not recommend chest tube insertion. The right lung is trapped and mediastinal mass is causing mass effect on the bronchus intermedius. It'll be very unlikely for the right lung to expand even if the chest tube was inserted. Recommend hospice care.
--- NOTE | 2021-04-01 21:16 | P.PN ---
Subjective Progress Note Date: 04/01/21 Principal diagnosis: Small Cell lung Cancer Respiratory distress requiring bipap over weekend. IR consulted for thoracentesis however unable to attempt with timeframe of lovenox. I have discussed with pulmonology who will reassess, defer further intervention Objective - Vital Signs Vital signs: Vital Signs Temp 98.5 F 04/01/21 20:26 Pulse 92 04/01/21 20:26 Resp 17 04/01/21 20:26 BP 123/78 04/01/21 20:26 Pulse Ox 100 04/01/21 11:25 Intake & Output 04/01/21 04/01/21 04/02/21 06:59 18:59 06:59 Weight 40.5 kg Other: Voiding Method Diaper Diaper - Exam - Constitutional General appearance: Bipap increased effort - Respiratory Respiratory: bilateral: diminished, increased effort - Cardiovascular Rhythm: abnormal - Peripheral edema leg Peripheral Edema: bilateral: None - Gastrointestinal General gastrointestinal: Present: normal bowel sounds, soft - Integumentary Integumentary: Present: pale, eccymosis - Neurologic Neurologic:ramonita - Musculoskeletal Musculoskeletal: Present: generalized weakness, atrophy - Psychiatric Psychiatric Comment(s): Bipap Cachetic - Labs CBC & Chem 7: 04/01/21 06:11 04/01/21 06:11 Labs: Abnormal Lab Results - Last 24 Hours (Table) 04/01/21 04/01/21 Range/Units 06:11 06:11 RBC 4.21 L (4.30-5.90) m/uL Hgb 12.7 L (13.0-17.5) gm/dL Hct 38.1 L (39.0-53.0) % RDW 15.6 H (11.5-15.5) % Plt Count 107 L (150-450) k/uL Neutrophils # 8.7 H (1.3-7.7) k/uL Lymphocytes # 0.7 L (1.0-4.8) k/uL Sodium 131 L (135-145) mmol/L Chloride 95 L (96-109) mmol/L Creatinine 0.5 L (0.6-1.5) mg/dL BUN/Creatinine Ratio 28.00 H (12.00-20.00) Ratio Glucose 69 L (70-110) mg/dL Calcium 8.5 L (8.7-10.3) mg/dL Assessment and Plan (1) Small cell lung cancer Current Visit: Yes Status: Acute Priority: High Code(s): C34.90 - MALIGNANT NEOPLASM OF UNSP PART OF UNSP BRONCHUS OR LUNG SNOMED Code(s): 965326187 (2) Malignant pleural effusion Current Visit: Yes Status: Acute Code(s): J91.0 - MALIGNANT PLEURAL EFFUSION SNOMED Code(s): 201891559 Plan: Assessment and Plan (1) Small cell lung cancer 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 Current Visit: Yes Status: Acute Priority: High Code(s): C34.90 - MALIGNANT NEOPLASM OF UNSP PART OF UNSP BRONCHUS OR LUNG SNOMED Code(s): 247119866 Acute Hypoxic Respiratory Failure: - Now requiring Bipap - Discussed with Pulmonology regarding thoracentesis versus bronchoscopy Physician Attest: I have compleed the full history and physical and agree with above dictation, dictated as a scribe
[2021-04-02] MEDS: LORazepam 2 MG/ML INJ IV PRN ×3 (02:05→16:25)
[2021-04-02 05:43] LABS: Basophils % (A) 0 %; Eosinophils % (A) 0 %; HCT 36.5 % (39.0-53.0); HGB 12.1 gm/dL (13.0-17.5); Lymphocytes # (A) 0.7 k/uL (1.0-4.8); Lymphocytes % (A) 10 %; MCH 29.9 pg (25.0-35.0); MCHC 33.2 g/dL (31.0-37.0); Mean Platelet Volume 7.1; Monocytes # (A) 0.1 k/uL (0-1.0); Monocytes % (A) 1 %; Neutrophils # (A) 6.1 k/uL (1.3-7.7); Neutrophils % (A) 89 %; RBC 4.05 m/uL (4.30-5.90); RDW 15.8 % (11.5-15.5); WBC 6.9 k/uL (3.8-10.6)
[2021-04-02 05:48] LABS: INR 1.1 (<1.2); Prothrombin Time 11.3 sec (9.0-12.0)
[2021-04-02 05:53] LABS: ALT 14 U/L (4-49); AST 44 U/L (17-59); African American GFR (CKD) >90 (>60 ml/min/1.73 sqM); Albumin/Globulin Ratio 1.1; Alkaline Phosphatase 54 U/L (38-126); Anion Gap 4 mmol/L; Blood Urea Nitrogen 12 mg/dL (9-20); Calcium 8.5 mg/dL (8.4-10.2); Carbon Dioxide 29 mmol/L (22-30); Chloride 96 mmol/L (98-107); Globulin 2.7 g/dL; Glucose 85 mg/dL (74-99); Magnesium 1.9 mg/dL (1.6-2.3); Non-African American GFR(CKD) >90 (>60 ml/min/1.73 sqM); Potassium 4.3 mmol/L (3.5-5.1); Sodium 129 mmol/L (137-145); Total Bilirubin 0.8 mg/dL (0.2-1.3); Total Protein 5.7 g/dL (6.3-8.2)
[2021-04-02] MEDS: SALT AND SODA MOUTHWASH 1,000 ML PO SCH ×5 (05:55→22:50)
[2021-04-02 06:11] LABS: Platelet Count 76 k/uL (150-450)
--- NOTE | 2021-04-02 07:45 | XR ---
EXAMINATION TYPE: XR chest 1V portable DATE OF EXAM: 04/02/2021 HISTORY: Shortness of breath. COMPARISON: 04/01/2021 TECHNIQUE: Single view of the chest is submitted. FINDINGS: Large right-sided pneumothorax unchanged from prior study. Hyperinflation of the left lung with media stinal shift from left to right. Small right-sided pleural effusion. Left-sided PICC line unchanged i n position. The heart is stable. Degenerative changes are seen of the dorsal spine. IMPRESSION: 1. Large right-sided pneumothorax unchanged from prior study. Hyperinflation of the left lung with m ediastinal shift from left to right. Small right-sided pleural effusion.
[2021-04-02] MEDS: IPRATROPIUM-ALBUTEROL 3 ML NEB INHALATION SCH ×4 (08:33→21:07)
[2021-04-02] MEDS: THIAMINE 100 MG TAB PO SCH ×2 (08:50→16:59)
[2021-04-02] MEDS: NYSTATIN 100,000 UNIT/ML SUSP 500,000 UNIT/5 ML CUP PO SCH ×4 (08:50→21:24)
[2021-04-02] MEDS: FAMOTIDINE 20 MG TAB PO SCH ×2 (08:50→21:24)
[2021-04-02] MEDS: MEGESTROL 400 MG/10 ML CUP PO SCH (08:50)
[2021-04-02] MEDS: METOPROLOL TARTRATE 12.5 MG TAB PO SCH ×2 (08:50→21:24)
[2021-04-02] MEDS: SODIUM CHLORIDE 0.9% 1,000 ML IV SCH (11:19)
--- NOTE | 2021-04-02 12:07 | P.PN ---
Subjective Progress Note Date: 04/02/21 Principal diagnosis: Small Cell lung Cancer Patient seen and evaluated this am, case discussed with pulmonary. He continues to decline. His platelets continue to drop, 76K today. He is requiring Bipap for support of respirations. Thoracentesis yesterday per pulmonary. Lovenox has been discontinued Objective - Vital Signs Vital signs: Vital Signs Temp 98.3 F 04/02/21 05:00 Pulse 92 04/02/21 08:45 Resp 20 04/02/21 05:00 BP 120/84 04/02/21 05:00 Pulse Ox 97 04/02/21 05:00 Intake & Output 04/01/21 04/02/21 04/02/21 18:59 06:59 18:59 Intake Total 300 Balance 300 Weight 40 kg Intake: Oral 300 Other: Voiding Method Diaper Diaper Diaper # Voids 2 - Exam - Constitutional General appearance: Bipap increased effort - Respiratory Respiratory: bilateral: diminished, increased effort - Cardiovascular Rhythm: abnormal - Peripheral edema leg Peripheral Edema: bilateral: None - Gastrointestinal General gastrointestinal: Present: normal bowel sounds, soft - Integumentary Integumentary: Present: pale, eccymosis - Neurologic Neurologic:ramonita - Musculoskeletal Musculoskeletal: Present: generalized weakness, atrophy - Psychiatric Psychiatric Comment(s): Bipap Cachetic - Labs CBC & Chem 7: 04/02/21 05:13 04/02/21 05:13 Labs: Abnormal Lab Results - Last 24 Hours (Table) 04/02/21 04/02/21 Range/Units 05:13 05:13 RBC 4.05 L (4.30-5.90) m/uL Hgb 12.1 L (13.0-17.5) gm/dL Hct 36.5 L (39.0-53.0) % RDW 15.8 H (11.5-15.5) % Plt Count 76 L (150-450) k/uL Lymphocytes # 0.7 L (1.0-4.8) k/uL Sodium 129 L (137-145) mmol/L Chloride 96 L (98-107) mmol/L Creatinine 0.58 L (0.66-1.25) mg/dL Total Protein 5.7 L (6.3-8.2) g/dL Albumin 3.0 L (3.5-5.0) g/dL Assessment and Plan (1) Small cell lung cancer Current Visit: Yes Status: Acute Priority: High Code(s): C34.90 - MA LIGNANT NEOPLASM OF UNSP PART OF UNSP BRONCHUS OR LUNG SNOMED Code(s): 25 [id number] (2) Malignant pleural effusion Current Visit: Yes Status: Acute Code(s): J91.0 - MALIGNANT PLEURAL EFFUSION SNOMED Code(s): 990372591 (3) Thrombocytopenia Narrative/Plan: Likely secondary to chemotherapy and acute illness Current Visit: Yes Status: Acute Code(s): D69.6 - THROMBOCYTOPENIA, UNSPECIFIED SNOMED Code(s): 052771031 Plan: Assessment and Plan (1) Small cell lung cancer 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 Current Visit: Yes Status: Acute Priority: High Code(s): C34.90 - MALIGNANT NEOPLASM OF UNSP PART OF UNSP BRONCHUS OR LUNG SNOMED Code(s): 405329700 Acute Hypoxic Respiratory Failure: - Now requiring Bipap - Discussed with Pulmonology and comfort measures is resonable given his recent change of events. Will await family discussion and if they are open to hospice referral an informational meeting can be ordered.
[2021-04-02] MEDS ORDERED: MORPHINE SULFATE 2 MG/ML SYRINGE IVP PRN (14:24)
--- NOTE | 2021-04-02 15:24 | P.PN ---
Subjective Progress Note Date: 04/02/21 Metastatic carcinoma; most likely primary lung Acute hypoxic respiratory failure Postobstructive pneumonia Severe malnutrition protein calorie/debility 65-year-old male presenting with severe respiratory distress. Past medical history is positive for a large right-sided MCA distribution CVA with some m inimal left upper extremity weakness, hyperlipidemia, coronary artery disease, peripheral artery disease and previous history of alcoholism. He is still a daily alcohol drinker. He drinks alcohol heavily and he is currently a cigarette smoker on a daily basis. He is quite cachectic, emaciated, de bilitated, weak, and malnourished. Does not have any headache. No seizure. Patient had been sent from the primary care office with hypoxia. He was diagnosed with effusion and fluid overload as well as hypoxia in the emergency department yesterday but had left AGAINST MEDICAL ADVICE. He had an elevated troponin, elevated BNP. 03/15/2021 Patient is seen for a follow-up in the intensive care unit. The patient is a ICU overflow. For now, the patient on a BiPAP at a pressure of 14/6 cm of water with an FiO2 of 1. The pulse ox measures and is not aggravated and the blood gases will be needed. The patient is urinating adequate tidal volumes and has a respiratory rate of 16-20. He remains quite lethargic, somnolent yet arousable. Extremely cachectic and emaciated. Hemodynamically stable. As mentioned earlier, a emergent right-sided thoracentesis was done yesterday of the right lung and a total of 800 mL of pleural fluid was aspirated successfully. Nevertheless, the follow-up chest x-ray still showing significant volume loss in the right lung related to his underlying lung mass as the patient has a large mass encasing the right hilar structures and the right mainstem bronchus and the bronchus intermedius. Currently is on bronchodilators and steroids. No fever. No chills. Resting comfortably in bed. Does not communicate a whole lot. Family is not around. Would like to talk to the family regarding treatment. As the patient's prognosis extremely poor baseline above-mentioned comorbidities. Fluid cytology is pending for now. 03/16/2021 Patient is seen and evaluated in room at bedside; sustained a fall with abrasion to right eyebrow with small hematoma. The patient is much more awake compared to yesterday. He was taken off the BiPAP. He was switched to nasal cannula and currently is on room air oxygen. Chest x-ray showing volume loss and they large hilar mass with atelectatic changes as described earlier involving the right lower lung area. -- He remains on bronchodilators; steroids and IV Zosyn as an empiric antibiotic coverage for any postobstructive pneumonia. White cell count is 15.3 with a hemoglobin 0.3. Normal renal function. Lactic acid level is down to 2.2. Urinalysis was abnormal and cultures are still pending for now. Patient underwent thoracentesis right lung with a total of 800 mL of pleural fluid was aspirated. Fluid cytology still pending for now. Repeat chest x-ray from today shows no significant interval change. There is volume loss on the right. The patient is extremely cachectic and in mental status as discussed earlier. No focal neurological deficits. His CODE STATUS has been switched to a DO NOT RESUSCITATE and DO NOT INTUBATE per irish moss operator discussion with the family. 2-D echo reveals global left ventricular dysfunction with EF of 25%; cardiology on board and recommending to start low-dose beta blockers and monitor blood pressure closely; plan is for the workup for cardiomyopathy with gradual addition of heart failure medications. 03/17/2021 Patient is currently lying in the bed. On oxygen via nasal cannula. Denied any complaints of chest pain. Patient is lethargic and seems confused. Rate is being converted on bronchodilators and antibiotics in the form of Zosyn. Next check iron CODE STATUS is DO NOT RESUSCITATE/DO NOT INTUBATE. Fluid cytology from thoracentesis is pending at this time. 03/18/2021 Patient is currently in the MICU. Seems comfortable. On room air. Confused but more awake and oriented today. Patient is being continued on Antivert the form of Zosyn and IV steroids being changed to prednisone 40 mg daily. Fluid cytology is pending. Patient has been afebrile. No complaints of chest pain. No nausea vomiting or abdominal pain or diarrhea. Chest x-ray showed stable appearance yesterday. Pulmonary is planning for bronchoscopy if fluid cytology from thoracentesis is negative. 03/19/2021 Patient is currently in MICU and is lying in the bed comfortably. No compressive chest pain or worsening shortness of breath. Status post paracentesis and fluid cytology is pending at this time. Patient is being continued on Zosyn and prednisone 40 mg daily. Pulmonary is planning for bronchoscopy if fluid cytology is negative. Otherwise patient has been afebrile. Saturating at 94% on room air. Chest x-ray showed complete opacification of right hemithorax which has progressed since prior study. Hyperinflation left lung. Mediastinal shift from left to right. 03/21/2021 Patient is seen and evaluated in follow-up with family at the bedside currently on 5 N. MedSurg with no acute overnight issues noted. Patient was up and wo rking with physical therapy this morning with standby assistance and a walker. Patient continues to be weak although is improving slowly. Patient currently sitting up in the bed comfortably on room air and denies any worsening shortness of breath. Patient is continued on breathing inhalational treatments with pulmonary following closely. Plan is for bronchoscopy with biopsy to confirm diagnosis. Oncology on board as well. Patient also scheduled to undergo brain MRI to evaluate for any metastasis to the brain. Patient continues with a cough that is dry in nature. Patient reports to tolerating diet with no reports of nausea or vomiting noted. Patient is currently nothing by mouth for the procedure and will await report. White blood count is 10.8 with a hemoglobin of 11.7, sodium is 138 with a potassium of 3.3 and will replace and repeat labs. Creatinine is 0.6. Magnesium is 1.9. Patient to continue on IV Zosyn and oral steroids. Radiation oncology being consulted. Patient is a no code. Social work following as well with possibility of ECF once stabilized and discharged. Insurance requires authorization as well. 03/24/2021 Patient is seen and evaluated and follow-up and had a lengthy discussion with at the bedside. Patient is refusing to go to rehab states he just wants to go home. 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 Patient continues to be weak although does have a walker and wheelchair at the home and patient is reluctant to go to rehab and will set up with home care as the patient's is alone and states she needs assistance with his care. Oncology along with radiation oncology following and would like a discussion with patient and her at the bedside as she feels he is not understanding his overall prognosis. Case management following and they are agreeable to palliative care and referral is being placed. Patient is scheduled to undergo bone scan today. 03/25/2021 Patient is seen in follow-up this morning currently undergoing chest ultrasound for possible thoracentesis in the morning with pulmonary. Patient was seen and evaluated by vascular surgery and is not a surgical candidate for a Pleurx catheter. Patient continues to plan on discharging home with home care and will follow-up outpatient with oncology along with radiation oncology after discussing with his about treatment plan. Patient is weak at times and using a walker and has been working with physical therapy and arrangements are being made for discharge planning needs and necessary medical equipment in the home. Case management following and working on this. Patient does continue to have shortness of breath with exertion and maintaining oxygen above 90% on room air. Patient is afebrile. Patient will be nothing by mouth at midnight for the procedure. 03/26/2021 Patient is seen and evaluated in follow-up this morning and per pulmonary not enough effusion noted to perform thoracentesis and will continue to monitor closely. Patient still is having some shortness of breath and intermittent use of oxygen at 2 L. Had a lengthy discussion with oncology about treatment plan moving forward along with at the bedside and the patient who is agreeable to starting chemotherapy and finishing the first cycle and then going to rehab for some strength and mobility. Patient is to receive a PICC line and will have 3 days of chemotherapy and will monitor closely. Patient continues to have intermittent periods of confusion but is more alert and awake and receptive to starting treatment. Patient working with PT/OT therapy daily and continues to be weak and explained to the patient with at the bedside in detail about needing rehab once this first cycle was done for strength and mobility. Will repeat labs and monitor closely. Patient is tolerating diet with no reports of nausea or vomiting noted. Patient needs assistance of the bedside commode. Patient is afebrile. 03/27/2021 Patient is seen in follow up this morning and has received a PICC line and being started on day 1 of 3 chemotherapy with oncology following closely. Monitor labs and patient closely and continue with supportive management. Social work following and patient has been accepted at [facility] with auth approval until 04/01. Patient will need three days of chemotherapy with daily labs and will continue to encourage increased ambulation and PT/OT daily. Continue with supplemental 02. Pulmonary also following. 03/28/2021 Patient is seen this morning continues to have periods of confusion and agitation. Patient currently on day 2 of 3 chemotherapy with oncology following closely. White blood count elevated at 15.5, hemoglobin is 12.6, platelets are 151, sodium is 134 with a potassium of 4.3. Creatinine is 0.58. LFTs within normal limits. Patient continues on 3 L via nasal cannula and will continue. Patient is afebrile. Patient also continued on IV dexamethasone and received second of third dose today. Continue with anticoagulation with Lovenox subcu and continued breathing inhalational treatments. We'll continue with daily labs and monitor closely. 03/29/2021 Patient is currently awake alert and oriented. On BiPAP. Today morning patient became more short of breath and bilateral diminished air entry especially on the right side and diffuse crackles noted. Patient was given a dose of IV Lasix. Patient continues to have short of breath and was placed on BiPAP. ABGs were obtained showed a pH of 7.38 PCO2 49 9 PO2 248.Patient was seen by rapid response team. Laboratory showed WBC 19.8 hemoglobin 12.1 platelets 172 BUN 70 and creatinine 0.63. Chest x-ray showed complete obscuration of the right hemithorax with right mediastinal shift. This is likely a combination of atelectasis effusion and perhaps lung mass. Patient has been afebrile. Pulmonary was reconsulted and chest ultrasound was ordered as per recommendations for possible thoracentesis.. 03/30/2021 Patient is currently lying in the bed. Requiring BiPAP support. Denied any complaints of chest pain. Patient is awake alert oriented x3. Possible IR guided right-sided thoracentesis on Wednesday. Ultrasound of the chest showed moderate right small left pleural effusions. Continue to monitor respiratory status closely. Discussed with the patient and family at bedside in detail. 03/31/2021 Patient is currently resting in bed comfortably. Still on BiPAP. Awake alert and oriented x3. No complaints of worsening chest pain or shortness of breath. Ultrasound of the chest showed moderate pleural effusion. Possible IR guided thoracentesis on Wednesday. 04/01/2021 Patient is seen and examined in follow-up this morning continues to be on BiPAP and unable to tolerate being off. Patient underwent chest ultrasound for possible thoracentesis with pulmonary following closely. Interventional radiology consulted for thoracentesis and patient was maintained on Lovenox and will need to hold with possibility of thoracentesis tomorrow. at the bedside and discussed with the family and daughter of the patient with possible hospice consult for informational. billing services manager made aware and made the consult. states last to proceed with thoracentesis and see how the patient is doing before making any confirmed decisions about hospice. She is open to receiving information from [facility] at this time. Will continue BiPAP support and hold Lovenox. White blood count is 9.5 with a hemoglobin of 12.7, sodium is 131 with a potassium 4.4 current creatinine is 0.5. 04/02/2021 Patient is seen in follow-up this morning status post thoracentesis with development of a pneumothorax on the right and is being closely monitored. Lilli ent is BiPAP dependent with family at the bedside. Patient is unresponsive and not waking up to any commands verbal or stimulus. Oncology along with pulmonary following closely. Discussed at length with the again about hospice and comfort care and she is agreeable although his daughter does not want the BiPAP removed and hospice is unable to admit GIP with continued BiPAP. This was discussed and explained with the at the bedside and [facility] will continue to follow with possibility of opening up tomorrow. Oncology recommending close observation for another 24 hours prior to starting comfort measures. Patient appears in no distress and again is unresponsive to verbal or painful stimuli. Will continue to monitor closely. Prognosis remains extremely poor and guarded. Patient is a no code. Lovenox has been discontinued and platelets are 76. Review of systems: unable to obtain as patient is unresponsive All medications have been reviewed Active Medications Albuterol/Ipratropium (Ipratropium-Albuterol 3 Ml Neb) 3 ml INHALATION RT-Q4H PRN PRN Reason: Shortness Of Breath Or Wheezing Last Admin: 03/23/21 00:17 Dose: 3 ml Documented by: Albuterol/Ipratropium (Ipratropium-Albuterol 3 Ml Neb) 3 ml INHALATION RT-QID [facility] Last Admin: 04/02/21 13:37 Dose: Not Given Documented by: Atorvastatin Calcium (Atorvastatin 10 Mg Tab) 10 mg PO HS [facility] Last Admin: 04/01/21 20:45 Dose: 10 mg Documented by: Donepezil HCl (Donepezil 10 Mg Tab) 10 mg PO HS [facility] Last Admin: 04/01/21 20:46 Dose: 10 mg Documented by: Famotidine (Famotidine 20 Mg Tab) 40 mg PO BID [facility] Last Admin: 04/02/21 08:50 Dose: Not Given Documented by: Haloperidol Lactate (Haloperidol Lactate 5 Mg/Ml 1 Ml Vial) 1 mg IVP Q8HR PRN PRN Reason: Agitation or Acute Psychosis Last Admin: 03/20/21 17:31 Dose: 1 mg Documented by: Sodium Chloride (Saline 0.9%) 1,000 mls @ 20 mls/hr IV .Q24H [facility] Last Admin: 04/02/21 11:19 Dose: Not Given Documented by: Lidocaine HCl (Lidocaine 1% (10mg/Ml) For Iv Start) 0.1 ml INTRADERMA PER PROTOCOL PRN PRN Reason: IV Start Lisinopril (Lisinopril 2.5 Mg Tab) 2.5 mg PO DAILY [facility] Last Admin: 04/02/21 08:50 Dose: Not Given Documented by: Lorazepam (Lorazepam 2 Mg/Ml Inj) 0.5 mg IV Q4HR PRN PRN Reason: Agitation Last Admin: 04/02/21 06:08 Dose: 0.5 mg Documented by: Megestrol Acetate (Megestrol 400 Mg/10 Ml Cup) 800 mg PO DAILY [facility] Last Admin: 04/02/21 08:50 Dose: Not Given Documented by: Metoprolol Tartrate (Metoprolol Tartrate 12.5 Mg Tab) 12.5 mg PO BID [facility] Last Admin: 04/02/21 08:50 Dose: Not Given Documented by: Miscellaneous Information (Potassium Replacement Protocol 1 Each Misc) 1 each MISCELLANE DAILY PRN; Protocol PRN Reason: Per Protocol Naloxone HCl (Naloxone 0.4 Mg/Ml 1 Ml Vial) 0.2 mg IV Q2M PRN PRN Reason: Opioid Reversal Nystatin (Nystatin 100,000 Unit/Ml Susp 500,000 Unit/5 Ml Cup) 500,000 unit PO QID [facility] Last Admin: 04/02/21 12:25 Dose: Not Given Documented by: Prochlorperazine Maleate (Prochlorperazine 10 Mg Tab) 10 mg PO Q6HR PRN PRN Reason: Nausea And Vomiting Sodium Bicarbonate (Salt And Soda Mouthwash 1,000 Ml) 5 ml PO 5XD [facility] Last Admin: 04/02/21 11:19 Dose: Not Given Documented by: Sodium Chloride (Sodium Chloride 0.9% Flush 10 Ml Syringe) 10 ml IV Q4HR PRN PRN Reason: PICC Line Sodium Chloride (Sodium Chloride 0.9% Flush 10 Ml Syringe) 10 ml IV WEEKLY [facility] Last Admin: 04/02/21 08:51 Dose: Not Given Documented by: Sodium Chloride (Sodium Chloride 0.9% Flush 10 Ml Syringe) 20 ml IV Q4HR PRN PRN Reason: PICC Line Thiamine HCl (Thiamine 100 Mg Tab) 100 mg PO BID-W/MEALS [facility] Last Admin: 04/02/21 08:50 Dose: Not Given Documented by: Objective - Vital Signs Vital signs: Vital Signs Temp 98.3 F 04/02/21 05:00 Pulse 92 04/02/21 08:45 Resp 20 04/02/21 05:00 BP 120/84 04/02/21 05:00 Pulse Ox 97 04/02/21 05:00 Intake & Output 04/01/21 04/02/21 04/02/21 18:59 06:59 18:59 Intake Total 300 Balance 300 Weight 40 kg Intake: Oral 300 Other: Voiding Method Diaper Diaper # Voids 2 - Exam Patient is lying in bed, asleep and on arousable. Currently maintained on BiPAP HEENT: Normocephalic. Neck is supple. Pupils reactive. Nostrils clear. Oral cavity is moist. Neck reveals no JVD, carotid bruits, or thyromegaly. CHEST EXAMINATION: Trachea is central. Symmetrical expansion. Diminished breath sounds noted with some coarse bilateral rhonchi and crackles noted on the left and minimal lung sounds noted on the right status post thoracentesis with pneumothorax CARDIAC: Normal S1, S2 with no gallops. No murmurs ABDOMEN: Soft. Bowel sounds normal. No organomegaly. No abdominal bruits. Extremities: reveal no edema. No clubbing or cyanosis Neurologically awake, alert, oriented x2 with well-coordinated movements. No focal deficits noted Skin: No rash or skin lesions. Psychiatric: Cooperative. Non-suicidal Musculoskeletal: No joint swelling or deformity. Normal range of motion. Diffusely weak - Labs CBC & Chem 7: 04/02/21 05:13 04/02/21 05:13 Labs: Abnormal Lab Results - Last 24 Hours (Table) 04/01/21 04/02/21 04/02/21 Range/Units 06:11 05:13 05:13 RBC 4.05 L (4.30-5.90) m/uL Hgb 12.1 L (13.0-17.5) gm/dL Hct 36.5 L (39.0-53.0) % RDW 15.8 H (11.5-15.5) % Plt Count 76 L (150-450) k/uL Lymphocytes # 0.7 L (1.0-4.8) k/uL Sodium 131 L 129 L (135-145) mmol/L Chloride 95 L 96 L (96-109) mmol/L Creatinine 0.5 L 0.58 L (0.6-1.5) mg/dL BUN/Creatinine Ratio 28.00 H (12.00-20.00) Ratio Glucose 69 L (70-110) mg/dL Calcium 8.5 L (8.7-10.3) mg/dL Total Protein 5.7 L (6.3-8.2) g/dL Albumin 3.0 L (3.5-5.0) g/dL Assessment and Plan Assessment: Metastatic carcinoma most likely of lung primary with noted lesions of the liver and pancreas Right-sided pneumothorax Status post thoracentesis Acute hypoxic respiratory failure secondary to above along with atelectasis and volume loss involving the right lung and right middle lobe and right lower lobe with pleural effusions, now requiring BiPAP COPD acute exacerbation Thrombocytopenia Severe protein malnutrition/cachexia, BMI is 16.2 Acute leukocytosis with lactic acidosis and sepsis, present on admission secondary to postobstructive pneumonia Elevated troponin possibly demand ischemia secondary to acute respiratory failure Alcoholism Large right MCA distribution cerebrovascular accident with some residual left- sided weakness history Hypertension Hyperlipidemia Peripheral vascular disease DVT prophylaxis GI prophylaxis No code Plan: Patient has completed the first cycle of chemotherapy with oncology following closely. Patient is now BiPAP dependent and continues with worsening shortness of breath. interventional radiology consulted for possible thoracentesis and pulmonary performed thoracentesis with approximately 800 mL of fluid removed on the right side. Follow-up chest x-ray shows pneumothorax and repeat chest x-ray today continues to show this and patient is not a candidate for chest tube insertion. Patient has been unresponsive and BiPAP dependent since the procedure and continues to deteriorate. Patient does not appear in any acute distress and does have Ativan and IV morphine on as needed. Family at the bedside and is agreeable to hospice although hospice requires the patient to be weaned off of BiPAP and family to discuss further about possible inpatient hospice with the daughter and oncology following closely recommending close observation for another 24 hours and is agreeable to this. [facility] hospice following closely and will follow-up with them in the morning. Case management and social work following as well. Due to multiple complex medical issues, prognosis remains extremely poor and guarded.
--- NOTE | 2021-04-02 18:09 | P.PN ---
Subjective Progress Note Date: 04/02/21 Principal diagnosis: Metastatic carcinoma suspect lung primary This is a 65-year-old male patient who presented emergency department because of severe respiratory distress. The patient was sent from his primary care physician's office for worsening shortness of breath and hypoxemia. He was already identified to have an abnormal chest x-ray with volume loss in the right-sided pleural effusion. He was seen in the emergency department yesterday but he left AGAINST MEDICAL ADVICE to be readmitted again today. He is quite cachectic. He is currently on a BiPAP at a pressure of 14/6 cm of water and FiO2 of 1%. He is awake and alert and communicating. Chest x-ray was reviewed and emergency department and it showed a right-sided pleural effusion. There was also right-sided volume loss and underlying central neoplasm was being considered., Subcarinal and right hilar region measuring 10 x 7.5 x 7.1 cm in size. The mass was encasing the right hilar structures including the medicine the lower SVC and there was a cut off sign Dilaudid of the bronchus intermedius. There was also evidence of right middle lobe collapse, partial medial right lower lobe collapse, moderate right-sided pleural effusion and right-sided infiltrate. There was not of 2.3 cm subpleural area of pleural lesion and 2 liver lesions measuring 4 cm suspicious for metastases. There was also abnormal aortic occlusion just below the renal artery takeoff no swelling in extremities. I saw the patient emergency department. He was in impending respiratory failure. He was on a BiPAP at a pressure of 14/6 cm of water with an FiO2 of 1 sent. Based on that, I did a emergent right-sided thoracentesis to provide this patient some symptomatic relief. 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 He is still a daily alcohol drinker. He drinks alcohol heavily and he is currently a cigarette smoker on a daily basis. He is quite cachectic, emaciated, debilitated, weak, and malnourished. Does not have any headache. No seizure. 03/15/2021, I'm seeing this patient for a follow-up in the intensive care unit. The patient is a ICU overflow. For now, the patient on a BiPAP at a pressure of 14/6 cm of water with an FiO2 of 1. The pulse ox measures and is not aggravated and the blood gases will be needed. The patient is urinating adequate tidal volumes and has a respiratory rate of 16-20. He remains quite lethargic, somnolent yet arousable. Extremely cachectic and emaciated. Hemodynamically stable. As mentioned earlier, a emergent right-sided thoracentesis was done yesterday of the right lung and a total of 800 mL of pleural fluid was aspirated successfully. Nevertheless, the follow-up chest x-ray still showing significant volume loss in the right lung related to his underlying lung mass as the patient has a large mass encasing the right hilar structures and the right mainstem bronchus and the bronchus intermedius. Currently is on bronchodilators and steroids. No fever. No chills. Resting comfortably in bed. Does not communicate a whole lot. Family is not around. Would like to talk to the family regarding treatment. As the patient's prognosis extremely poor baseline above-mentioned comorbidities. Fluid cytology is pending for now. 03/16/2021 I'm seeing this patient in the intensive care unit. The patient is much more awake compared to yesterday. Is following commands. He is on and off confused. He is not sure where he is. However his communicating. He is trying to answer questions. His breathing is nonlabored. He was taken off the BiPAP. He was switched to nasal cannula and currently is on room air oxygen. Chest x- ray showing volume loss and they large hilar mass with atelectatic changes as described earlier involving the right lower lung area. He remains on bronchodilators. He remains on steroids. He remains on IV Zosyn as an empiric antibiotic coverage for any postobstructive pneumonia. White cell count is 15.3 with a hemoglobin 0.3. Normal renal function. Lactic acid level is down to 2.2. Urinalysis was abnormal and cultures are still pending for now. Also, I have drained this patient's right lung and a total of 800 mL of pleural fluid was aspirated. Fluid cytology still pending for now. Repeat chest x-ray from today shows no significant interval change. There is volume loss on the right. The patient is extremely cachectic and in mental status as discussed earlier. No focal neurological deficits. His CODE STATUS has been switched to a DO NOT RESUSCITATE and DO NOT INTUBATE per our conversation with the family yesterday. 03/17/2022, the patient is still the same. He is on room air oxygen. He is not having any major respiratory difficulties. Nevertheless, he is quite debilitated. He is not eating much. In fact is eating minimally. His resting comfortably in bed. He is confused. Arousable. No apparent respiratory distress. Communicates. However, he is oriented only to self. Does not know where he is. Has very poor insight on his condition. The pleural fluid cytology still pending for now. As mentioned earlier, the patient has a large hilar mass with atelectasis of the right lower lobe/right middle lobe and currently is still on a bronchodilators and steroids and antibiotics. Cardiac rhythm is sinus. Hemodynamically stable. DNR/DNI CODE STATUS. The patient is seen today 03/18/2021 in follow-up in the intensive care unit. He is currently awake. Resting fairly comfortably in bed. Maintaining O2 saturations in the 90s on room air. He's been afebrile. Hemodynamically stable. Pathology from pleural fluid pending. Cultures pending. Fluid analysis revealed cloudy fluid with protein at 2.1 and LDH 226. He remains on antibiotics in the form of Zosyn. Continued on bronchodilators. Continued on prednisone. Remains in the CIWA protocol. 03/19/2021, the patient is quite comfortable. Awaiting fluid cytology from the pleural fluid was aspirated earlier. He is currently on room air oxygen. CBC much more awake. He is increasing his oral intake. Still remains quite weak and lethargic. He was taken off the IV Solu Medrol start on prednisone burst taper. He remains on Zosyn. Blood work essentially within normal limits. The patient's chest x-ray was from 03/17/2021. No chest debilitated since. I'm going to tentatively schedule this patient for a bronchoscopy tomorrow should the pleural fluid turn sewer to be negative. 03/20/2021, the patient is still, comfortable. No respiratory difficulties. His communicating. He continues to have poor insight and his condition. He really is not in touch with ongoing problems and diagnosis. Noted the pleural fluid that was aspirated from the right lung turn sewer to be positive for malignancy and the fluid was consistent with small cell lung cancer. For that reason, a oncology consultation was requested. I asked the family to arrive to the hospital for further discussion on this patient's case. Noted the patient had significant narrowing of the right mainstem bronchus/bronchus intermedius was also considering in the airway inspection to visualize the extent of narrowing and decide if there is any intervention that can be done to preserve patency of the airways and the vent and a lung collapse. The patient is tolerating his diet. He did have a fall yesterday when he was trying to get out of bed. No major injuries. Small bruise over the left elbow. He remains on IV Zosyn. He is on prednisone burst taper. The liver seems on the clock. No headaches. No seizure activity. MRI of the brain was ordered. The patient is seen today 03/21/2021 in follow-up on the oncology unit. He is more awake and alert. Oriented 3. Family is at the bedside. Pleural fluid from previous right sided thoracentesis was consistent with small cell lung cancer. He has been seen and evaluated by oncology. MRI of the brain is pending. Pleural fluid cultures pending. Urine culture revealed no organisms. White count 10.8. Hemoglobin 11.7. Sodium 1:30. Potassium 3.3. Creatinine 0.6. He remains on bronchodilators, prednisone, Zosyn. The patient is seen today 03/22/2021 in follow-up on the oncology unit. He is sitting up at the bedside. Awake and alert in no acute distress. HEENT O2 saturations in the 90s on room air. He's been afebrile. Hemodynamically stable. MRI of the brain did not reveal any evidence of metastatic disease. White count 2.7. Hemoglobin 11.8. Sodium 135. He hasn't 3.7. Creatinine 0.59. Remains on bronchodilators, prednisone, Zosyn. CAT scan of the abdomen and pelvis along with bone scans are pending. Being followed by oncology and radiation oncology. The patient is seen today 03/25/2021 in follow-up on the regular medical floor. He is currently awake and alert in no acute distress. Resting fairly comfortably in bed. Maintaining O2 saturations in the 90s on room air. Afebrile. Hemodynamically stable. Bone scan revealed focal increased uptake in the left humeral head which could be degenerative in nature. He remains on Zosyn, prednisone, bronchodilators. The patient was being considered for possible Pleurx catheter placement, the patient and his are undecided. 04/01/2031, the patient was seen again upon the request of oncology. The patient has been quite short of breath. The patient's has developed complete opacification of the right lung which is probably related to volume loss, atelectasis and possibly some residual effusion. Noted the patient is a case of metastatic small cell lung cancer. The patient had significant mass effect on the bronchus intermedius/right mainstem bronchus based on earlier CAT scan of the chest. Bronchoscopy was not done. Nevertheless, post thoracentesis, the patient felt better and the patient was at one point on room air oxygen. He was quite debilitated. He had a very poor performance and functional status and oncology met with the family and the patient and he decided to proceed with systemic chemotherapy. The patient is currently on BiPAP. He is on DuoNeb nebulized treatments around the clock. Chest x-ray shows complete opacification of the right lung and the ultrasound of the chest showed a moderate-sized right- sided pleural effusion.. Noted the patient was started on a combination of carboplatinum and and etoposide. IR declined to do his thoracentesis. For that reason pulmonary Was again consulted. In our opinion, I may consider doing a thoracentesis for palliative reasons. Nevertheless, in our opinion, the patient is a hospice candidate and he is not considered to be a good candidate for any ongoing systemic chemotherapy as the patient has a very very poor performance and functional status and poor understanding of his conditions. The patient is seen today 04/02/2021 in follow-up on the regular medical floor. Metastatic small cell lung cancer. He was having recurrent pleural effusions. He did undergo thoracentesis by Dr. Haile yesterday with 850 ML's of turbid colored blood-tinged fluid removed. Follow-up chest x-ray today revealed a lar ge right-sided pneumothorax. Trapped lung. Hyperinflation left lung with mediastinal shift from left to right. A small right-sided pleural effusion. White count 6.9. Hemoglobin 12.1. Platelet count 76,000. Sodium 129. Potassium 4.3. Creatinine 0.58. He is currently on BiPAP 10/5 and 50% FiO2 to maintain O2 saturations in the low 90s. The patient's prognosis remains very poor. The plan is for possible home with hospice. Objective - Vital Signs Vital signs: Vital Signs Temp 98.3 F 04/02/21 05:00 Pulse 100 04/02/21 17:47 Resp 20 04/02/21 05:00 BP 120/84 04/02/21 05:00 Pulse Ox 97 04/02/21 05:00 Intake & Output 04/01/21 04/02/21 04/02/21 18:59 06:59 18:59 Intake Total 300 Balance 300 Weight 40 kg Intake: Oral 300 Other: Voiding Method Diaper Diaper Diaper # Voids 2 - Exam Frail, cachectic 65-year-old male patient, appears older than stated age, on BiPAP 10/5 and 50% FiO2. No signs of any respiratory distress Head exam was generally normal. There was no scleral icterus or corneal arcus. Mucous membranes were moist. Neck was supple and without jugular venous distension, thyromegaly, or carotid bruits. Carotids were easily palpable bilaterally. There was no adenopathy. Lungs Overall breath sounds are quite diminished in the right lung base. The patient has a barrel chest. Cardiac exam revealed the PMI to be normally situated and sized. The rhythm was regular and no extrasystoles were noted during several minutes of auscultation. The first and second heart sounds were normal and physiologic splitting of the second heart sound was noted. There were no murmurs, rubs, clicks, or gallops. Abdominal exam revealed normal bowel sounds. The abdomen was soft, non-tender, and without masses, organomegaly, or appreciable enlargement of the abdominal aorta. Examination of the extremities revealed easily palpable radial, femoral and pedal pulses. There was no cyanosis, clubbing or edema. Examination of the skin revealed no evidence of significant rashes, suspicious appearing nevi or other concerning lesions. Neurologically awake alert and there is no focal neurological deficit. He has some tremors and he has global weakness in all 4 extremities - Labs CBC & Chem 7: 04/02/21 05:13 04/02/21 05:13 Labs: Abnormal Lab Results - Last 24 Hours (Table) 04/02/21 04/02/21 Range/Units 05:13 05:13 RBC 4.05 L (4.30-5.90) m/uL Hgb 12.1 L (13.0-17.5) gm/dL Hct 36.5 L (39.0-53.0) % RDW 15.8 H (11.5-15.5) % Plt Count 76 L (150-450) k/uL Lymphocytes # 0.7 L (1.0-4.8) k/uL Sodium 129 L (137-145) mmol/L Chloride 96 L (98-107) mmol/L Creatinine 0.58 L (0.66-1.25) mg/dL Total Protein 5.7 L (6.3-8.2) g/dL Albumin 3.0 L (3.5-5.0) g/dL Assessment and Plan Assessment: 1 metastatic carcinoma most likely of a lung primary. Status post right-sided thoracentesis. Fluid cytology positive for small cell lung cancer. Status post a second thoracentesis on 04/01/2021 of the right with 850 ML's of turbid bloody fluid returned. Follow-up chest x-ray revealing right-sided pneumothorax with trapped right lung. Currently on BiPAP 10/550% FiO2 2 acute hypoxic respiratory failure secondary to above. A diagnostic and therap eutic thoracentesis was done. Oxygenation improved. The patient currently is on room air oxygen. His current pulse ox is 98%. 3 COPD 4 severe debility and significant malnourishment and obvious signs of cachexia and and emaciation and weight loss. Current by the weight is around 90 pounds. 5 acute leukocytosis 6 acute lactic acidosis, improved 7 troponin leak 8 Alcoholism 9 Large right MCA distribution CVA with some residual left-sided weakness 10 Smoking 11 Hypertension 12 Hyperlipidemia 13 GERD artery disease 14 Impaired performance and functional spastic and above-mentioned comorbidities 15 Peripheral vascular disease with questionable parathyroid the level of the aorta. Given examination, the patient is not having any significant vascular insufficiency and the patient has diminished pulses in the legs bilaterally. Ever the less, the patient has inguinal pulses Plan The patient was seen and evaluated by Dr. Haile Chest x-ray reviewed, status post thoracentesis Right lung is no trapped, currently on BiPAP Overall prognosis again remains quite poor Plan is for possible hospice care We will see as needed I, the cosigning physician, performed a history & physical examination of the patient. Lungs sounds are diminished specially in the right lung compared to the left. Overall breath sounds are quite diminished. Maintaining good O2 saturations in the 90s on BiPAP 10/5 and 40% FiO2 I discussed the assessment and plan of care with my nurse practitioner, Marifer Torres. I attest to the above note as dictated by her.
[2021-04-02] MEDS: ATORVASTATIN 10 MG TAB PO SCH (21:23)
[2021-04-02] MEDS: DONEPEZIL 10 MG TAB PO SCH (21:23)
[2021-04-03 04:49] VITALS: BP 123/86; RESP 16; TEMP 98.8
[2021-04-03] MEDS: SALT AND SODA MOUTHWASH 1,000 ML PO SCH (05:04)
[2021-04-03] MEDS: THIAMINE 100 MG TAB PO SCH (09:04)
[2021-04-03] MEDS: FAMOTIDINE 20 MG TAB PO SCH (09:04)
[2021-04-03] MEDS: MEGESTROL 400 MG/10 ML CUP PO SCH (09:05)
[2021-04-03] MEDS: METOPROLOL TARTRATE 12.5 MG TAB PO SCH (09:05)
[2021-04-03] MEDS: IPRATROPIUM-ALBUTEROL 3 ML NEB INHALATION SCH (09:09)
[2021-04-03] MEDS: NYSTATIN 100,000 UNIT/ML SUSP 500,000 UNIT/5 ML CUP PO SCH (09:09)
[2021-04-03 09:18] VITALS: PULSE 89
[2021-04-03] MEDS: LORazepam 2 MG/ML INJ IV PRN (09:48)
--- NOTE | 2021-04-03 13:37 | P.PN ---
Subjective Progress Note Date: 04/03/21 Metastatic carcinoma; most likely primary lung Acute hypoxic respiratory failure Postobstructive pneumonia Severe malnutrition protein calorie/debility 65-year-old male presenting with severe respiratory distress. Past medical history is positive for a large right-sided MCA distribution CVA with some m inimal left upper extremity weakness, hyperlipidemia, coronary artery disease, peripheral artery disease and previous history of alcoholism. He is still a daily alcohol drinker. He drinks alcohol heavily and he is currently a cigarette smoker on a daily basis. He is quite cachectic, emaciated, de bilitated, weak, and malnourished. Does not have any headache. No seizure. Patient had been sent from the primary care office with hypoxia. He was diagnosed with effusion and fluid overload as well as hypoxia in the emergency department yesterday but had left AGAINST MEDICAL ADVICE. He had an elevated troponin, elevated BNP. 03/15/2021 Patient is seen for a follow-up in the intensive care unit. The patient is a ICU overflow. For now, the patient on a BiPAP at a pressure of 14/6 cm of water with an FiO2 of 1. The pulse ox measures and is not aggravated and the blood gases will be needed. The patient is urinating adequate tidal volumes and has a respiratory rate of 16-20. He remains quite lethargic, somnolent yet arousable. Extremely cachectic and emaciated. Hemodynamically stable. As mentioned earlier, a emergent right-sided thoracentesis was done yesterday of the right lung and a total of 800 mL of pleural fluid was aspirated successfully. Nevertheless, the follow-up chest x-ray still showing significant volume loss in the right lung related to his underlying lung mass as the patient has a large mass encasing the right hilar structures and the right mainstem bronchus and the bronchus intermedius. Currently is on bronchodilators and steroids. No fever. No chills. Resting comfortably in bed. Does not communicate a whole lot. Family is not around. Would like to talk to the family regarding treatment. As the patient's prognosis extremely poor baseline above-mentioned comorbidities. Fluid cytology is pending for now. 03/16/2021 Patient is seen and evaluated in room at bedside; sustained a fall with abrasion to right eyebrow with small hematoma. The patient is much more awake compared to yesterday. He was taken off the BiPAP. He was switched to nasal cannula and currently is on room air oxygen. Chest x-ray showing volume loss and they large hilar mass with atelectatic changes as described earlier involving the right lower lung area. -- He remains on bronchodilators; steroids and IV Zosyn as an empiric antibiotic coverage for any postobstructive pneumonia. White cell count is 15.3 with a hemoglobin 0.3. Normal renal function. Lactic acid level is down to 2.2. Urinalysis was abnormal and cultures are still pending for now. Patient underwent thoracentesis right lung with a total of 800 mL of pleural fluid was aspirated. Fluid cytology still pending for now. Repeat chest x-ray from today shows no significant interval change. There is volume loss on the right. The patient is extremely cachectic and in mental status as discussed earlier. No focal neurological deficits. His CODE STATUS has been switched to a DO NOT RESUSCITATE and DO NOT INTUBATE per pull tab dealer discussion with the family. 2-D echo reveals global left ventricular dysfunction with EF of 25%; cardiology on board and recommending to start low-dose beta blockers and monitor blood pressure closely; plan is for the workup for cardiomyopathy with gradual addition of heart failure medications. 03/17/2021 Patient is currently lying in the bed. On oxygen via nasal cannula. Denied any complaints of chest pain. Patient is lethargic and seems confused. Rate is being converted on bronchodilators and antibiotics in the form of Zosyn. Next check iron CODE STATUS is DO NOT RESUSCITATE/DO NOT INTUBATE. Fluid cytology from thoracentesis is pending at this time. 03/18/2021 Patient is currently in the MICU. Seems comfortable. On room air. Confused but more awake and oriented today. Patient is being continued on Antivert the form of Zosyn and IV steroids being changed to prednisone 40 mg daily. Fluid cytology is pending. Patient has been afebrile. No complaints of chest pain. No nausea vomiting or abdominal pain or diarrhea. Chest x-ray showed stable appearance yesterday. Pulmonary is planning for bronchoscopy if fluid cytology from thoracentesis is negative. 03/19/2021 Patient is currently in MICU and is lying in the bed comfortably. No compressive chest pain or worsening shortness of breath. Status post paracentesis and fluid cytology is pending at this time. Patient is being continued on Zosyn and prednisone 40 mg daily. Pulmonary is planning for bronchoscopy if fluid cytology is negative. Otherwise patient has been afebrile. Saturating at 94% on room air. Chest x-ray showed complete opacification of right hemithorax which has progressed since prior study. Hyperinflation left lung. Mediastinal shift from left to right. 03/21/2021 Patient is seen and evaluated in follow-up with family at the bedside currently on 5 N. MedSurg with no acute overnight issues noted. Patient was up and wo rking with physical therapy this morning with standby assistance and a walker. Patient continues to be weak although is improving slowly. Patient currently sitting up in the bed comfortably on room air and denies any worsening shortness of breath. Patient is continued on breathing inhalational treatments with pulmonary following closely. Plan is for bronchoscopy with biopsy to confirm diagnosis. Oncology on board as well. Patient also scheduled to undergo brain MRI to evaluate for any metastasis to the brain. Patient continues with a cough that is dry in nature. Patient reports to tolerating diet with no reports of nausea or vomiting noted. Patient is currently nothing by mouth for the procedure and will await report. White blood count is 10.8 with a hemoglobin of 11.7, sodium is 138 with a potassium of 3.3 and will replace and repeat labs. Creatinine is 0.6. Magnesium is 1.9. Patient to continue on IV Zosyn and oral steroids. Radiation oncology being consulted. Patient is a no code. Social work following as well with possibility of ECF once stabilized and discharged. Insurance requires authorization as well. 03/24/2021 Patient is seen and evaluated and follow-up and had a lengthy discussion with at the bedside. Patient is refusing to go to rehab states he just wants to go home. 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 Patient continues to be weak although does have a walker and wheelchair at the home and patient is reluctant to go to rehab and will set up with home care as the patient's is alone and states she needs assistance with his care. Oncology along with radiation oncology following and would like a discussion with patient and her at the bedside as she feels he is not understanding his overall prognosis. Case management following and they are agreeable to palliative care and referral is being placed. Patient is scheduled to undergo bone scan today. 03/25/2021 Patient is seen in follow-up this morning currently undergoing chest ultrasound for possible thoracentesis in the morning with pulmonary. Patient was seen and evaluated by vascular surgery and is not a surgical candidate for a Pleurx catheter. Patient continues to plan on discharging home with home care and will follow-up outpatient with oncology along with radiation oncology after discussing with his about treatment plan. Patient is weak at times and using a walker and has been working with physical therapy and arrangements are being made for discharge planning needs and necessary medical equipment in the home. Case management following and working on this. Patient does continue to have shortness of breath with exertion and maintaining oxygen above 90% on room air. Patient is afebrile. Patient will be nothing by mouth at midnight for the procedure. 03/26/2021 Patient is seen and evaluated in follow-up this morning and per pulmonary not enough effusion noted to perform thoracentesis and will continue to monitor closely. Patient still is having some shortness of breath and intermittent use of oxygen at 2 L. Had a lengthy discussion with oncology about treatment plan moving forward along with at the bedside and the patient who is agreeable to starting chemotherapy and finishing the first cycle and then going to rehab for some strength and mobility. Patient is to receive a PICC line and will have 3 days of chemotherapy and will monitor closely. Patient continues to have intermittent periods of confusion but is more alert and awake and receptive to starting treatment. Patient working with PT/OT therapy daily and continues to be weak and explained to the patient with at the bedside in detail about needing rehab once this first cycle was done for strength and mobility. Will repeat labs and monitor closely. Patient is tolerating diet with no reports of nausea or vomiting noted. Patient needs assistance of the bedside commode. Patient is afebrile. 03/27/2021 Patient is seen in follow up this morning and has received a PICC line and being started on day 1 of 3 chemotherapy with oncology following closely. Monitor labs and patient closely and continue with supportive management. Social work following and patient has been accepted at [facility] with auth approval until 04/01. Patient will need three days of chemotherapy with daily labs and will continue to encourage increased ambulation and PT/OT daily. Continue with supplemental 02. Pulmonary also following. 03/28/2021 Patient is seen this morning continues to have periods of confusion and agitation. Patient currently on day 2 of 3 chemotherapy with oncology following closely. White blood count elevated at 15.5, hemoglobin is 12.6, platelets are 151, sodium is 134 with a potassium of 4.3. Creatinine is 0.58. LFTs within normal limits. Patient continues on 3 L via nasal cannula and will continue. Patient is afebrile. Patient also continued on IV dexamethasone and received second of third dose today. Continue with anticoagulation with Lovenox subcu and continued breathing inhalational treatments. We'll continue with daily labs and monitor closely. 03/29/2021 Patient is currently awake alert and oriented. On BiPAP. Today morning patient became more short of breath and bilateral diminished air entry especially on the right side and diffuse crackles noted. Patient was given a dose of IV Lasix. Patient continues to have short of breath and was placed on BiPAP. ABGs were obtained showed a pH of 7.38 PCO2 49 9 PO2 248.Patient was seen by rapid response team. Laboratory showed WBC 19.8 hemoglobin 12.1 platelets 172 BUN 70 and creatinine 0.63. Chest x-ray showed complete obscuration of the right hemithorax with right mediastinal shift. This is likely a combination of atelectasis effusion and perhaps lung mass. Patient has been afebrile. Pulmonary was reconsulted and chest ultrasound was ordered as per recommendations for possible thoracentesis.. 03/30/2021 Patient is currently lying in the bed. Requiring BiPAP support. Denied any complaints of chest pain. Patient is awake alert oriented x3. Possible IR guided right-sided thoracentesis on Wednesday. Ultrasound of the chest showed moderate right small left pleural effusions. Continue to monitor respiratory status closely. Discussed with the patient and family at bedside in detail. 03/31/2021 Patient is currently resting in bed comfortably. Still on BiPAP. Awake alert and oriented x3. No complaints of worsening chest pain or shortness of breath. Ultrasound of the chest showed moderate pleural effusion. Possible IR guided thoracentesis on Wednesday. 04/01/2021 Patient is seen and examined in follow-up this morning continues to be on BiPAP and unable to tolerate being off. Patient underwent chest ultrasound for possible thoracentesis with pulmonary following closely. Interventional radiology consulted for thoracentesis and patient was maintained on Lovenox and will need to hold with possibility of thoracentesis tomorrow. at the bedside and discussed with the family and daughter of the patient with possible hospice consult for informational. manager cleaning made aware and made the consult. states last to proceed with thoracentesis and see how the patient is doing before making any confirmed decisions about hospice. She is open to receiving information from [facility] at this time. Will continue BiPAP support and hold Lovenox. White blood count is 9.5 with a hemoglobin of 12.7, sodium is 131 with a potassium 4.4 current creatinine is 0.5. 04/02/2021 Patient is seen in follow-up this morning status post thoracentesis with development of a pneumothorax on the right and is being closely monitored. Lilli ent is BiPAP dependent with family at the bedside. Patient is unresponsive and not waking up to any commands verbal or stimulus. Oncology along with pulmonary following closely. Discussed at length with the again about hospice and comfort care and she is agreeable although his daughter does not want the BiPAP removed and hospice is unable to admit [facility] with continued BiPAP. This was discussed and explained with the at the bedside and [facility] will continue to follow with possibility of opening up tomorrow. Oncology recommending close observation for another 24 hours prior to starting comfort measures. Patient appears in no distress and again is unresponsive to verbal or painful stimuli. Will continue to monitor closely. Prognosis remains extremely poor and guarded. Patient is a no code. Lovenox has been discontinued and platelets are 76. 04/03/2021 Patient is seen in follow-up this morning with multiple family is at the bedside and have met with [facility] and plan is to make the patient inpatient and wean off the BiPAP and start with comfort measures and morphine drip. Patient is awake although extremely lethargic and fatigued and responding appropriately to questions and commands. Patient denies any pain or difficulty in breathing. Patient continues to be BiPAP dependent at this point. Family would like to proceed with hospice and comfort care measures only. Review of systems: Constitutional: reports of fatigue, no reports of fever, or chills Cardiovascular: No reports of chest pain or palpitations Respiratory: No reports of shortness of breath or cough GI: No reports of nausea, vomiting, or diarrhea : No reports of dysuria or retention Neurovascular: Reports extreme weakness and debility All medications have been reviewed Objective - Vital Signs Vital signs: Vital Signs Temp 98.8 F 04/03/21 04:44 Pulse 96 04/03/21 04:44 Resp 16 04/03/21 04:44 BP 123/86 04/03/21 04:44 Pulse Ox 100 04/03/21 04:44 Intake & Output 04/02/21 04/03/21 04/03/21 18:59 06:59 18:59 Weight 39 kg Other: Voiding Method Diaper Diaper - Exam Patient is lying in bed, awake and extremely lethargic. Currently maintained on BiPAP HEENT: Normocephalic. Neck is supple. Pupils reactive. Nostrils clear. Oral cavity is dry. Neck reveals no JVD, carotid bruits, or thyromegaly. CHEST EXAMINATION: Trachea is central. Symmetrical expansion. Diminished breath sounds noted with some coarse rhonchi and crackles noted on the left and minimal lung sounds noted on the right status post thoracentesis with pneumothorax CARDIAC: Normal S1, S2 with no gallops. No murmurs ABDOMEN: Soft. Bowel sounds normal. No organomegaly. No abdominal bruits. Extremities: reveal no edema. No clubbing or cyanosis Neurologically awake, alert, oriented x2 with well-coordinated movements. No focal deficits noted Skin: No rash or skin lesions. Psychiatric: Cooperative. Non-suicidal Musculoskeletal: No joint swelling or deformity. Normal range of motion. Diffusely weak - Labs CBC & Chem 7: 04/02/21 05:13 04/02/21 05:13 Assessment and Plan Assessment: Metastatic carcinoma most likely of lung primary with noted lesions of the liver and pancreas Right-sided pneumothorax Status post thoracentesis Acute hypoxic respiratory failure secondary to above along with atelectasis and volume loss involving the right lung and right middle lobe and right lower lobe with pleural effusions, now requiring BiPAP COPD acute exacerbation Thrombocytopenia Severe protein malnutrition/cachexia, BMI is 16.2 Acute leukocytosis with lactic acidosis and sepsis, present on admission secondary to postobstructive pneumonia Elevated troponin possibly demand ischemia secondary to acute respiratory failure Alcoholism Large right MCA distribution cerebrovascular accident with some residual left- sided weakness history Hypertension Hyperlipidemia Peripheral vascular disease DVT prophylaxis GI prophylaxis No code Plan: Recommend continue with comfort measures and patient is being made inpatient [facility] per family wishes along with patient and will continue to monitor closely and continue with BiPAP support until morphine drip is started and then patient will be weaned to nasal cannula. Multiple family members at the bedside and questions and concerns were answered. Prognosis remains extremely poor and guarded.
--- NOTE | 2021-04-08 10:54 | CONS ---
CONSULTATION DATE OF SERVICE: 03/24/21 I have seen, examined, and agree with the midlevel's findings. MMODL / IJN: [id number] / -[id number]
--- NOTE | 2021-04-09 14:34 | P.PN ---
Subjective Progress Note Date: 03/20/21 Principal diagnosis: Metastatic carcinoma; most likely primary lung Acute hypoxic respiratory failure Postobstructive pneumonia Severe malnutrition protein calorie/debility 65-year-old male presenting with severe respiratory distress. 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 He is still a daily alcohol drinker. He drinks alcohol heavily and he is currently a cigarette smoker on a daily basis. He is quite cachectic, emaciated, debilitated, weak, and malnourished. Does not have any headache. No seizure. Patient had been sent from the primary care office with hypoxia. He was diagn osed with effusion and fluid overload as well as hypoxia in the emergency department yesterday but had left AGAINST MEDICAL ADVICE. He had an elevated troponin, elevated BNP. 03/15/2021 Patient is seen for a follow-up in the intensive care unit. The patient is a ICU overflow. For now, the patient on a BiPAP at a pressure of 14/6 cm of water with an FiO2 of 1. The pulse ox measures and is not aggravated and the blood gases will be needed. The patient is urinating adequate tidal volumes and has a respiratory rate of 16-20. He remains quite lethargic, somnolent yet arousable. Extremely cachectic and emaciated. Hemodynamically stable. As mentioned earlier, a emergent right-sided thoracentesis was done yesterday of the right lung and a total of 800 mL of pleural fluid was aspirated successfully. Nevertheless, the follow-up chest x-ray still showing significant volume loss in the right lung related to his underlying lung mass as the patient has a large mass encasing the right hilar structures and the right mainstem bronchus and the bronchus intermedius. Currently is on bronchodilators and steroids. No fever. No chills. Resting comfortably in bed. Does not communicate a whole lot. Family is not around. Would like to talk to the family regarding treatment. As the patient's prognosis extremely poor baseline above-mentioned comorbidities. Fluid cytology is pending for now. 03/16/2021 Patient is seen and evaluated in room at bedside; sustained a fall with abrasion to right eyebrow with small hematoma. The patient is much more awake compared to yesterday. He was taken off the BiPAP. He was switched to nasal cannula and currently is on room air oxygen. Chest x-ray showing volume loss and they large hilar mass with atelectatic changes as described earlier involving the right lower lung area. -- He remains on bronchodilators; steroids and IV Zosyn as an empiric antibiotic coverage for any postobstructive pneumonia. White cell count is 15.3 with a hemoglobin 0.3. Normal renal function. Lactic acid level is down to 2.2. Urinalysis was abnormal and cultures are still pending for now. Patient underwent thoracentesis right lung with a total of 800 mL of pleural fluid was aspirated. Fluid cytology still pending for now. Repeat chest x-ray from today shows no significant interval change. There is volume loss on the right. The patient is extremely cachectic and in mental status as discussed earlier. No focal neurological deficits. His CODE STATUS has been switched to a DO NOT RESUSCITATE and DO NOT INTUBATE per patternmaker metal bench discussion with the family. 2-D echo reveals global left ventricular dysfunction with EF of 25%; cardiology on board and recommending to start low-dose beta blockers and monitor blood pressure closely; plan is for the workup for cardiomyopathy with gradual addition of heart failure medications. 03/17/2021 Patient is currently lying in the bed. On oxygen via nasal cannula. Denied any complaints of chest pain. Patient is lethargic and seems confused. Rate is being converted on bronchodilators and antibiotics in the form of Zosyn. Next check iron CODE STATUS is DO NOT RESUSCITATE/DO NOT INTUBATE. Fluid cytology from thoracentesis is pending at this time. 03/18/2021 Patient is currently in the MICU. Seems comfortable. On room air. Confused but more awake and oriented today. Patient is being continued on Antivert the form of Zosyn and IV steroids being changed to prednisone 40 mg daily. Fluid cytology is pending. Patient has been afebrile. No complaints of chest pain. No nausea vomiting or abdominal pain or diarrhea. Chest x-ray showed stable appearance yesterday. Pulmonary is planning for bronchoscopy if fluid cytology from thoracentesis is negative. 03/19/2021 Patient is currently in MICU and is lying in the bed comfortably. No compressive chest pain or worsening shortness of breath. Status post paracentesis and fluid cytology is pending at this time. Patient is being continued on Zosyn and prednisone 40 mg daily. Pulmonary is planning for bronchoscopy if fluid cytology is negative. Otherwise patient has been afebrile. Saturating at 94% on room air. Chest x-ray showed complete opacification of right hemithorax which has progressed since prior study. Hyperinflation left lung. Mediastinal shift from left to right. 03/20/2021 Patient is comfortable and lying in the bed. Able to communicate. Pleural fluid aspirated from the right lung continues to be positive for malignant cells. Consistent with small cell lung cancer. Oncology is on board. Patient had significant narrowing of the right mainstem bronchus/bronchus intermedius was also considering the airway inspection to visualize the extent of narrowing and decide if there is any intervention that can be done preserved patency of the airways underwent and and lung collapse. Patient is tolerating oral diet. Continued on antibiotics in the form of Zosyn. Continued on prednisone burst taper. Afebrile. No seizure activity. MRI of the brain was ordered to rule to the metastatic lesions. Patient does have poor insight and discussed with the family. Review of systems: Constitutional: No reports of fatigue, fever, or chills Cardiovascular: No reports of chest pain or palpitations Respiratory: reports shortness of breath with continued dry cough, with minimal exertion GI: No reports of nausea, vomiting, or diarrhea : No reports of dysuria or retention Neurovascular: reports generalized weakness All medications have been reviewed Objective - Vital Signs Vital signs: Vital Signs Temp 98.0 F 03/20/21 14:00 Pulse 74 03/20/21 20:48 Resp 17 03/20/21 14:00 BP 140/77 03/20/21 14:00 Pulse Ox 94 L 03/20/21 14:00 Intake & Output 03/20/21 03/20/21 03/21/21 06:59 18:59 06:59 Intake Total 400 60 Output Total 0 Balance 400 60 Weight 44.1 kg 44.1 kg Intake: IV 100 Piperacillin-Tazobactam 3 100 .375 gm In Sodium Chloride 0.9% 100 ml @ 25 mls/hr IVPB Q8H [facility] Rx#: [id number] Intake, IV Titration 60 Amount Lactated Ringers 1,000 ml 60 @ 20 mls/hr IV .Q24H [facility] Rx#:[id number] Oral 300 Output: Urine 0 Other: Voiding Method Urinal Urinal - Exam PHYSICAL EXAMINATION: Patient is lying in the bed comfortably, no acute distress, awake alert and oriented. Feels weak and lethargic.. HEENT: Normocephalic. Neck is supple. Pupils reactive. Nostrils clear. Oral cavity is moist. Neck reveals no JVD, carotid bruits, or thyromegaly. CHEST EXAMINATION: Trachea is central. Symmetrical expansion. Bilateral diminished sounds. Scattered wheezing, crackles. CARDIAC: Normal S1, S2 with no gallops. No murmurs ABDOMEN: Soft. Bowel sounds normal. No organomegaly. No abdominal bruits. Extremities: reveal no edema. No clubbing or cyanosis Neurologically awake, alert, oriented x3 with well-coordinated movements. No focal deficits noted Skin: No rash or skin lesions. Psychiatric: Coperative. Nonsuicidal Musculoskeletal: No joint swelling or deformity. Normal range of motion. - Labs CBC & Chem 7: 04/02/21 05:13 04/02/21 05:13 Labs: Abnormal Lab Results - Last 24 Hours (Table) 03/20/21 03/20/21 Range/Units 04:16 04:16 RBC 4.02 L (4.30-5.90) m/uL Hgb 12.1 L (13.0-17.5) gm/dL Hct 38.8 L (39.0-53.0) % Neutrophils # 8.7 H (1.3-7.7) k/uL Lymphocytes # 0.8 L (1.0-4.8) k/uL Sodium 135 L (137-145) mmol/L Carbon Dioxide 21 L (22-30) mmol/L Creatinine 0.60 L (0.66-1.25) mg/dL Glucose 56 L (74-99) mg/dL Calcium 8.3 L (8.4-10.2) mg/dL Assessment and Plan Assessment: 1. Metastatic carcinoma most likely of a lung primary - presenting with a large right paratracheal precarinal and subcarinal mass with hilar extension measuring 7.1 x 10 x 7.9 cm in size and there is extensive mass effect on the bronchus intermedius causing significant narrowing. There is some right lower lobe and right middle lobe atelectatic changes and volume loss in addition to a moderate-sized right-sided pleural effusion. Patient also has herpetic lesions and the presentation is highly suspicious for stage IV metastatic carcinoma of a lung primary. Fluid cytology is pending. 2. Acute hypoxic respiratory failure; - atelectasis and volume loss involving the right lung including the right middle lobe and right lower lobe and the patient has a large right-sided pleural effusion. A bedside thoracentesis was done; patient was on BiPAP - a total of 800 mL of blood-tinged fluid was aspirated from the right lung. T he fluid will be sent for cytology. - IV Zosyn for postobstructive pneumonia; DuoNeb nebulizer treatment [id number] - IV Solu Medrol 60 mg every 6 hours. Changed to prednisone 40 mg daily. Patient was started on BiPAP due to worsening respiratory status this morning. Pulmonary was reconsulted. 3. Acute exacerbation COPD; DuoNeb nebulizer treatments along with Solu-Medrol 60 mg IV every 6 hours 4. Severe protein calorie malnourishment/cachexia; emaciation and weight loss. Current by the weight is around 90 pounds; recommend dietary consult. 5. Acute leukocytosis with lactic acidosis/ sepsis; secondary to postobstructive pneumonia; patient started on IV antibiotics 6. Elevated troponin; possibly demand ischemia secondary to acute respiratory failure 7. Alcoholism; patient placed on CIWA protocol with Ativan; thiamine 100 mg twice a day 8. Large right MCA distribution CVA with some residual left-sided weakness; continue with aspirin and Lipitor 9. Hypertension; takes lisinopril at home which will be placed on hold for risk of impending hypotension due to sepsis 10. Hyperlipidemia; Lipitor 20 mg by mouth daily at bedtime 11. Peripheral vascular disease with questionable cut off level of the aorta. Given examination, the patient is not having any significant vascular insufficiency and the patient has diminished pulses in the legs bilaterally. Vascular surgery is consulted and recommendations to be followed. DVT prophylaxis; SCDs/subcu heparin CODE STATUS; DO NOT RESUSCITATE/DO NOT INTUBATE. Prognosis poor. Time with Patient: Greater than 30
--- NOTE | 2021-04-09 14:36 | P.PN ---
Subjective Progress Note Date: 03/22/21 Principal diagnosis: Metastatic carcinoma; most likely primary lung Acute hypoxic respiratory failure Postobstructive pneumonia Severe malnutrition protein calorie/debility 65-year-old male presenting with severe respiratory distress. 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 He is still a daily alcohol drinker. He drinks alcohol heavily and he is currently a cigarette smoker on a daily basis. He is quite cachectic, emaciated, debilitated, weak, and malnourished. Does not have any headache. No seizure. Patient had been sent from the primary care office with hypoxia. He was diagn osed with effusion and fluid overload as well as hypoxia in the emergency department yesterday but had left AGAINST MEDICAL ADVICE. He had an elevated troponin, elevated BNP. 03/15/2021 Patient is seen for a follow-up in the intensive care unit. The patient is a ICU overflow. For now, the patient on a BiPAP at a pressure of 14/6 cm of water with an FiO2 of 1. The pulse ox measures and is not aggravated and the blood gases will be needed. The patient is urinating adequate tidal volumes and has a respiratory rate of 16-20. He remains quite lethargic, somnolent yet arousable. Extremely cachectic and emaciated. Hemodynamically stable. As mentioned earlier, a emergent right-sided thoracentesis was done yesterday of the right lung and a total of 800 mL of pleural fluid was aspirated successfully. Nevertheless, the follow-up chest x-ray still showing significant volume loss in the right lung related to his underlying lung mass as the patient has a large mass encasing the right hilar structures and the right mainstem bronchus and the bronchus intermedius. Currently is on bronchodilators and steroids. No fever. No chills. Resting comfortably in bed. Does not communicate a whole lot. Family is not around. Would like to talk to the family regarding treatment. As the patient's prognosis extremely poor baseline above-mentioned comorbidities. Fluid cytology is pending for now. 03/16/2021 Patient is seen and evaluated in room at bedside; sustained a fall with abrasion to right eyebrow with small hematoma. The patient is much more awake compared to yesterday. He was taken off the BiPAP. He was switched to nasal cannula and currently is on room air oxygen. Chest x-ray showing volume loss and they large hilar mass with atelectatic changes as described earlier involving the right lower lung area. -- He remains on bronchodilators; steroids and IV Zosyn as an empiric antibiotic coverage for any postobstructive pneumonia. White cell count is 15.3 with a hemoglobin 0.3. Normal renal function. Lactic acid level is down to 2.2. Urinalysis was abnormal and cultures are still pending for now. Patient underwent thoracentesis right lung with a total of 800 mL of pleural fluid was aspirated. Fluid cytology still pending for now. Repeat chest x-ray from today shows no significant interval change. There is volume loss on the right. The patient is extremely cachectic and in mental status as discussed earlier. No focal neurological deficits. His CODE STATUS has been switched to a DO NOT RESUSCITATE and DO NOT INTUBATE per loan underwriter discussion with the family. 2-D echo reveals global left ventricular dysfunction with EF of 25%; cardiology on board and recommending to start low-dose beta blockers and monitor blood pressure closely; plan is for the workup for cardiomyopathy with gradual addition of heart failure medications. 03/17/2021 Patient is currently lying in the bed. On oxygen via nasal cannula. Denied any complaints of chest pain. Patient is lethargic and seems confused. Rate is being converted on bronchodilators and antibiotics in the form of Zosyn. Next check iron CODE STATUS is DO NOT RESUSCITATE/DO NOT INTUBATE. Fluid cytology from thoracentesis is pending at this time. 03/18/2021 Patient is currently in the MICU. Seems comfortable. On room air. Confused but more awake and oriented today. Patient is being continued on Antivert the form of Zosyn and IV steroids being changed to prednisone 40 mg daily. Fluid cytology is pending. Patient has been afebrile. No complaints of chest pain. No nausea vomiting or abdominal pain or diarrhea. Chest x-ray showed stable appearance yesterday. Pulmonary is planning for bronchoscopy if fluid cytology from thoracentesis is negative. 03/19/2021 Patient is currently in MICU and is lying in the bed comfortably. No compressive chest pain or worsening shortness of breath. Status post paracentesis and fluid cytology is pending at this time. Patient is being continued on Zosyn and prednisone 40 mg daily. Pulmonary is planning for bronchoscopy if fluid cytology is negative. Otherwise patient has been afebrile. Saturating at 94% on room air. Chest x-ray showed complete opacification of right hemithorax which has progressed since prior study. Hyperinflation left lung. Mediastinal shift from left to right. 03/20/2021 Patient is comfortable and lying in the bed. Able to communicate. Pleural fluid aspirated from the right lung continues to be positive for malignant cells. Consistent with small cell lung cancer. Oncology is on board. Patient had significant narrowing of the right mainstem bronchus/bronchus intermedius was also considering the airway inspection to visualize the extent of narrowing and decide if there is any intervention that can be done preserved patency of the airways underwent and and lung collapse. Patient is tolerating oral diet. Continued on antibiotics in the form of Zosyn. Continued on prednisone burst taper. Afebrile. No seizure activity. MRI of the brain was ordered to rule to the metastatic lesions. Patient does have poor insight and discussed with the family. 03/22/2021 Patient is currently in the oncology unit. Sitting in the side of the bed. Awake alert and still confused. Currently saturating at 90% on room air. MRI of the brain did not reveal any evidence of metastatic disease. Laboratory data show WBC 2.7 hemoglobin 11.8 sodium 135 potassium 3.7 and creatinine 0.59 Patient is being continued on bronchodilators, prednisone and antibiotics in the form of Zosyn. CAT scan of the abdomen pelvis along with bone scans are pending. Currently being followed by oncology and radiation oncology is also on board. Discussed with his . Review of systems: Constitutional: No reports of fatigue, fever, or chills Cardiovascular: No reports of chest pain or palpitations Respiratory: reports shortness of breath with continued dry cough, with minimal exertion GI: No reports of nausea, vomiting, or diarrhea : No reports of dysuria or retention Neurovascular: reports generalized weakness All medications have been reviewed Objective - Vital Signs Vital signs: Vital Signs Temp 97.9 F 03/22/21 04:32 Pulse 80 03/22/21 07:50 Resp 18 03/22/21 04:32 BP 137/87 03/22/21 04:32 Pulse Ox 95 03/22/21 04:32 Intake & Output 03/21/21 03/22/21 03/22/21 18:59 06:59 18:59 Intake Total 360 340 Balance 360 340 Intake: Intake, IV Titration 360 340 Amount Lactated Ringers 1,000 ml 360 240 @ 20 mls/hr IV .Q24H [facility] Rx#:[id number] Piperacillin-Tazobactam 3 100 .375 gm In Sodium Chloride 0.9% 100 ml @ 25 mls/hr IVPB Q8HR [facility] Rx# :[id number] Other: Voiding Method Urinal Toilet Urinal Diaper # Voids 3 - Exam PHYSICAL EXAMINATION: Patient is lying in the bed comfortably, no acute distress, awake alert and oriented. Feels weak and lethargic.. HEENT: Normocephalic. Neck is supple. Pupils reactive. Nostrils clear. Oral cavity is moist. Neck reveals no JVD, carotid bruits, or thyromegaly. CHEST EXAMINATION: Trachea is central. Symmetrical expansion. Bilateral diminished sounds. Scattered wheezing, crackles. CARDIAC: Normal S1, S2 with no gallops. No murmurs ABDOMEN: Soft. Bowel sounds normal. No organomegaly. No abdominal bruits. Extremities: reveal no edema. No clubbing or cyanosis Neurologically awake, alert, oriented x3 with well-coordinated movements. No focal deficits noted Skin: No rash or skin lesions. Psychiatric: Coperative. Nonsuicidal Musculoskeletal: No joint swelling or deformity. Normal range of motion. - Labs CBC & Chem 7: 04/02/21 05:13 04/02/21 05:13 Labs: Abnormal Lab Results - Last 24 Hours (Table) 03/21/21 03/22/21 03/22/21 Range/Units 05:26 05:44 05:44 WBC 12.7 H (3.8-10.6) k/uL RBC 3.94 L (4.30-5.90) m/uL Hgb 11.8 L (13.0-17.5) gm/dL Hct 37.1 L (39.0-53.0) % Neutrophils # 11.0 H (1.3-7.7) k/uL Lymphocytes # 0.7 L (1.0-4.8) k/uL Sodium 135 L (137-145) mmol/L Creatinine 0.59 L (0.66-1.25) mg/dL Glucose 65 L (74-99) mg/dL Lactate Dehydrogenase 757 H (313-618) U/L Total Protein 5.5 L 5.6 L (6.3-8.2) g/dL Albumin 2.8 L 2.9 L (3.5-5.0) g/dL Assessment and Plan Assessment: 1. Metastatic carcinoma/Small cell lung cancer. - presenting with a large right paratracheal precarinal and subcarinal mass with hilar extension measuring 7.1 x 10 x 7.9 cm in size and there is extensive mass effect on the bronchus intermedius causing significant narrowing. There is some right lower lobe and right middle lobe atelectatic changes and volume loss in addition to a moderate-sized right-sided pleural effusion. Patient also has herpetic lesions and the presentation is highly suspicious for stage IV metastatic carcinoma of a lung primary. Fluid cytology showed malignant cells. Oncology and radiation oncology is on board. 2. Acute hypoxic respiratory failure; - atelectasis and volume loss involving the right lung including the right middle lobe and right lower lobe and the patient has a large right-sided pleural effusion. A bedside thoracentesis was done; patient was on BiPAP - a total of 800 mL of blood-tinged fluid was aspirated from the right lung. The fluid will be sent for cytology. - IV Zosyn for postobstructive pneumonia; DuoNeb nebulizer treatment [id number] - IV Solu Medrol 60 mg every 6 hours. Changed to prednisone 40 mg daily. Patient was started on BiPAP due to worsening respiratory status. now on RA. Pulmonary is following. 3. Acute exacerbation COPD; DuoNeb nebulizer treatments along with Solu-Medrol 60 mg IV every 6 hours 4. Severe protein calorie malnourishment/cachexia; emaciation and weight loss. Current by the weight is around 90 pounds; recommend dietary consult. 5. Acute leukocytosis with lactic acidosis/ sepsis; secondary to postobstructive pneumonia; patient started on IV antibiotics 6. Elevated troponin; possibly demand ischemia secondary to acute respiratory failure 7. Alcoholism; patient placed on CIWA protocol with Ativan; thiamine 100 mg twice a day 8. Large right MCA distribution CVA with some residual left-sided weakness; continue with aspirin and Lipitor 9. Hypertension; takes lisinopril at home which will be placed on hold for risk of impending hypotension due to sepsis 10. Hyperlipidemia; Lipitor 20 mg by mouth daily at bedtime 11. Peripheral vascular disease with questionable cut off level of the aorta. Given examination, the patient is not having any significant vascular insufficiency and the patient has diminished pulses in the legs bilaterally. Vascular surgery is consulted and recommendations to be followed. DVT prophylaxis; SCDs/subcu heparin CODE STATUS; DO NOT RESUSCITATE/DO NOT INTUBATE. Prognosis poor. Time with Patient: Greater than 30
--- NOTE | 2021-04-09 14:38 | P.PN ---
Subjective Progress Note Date: 03/23/21 Principal diagnosis: Metastatic carcinoma; most likely primary lung Acute hypoxic respiratory failure Postobstructive pneumonia Severe malnutrition protein calorie/debility 65-year-old male presenting with severe respiratory distress. 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 He is still a daily alcohol drinker. He drinks alcohol heavily and he is currently a cigarette smoker on a daily basis. He is quite cachectic, emaciated, debilitated, weak, and malnourished. Does not have any headache. No seizure. Patient had been sent from the primary care office with hypoxia. He was diagn osed with effusion and fluid overload as well as hypoxia in the emergency department yesterday but had left AGAINST MEDICAL ADVICE. He had an elevated troponin, elevated BNP. 03/15/2021 Patient is seen for a follow-up in the intensive care unit. The patient is a ICU overflow. For now, the patient on a BiPAP at a pressure of 14/6 cm of water with an FiO2 of 1. The pulse ox measures and is not aggravated and the blood gases will be needed. The patient is urinating adequate tidal volumes and has a respiratory rate of 16-20. He remains quite lethargic, somnolent yet arousable. Extremely cachectic and emaciated. Hemodynamically stable. As mentioned earlier, a emergent right-sided thoracentesis was done yesterday of the right lung and a total of 800 mL of pleural fluid was aspirated successfully. Nevertheless, the follow-up chest x-ray still showing significant volume loss in the right lung related to his underlying lung mass as the patient has a large mass encasing the right hilar structures and the right mainstem bronchus and the bronchus intermedius. Currently is on bronchodilators and steroids. No fever. No chills. Resting comfortably in bed. Does not communicate a whole lot. Family is not around. Would like to talk to the family regarding treatment. As the patient's prognosis extremely poor baseline above-mentioned comorbidities. Fluid cytology is pending for now. 03/16/2021 Patient is seen and evaluated in room at bedside; sustained a fall with abrasion to right eyebrow with small hematoma. The patient is much more awake compared to yesterday. He was taken off the BiPAP. He was switched to nasal cannula and currently is on room air oxygen. Chest x-ray showing volume loss and they large hilar mass with atelectatic changes as described earlier involving the right lower lung area. -- He remains on bronchodilators; steroids and IV Zosyn as an empiric antibiotic coverage for any postobstructive pneumonia. White cell count is 15.3 with a hemoglobin 0.3. Normal renal function. Lactic acid level is down to 2.2. Urinalysis was abnormal and cultures are still pending for now. Patient underwent thoracentesis right lung with a total of 800 mL of pleural fluid was aspirated. Fluid cytology still pending for now. Repeat chest x-ray from today shows no significant interval change. There is volume loss on the right. The patient is extremely cachectic and in mental status as discussed earlier. No focal neurological deficits. His CODE STATUS has been switched to a DO NOT RESUSCITATE and DO NOT INTUBATE per coin machine servicer repairer discussion with the family. 2-D echo reveals global left ventricular dysfunction with EF of 25%; cardiology on board and recommending to start low-dose beta blockers and monitor blood pressure closely; plan is for the workup for cardiomyopathy with gradual addition of heart failure medications. 03/17/2021 Patient is currently lying in the bed. On oxygen via nasal cannula. Denied any complaints of chest pain. Patient is lethargic and seems confused. Rate is being converted on bronchodilators and antibiotics in the form of Zosyn. Next check iron CODE STATUS is DO NOT RESUSCITATE/DO NOT INTUBATE. Fluid cytology from thoracentesis is pending at this time. 03/18/2021 Patient is currently in the MICU. Seems comfortable. On room air. Confused but more awake and oriented today. Patient is being continued on Antivert the form of Zosyn and IV steroids being changed to prednisone 40 mg daily. Fluid cytology is pending. Patient has been afebrile. No complaints of chest pain. No nausea vomiting or abdominal pain or diarrhea. Chest x-ray showed stable appearance yesterday. Pulmonary is planning for bronchoscopy if fluid cytology from thoracentesis is negative. 03/19/2021 Patient is currently in MICU and is lying in the bed comfortably. No compressive chest pain or worsening shortness of breath. Status post paracentesis and fluid cytology is pending at this time. Patient is being continued on Zosyn and prednisone 40 mg daily. Pulmonary is planning for bronchoscopy if fluid cytology is negative. Otherwise patient has been afebrile. Saturating at 94% on room air. Chest x-ray showed complete opacification of right hemithorax which has progressed since prior study. Hyperinflation left lung. Mediastinal shift from left to right. 03/21/2021 Patient is seen and evaluated in follow-up with family at the bedside currently on 5 N. MedSurg with no acute overnight issues noted. Patient was up and working with physical therapy this morning with standby assistance and a walker. Patient continues to be weak although is improving slowly. Patient currently sitting up in the bed comfortably on room air and denies any worsening shortness of breath. Patient is continued on breathing inhalational treatments with pulmonary following closely. Plan is for bronchoscopy with biopsy to confirm diagnosis. Oncology on board as well. Patient also scheduled to undergo brain MRI to evaluate for any metastasis to the brain. Patient continues with a cough that is dry in nature. Patient reports to tolerating diet with no reports of nausea or vomiting noted. Patient is currently nothing by mouth for the procedure and will await report. White blood count is 10.8 with a hemoglobin of 11.7, sodium is 138 with a potassium of 3.3 and will replace and repeat labs. Creatinine is 0.6. Magnesium is 1.9. Patient to continue on IV Zosyn and oral steroids. Radiation oncology being consulted. Patient is a no code. Social work following as well with possibility of ECF once stabilized and discharged. Insurance requires authorization as well. 03/23/2021 Patient is awake alert oriented x3. Current enoxaparin nasal cannula. Oncology was consulted. Patient does have metastatic small cell carcinoma with management right-sided pleural effusion. Radiation oncology was consulted as well. He also has metastatic to liver. Continued on palliative therapy. Otherwise laboratory data showed sodium 131 renal function stable. Only, oncology and radiation oncology is on board. Review of systems: Constitutional: No reports of fatigue, fever, or chills Cardiovascular: No reports of chest pain or palpitations Respiratory: reports shortness of breath with continued dry cough, with minimal exertion GI: No reports of nausea, vomiting, or diarrhea : No reports of dysuria or retention Neurovascular: reports generalized weakness All medications have been reviewed Objective - Vital Signs Vital signs: Vital Signs Temp 98.2 F 03/23/21 04:03 Pulse 76 03/23/21 11:05 Resp 20 03/23/21 04:03 BP 128/82 03/23/21 04:03 Pulse Ox 93 L 03/23/21 04:03 Intake & Output 03/22/21 03/23/21 03/23/21 18:59 06:59 18:59 Intake Total 160 350 Output Total 100 Balance 60 350 Weight 44.1 kg Intake: Intake, IV Titration 300 Amount Lactated Ringers 1,000 ml 200 @ 20 mls/hr IV .Q24H [facility] Rx#:[id number] Piperacillin-Tazobactam 3 100 .375 gm In Sodium Chloride 0.9% 100 ml @ 25 mls/hr IVPB Q8HR [facility] Rx# :[id number] Oral 160 50 Output: Urine 100 Other: Voiding Method Toilet Toilet Toilet Urinal Urinal Urinal Diaper Diaper Diaper - Exam PHYSICAL EXAMINATION: Patient is lying in the bed comfortably, no acute distress, awake alert and oriented. Feels weak and lethargic.. HEENT: Normocephalic. Neck is supple. Pupils reactive. Nostrils clear. Oral cavity is moist. Neck reveals no JVD, carotid bruits, or thyromegaly. CHEST EXAMINATION: Trachea is central. Symmetrical expansion. Bilateral diminished sounds. Scattered wheezing, crackles. CARDIAC: Normal S1, S2 with no gallops. No murmurs ABDOMEN: Soft. Bowel sounds normal. No organomegaly. No abdominal bruits. Extremities: reveal no edema. No clubbing or cyanosis Neurologically awake, alert, oriented x3 with well-coordinated movements. No focal deficits noted Skin: No rash or skin lesions. Psychiatric: Coperative. Nonsuicidal Musculoskeletal: No joint swelling or deformity. Normal range of motion. - Labs CBC & Chem 7: 04/02/21 05:13 04/02/21 05:13 Labs: Abnormal Lab Results - Last 24 Hours (Table) 03/23/21 03/23/21 Range/Units 01:09 01:09 RBC 3.40 L (4.30-5.90) m/uL Hgb 10.3 L (13.0-17.5) gm/dL Hct 32.0 L (39.0-53.0) % RDW 15.7 H (11.5-15.5) % Sodium 131 L (137-145) mmol/L Creatinine 0.58 L (0.66-1.25) mg/dL Glucose 67 L (74-99) mg/dL Calcium 7.3 L (8.4-10.2) mg/dL Assessment and Plan Assessment: 1. Metastatic carcinoma/Small cell lung cancer. - presenting with a large right paratracheal precarinal and subcarinal mass with hilar extension measuring 7.1 x 10 x 7.9 cm in size and there is extensive mass effect on the bronchus intermedius causing significant narrowing. There is some right lower lobe and right middle lobe atelectatic changes and volume loss in addition to a moderate-sized right-sided pleural effusion. Patient also has herpetic lesions and the presentation is highly suspicious for stage IV metastatic carcinoma of a lung primary. Fluid cytology showed malignant cells. Oncology and radiation oncology is on board. 2. Acute hypoxic respiratory failure; - atelectasis and volume loss involving the right lung including the right middle lobe and right lower lobe and the patient has a large right-sided pleural effusion. A bedside thoracentesis was done; patient was on BiPAP - a total of 800 mL of blood-tinged fluid was aspirated from the right lung. The fluid will be sent for cytology. - IV Zosyn for postobstructive pneumonia; DuoNeb nebulizer treatment [id number] - IV Solu Medrol 60 mg every 6 hours. Changed to prednisone 40 mg daily. Patient was started on BiPAP due to worsening respiratory status. now on RA. Pulmonary is following. 3. Acute exacerbation COPD; DuoNeb nebulizer treatments along with Solu-Medrol 60 mg IV every 6 hours 4. Severe protein calorie malnourishment/cachexia; emaciation and weight loss. Current by the weight is around 90 pounds; recommend dietary consult. 5. Acute leukocytosis with lactic acidosis/ sepsis; secondary to postobstructive pneumonia; patient started on IV antibiotics 6. Elevated troponin; possibly demand ischemia secondary to acute respiratory failure 7. Alcoholism; patient placed on CIWA protocol with Ativan; thiamine 100 mg twice a day 8. Large right MCA distribution CVA with some residual left-sided weakness; continue with aspirin and Lipitor 9. Hypertension; takes lisinopril at home which will be placed on hold for risk of impending hypotension due to sepsis 10. Hyperlipidemia; Lipitor 20 mg by mouth daily at bedtime 11. Peripheral vascular disease with questionable cut off level of the aorta. Given examination, the patient is not having any significant vascular insufficiency and the patient has diminished pulses in the legs bilaterally. Vascular surgery is consulted and recommendations to be followed. DVT prophylaxis; SCDs/subcu heparin CODE STATUS; DO NOT RESUSCITATE/DO NOT INTUBATE. Prognosis poor. Time with Patient: Greater than 30
== END 2021-04-03 10:54 | disposition hospice, inpatient (51) | DRG 871 ==
LOC: EC 09:34 → 3SCARD 11:36 → 2SICU 14:10 → 5NMEDONC 03-20 15:45
PROVIDERS: ADMIT Internal Medicine; ATTEND Internal Medicine
PROC: 5A09357 Assistance with Respiratory Ventilation, Less than 24 Consecutive Hours, Continuous Positive Airway Pressure (ICD-10-PCS; 2021-03-14)
PROC: 0W993ZX Drainage of Right Pleural Cavity, Percutaneous Approach, Diagnostic (ICD-10-PCS; 2021-03-14)
PROC: 02HV33Z Insertion of Infusion Device into Superior Vena Cava, Percutaneous Approach (ICD-10-PCS; principal; 2021-03-26 16:32)
PROC: 0W993ZX Drainage of Right Pleural Cavity, Percutaneous Approach, Diagnostic (ICD-10-PCS; 2021-04-01)
DX: A41.9 Sepsis, unspecified organism (principal); E43 Unspecified severe protein-calorie malnutrition; J18.9 Pneumonia, unspecified organism; J96.01 Acute respiratory failure with hypoxia; C34.91 Malignant neoplasm of unspecified part of right bronchus or lung; C78.7 Secondary malignant neoplasm of liver and intrahepatic bile duct; Z68.1 Body mass index [BMI] 19.9 or less, adult; E87.2 Acidosis; I42.9 Cardiomyopathy, unspecified; I69.354 Hemiplegia and hemiparesis following cerebral infarction affecting left non-dominant side; J44.0 Chronic obstructive pulmonary disease with (acute) lower respiratory infection; J44.1 Chronic obstructive pulmonary disease with (acute) exacerbation; J91.0 Malignant pleural effusion; J93.9 Pneumothorax, unspecified; J98.11 Atelectasis; R64 Cachexia; Z20.822 Contact with and (suspected) exposure to COVID-19; F10.20 Alcohol dependence, uncomplicated; I50.9 Heart failure, unspecified; D69.59 Other secondary thrombocytopenia; F03.90 Unspecified dementia, unspecified severity, without behavioral disturbance, psychotic disturbance, mood disturbance, and anxiety; Z51.5 Encounter for palliative care; Z66 Do not resuscitate; I11.0 Hypertensive heart disease with heart failure; I73.9 Peripheral vascular disease, unspecified; D64.9 Anemia, unspecified; R77.8 Other specified abnormalities of plasma proteins; F17.210 Nicotine dependence, cigarettes, uncomplicated; I25.10 Atherosclerotic heart disease of native coronary artery without angina pectoris; E78.5 Hyperlipidemia, unspecified; K21.9 Gastro-esophageal reflux disease without esophagitis; K86.9 Disease of pancreas, unspecified; R93.89 Abnormal findings on diagnostic imaging of other specified body structures; S00.211A Abrasion of right eyelid and periocular area, initial encounter; W19.XXXA Unspecified fall, initial encounter; T45.1X5A Adverse effect of antineoplastic and immunosuppressive drugs, initial encounter; T38.0X5A Adverse effect of glucocorticoids and synthetic analogues, initial encounter; Z79.82 Long term (current) use of aspirin; Z79.899 Other long term (current) drug therapy; Z80.0 Family history of malignant neoplasm of digestive organs
CPT/HCPCS: 36415; 36573; 36600; 70553; 71045; 71260; 74177; 76604; 78306; 80048; 80053; 80076; 81001; 82140; 82805; 82945; 83605; 83615; 83735; 83880; 84100; 84132; 84157; 84484; 84550; 85025; 85027; 85610; 85730; 86850; 86900; 86901; 87070; 87086; 87102; 87116; 87205; 87206; 87252; 87496; 87498; 87502; 87529; 87634; 87635; 87798; 88108; 88305; 88341; 88342; 89050; 93005; 93306; 93308; 94640; 94660; 94760; 96365; 96366; 96372; 96375; 96376; 99285; 99291

== ENCOUNTER 2021-04-03 10:28 | Inpatient (IN) | payer MEDICAID ==
[2021-04-03] MEDS ORDERED: MORPHINE SULFATE 2 MG/ML SYRINGE IV PRN (10:35)
[2021-04-03] MEDS ORDERED: ATROPINE OPHTH SOLN 1% 5ML BTL SUBLINGUAL PRN (10:35)
[2021-04-03] MEDS ORDERED: LORazepam 2 MG/ML INJ IV PRN (10:35)
[2021-04-03] MEDS ORDERED: HALOPERIDOL LACTATE 5 MG/ML 1 ML VIAL IM PRN (10:35)
[2021-04-03] MEDS ORDERED: GLYCOPYRROLATE 0.2 MG/ML 2 ML VIAL IVP PRN (10:35)
[2021-04-03] MEDS ORDERED: ONDANSETRON 4 MG/2 ML VIAL IVP PRN (10:35)
[2021-04-03] MEDS ORDERED: ACETAMINOPHEN SUPPOSITORY 650 MG SUPP RECTAL PRN (10:35)
[2021-04-03] MEDS ORDERED: SCOPOLAMINE 1.5MG/72HR PATCH TRANSDERM SCH (11:00)
[2021-04-03] MEDS: MORPHINE SULFATE (100 MG/2 ML) 100 MG in SODIUM CHLORIDE 0.9% 100 ML IV SCH (12:30)
[2021-04-03 14:19] VITALS: BMI 14.3
--- NOTE | 2021-04-03 14:36 | P.PN ---
Progress Note - Text Progress Note Date: 04/03/21 Patient continues to be on BiPAP and family would like to proceed with hospice comfort measures in [facility] following closely and patient will be weaned off BiPAP once morphine drip was started and patient is comfortable. Multiple family members at the bedside. Will Continue to follow closely. Please refer to prior chart before [facility] admission for further HPI and documentation.
[2021-04-03 15:44] VITALS: BP 119/82; TEMP 98.2
--- NOTE | 2021-04-04 09:56 | P.PN ---
Subjective Progress Note Date: 04/04/21 Metastatic carcinoma; most likely primary lung Acute hypoxic respiratory failure Postobstructive pneumonia Severe malnutrition protein calorie/debility 65-year-old male presenting with severe respiratory distress. Past medical history is positive for a large right-sided MCA distribution CVA with some mi nimal left upper extremity weakness, hyperlipidemia, coronary artery disease, peripheral artery disease and previous history of alcoholism. He is still a daily alcohol drinker. He drinks alcohol heavily and he is currently a cigarette smoker on a daily basis. He is quite cachectic, emaciated, debilitated, weak, and malnourished. Does not have any headache. No seizure. Patient had been sent from the primary care office with hypoxia. He was diagnosed with effusion and fluid overload as well as hypoxia in the emergency department yesterday but had left AGAINST MEDICAL ADVICE. He had an elevated troponin, elevated BNP. 03/15/2021 Patient is seen for a follow-up in the intensive care unit. The patient is a ICU overflow. For now, the patient on a BiPAP at a pressure of 14/6 cm of water with an FiO2 of 1. The pulse ox measures and is not aggravated and the blood gases will be needed. The patient is urinating adequate tidal volumes and has a respiratory rate of 16-20. He remains quite lethargic, somnolent yet arousable. Extremely cachectic and emaciated. Hemodynamically stable. As mentioned earlier, a emergent right-sided thoracentesis was done yesterday of the right lung and a total of 800 mL of pleural fluid was aspirated successfully. Nevertheless, the follow-up chest x-ray still showing significant volume loss in the right lung related to his underlying lung mass as the patient has a large mass encasing the right hilar structures and the right mainstem bronchus and the bronchus intermedius. Currently is on bronchodilators and steroids. No fever. No chills. Resting comfortably in bed. Does not communicate a whole lot. Family is not around. Would like to talk to the family regarding treatment. As the patient's prognosis extremely poor baseline above-mentioned comorbidities. Fluid cytology is pending for now. 03/16/2021 Patient is seen and evaluated in room at bedside; sustained a fall with abrasion to right eyebrow with small hematoma. The patient is much more awake compared to yesterday. He was taken off the BiPAP. He was switched to nasal cannula and currently is on room air oxygen. Chest x-ray showing volume loss and they large hilar mass with atelectatic changes as described earlier involving the right lower lung area. -- He remains on bronchodilators; steroids and IV Zosyn as an empiric antibiotic coverage for any postobstructive pneumonia. White cell count is 15.3 with a hemoglobin 0.3. Normal renal function. Lactic acid level is down to 2.2. Urinalysis was abnormal and cultures are still pending for now. Patient underwent thoracentesis right lung with a total of 800 mL of pleural fluid was aspirated. Fluid cytology still pending for now. Repeat chest x-ray from today shows no significant interval change. There is volume loss on the right. The patient is extremely cachectic and in mental status as discussed earlier. No focal neurological deficits. His CODE STATUS has been switched to a DO NOT RESUSCITATE and DO NOT INTUBATE per product representative discussion with the family. 2-D echo reveals global left ventricular dysfunction with EF of 25%; cardiology on board and recommending to start low-dose beta blockers and monitor blood pressure closely; plan is for the workup for cardiomyopathy with gradual addition of heart failure medications. 03/17/2021 Patient is currently lying in the bed. On oxygen via nasal cannula. Denied any complaints of chest pain. Patient is lethargic and seems confused. Rate is being converted on bronchodilators and antibiotics in the form of Zosyn. Next check iron CODE STATUS is DO NOT RESUSCITATE/DO NOT INTUBATE. Fluid cytology from thoracentesis is pending at this time. 03/18/2021 Patient is currently in the MICU. Seems comfortable. On room air. Confused but more awake and oriented today. Patient is being continued on Antivert the form of Zosyn and IV steroids being changed to prednisone 40 mg daily. Fluid cytology is pending. Patient has been afebrile. No complaints of chest pain. No nausea vomiting or abdominal pain or diarrhea. Chest x-ray showed stable appearance yesterday. Pulmonary is planning for bronchoscopy if fluid cytology from thoracentesis is negative. 03/19/2021 Patient is currently in MICU and is lying in the bed comfortably. No compressive chest pain or worsening shortness of breath. Status post paracentesis and fluid cytology is pending at this time. Patient is being continued on Zosyn and prednisone 40 mg daily. Pulmonary is planning for bronchoscopy if fluid cytology is negative. Otherwise patient has been afebrile. Saturating at 94% on room air. Chest x-ray showed complete opacification of right hemithorax which has progressed since prior study. Hyperinflation left lung. Mediastinal shift from left to right. 03/21/2021 Patient is seen and evaluated in follow-up with family at the bedside currently on 5 N. MedSurg with no acute overnight issues noted. Patient was up and wor jonathan with physical therapy this morning with standby assistance and a walker. Patient continues to be weak although is improving slowly. Patient currently sitting up in the bed comfortably on room air and denies any worsening shortness of breath. Patient is continued on breathing inhalational treatments with pulmonary following closely. Plan is for bronchoscopy with biopsy to confirm diagnosis. Oncology on board as well. Patient also scheduled to undergo brain MRI to evaluate for any metastasis to the brain. Patient continues with a cough that is dry in nature. Patient reports to tolerating diet with no reports of nausea or vomiting noted. Patient is currently nothing by mouth for the procedure and will await report. White blood count is 10.8 with a hemoglobin of 11.7, sodium is 138 with a potassium of 3.3 and will replace and repeat labs. Creatinine is 0.6. Magnesium is 1.9. Patient to continue on IV Zosyn and oral steroids. Radiation oncology being consulted. Patient is a no code. Social work following as well with possibility of ECF once stabilized and discharged. Insurance requires authorization as well. 03/24/2021 Patient is seen and evaluated and follow-up and had a lengthy discussion with at the bedside. Patient is refusing to go to rehab states he just wants to go home. 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 Patient continues to be weak although does have a walker and wheelchair at the home and patient is reluctant to go to rehab and will set up with home care as the patient's is alone and states she needs assistance with his care. Oncology along with radiation oncology following and would like a discussion with patient and her at the bedside as she feels he is not understanding his overall prognosis. Case management following and they are agreeable to palliative care and referral is being placed. Patient is scheduled to undergo bone scan today. 03/25/2021 Patient is seen in follow-up this morning currently undergoing chest ultrasound for possible thoracentesis in the morning with pulmonary. Patient was seen and evaluated by vascular surgery and is not a surgical candidate for a Pleurx catheter. Patient continues to plan on discharging home with home care and will follow-up outpatient with oncology along with radiation oncology after discussing with his about treatment plan. Patient is weak at times and using a walker and has been working with physical therapy and arrangements are being made for discharge planning needs and necessary medical equipment in the home. Case management following and working on this. Patient does continue to have shortness of breath with exertion and maintaining oxygen above 90% on room air. Patient is afebrile. Patient will be nothing by mouth at midnight for the procedure. 03/26/2021 Patient is seen and evaluated in follow-up this morning and per pulmonary not enough effusion noted to perform thoracentesis and will continue to monitor closely. Patient still is having some shortness of breath and intermittent use of oxygen at 2 L. Had a lengthy discussion with oncology about treatment plan moving forward along with at the bedside and the patient who is agreeable to starting chemotherapy and finishing the first cycle and then going to rehab for some strength and mobility. Patient is to receive a PICC line and will have 3 days of chemotherapy and will monitor closely. Patient continues to have intermittent periods of confusion but is more alert and awake and receptive to starting treatment. Patient working with PT/OT therapy daily and continues to be weak and explained to the patient with at the bedside in detail about needing rehab once this first cycle was done for strength and mobility. Will repeat labs and monitor closely. Patient is tolerating diet with no reports of nausea or vomiting noted. Patient needs assistance of the bedside commode. Patient is afebrile. 03/27/2021 Patient is seen in follow up this morning and has received a PICC line and being started on day 1 of 3 chemotherapy with oncology following closely. Monitor labs and patient closely and continue with supportive management. Social work following and patient has been accepted at [facility] with auth approval until 04/01. Patient will need three days of chemotherapy with daily labs and will continue to encourage increased ambulation and PT/OT daily. Continue with supplemental 02. Pulmonary also following. 03/28/2021 Patient is seen this morning continues to have periods of confusion and agitation. Patient currently on day 2 of 3 chemotherapy with oncology following closely. White blood count elevated at 15.5, hemoglobin is 12.6, platelets are 151, sodium is 134 with a potassium of 4.3. Creatinine is 0.58. LFTs within normal limits. Patient continues on 3 L via nasal cannula and will continue. Patient is afebrile. Patient also continued on IV dexamethasone and received second of third dose today. Continue with anticoagulation with Lovenox subcu and continued breathing inhalational treatments. We'll continue with daily labs and monitor closely. 03/29/2021 Patient is currently awake alert and oriented. On BiPAP. Today morning patient became more short of breath and bilateral diminished air entry especially on the right side and diffuse crackles noted. Patient was given a dose of IV Lasix. Patient continues to have short of breath and was placed on BiPAP. ABGs were obtained showed a pH of 7.38 PCO2 49 9 PO2 248.Patient was seen by rapid response team. Laboratory showed WBC 19.8 hemoglobin 12.1 platelets 172 BUN 70 and creatinine 0.63. Chest x-ray showed complete obscuration of the right hemithorax with right mediastinal shift. This is likely a combination of atelectasis effusion and perhaps lung mass. Patient has been afebrile. Pulmonary was reconsulted and chest ultrasound was ordered as per recommendations for possible thoracentesis.. 03/30/2021 Patient is currently lying in the bed. Requiring BiPAP support. Denied any complaints of chest pain. Patient is awake alert oriented x3. Possible IR guided right-sided thoracentesis on Wednesday. Ultrasound of the chest showed moderate right small left pleural effusions. Continue to monitor respiratory status closely. Discussed with the patient and family at bedside in detail. 03/31/2021 Patient is currently resting in bed comfortably. Still on BiPAP. Awake alert and oriented x3. No complaints of worsening chest pain or shortness of breath. Ultrasound of the chest showed moderate pleural effusion. Possible IR guided thoracentesis on Wednesday. 04/01/2021 Patient is seen and examined in follow-up this morning continues to be on BiPAP and unable to tolerate being off. Patient underwent chest ultrasound for possible thoracentesis with pulmonary following closely. Interventional radiology consulted for thoracentesis and patient was maintained on Lovenox and will need to hold with possibility of thoracentesis tomorrow. at the bedside and discussed with the family and daughter of the patient with possible hospice consult for informational. business area manager made aware and made the consult. states last to proceed with thoracentesis and see how the patient is doing before making any confirmed decisions about hospice. She is open to receiving information from [facility] at this time. Will continue BiPAP support and hold Lovenox. White blood count is 9.5 with a hemoglobin of 12.7, sodium is 131 with a potassium 4.4 current creatinine is 0.5. 04/02/2021 Patient is seen in follow-up this morning status post thoracentesis with development of a pneumothorax on the right and is being closely monitored. Patient is BiPAP dependent with family at the bedside. Patient is unresponsive and not waking up to any commands verbal or stimulus. Oncology along with pulmonary following closely. Discussed at length with the again about hospice and comfort care and she is agreeable although his daughter does not want the BiPAP removed and hospice is unable to admit GIP with continued BiPAP. This was discussed and explained with the at the bedside and [facility] will continue to follow with possibility of opening up tomorrow. Oncology recommending close observation for another 24 hours prior to starting comfort measures. Patient appears in no distress and again is unresponsive to verbal or painful stimuli. Will continue to monitor closely. Prognosis remains extremely poor and guarded. Patient is a no code. Lovenox has been discontinued and platelets are 76. 04/03/2021 Patient is seen in follow-up this morning with multiple family is at the bedside and have met with [facility] and plan is to make the patient inpatient and wean off the BiPAP and start with comfort measures and morphine drip. Patient is awake although extremely lethargic and fatigued and responding appropriately to questions and commands. Patient denies any pain or difficulty in breathing. Patient continues to be BiPAP dependent at this point. Family would like to proceed with hospice and comfort care measures only. 04/04/2021 Patient is seen in follow-up continues to be on morphine drip currently at 1 mL per hour along with as needed Ativan. Patient is awake although extremely lethargic and continues to be confused with intermittent periods of agitation and restlessness per at the bedside. [facility] following and working on titrating medications for comfort. Review of systems: Unable to obtain as patient continues to be confused Active Medications Acetaminophen (Acetaminophen Suppository 650 Mg Supp) 650 mg RECTAL Q4HR PRN PRN Reason: Fever and/or Mild Pain Atropine Sulfate (Atropine Ophth Soln 1% 5ml Btl) 2 drops SUBLINGUAL Q4HR PRN PRN Reason: Excess Secretions Glycopyrrolate (Glycopyrrolate 0.2 Mg/Ml 2 Ml Vial) 0.1 mg IVP Q6HR PRN PRN Reason: Excess Secretions Haloperidol Lactate (Haloperidol Lactate 5 Mg/Ml 1 Ml Vial) 2 mg IM Q4HR PRN PRN Reason: Agitation Morphine Sulfate 100 mg/ (Sodium Chloride) 102 mls @ 1.02 mls/hr IV .Q24H [facility]; Protocol Last Admin: 04/03/21 12:30 Dose: 1 mg/hr, 1.02 mls/hr Documented by: Lorazepam (Lorazepam 2 Mg/Ml Inj) 1 mg IV Q4HR PRN PRN Reason: Anxiety Last Admin: 04/03/21 17:20 Dose: 1 mg Documented by: Morphine Sulfate (Morphine Sulfate 2 Mg/Ml Syringe) 2 mg IV Q15M PRN PRN Reason: Breakthrough Pain Ondansetron HCl (Ondansetron 4 Mg/2 Ml Vial) 4 mg IVP Q8HR PRN PRN Reason: Nausea/emesis Scopolamine (Scopolamine 1.5mg/72hr Patch) 1 patch TRANSDERM Q72H [facility] Last Admin: 04/03/21 13:31 Dose: 1 patch Documented by: Objective - Vital Signs Vital signs: Vital Signs Temp 98.2 F 04/03/21 15:43 Pulse 108 H 04/03/21 20:00 Resp 16 04/03/21 20:05 BP 119/82 04/03/21 15:43 Pulse Ox Intake & Output 04/03/21 04/04/21 04/04/21 18:59 06:59 18:59 Intake Total 12 Output Total 902 500 Balance -475 -846 Weight 39 kg Intake: Intake, IV Titration 12 Amount Morphine Sulfate (100 mg/ 12 2 ml) 100 mg In Sodium Chloride 0.9% 100 ml @ 1 MG/HR 1.02 mls/hr IV . Q24H [facility] Rx#:[id number] Output: Urine 475 500 Uretheral (Neves) 475 Other: Voiding Method Indwelling Catheter - Exam Patient is lying in bed, awake and extremely lethargic. On nasal cannula. Intermittent periods of agitation and restlessness with continued confusion HEENT: Normocephalic. Neck is supple. Pupils reactive. Nostrils clear. Oral cavity is dry. Neck reveals no JVD, carotid bruits, or thyromegaly. CHEST EXAMINATION: Trachea is central. Symmetrical expansion. Diminished breath sounds noted with coarse rhonchi and crackles noted throughout CARDIAC: Normal S1, S2 with no gallops. No murmurs ABDOMEN: Soft. Bowel sounds normal. No organomegaly. No abdominal bruits. Extremities: reveal no edema. No clubbing or cyanosis Neurologically awake, alert, oriented x2 with well-coordinated movements. No focal deficits noted Skin: No rash or skin lesions. Mottling noted on bilateral upper and lower extremities along with neck and face Psychiatric: Cooperative. Non-suicidal, confused Musculoskeletal: No joint swelling or deformity. Normal range of motion. Diffusely weak Assessment and Plan Assessment: Metastatic carcinoma most likely of lung primary with noted lesions of the liver and pancreas Right-sided pneumothorax Status post thoracentesis Acute hypoxic respiratory failure secondary to above along with atelectasis and volume loss involving the right lung and right middle lobe and right lower lobe with pleural effusions, now requiring BiPAP COPD acute exacerbation Thrombocytopenia Severe protein malnutrition/cachexia, BMI is 16.2 Acute leukocytosis with lactic acidosis and sepsis, present on admission second krista to postobstructive pneumonia Elevated troponin possibly demand ischemia secondary to acute respiratory failure Alcoholism Large right MCA distribution cerebrovascular accident with some residual left- sided weakness history Hypertension Hyperlipidemia Peripheral vascular disease DVT prophylaxis GI prophylaxis No code Plan: Recommend continue with comfort measures and patient has been made inpatient with [facility] hospice per family wishes along with patient and will continue to monitor closely. Morphine drip to be titrated and continue with as needed Ativan. Prognosis remains extremely poor and guarded.
[2021-04-04] MEDS: GLYCOPYRROLATE 0.2 MG/ML 2 ML VIAL IVP SCH ×3 (10:11→21:08)
[2021-04-04] MEDS: LORazepam 2 MG/ML INJ IV SCH ×4 (10:11→21:08)
[2021-04-04] MEDS: MORPHINE SULFATE (100 MG/2 ML) 100 MG in SODIUM CHLORIDE 0.9% 100 ML IV SCH (13:35)
[2021-04-05] MEDS: LORazepam 2 MG/ML INJ IV SCH ×5 (01:43→17:54)
[2021-04-05] MEDS: GLYCOPYRROLATE 0.2 MG/ML 2 ML VIAL IVP SCH ×3 (05:43→17:51)
[2021-04-05 10:00] VITALS: PULSE 121
[2021-04-05 10:01] VITALS: RESP 8
--- NOTE | 2021-04-05 17:21 | P.PN ---
Subjective Progress Note Date: 04/05/21 Principal diagnosis: Metastatic carcinoma; most likely primary lung Acute hypoxic respiratory failure Postobstructive pneumonia Severe malnutrition protein calorie/debility 65-year-old male presenting with severe respiratory distress. 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 He is still a daily alcohol drinker. He drinks alcohol heavily and he is currently a cigarette smoker on a daily basis. He is quite cachectic, emaciated, debilitated, weak, and malnourished. Does not have any headache. No seizure. Patient had been sent from the primary care office with hypoxia. He was diagnosed with effusion and fluid overload as well as hypoxia in the emergency department yesterday but had left AGAINST MEDICAL ADVICE. He had an elevated troponin, elevated BNP. 03/15/2021 Patient is seen for a follow-up in the intensive care unit. The patient is a ICU overflow. For now, the patient on a BiPAP at a pressure of 14/6 cm of water with an FiO2 of 1. The pulse ox measures and is not aggravated and the blood gases will be needed. The patient is urinating adequate tidal volumes and has a respiratory rate of 16-20. He remains quite lethargic, somnolent yet arousable. Extremely cachectic and emaciated. Hemodynamically stable. As mentioned earlier, a emergent right-sided thoracentesis was done yesterday of the right lung and a total of 800 mL of pleural fluid was aspirated successfully. Nevertheless, the follow-up chest x-ray still showing significant volume loss in the right lung related to his underlying lung mass as the patient has a large mass encasing the right hilar structures and the right mainstem bronchus and the bronchus intermedius. Currently is on bronchodilators and steroids. No fever. No chills. Resting comfortably in bed. Does not communicate a whole lot. Family is not around. Would like to talk to the family regarding treatment. As the patient's prognosis extremely poor baseline above-mentioned comorbidities. Fluid cytology is pending for now. 03/16/2021 Patient is seen and evaluated in room at bedside; sustained a fall with abrasion to right eyebrow with small hematoma. The patient is much more awake compared to yesterday. He was taken off the BiPAP. He was switched to nasal cannula and currently is on room air oxygen. Chest x-ray showing volume loss and they large hilar mass with atelectatic changes as described earlier involving the right lower lung area. -- He remains on bronchodilators; steroids and IV Zosyn as an empiric antibiotic coverage for any postobstructive pneumonia. White cell count is 15.3 with a hemoglobin 0.3. Normal renal function. Lactic acid level is down to 2.2. Urinalysis was abnormal and cultures are still pending for now. Patient underwent thoracentesis right lung with a total of 800 mL of pleural fluid was aspirated. Fluid cytology still pending for now. Repeat chest x-ray from today shows no significant interval change. There is volume loss on the right. The patient is extremely cachectic and in mental status as discussed earlier. No focal neurological deficits. His CODE STATUS has been switched to a DO NOT RESUSCITATE and DO NOT INTUBATE per plant supervisor discussion with the family. 2-D echo reveals global left ventricular dysfunction with EF of 25%; cardiology on board and recommending to start low-dose beta blockers and monitor blood pressure closely; plan is for the workup for cardiomyopathy with gradual addition of heart failure medications. 03/17/2021 Patient is currently lying in the bed. On oxygen via nasal cannula. Denied any complaints of chest pain. Patient is lethargic and seems confused. Rate is being converted on bronchodilators and antibiotics in the form of Zosyn. Next check iron CODE STATUS is DO NOT RESUSCITATE/DO NOT INTUBATE. Fluid cytology from thoracentesis is pending at this time. 03/18/2021 Patient is currently in the MICU. Seems comfortable. On room air. Confused but more awake and oriented today. Patient is being continued on Antivert the form of Zosyn and IV steroids being changed to prednisone 40 mg daily. Fluid cytology is pending. Patient has been afebrile. No complaints of chest pain. No nausea vomiting or abdominal pain or diarrhea. Chest x-ray showed stable appearance yesterday. Pulmonary is planning for bronchoscopy if fluid cytology from thoracentesis is negative. 03/19/2021 Patient is currently in MICU and is lying in the bed comfortably. No compressive chest pain or worsening shortness of breath. Status post paracentesis and fluid cytology is pending at this time. Patient is being continued on Zosyn and prednisone 40 mg daily. Pulmonary is planning for bronchoscopy if fluid cytology is negative. Otherwise patient has been afebrile. Saturating at 94% on room air. Chest x-ray showed complete opacification of right hemithorax which has progressed since prior study. Hyperinflation left lung. Mediastinal shift from left to right. 03/21/2021 Patient is seen and evaluated in follow-up with family at the bedside currently on 5 N. MedSurg with no acute overnight issues noted. Patient was up and working with physical therapy this morning with standby assistance and a walker. Patient continues to be weak although is improving slowly. Patient currently sitting up in the bed comfortably on room air and denies any worsening shortness of breath. Patient is continued on breathing inhalational treatments with pulmonary following closely. Plan is for bronchoscopy with biopsy to confirm diagnosis. Oncology on board as well. Patient also scheduled to undergo brain MRI to evaluate for any metastasis to the brain. Patient continues with a cough that is dry in nature. Patient reports to tolerating diet with no reports of nausea or vomiting noted. Patient is currently nothing by mouth for the procedure and will await report. White blood count is 10.8 with a hemoglobin of 11.7, sodium is 138 with a potassium of 3.3 and will replace and repeat labs. Creatinine is 0.6. Magnesium is 1.9. Patient to continue on IV Zosyn and oral steroids. Radiation oncology being consulted. Patient is a no code. Social work following as well with possibility of ECF once stabilized and discharged. Insurance requires authorization as well. 03/24/2021 Patient is seen and evaluated and follow-up and had a lengthy discussion with at the bedside. Patient is refusing to go to rehab states he just wants to go home. 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 Patient continues to be weak although does have a walker and wheelchair at the home and patient is reluctant to go to rehab and will set up with home care as the patient's is alone and states she needs assistance with his care. Oncology along with radiation oncology following and would like a discussion with patient and her at the bedside as she feels he is not understanding his overall prognosis. Case management following and they are agreeable to palliative care and referral is being placed. Patient is scheduled to undergo bone scan today. 03/25/2021 Patient is seen in follow-up this morning currently undergoing chest ultrasound for possible thoracentesis in the morning with pulmonary. Patient was seen and evaluated by vascular surgery and is not a surgical candidate for a Pleurx catheter. Patient continues to plan on discharging home with home care and will follow-up outpatient with oncology along with radiation oncology after discussing with his about treatment plan. Patient is weak at times and using a walker and has been working with physical therapy and arrangements are being made for discharge planning needs and necessary medical equipment in the home. Case management following and working on this. Patient does continue to have shortness of breath with exertion and maintaining oxygen above 90% on room air. Patient is afebrile. Patient will be nothing by mouth at midnight for the procedure. 03/26/2021 Patient is seen and evaluated in follow-up this morning and per pulmonary not enough effusion noted to perform thoracentesis and will continue to monitor closely. Patient still is having some shortness of breath and intermittent use of oxygen at 2 L. Had a lengthy discussion with oncology about treatment plan moving forward along with at the bedside and the patient who is agreeable to starting chemotherapy and finishing the first cycle and then going to rehab for some strength and mobility. Patient is to receive a PICC line and will have 3 days of chemotherapy and will monitor closely. Patient continues to have intermittent periods of confusion but is more alert and awake and receptive to starting treatment. Patient working with PT/OT therapy daily and continues to be weak and explained to the patient with at the bedside in detail about needing rehab once this first cycle was done for strength and mobility. Will repeat labs and monitor closely. Patient is tolerating diet with no reports of nausea or vomiting noted. Patient needs assistance of the bedside commode. Patient is afebrile. 03/27/2021 Patient is seen in follow up this morning and has received a PICC line and being started on day 1 of 3 chemotherapy with oncology following closely. Monitor labs and patient closely and continue with supportive management. Social work following and patient has been accepted at [facility] with auth approval until 04/01. Patient will need three days of chemotherapy with daily labs and will continue to encourage increased ambulation and PT/OT daily. Continue with supplemental 02. Pulmonary also following. 03/28/2021 Patient is seen this morning continues to have periods of confusion and agitation. Patient currently on day 2 of 3 chemotherapy with oncology following closely. White blood count elevated at 15.5, hemoglobin is 12.6, platelets are 151, sodium is 134 with a potassium of 4.3. Creatinine is 0.58. LFTs within normal limits. Patient continues on 3 L via nasal cannula and will continue. Patient is afebrile. Patient also continued on IV dexamethasone and received second of third dose today. Continue with anticoagulation with Lovenox subcu and continued breathing inhalational treatments. We'll continue with daily labs and monitor closely. 03/29/2021 Patient is currently awake alert and oriented. On BiPAP. Today morning patient became more short of breath and bilateral diminished air entry especially on the right side and diffuse crackles noted. Patient was given a dose of IV Lasix. Patient continues to have short of breath and was placed on BiPAP. ABGs were obtained showed a pH of 7.38 PCO2 49 9 PO2 248.Patient was seen by rapid response team. Laboratory showed WBC 19.8 hemoglobin 12.1 platelets 172 BUN 70 and creatinine 0.63. Chest x-ray showed complete obscuration of the right hemithorax with right mediastinal shift. This is likely a combination of atelectasis effusion and perhaps lung mass. Patient has been afebrile. Pulmonary was reconsulted and chest ultrasound was ordered as per recommendations for possible thoracentesis.. 03/30/2021 Patient is currently lying in the bed. Requiring BiPAP support. Denied any complaints of chest pain. Patient is awake alert oriented x3. Possible IR guided right-sided thoracentesis on Wednesday. Ultrasound of the chest showed moderate right small left pleural effusions. Continue to monitor respiratory status closely. Discussed with the patient and family at bedside in detail. 03/31/2021 Patient is currently resting in bed comfortably. Still on BiPAP. Awake alert and oriented x3. No complaints of worsening chest pain or shortness of breath. Ultrasound of the chest showed moderate pleural effusion. Possible IR guided thoracentesis on Wednesday. 04/01/2021 Patient is seen and examined in follow-up this morning continues to be on BiPAP and unable to tolerate being off. Patient underwent chest ultrasound for possible thoracentesis with pulmonary following closely. Interventional radiology consulted for thoracentesis and patient was maintained on Lovenox and will need to hold with possibility of thoracentesis tomorrow. at the bedside and discussed with the family and daughter of the patient with possible hospice consult for informational. manager operating made aware and made the consult. states last to proceed with thoracentesis and see how the patient is doing before making any confirmed decisions about hospice. She is open to receiving information from [facility] at this time. Will continue BiPAP support and hold Lovenox. White blood count is 9.5 with a hemoglobin of 12.7, sodium is 131 with a potassium 4.4 current creatinine is 0.5. 04/02/2021 Patient is seen in follow-up this morning status post thoracentesis with development of a pneumothorax on the right and is being closely monitored. Patient is BiPAP dependent with family at the bedside. Patient is unresponsive and not waking up to any commands verbal or stimulus. Oncology along with pulmonary following closely. Discussed at length with the again about hospice and comfort care and she is agreeable although his daughter does not want the BiPAP removed and hospice is unable to admit GIP with continued BiPAP. This was discussed and explained with the at the bedside and [facility] will continue to follow with possibility of opening up tomorrow. Oncology recommending close observation for another 24 hours prior to starting comfort measures. Patient appears in no distress and again is unresponsive to verbal or painful stimuli. Will continue to monitor closely. Prognosis remains extremely poor and guarded. Patient is a no code. Lovenox has been discontinued and platelets are 76. 04/03/2021 Patient is seen in follow-up this morning with multiple family is at the bedside and have met with [facility] and plan is to make the patient inpatient and wean off the BiPAP and start with comfort measures and morphine drip. Patient is awake although extremely lethargic and fatigued and responding appropriately to questions and commands. Patient denies any pain or difficulty in breathing. Patient continues to be BiPAP dependent at this point. Family would like to proceed with hospice and comfort care measures only. 04/04/2021 Patient is seen in follow-up continues to be on morphine drip currently at 1 mL per hour along with as needed Ativan. Patient is awake although extremely lethargic and continues to be confused with intermittent periods of agitation and restlessness per at the bedside. [facility] following and working on titrating medications for comfort. 04/05/2021 Patient is currently resting in the bed comfortably.. on 2 L oxygen via nasal cannula. Confused and lethargic. Continue comfort measures. Hospice care is following. Patient's is at bedside. Review of systems: Unable to obtain as patient continues to be confused Objective - Vital Signs Vital signs: Vital Signs Temp 98.2 F 04/03/21 15:43 Pulse 121 H 04/05/21 08:25 Resp 8 L 04/05/21 10:01 BP 119/82 04/03/21 15:43 Pulse Ox 80 L 04/05/21 10:01 Intake & Output 04/04/21 04/05/21 04/05/21 18:59 06:59 18:59 Intake Total 28.819 0 56.117 Output Total 30 0 Balance -1.181 0 56.117 Intake: Intake, IV Titration 28.819 56.117 Amount Morphine Sulfate (100 mg/ 28.819 56.117 2 ml) 100 mg In Sodium Chloride 0.9% 100 ml @ 1 MG/HR 1.02 mls/hr IV . Q24H [facility] Rx#:[id number] Oral 0 Output: Urine 30 0 Other: Voiding Method Indwelling Catheter Indwelling Catheter - Exam PHYSICAL EXAMINATION: Patient is lying in the bed comfortably, is lethargic and confused... HEENT: Normocephalic. Neck is supple. Pupils reactive. Nostrils clear. Oral cavity is moist. Neck reveals no JVD, carotid bruits, or thyromegaly. CHEST EXAMINATION: Trachea is central. Symmetrical expansion. Bilateral diminished sounds.. CARDIAC: Normal S1, S2 with no gallops. No murmurs ABDOMEN: Soft. Bowel sounds normal. No organomegaly. No abdominal bruits. Extremities: reveal no edema. No clubbing or cyanosis Neurologically he is confused, lethargic and drowsy. No gross focal neurological deficit. Skin: No rash or skin lesions. Psychiatric: Could not be assessed at this time. Musculoskeletal: No joint swelling or deformity. Assessment and Plan Assessment: Metastatic carcinoma most likely of lung primary with noted lesions of the liver and pancreas Right-sided pneumothorax Status post thoracentesis Acute hypoxic respiratory failure secondary to above along with atelectasis and volume loss involving the right lung and right middle lobe and right lower lobe with pleural effusions, now requiring BiPAP COPD acute exacerbation Thrombocytopenia Severe protein malnutrition/cachexia, BMI is 16.2 Acute leukocytosis with lactic acidosis and sepsis, present on admission secondary to postobstructive pneumonia Elevated troponin possibly demand ischemia secondary to acute respiratory failure Alcoholism Large right MCA distribution cerebrovascular accident with some residual left- sided weakness history Hypertension Hyperlipidemia Peripheral vascular disease DVT prophylaxis GI prophylaxis No code Plan: Recommend continue with comfort measures and patient has been made inpatient with [facility] per family wishes along with patient and will continue to monitor closely. Morphine drip to be titrated and continue with as needed Ativan. Prognosis remains extremely poor and guarded.
--- NOTE | 2021-04-09 14:46 | P.DS ---
Providers Date of admission: 04/03/21 10:55 Expected date of discharge: 04/05/21 Attending physician: Codi Villalpando MD Primary care physician: Stated None Hospital Course: Diagnosis Metastatic carcinoma / Samll cell lung Cancer. noted lesions of the liver and pancreas Right-sided pneumothorax Status post thoracentesis Acute hypoxic respiratory failure secondary to above along with atelectasis and volume loss involving the right lung and right middle lobe and right lower lobe with pleural effusions, requiring BiPAP COPD acute exacerbation Thrombocytopenia Severe protein malnutrition/cachexia, BMI is 16.2 Acute leukocytosis with lactic acidosis and sepsis, present on admission secondary to postobstructive pneumonia Elevated troponin possibly demand ischemia secondary to acute respiratory failure Alcoholism Large right MCA distribution cerebrovascular accident with some residual left- sided weakness history Hypertension Hyperlipidemia Peripheral vascular disease DVT prophylaxis GI prophylaxis No code Hospital course 65-year-old male presenting with severe respiratory distress. Past medical history is positive for a large right-sided MCA distribution CVA with some minimal left upper extremity weakness, hyperlipidemia, coronary artery disease, peripheral artery disease and previous history of alcoholism resents to ER due to worsening shortness of breath and found to have pleural effusion and hypoxia. Patient was initially was on BiPAP and transferred to MICU due to worsening shortness of breath and pleural effusion. Patient had paracentesis with fluid cells showing malignant cells. Patient is status post bronchoscopy and biopsy showed small cell lung cancer. Patient initially in the MICU and was continued on antibiotics empirically in the form of Zosyn and prednisone were stopped. After confirming the diagnosis of small cell lung cancer patient was transferred to oncology unit. Patient was seen by radiation oncology and general oncology. MRI of the brain showed no evidence of metastatic lesions. CT of the abdomen pelvis and bone scan was done as well. Patient was considered for radiation oncology. Patient had a PICC line and was started on day 1 of 3 of palliative chemotherapy. Patient continues to have right-sided pleural effusion and went into respiratory failure requiring BiPAP while in the medical floor. IR guided paracentesis was done few days ago. Patient remained BiPAP. Due to poor prognosis is unable to tolerate BiPAP family mentation to go for hospice care. Hospice care service was consulted. Patient was started on comfort measures and patient on 04/05/2021 at 1915. Family/ is at bedside. Plan - Discharge Summary Discharge Rx Participant: No New Discharge Prescriptions: No Action Simvastatin [Zocor] 20 mg PO HS Donepezil [Aricept] 10 mg PO HS Aspirin EC [Ecotrin] 325 mg PO HS Lisinopril [Zestril] 10 mg PO HS Cholecalciferol [Vitamin D3 (25 Mcg = 1000 Iu)] 50 mcg PO HS Furosemide [Lasix] 20 mg PO BID #10 tab Discharge Medication List Aspirin EC [Ecotrin] 325 mg PO HS 11/03/17 [History] Donepezil [Aricept] 10 mg PO HS 11/03/17 [History] Simvastatin [Zocor] 20 mg PO HS 11/03/17 [History] Cholecalciferol [Vitamin D3 (25 Mcg = 1000 Iu)] 50 mcg PO HS 03/13/21 [History] Furosemide [Lasix] 20 mg PO BID #10 tab 03/13/21 [Rx] Lisinopril [Zestril] 10 mg PO HS 03/13/21 [History] Discharge Disposition: - Preliminary Cause of Preliminary Cause of : Metastatic small cell lung cancer with mets to liver and pancreas.
== END 2021-04-05 20:56 | disposition expired | DRG 951 ==
LOC: 5NMEDONC 10:55
PROVIDERS: ADMIT Internal Medicine; ATTEND Internal Medicine
PROC: 5A09457 Assistance with Respiratory Ventilation, 24-96 Consecutive Hours, Continuous Positive Airway Pressure (ICD-10-PCS; principal; 2021-04-03)
PROC: 0W993ZZ Drainage of Right Pleural Cavity, Percutaneous Approach (ICD-10-PCS; 2021-04-04)
PROC: 0W993ZZ Drainage of Right Pleural Cavity, Percutaneous Approach (ICD-10-PCS; 2021-04-05)
DX: Z51.5 Encounter for palliative care (principal); A41.9 Sepsis, unspecified organism; E43 Unspecified severe protein-calorie malnutrition; J18.9 Pneumonia, unspecified organism; J96.01 Acute respiratory failure with hypoxia; G93.5 Compression of brain; I21.A1 Myocardial infarction type 2; C34.90 Malignant neoplasm of unspecified part of unspecified bronchus or lung; C78.7 Secondary malignant neoplasm of liver and intrahepatic bile duct; C78.89 Secondary malignant neoplasm of other digestive organs; E87.2 Acidosis; I69.354 Hemiplegia and hemiparesis following cerebral infarction affecting left non-dominant side; J44.0 Chronic obstructive pulmonary disease with (acute) lower respiratory infection; J44.1 Chronic obstructive pulmonary disease with (acute) exacerbation; J93.9 Pneumothorax, unspecified; J98.11 Atelectasis; Z68.1 Body mass index [BMI] 19.9 or less, adult; I25.10 Atherosclerotic heart disease of native coronary artery without angina pectoris; Z66 Do not resuscitate; D69.6 Thrombocytopenia, unspecified; E78.5 Hyperlipidemia, unspecified; E87.70 Fluid overload, unspecified; F10.20 Alcohol dependence, uncomplicated; F17.210 Nicotine dependence, cigarettes, uncomplicated; I10 Essential (primary) hypertension; I73.9 Peripheral vascular disease, unspecified; Z91.81 History of falling